=== PATIENT | female | born 1955 | race Caucasian/White ===

== ENCOUNTER 2022-05-12 09:32 | Outpatient (RCR) | payer MEDICARE, BC, SELFPAY ==
--- NOTE | 2022-06-16 15:16 | ONC.NURNOTE ---
Called pt and reviewed DEXA scan shows normal bone density.
== END 2022-11-08 23:59 | disposition home or self-care (01) ==
LOC: CCIC 09:32
PROVIDERS: PCP Family Medicine; Visit Provider Nurse Practitioner Family
DX: C50.911 Malignant neoplasm of unspecified site of right female breast (principal); C50.912 Malignant neoplasm of unspecified site of left female breast; Z17.0 Estrogen receptor positive status [ER+]; M25.50 Pain in unspecified joint; Z79.811 Long term (current) use of aromatase inhibitors
CPT/HCPCS: 99212; 99214

== ENCOUNTER 2022-05-26 14:55 | Outpatient (CLI) | payer MEDICARE, BC, SELFPAY ==
--- NOTE | 2022-05-26 15:00 | CRLHL7_ITS ---
For Patients: As a result of the Century Cures Act, medical imaging exams and procedure reports are released immediately into your electronic medical record. You may view this report before your referring provider. If you have questions, please contact your health care provider. DXA BONE MINERAL DENSITY STUDY Reason for exam: Screening. History of cancer. Current height (in): 66. Weight (lb): 180. Menopause age: 54. Ethnicity: White. 1. Have you had a previous hip or vertebral fracture? No. 2. Have you had any fractures during your adult life which did not result from significant trauma (e.g., auto accident)? No. 3. Did either of your parents have a hip fracture? No. 4. Do you smoke? No. 5. Have you ever taken Glucocorticoids? No. 6. Do you have rheumatoid arthritis? No. 7. Do you have secondary osteoporosis? No. 8. Do you drink 3 or more alcoholic drinks per day? No. 9. Are you being treated for osteoporosis? No. 10. Have you ever taken any of the following medications: Actonel, Evista, Fosamax, Miacalcin, Reclast, Boniva, Forteo, HRT (i.e. estrogen/hormone therapy), Protelos, Prolia, Vitamin D, Calcium, other ??? please specify. ANSWER: Yes, vitamin D, HRT, and calcium. 11. Do you have any of the following medical conditions: Anorexia or bulimia, asthma or emphysema, end stage renal disease, hyperparathyroidism, any seizure disorders, cancer, inflammatory bowel diseases, hysterectomy, other ??? please specify. ANSWER: Yes, cancer and hysterectomy. 12. What was your maximum height (inches)? 66. 13. Do you perform weight bearing exercise regularly? No. 14. Do you regularly consume dairy products? No. 15. Do you drink caffeinated beverages? Yes. If female: 16. At what age did your period start? 11. 17. Are you premenopausal? No. 18. How many full-term pregnancies have you had? 2. 19. Have you ever missed your period for more than 6 months in a row (not including or menopause)? No. TECHNIQUE: Bone mineral density study was performed using the [employer]. FINDINGS: The results of the study expressed as bone mineral density (BMD) are as follows: Lumbar spine L1 to L4: BMD: 0.950 g/cm2. T-score: -0.9. Z-score: 1.1 Neck Left: BMD: 0.829 g/cm2. T-score: -0.2. Z-score: 1.5 Right: BMD: 0.876 g/cm2. T-score: 0.2. Z-score: 1.9 Total Left: BMD: 1.008 g/cm2. T-score: 0.5. Z-score: 1.9 Right: BMD: 1.005 g/cm2. T-score: 0.5. Z-score: 1.9 IMPRESSION: Normal bone density. *Comparison exams done prior to 12/2019 were performed on different unit, [employer]. COMPARISON: Compared with scan of 04/15/2020, the bone mineral density has decreased by 1.0 percent at the spine and decreased by 1.4 percent at the hip. Compared with scan of 04/09/2018, the bone mineral density has decreased by 6.6 percent at the spine and decreased by 1.3 percent at the hip. Keny Cox M.D. Diagnostic Radiologist [email or web address] JUAN DIEGO/alejandro allen/Dictated by: Keny Cox MD @ 05/27/2022 7:57:00 AM (Electronically Signed)
== END 2022-05-26 14:56 | disposition home or self-care (01) ==
LOC: RAD 14:55
PROVIDERS: PCP Family Medicine; Visit Provider Nurse Practitioner Family
DX: Z13.820 Encounter for screening for osteoporosis (principal); C50.919 Malignant neoplasm of unspecified site of unspecified female breast; Z79.811 Long term (current) use of aromatase inhibitors
CPT/HCPCS: 77080

== ENCOUNTER 2022-11-24 10:08 | Outpatient (RCR) | payer MEDICARE, BC, SELFPAY ==
[2022-11-24 10:50] LABS: Albumin* 4.5 g/dL (3.3-5.0); Chloride* 102 mmol/L (96-114)
[2022-11-24 10:51] LABS: Potassium* 3.8 mmol/L (3.6-5.1); Sodium* 139 mmol/L (135-149)
[2022-11-24 10:53] LABS: Alkaline Phosphatase* 70 U/L (40-150); Aspartate Amino Transferase* 29 U/L (12-35); Blood Urea Nitrogen* 15 mg/dL (7-30); Carbon Dioxide* 31 mmol/L (20-32); Creatinine* 0.9 mg/dL (0.5-1.5); Estimated Glomerular Filt Rate 70 ml/min; Total Protein* 7.7 g/dL (6.0-8.3)
[2022-11-24 10:54] LABS: Alanine Aminotransferase* 31 U/L (4-35); Calcium* 9.2 mg/dL (8.4-10.6); Glucose* 118 mg/dL (60-115)
== END 2023-05-23 23:59 | disposition home or self-care (01) ==
LOC: CCIC 10:08
PROVIDERS: Nurse Practitioner Family; PCP Family Medicine; Visit Provider Physician Assistant
DX: C50.911 Malignant neoplasm of unspecified site of right female breast (principal); C50.912 Malignant neoplasm of unspecified site of left female breast; Z17.0 Estrogen receptor positive status [ER+]; Z79.811 Long term (current) use of aromatase inhibitors; R22.30 Localized swelling, mass and lump, unspecified upper limb; G62.0 Drug-induced polyneuropathy; T45.1X5A Adverse effect of antineoplastic and immunosuppressive drugs, initial encounter; Z90.13 Acquired absence of bilateral breasts and nipples
CPT/HCPCS: 36415; 80053; 99213; 99214

== ENCOUNTER 2023-05-25 14:13 | Outpatient (RCR) | payer MEDICARE, BC, SELFPAY ==
--- NOTE | 2023-05-26 07:52 | ONC.NURNOTE ---
General surgery referral faxed to [facility]. Cancer genetics request faxed to Bharti Currie.
--- NOTE | 2023-06-30 10:49 | ONC.NURNOTE ---
Addendum entered by Olimpia Velazquez RN 07/11/23 10:31: Gabapentin prescription did not submit electronically successfully. Faxed script to fax # pt supplied: [phone]; went through successfully. Updated pt; she will call if pharmacy did not receive. Original Note: Pt called requesting Gabapentin refill as she has half bottle left. Note on Trang's desk for when next in office to submit to [facility] on file.
== END 2023-11-21 23:59 | disposition home or self-care (01) ==
LOC: CCIC 14:13
PROVIDERS: PCP Family Medicine; Visit Provider Physician Assistant
DX: C50.911 Malignant neoplasm of unspecified site of right female breast (principal); C50.912 Malignant neoplasm of unspecified site of left female breast; Z17.0 Estrogen receptor positive status [ER+]; Z79.811 Long term (current) use of aromatase inhibitors; G62.0 Drug-induced polyneuropathy; T45.1X5A Adverse effect of antineoplastic and immunosuppressive drugs, initial encounter; N61.0 Mastitis without abscess
CPT/HCPCS: 99212; 99215

== ENCOUNTER 2023-11-07 07:58 | Outpatient (CLI) | payer MEDICARE, BC, SELFPAY ==
--- NOTE | 2023-11-07 08:15 | MR_ITS ---
Patient: JASBIR REN Facility:?[facility] Patient ID:?[id number] Site Patient ID:?[id number]. Site :?[id number] Study:?MRI-Spine Lumbar W/O-11/07/2023 10:15:48 AM Ordering Physician:?VENKAT JEWELL Final Report: Indication: T12 compression fracture. Pain. Technique: T2, T1, and STIR sagittal as well as T1 and T2 axial sequences were obtained. No IV contrast. Comparison: None available. Findings: There is mild anterior wedging along the inferior endplate of the T12 vertebral body, accompanied by a small marginal Schmorl`s node endplate indentation. Prominent marrow edema is seen in the anteroinferior aspect of this vertebral body, indicating a recent or active insult. No additional evidence for fracture or worrisome bone lesion. Alignment is anatomic. No high grade central canal stenosis. No intraspinal hemorrhage. The conus and cauda equina are unremarkable, with the tip of the cord at the L1 level. No paraspinal pathology is identified. The included sacroiliac joints are unremarkable. T12-L1: Minor disc and facet degenerative changes. The foramina are patent. L1-2: Minor facet degenerative changes. The disc is negative. The foramina are patent. L2-3: Minor disc and facet degenerative changes. The foramina are patent. L3-4: Minor disc and facet degenerative changes. The foramina are patent. L4-5: Minor disc and facet degenerative changes. The foramina are patent. L5-S1: Minor disc and facet degenerative changes with low-grade foraminal narrowing. Impression: 1. Mild anterior wedging along the inferior endplate of the T12 vertebral body. This is active/acute. No associated intraspinal or paraspinal hemorrhage. 2. No additional evidence for recent fracture. 3. Scattered trace lumbar spondylosis. Dictated by Mark John MD @ 11/07/2023 2:13:14 PM Signed by:?Mark John MD @11/07/2023 2:13:14 PM (Electronic Signature)
== END 2023-11-07 07:59 | disposition home or self-care (01) ==
LOC: MRI 07:59
PROVIDERS: PCP Family Medicine; Visit Provider Family Medicine
DX: S22.080A Wedge compression fracture of T11-T12 vertebra, initial encounter for closed fracture (principal); M47.896 Other spondylosis, lumbar region
CPT/HCPCS: 72148

== ENCOUNTER 2023-11-28 10:39 | Outpatient (CLI) | payer MEDICARE, BC, SELFPAY ==
--- OUTSIDE RECORDS SUMMARY | 2023-11-28 10:41 | XMS_ITS | Clinical Summary ---
Author Name Unknown Organization [facility] Address [address] [place] [address] Care Team Providers Care Intelligence Operations Name Role Phone Elsewhere, Pcp Primary Care Provider Unavailabl e Source Comments Patient records contain information from all sites at [facility]. For routine questions regarding patient records, call [phone] during business hours, M-F 8:00 AM - 5:00 PM Central Time. Record requests for emergency care only can be directed to [phone] at any time.[facility] Allergies Active Allergy Reactions Criticality Noted Date Comments Acetylcysteine Itching Low 11/10/2017 [employer]. Pt states, it was given too fast. When it was slowed it was fine. Cephalexin Diarrhea 01/25/2019 Gluten Other (see comments) Low 11/10/2017 Celiac Medications Medication Sig Dispensed Refills Start Date End Date Status wjbesmb-mwjocxozk-yjj taminophen (MIDRIN) 65-100-325 mg per capsule Take 1 capsule by mouth. 04/11/2017 Active amitriptyline (ELAVIL) 75 mg tablet Take 75 mg by mouth at bedtime. 10/28/2016 Active amLODIPine (NORVASC) 5 mg tablet Take 5 mg by mouth daily. 09/07/2017 Active cholecalciferol (VITAMIN D3) 2,000 Unit capsule Take 2,000 Units by mouth daily. 07/08/2011 Active citalopram (CeleXA) 40 mg tablet Take 20 mg by mouth every morning. 10/28/2016 Active miscellaneous medical supply misc autoCPAP, heated humidifier, mask, headgear, filters and tubing. Pressure: 4-15cm/H2O Length of Need: 99 02/21/2013 Active lisinopril-hydroCHLOR Othiazide (PRINZIDE,ZESTORETIC) 20-25 mg per tablet Take 1 tablet by mouth daily. 10/28/2016 Active LORazepam (ATIVAN) 0.5 mg tablet Take 0.5 mg by mouth as needed. 09/07/2017 Active pravastatin (PRAVACHOL) 80 mg tablet Take 80 mg by mouth daily. 10/28/2016 Active bevacizumab (AVASTIN) 25 mg/mL injection Inject 25 mg into the eye every 8 (eight) weeks. Active butalbital-acetaminop -caf-cod (FIORICET WITH CODEINE) 27-294-85-30 mg per capsule daily as needed. headaches 02/16/2018 Active letrozole (FEMARA) 2.5 mg tablet Take 2.5 mg by mouth daily. 11 03/29/2018 Active acetaminophen (TYLENOL) 325 mg tablet Take 650 mg by mouth as needed. 04/24/2019 Active bisoprolol (ZEBETA) 5 mg tablet Take 2.5 mg by mouth. 11/04/2021 Active clobetasoL (TEMOVATE) 0.05 % cream APPLY TO AFFECTED AREA TWICE A DAY SPARINGLY 10/28/2020 Active exemestane (AROMASIN) 25 mg tablet Take 25 mg by mouth daily. 11/04/2021 Active gabapentin (NEURONTIN) 300 mg capsule One in the morning, one in the afternoon and 2 in the evening. 11/04/2021 Active ketoconazole (NIZORAL) 2 % shampoo Shampoo your hair 3 times per week for 1 month 03/25/2021 Active omeprazole (PriLOSEC) [address] capsule Take 20 mg by mouth. 01/09/2022 Active potassium chloride (KLOR-CON M/KDUR) 20 mEq ER tablet Take 20 mEq by mouth. 01/14/2022 Active triamcinolone (KENALOG) 0.1 % cream APPLY TO AFFECTED AREA BELOW BREASTS AND ARMS TWICE A DAY FOR 2 WEEKS AT A TIME , TAKE 2 WEEK BREAK AND REPEAT REPEAT NEEDED FOR FLARES 07/09/2021 Active citalopram (CeleXA) 20 mg tablet Take 1 tablet by mouth daily. 11/04/2021 Active calcium carbonate-vitamin D3 1,250 mg (500 mg calcium)-10 mcg (400 Unit) per chewable tablet Chew 1 tablet 2 (two) times a day with meals. Active zinc gluconate 50 mg tablet Take 50 mg by mouth daily with breakfast. Active UNABLE TO FIND Take 1 each by mouth daily. Med Name: Tumeric 500mg Active Active Problems Problem Noted Date Diagnosed Date Pneumonitis Radiation Acute 06/26/2018 Malignant Neoplasm Of Breast Central Female Left 01/12/2018 Cancer Staging:Pathologic stage from 06/14/2017:Stage IB(pT3, pN0(sn), cM0, G2, ER+, MA+, HER2-) - Signed by Jeet Costello M.D. 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 on 01/12/2018 Encounters Date Type Department Care Team Description 09/11/2023 Orders Only Division of Gastroenterology in [place], [place] [address] [place] [address] Artemio Argueta M.D. Genetic Susceptibility To Disease from Last 3 Months Immunizations Name Administration Dates Next Due DTaP (Infanrix, [employer]) 10/28/2005 Influenza, Unspecified 07/04/2008 Social History Tobacco Use Types Packs/Day Years Used Date Smoking Tobacco: Former Cigarettes 0.2 26.8 0 08/01/1977 - 2004 Smokeless Tobacco: Never Tobacco Cessation:Counseling Given: Not Answered Humiliation, Afraid, Rape, and Kick questionnair e Answer Date Recorded Within the last year, have y ou been afraid of your partner or ex-partner? No 04/01/2022 Within the last year, have y ou been humiliated or emotionally abused in other ways by your partner or ex-partner? No Within the last year, have y ou been kicked, hit, slapped, or otherwise physically hurt by your partner or ex-partner? No 04/01/2022 Within the last year, have y ou been raped or forced to have any kind of sexual activity by your partner or ex-partner? No 04/01/2022 Social Connection and Isolat ion Panel [NHANES] Answer Date Recorded In a typical week, how many times do you talk on the phone with family, friends, or neighbors? More than three times a week 04/01/2022 How often do you get togethe r with friends or relatives? Twice a week 04/01/2022 How often do you attend chur ch or restoration services? Patient declined 04/01/2022 Do you belong to any clubs o r organizations such as islam groups, unions, fraternal or athletic groups, or school groups? Yes 04/01/2022 How often do you attend meet ings of the clubs or organizations you belong to? Patient declined 04/01/2022 Are you , , di vorced, , never , or living with a partner? 04/01/2022 AUDIT-C Answer Date Recorded Q1: How often do you have a drink containing alc ohol? 2-3 times a week 04/01/2022 Q2: How many drinks containi ng alcohol do you have on a typical day when you are drinking? 3 or 4 04/01/2022 Q3: How often do you have si x or more drinks on one occasion? Less than monthly 04/01/2022 Overall Financial Resource Strain (CARDIA) Answe r Date Recorded How hard is it for you to pa y for the very basics like food, housing, medical care, and heating? Not hard at all 04/01/2022 [facility] - Occupational Stress Questionnaire Answer Date Recorded Do you feel stress - tense, restless, nervous, or anxious, or unable to sleep at night because your mind is troubled all the time - these days? To some extent 04/01/2022 Exercise Vital Sign Answer Date Recorde d On average, how many days pe r week do you engage in moderate to strenuous exercise (like a brisk walk)? 3 days 04/01/2022 On average, how many minutes do you engage in exercise at this level? 30 min 04/01/2022 Hunger Vital Sign Answer Date Recorded Within the past 12 months, y ou worried that your food would run out before you got the money to buy more. Never true 04/01/20 22 Within the past 12 months, t he food you bought just didn't last and you didn't have money to get more. Never true 04/01/2022 PRAPARE - Transportation Answer Date Re corded In the past 12 months, has l ack of transportation kept you from medical appointments or from getting medications? No 08/2021 In the past 12 months, has l ack of transportation kept you from meetings, work, or from getting things needed for daily living? No 04/01/2022 Housing Stability Vital Sign Answer Bret e Recorded In the last 12 months, was t here a time when you were not able to pay the mortgage or rent on time? No 04/01/2022 Number of Places Lived in the Last Year Not on f ile 04/01/2022 In the last 12 months, was t here a time when you did not have a steady place to sleep or slept in a fpc (including now)? No 04/01/2022 Nutrition Answer Date Recorded Nutrition: EVOO Fat Source No 04/01 On average, how many serving s of fruits and vegetables do you eat per day (serving size is equal to 1 cup or approximately the size of a tennis ball)? 2-3 04/01/2022 Dental Answer Date Recorded Dental: Regular Dentist Yes 04/01/20 Employment Answer Date Recorded Employment status Retired 04/01/2022 Education Answer Date Recorded What is the highest level of school you have completed or the highest degree you have received? Associate degree: occupational, technical, or vocational program 04/01/2022 Sex and Gender Information Value Date Recorded Sex Assigned at Female 01/12/2018 10:04 AM CDT Gender Identity Female 01/12/2018 10:04 AM CDT Sexual Orientation Straight 01/12/2018 10 :04 AM CDT Last Filed Vital Signs Vital Sign Reading Time Taken Comments Blood Pressure 104/66 04/05/2022 7:49 AM CDT Pulse 64 04/05/2022 7:49 AM CDT Temperature 36.3 ??C (97.3 ??F) 04/05/2022 7:49 AM CD T Respiratory Rate - - Oxygen Saturation 95% 04/05/2022 7:49 AM CDT Inhaled Oxygen Concentration - - Weight 85.3 kg (188 lb 0.8 oz) 04/05/2022 7:49 A M CDT Height 166.5 cm (5' 5.55) 04/05/2022 7:49 AM CD T Body Mass Index 30.77 04/05/2022 7:49 AM CDT Plan of Treatment Health Maintenance Due Date Last Done Comments Bone Density Scan (Osteoporo sis Screen) 1955 CT Colonography 1955 Cologuard 1955 FIT 1955 Hepatitis C Screening 1955 Mammogram 1955 Depression Screening (Annual PHQ-2) 07/31/2023 Fall Risk Screen (Annual) 07/31/2023 Creatinine Level (Kidney Fun ction Test) 10/30/2024 10/31/2023, 10/11/2022, 06/02/2022, Additional history exists Potassium Level 10/30/2024 10/31/2023, 09/28, 06/02/2022, Additional history exists Sodium Level 10/30/2024 10/31/2023, 09/28, 06/02/2022, Additional history exists DTaP,Tdap,and Td Vaccines (3 - Td or Tdap) 10/28/2026 10/28/2016, 10/28/2005, 10/28/2005 Fasting Glucose for Diabetes Screening 10/30/2026 10/31/2023, 10/11/2022, 06/02/2022, Additional history exists Colonoscopy 12/07/2030 12/07/2020 Colorectal Cancer Screening 12/07/2030 Zoster Vaccines Completed 04/16/2019, 01/28, 07/29/2013 Pneumococcal vaccine (65+ years) Completed 12/30/19, 10/21/2019 Influenza Vaccine Completed 07/13/2023, , 03/26/2021, Additional history exists COVID-19 Vaccine Completed 11/02/2023, , 06/14/2022, Additional history exists Procedures Procedure Name Priority Date/Time Associated Diagnosis Comments EXTI BASIC METABOLIC PANEL, S/P Routine 10/31/2023 9:26 AM CDT from Last 3 Months or Most Recently Relevant to Health Maintenance Additional Health Concerns Infection Onset Date Last Indicated Protective Environment 06/23/2023 3 Care Teams Intelligence Operations Relationship Specialty Start Date End Date Elsewhere, Pcp PCP - General Family Medicine 01/12/18
--- OUTSIDE RECORDS SUMMARY | 2023-11-28 10:42 | XMS_ITS | Clinical Summary ---
Author Name Unknown Organization [facility] Address [place], [place] [address] Care Team Providers Care Cash Application Clerk Name Role Phone Milena Trevino MD Primary Care Provide r Allergies Active Allergy Reactions Criticality Noted Date Comments Gluten GI Upset 11/10/2017 Celiac Cephalexin Diarrhea 01/25/2019 Acetylcysteine Itching 11/10/2017 Via neb. Pt states, it was given too fast. When it was slowed it was fine. Medications Medication Sig Dispensed Refills Start Date End Date Status bevacizumab (AVASTIN) 25 mg/mL injection Q8week Active CPAPIndications:NANCY (obstructive sleep apnea) CPAP machine for home use at pressure: 13cm/H2O , Heated humidifier x 1 q 5 yr, Water chamber x 1 q 6 mo, chin strap x 1 q 6 mo, nasal mask x 1 q 3 mo, with nasal cushion x 2 q mo, Standard pap tubing x 1 q 3 mo, headgear x 1 q 6 mo, non disposable filter 1 q 6 mo, disposable filter x 2 q mo ??Length of Need: 6 months, Frequency of use: Daily 0 1 Active gabapentin (NEURONTIN) 300 mg capsuleIndications: Primary cancer of left breast (HC) One in the morning, one in the afternoon and 2 in the evening. 270 Capsule 1 2 Active zinc gluconate 50 mg tablet Take 50 mg by mouth once daily. Active Calcium-Cholecalcif lacy, D3, 500 mg-10 mcg (400 unit) chewable tablet Chew 1 Tablet by mouth once daily. Active acetaminophen (TYLENOL EXTRA STRGTH) 500 mg tablet Take 1,000 mg by mouth 2 times daily if needed. Max acetaminophen dose: 4000mg in 24 hrs. Active letrozole (FEMARA) 2.5 mg tablet Take 2.5 mg by mouth once daily. 3 Active SUMAtriptan (IMITREX) 25 mg tabletIndications:M igraine without aura and without status migrainosus, not intractable Take 1 Tablet (25 mg) by mouth every 2 hours if needed for Migraine. Give at minimum 2hrs apart. Max Dose: 200mg per 24hrs. 10 Tablet 3 3 Active LORazepam (ATIVAN) 0.5 mg tabIndications:Mild depression,Primary cancer of left breast (HC) TAKE 1 TABLET 2 TIMES DAILY IF NEEDED FOR ANXIETY. 30 Tablet 3 Active DULoxetine (CYMBALTA) 30 mg Delayed-release capsuleIndications: Mild depression Take 1 Capsule (30 mg) by mouth once daily. 90 Capsule 3 4 Active pravastatin (PRAVACHOL) 80 mg tabletIndications:H yperlipidemia, unspecified hyperlipidemia type Take 1 Tablet (80 mg) by mouth at bedtime. 90 Tablet 3 4 Active metoprolol succinate (TOPROL XL) 25 mg Sustained-Release tabletIndications:E ssential hypertension Take 1 Tablet (25 mg) by mouth once daily. 90 Tablet 3 4 Active potassium chloride (KLOR-CON M20) 20 mEq extended-release tablet (part/cryst)Indicat ions:Essential hypertension Take 1 Tablet (20 mEq) by mouth once daily with a meal. 90 Tablet 3 4 Active amitriptyline (ELAVIL) 75 mg tabletIndications:E pisodic tension-type headache, not intractable Take 1 Tablet (75 mg) by mouth at bedtime. 90 Tablet 3 4 Active omeprazole (PRILOSEC) 20 mg Delayed-Release capsuleIndications: Chronic GERD Take 1 Capsule (20 mg) by mouth once daily before a meal. 90 Capsule 3 4 Active lisinopril-hydrochl orothiazide, 20-25 mg, (PRINZIDE, ZESTORETIC) 20-25 mg per tabletIndications:E ssential hypertension Take 1 Tablet by mouth once daily. 90 Tablet 3 4 Active ayabojm-ybmhazxy-eh talbital, 325-40-50 mg, (FIORINAL) tabletIndications:M igraine without aura and without status migrainosus, not intractable Take 1 Tablet by mouth every 4 hours if needed for Pain. Max 6 tabs per day. 30 Tablet 1 4 Active amLODIPine (NORVASC) 5 mg tabletIndications:E ssential hypertension Take 1 Tablet (5 mg) by mouth once daily in the evening. 90 Tablet 3 4 Active azithromycin (Zithromax Z-Nahid) 250 mg tabletIndications:B ronchitis Take 500 mg today and then 250 mg days 2-5 6 Tablet 4 Active calcitonin salmon, 200 units per actuation, nasal (MIACALCIN, FORTICAL) 200 unit/actuation nasal sprayIndications:Co mpression fracture of T12 vertebra with delayed healing, subsequent encounter Inhale 1 [place] into affected nostril(s) once daily. Alternating nostrils daily. 3.7 mL 4 Active amLODIPine (NORVASC) 5 mg tabletIndications:H TN (hypertension) Take 1 Tablet (5 mg) by mouth once daily. 90 Tablet 3 2 11/02/19 24 Discontinue d(Reorder (E-cancel not sent)) ipratropium (Atrovent HFA) 17 mcg/actuation inhalerIndications: SOB (shortness of breath),Radiation pneumonitis (HC),H/O breast reconstruction Inhale 2 Puffs by mouth 4 times daily if needed for Shortness Of Breath. 1 Each 3 2 11/02/19 24 Discontinue d(*Patient states no longer taking) butalbitaL-acetamin op-caf-cod (Fioricet with Codeine) 55-733-51-30 mg capIndications:Caps ular contracture of breast implant, subsequent encounter Take 1 Capsule by mouth every 6 hours if needed (mirgraine). 60 Capsule 3 11/02/19 24 Discontinue d(Other - add note to specify (E-cancel not sent)) citalopram (CELEXA) 20 mg tabletIndications:M ild depression TAKE 1 TABLET ONE TIME DAILY 90 Tablet 1 3 11/02/19 24 Discontinue d(Reorder (E-cancel not sent)) xpadcog-wtnwbxhl-kt talbital, 325-40-50 mg, (FIORINAL) tabletIndications:M igraine without aura and without status migrainosus, not intractable Take 1 Tablet by mouth every 4 hours if needed for Pain. Max 6 tabs per day. 30 Tablet 1 3 11/02/19 24 Discontinue d(Reorder (E-cancel not sent)) amitriptyline (ELAVIL) 75 mg tabletIndications:E pisodic tension-type headache, not intractable TAKE 1 TABLET AT BEDTIME 90 Tablet 2 3 11/02/19 24 Discontinue d(Reorder (E-cancel not sent)) omeprazole (PRILOSEC) 20 mg Delayed-Release capsuleIndications: Chronic GERD TAKE 1 CAPSULE (20 MG) BY MOUTH ONCE DAILY BEFORE A MEAL. 90 Capsule 2 3 11/02/19 24 Discontinue d(Reorder (E-cancel not sent)) lisinopril-hydrochl orothiazide, 20-25 mg, (PRINZIDE, ZESTORETIC) 20-25 mg per tabletIndications:E ssential hypertension TAKE 1 TABLET EVERY DAY 90 Tablet 3 11/02/19 24 Discontinue d(Reorder (E-cancel not sent)) rosuvastatin (CRESTOR) 40 mg tabletIndications:H yperlipidemia, unspecified hyperlipidemia type Take 1 Tablet (40 mg) by mouth at bedtime. 90 Tablet 3 3 11/02/19 24 Discontinue d(*Med complete/Re gimen complete/Le penny of care change) metoprolol succinate (TOPROL XL) 25 mg Sustained-Release tabletIndications:E ssential hypertension Take 1 Tablet (25 mg) by mouth once daily. 90 Tablet 3 3 11/02/19 24 Discontinue d(Reorder (E-cancel not sent)) potassium chloride (KLOR-CON M20) 20 mEq extended-release tablet (part/cryst)Indicat ions:Essential hypertension TAKE 1 TABLET ONE TIME DAILY WITH A MEAL 90 Tablet 3 11/02/19 24 Discontinue d(Reorder (E-cancel not sent)) amLODIPine (NORVASC) 5 mg tablet Take 1 Tablet (5 mg) by mouth once daily in the evening. 90 Tablet 3 4 11/02/19 24 Discontinue d(Reorder (E-cancel not sent)) citalopram (CELEXA) 20 mg tabletIndications:M ild depression Take 1 Tablet (20 mg) by mouth every morning. 90 Tablet 3 4 11/02/19 24 Discontinue d(*Medicati on adjustment) giorzlo-ejtenwcx-gp talbital, 325-40-50 mg, (FIORINAL) tabletIndications:M igraine without aura and without status migrainosus, not intractable Take 1 Tablet by mouth every 4 hours if needed for Pain. Max 6 tabs per day. 30 Tablet 1 4 11/02/19 24 Discontinue d(Reorder (E-cancel not sent)) lisinopril-hydrochl orothiazide, 20-25 mg, (PRINZIDE, ZESTORETIC) 20-25 mg per tabletIndications:E ssential hypertension Take 1 Tablet by mouth once daily. 90 Tablet 3 4 11/02/19 24 Discontinue d(Reorder (E-cancel not sent)) omeprazole (PRILOSEC) 20 mg Delayed-Release capsuleIndications: Chronic GERD Take 1 Capsule (20 mg) by mouth once daily before a meal. 90 Capsule 3 4 11/02/19 24 Discontinue d(Reorder (E-cancel not sent)) amitriptyline (ELAVIL) 75 mg tabletIndications:E pisodic tension-type headache, not intractable Take 1 Tablet (75 mg) by mouth at bedtime. 90 Tablet 3 4 11/02/19 24 Discontinue d(Reorder (E-cancel not sent)) potassium chloride (KLOR-CON M20) 20 mEq extended-release tablet (part/cryst)Indicat ions:Essential hypertension Take 1 Tablet (20 mEq) by mouth once daily with a meal. 90 Tablet 3 4 11/02/19 24 Discontinue d(Reorder (E-cancel not sent)) metoprolol succinate (TOPROL XL) 25 mg Sustained-Release tablet Take 1 Tablet (25 mg) by mouth once daily. 90 Tablet 3 4 11/02/19 24 Discontinue d(Reorder (E-cancel not sent)) budesonide-formoter oL (SYMBICORT) 160-4.5 mcg/actuation (160-4.5 mcg each actuation) inhalerIndications: SOB (shortness of breath) Inhale 2 Puffs by mouth once daily. 10.2 g 4 11/02/19 24 Discontinue d(Reorder (E-cancel not sent)) budesonide-formoter oL (SYMBICORT) 160-4.5 mcg/actuation (160-4.5 mcg each actuation) inhalerIndications: SOB (shortness of breath) Inhale 2 Puffs by mouth once daily. 10.2 g 4 11/02/19 24 Discontinue d(*Medicati on adjustment) predniSONE (DELTASONE) 10 mg tabletIndications:P ost-viral reactive airway disease Take 3 Tablets (30 mg) by mouth once daily with a meal for 2 days, THEN 2 Tablets (20 mg) once daily with a meal for 2 days, THEN 1 Tablet (10 mg) once daily with a meal for 2 days. 12 Tablet 4 11/20/19 24 Active Problems Problem Noted Date Diagnosed Date Major depressive disorder, single episode, mild 12/29/2022 Capsular contracture of breast implant 2 Left arm pain 06/07/2022 Neuropathy 06/07/2022 Anxiety 06/07/2022 Chronic obstructive pulmonar y disease, unspecified COPD type 01/04/2022 SOB (shortness of breath) 05/26/2021 Ascending aorta dilatation 05/26/2021 Overview: 4.2 cm 2020 Displacement of breast implant 04/24/2019 Wound dehiscence, surgical, initial encounter Acquired absence of both breasts 01/01/2019 Malignant neoplasm of central portion of female breast 01/12/2018 Malignant neoplasm of upper-outer quadrant of fe male breast 01/12/2018 Primary cancer of left breast 05/19/2017 Adenomatous colon polyp 07/14/2015 Overview: Colonoscopy 06/2015 polyps repeat in 5 years Colonoscopy 11/2020 1 polyp, repeat in 7 years NANCY 02/07/2013 AHI-10 04/02/2015 Vitamin D deficiency 08/18/2009 Mild depression 07/04/2008 Celiac disease 09/07/2007 Overview: EGD 06/2015 celiac disease Other and unspecified hyperlipidemia 09/07/2007 Unspecified essential hypertension 09/07/2007 Resolved Problems Problem Noted Date Diagnosed Date Resolved Date Acute radiation pneumonitis 06/26/2018 01/14/2020 NANCY 02/07/2013 AHI-10 02/14/2013 015 Pain in joint, shoulder region 09/07/2007 09/07/2007 Encounters Date Type Department Care Team Description 11/16/2023 Orders Only [facility] Staff, Other Clinical 1 scan: (1-Ord) [facility] and [facility] 11/09/2023 Orders Only [facility] Scanner 1 scan: (1-Ord) OR LUNG and SLEEP INST, SPIROMETRY, 11/09/2023 11/07/2023 Orders Only [facility] Scanner 1 scan: (1-Ord) [facility], MR LUMBAR SPINE WO CON, 11/07/2023 11/02/2023 11:00 AM CDT Ancillary Procedure [facility] [address] [place] [id number] 11/02/2023 8:40 AM CDT Office Visit [facility] [address] [place] [address] Milena Trevino MD Medication Management (Refills needed /Questions on rosuvastatin ); Back Pain (Feels it may be due to the Rosuvastatin ) 11/02/2023 Telephone [facility] [address] [facility] [address] Milena Trevino MD Results; Referral 11/02/2023 Travel 10/31/2023 9:30 AM CDT Orders Only [facility] [address] [place] [address] Lab, [facility] 10/31/2023 Travel 10/10/2023 Telephone [facility] [address] [place] [address] [facility] from Last 3 Months Immunizations Name Administration Dates Next Due COVID-19 Vaccine Spikevax (M oderna 50mcg/0.5mL) 12YO+ 4549-5399 Formula PF 11/02/2023 COVID-19 vaccine (Pfizer-Bio NTech 30mcg/0.3mL) 12YO+ BIVALENT PF, MDV 06/14/2022 COVID-19 vaccine (Pfizer-Bio NTech 30mcg/0.3mL) 12YO+ DAVY-SUCROSE PF, MDV 01/04/2022 COVID-19 vaccine (Pfizer-Bio NTech 30mcg/0.3mL) PF, MDV 03/25/2021 DTaP 10/28/2005 Influenza A (H1N1), Inactiva avril (Age >=3 Years) 07/02/2009 Influenza Virus, Unspecified 05/02/2017, 07/16/2010,07/06/2009,07/04 Influenza, High-dose Quadriv alent Inactivated 03/26/2021 Influenza, IIV3 (Age 6-35 mos) 07/16/2010 Influenza, IIV3 (Age >=3 years) 05/01/20 17,07/12/2013,07/13/2012,07/04 Influenza, IIV4 05/14/2018, 7,05/12/2015,07/15 Influenza, IIV4 (=>6mos) MDV 04/09/2019 Influenza, Inactivated AIIV4 (Age 65+ Years) Preserv Free 07/13/2023,06/14/2022,04/23/2020 Pneumococcal Conj 20-valent (Prevnar 20) 12/29/2022 Pneumococcal Poly,23-Valent (Pneumovax) 10/21/2019 RSV, Recombinant ADJ Reconst ituted (Arexvy 120MCG/0.5mL) 06/29/2023 Tdap 10/28/2016,10/28/2005 Zoster (Shingrix-RZV, recombinant) 04/16/2019, Zoster (Zostavax-ZVL, live) 07/29/2013 Family History Medical History Relation Name Comments Alcoholism Brother Bipolar disorder Brother No Known Problems Daughter Diabetes Father Heart Disease Father Bypass age 55 Other Mother celiac sprue Clotting disorder Other Cancer Sister Lung, breast ag e 63 Cancer-breast Sister recurrent at 6 8 in lung No Known Problems Son Anesthesia Problem No Family History Blood Disease No Family History Cancer-colon No Family History Cancer-ovarian No Family History Cancer-prostate No Family History Relation Name Status Comments Brother Alive Daughter Alive Father Mother Alive Other Sister Alive Son Alive Social History Tobacco Use Types Packs/Day Years Used Date Smoking Tobacco: Former Cigarettes Q uit: 07/31/2003 Smokeless Tobacco: Never Tobacco Cessation:Counseling Given: Yes Alcohol Use Standard Drinks/Week Comments Yes 4 (1 standard drink = 0.6 oz pur e alcohol) 4 standard drinks per week PHQ-2 Answer Date Recorded PHQ-2 TOTAL SCORE 1 12/29/2022 Social Connections Answer Date Recorded Frequency of Communication with Friends and Fami ly 0 11/02/2023 Financial Resource Strain Answer Date R ecorded Difficulty of Paying Living Expenses 3 11/02/2023 Difficulty of Paying Living Expenses Not on file 11/02/2023 Food Insecurity Answer Date Recorded Worried About Running Out of Food in the Last Ye ar 1 11/02/2023 Transportation Needs Answer Date Record ed Lack of Transportation (Medical) 1 11/02/2023 Housing Stability Answer Date Recorded Unable to Pay for Housing in the Last Year 1 11/02/2023 Sex and Gender Information Value Date Recorded Sex Assigned at Not on file Gender Identity Not on file Sexual Orientation Not on file Obstetrics History Para Term AB IAB SAB Ectopic Multiple Livin g Live Births 2 2 2 2 Date Outcome GA Total Labor Labor/2nd/3rd Weight Sex Delivery Anes PTL Rhonda A1 A5 Name Cl in Term Term Last Filed Vital Signs Vital Sign Reading Time Taken Comments Blood Pressure 122/80 11/02/2023 8:58 AM CDT Pulse 72 11/02/2023 8:58 AM CDT Temperature 37.2 ??C (98.9 ??F) 06/08/2022 7:58 AM CS T Respiratory Rate 14 06/15/2022 2:52 PM PROJECT DEVELOPMENT COORDINATOR Oxygen Saturation 92% 11/02/2023 8:58 AM CDT Inhaled Oxygen Concentration - - Weight 86.9 kg (191 lb 9.6 oz) 11/02/2023 8:58 A M CDT Height 167.6 cm (5' 6) 06/26/2023 10:55 AM PROJECT DEVELOPMENT COORDINATOR Body Mass Index 30.93 06/26/2023 10:55 AM PROJECT DEVELOPMENT COORDINATOR Plan of Treatment Health Maintenance Due Date Last Done Comments COVID-19 vaccine series ( season) 2023 11/02/2023, 06/29/2023, 06/14/2022, Additional history exists Depression screening for age 12+ 12/30/2023 12/29/2022, 03/08/2022, 03/25/2021, Additional history exists Medicare Wellness for age 65+ 12/30/2023 12/29/2022, 03/25/2021 Influenza for age 65+ 03/31/2024 07/13/2023 , 06/14/2022, 03/26/2021, Additional history exists BMI (ht and wt on same day) for age 18+ 06/26/2024 06/26/2023, 10/11/2022, 07/07/2022, Additional history exists Tetanus booster 10/28/2026 10/28/2016, 09/30, 10/28/2005 (Completed outside of [facility]) Colonoscopy through age 75 12/08/202712/07, 12/07/2020, 07/13/2015, Additional history exists Lipids for age 45-75 10/30/2028 10/31/2023, 06/02/2022, 03/24/2021, Additional history exists Tdap Completed 10/28/2016, 10/28/2005 Zoster (shingles) series for age 50+ Completed 04/16/2019, 02/11/2019, 07/29/2013 Hepatitis C screening for ag e 18-79 Completed 04/22/2019 DEXA/DXA scan for age 65+ Completed 2021, 04/15/2020, 04/09/2018, Additional history exists Pneumococcal series for age 65+ Completed , 10/21/2019 Medical Devices Implanted Type Area Sub Plant Manager Device Identifier Shelf Expiration Date Model / Serial / Lot [id number] 4breast 500cc Memorygel Rnd High Smooth Silcn Implanted:Qty: 1 on 01/01/2019 by Britton Parnell MD at [facility] Explanted:at [facility] (Quantity not on file) Left: Breast [employer] 10/18/2022 [id number] # / [id number] / [id number] 2breast 500cc Memorygel Rnd High Smooth Silcn Implanted:Qty: 1 on 01/01/2019 by Britton Parnell MD at [facility] Explanted:at [facility] (Quantity not on file) Right: Breast [employer] 01/21/2023 [id number] # / [id number] / [id number] 2breast 500cc Memorygel Rnd High Smooth Silcn Implanted:Qty: 1 on 01/25/2019 by Britton Parnell MD at [facility] Explanted:at [facility] (Quantity not on file) Left: Breast [employer] 07/03/2023 [id number] # / [id number] / [id number] Breast 550cc Memorygel Rnd High Smooth Silcn - [id number] Implanted:Qty: 1 on 06/07/2022 by Britton Parnell MD at [facility] Explanted:at [facility] (Quantity not on file) Left: Breast [employer] [id number] / [id number] Procedures Procedure Name Priority Date/Time Associated Diagnosis Comments SCAN CORRESP-DIAGNOSTICS 11/16/2023 11:01 AM CDT SCAN-PULMONARY FUNCTION TEST 11/09/2023 12:00 AM CDT SCAN-MRI INTERPRETATION 11/07/2023 12:00 AM CDT XR SPINE LUMBAR 3 VIEWS Routine 11/02/2023 10:55 AM CDT Primary cancer of left breast (HC) Acute midline low back pain without sciatica CBC WITH AUTO DIFFERENTIAL Routine 10/31/2023 9:26 AM CDT Celiac disease CK TOTAL Routine 10/31/2023 9:26 AM CDT Other hyperlipidemia SEDIMENTATION RATE Routine 10/31/2023 9: 26 AM CDT Back pain without radiation CBC WITH AUTO DIFFERENTIAL Routine 10/31/2023 9:26 AM CDT Celiac disease BASIC METABOLIC PANEL Routine 10/31/2023 9:26 AM CDT Essential hypertension LIPID PANEL W REFLEX MEASURED LDL Routine 10/31/2023 9:26 AM CDT Other hyperlipidemia SCAN-BONE DENSITOMETRY DEXA 05/26/2022 12:00 AM CDT COLONOSCOPY SCREENING Routine 12/07/2020 12:00 AM CDT History of colon polyps ANTI HCV Routine 04/22/2019 3:35 PM CDT Encounter for hepatitis C screening test for low risk patient from Last 3 Months or Most Recently Relevant to Health Maintenance Results * SCAN CORRESP-DIAGNOSTICS (11/16/2023 11:01 AM CDT) Narrative 11/16/2023 11:01 AM CDT Ordered by an unspecified provider. Other Clinical Staff OTHER * SCAN-PULMONARY FUNCTION TEST (11/09/2023 12:00 AM CDT) Scanner OTHER * SCAN-MRI INTERPRETATION (11/07/2023 12:00 AM CDT) Anatomical Region Laterality Modality Other Scanner OTHER * XR SPINE LUMBAR 3 VIEWS (11/02/2023 10:55 AM CDT) Anatomical Region Laterality Modality LUMBAR SPINE Computed Radiogr aphy 11/02/2023 3:55 PM CDT Addenda Addendum by Keny Cox MD on 11/02/2023 8:24 PM CDT For Patients: ??As a result of the Cures Act, medical imaging exams and procedure reports are released immediately into your electronic medical record. ??You may view this report before your referring provider. ?? If you have questions, please contact your health care provider. ----ADDENDUM---- CORRECTION TO FINDINGS: ??MILD wedging of the T12 vertebral body at the inferior endplate. DM:rcd 11/02/2023, 4:51 p.m. INDICATION: Acute midline low back pain without sciatica TECHNIQUE: 3-view lumbar spine. COMPARISON: none FINDINGS: Failed wedging of the T12 vertebral body at the inferior endplate. Mild anterior spurring throughout the lumbar spine. No spondylolisthesis. Vascular calcifications. No pars defect. IMPRESSION: Mild wedging of the T12 inferior endplate, likely similar to chest x-ray 10/11/[address] chest 10/08/2018. Dictated by Keny Cox MD @ 11/02/2023 3:55:19 PM Signed by: Keny Cox @ 11/02/2023 3:55:19 PM ??(Electronic Signature) (Electronically Signed) Impressions 11/02/2023 3:55 PM CDT Mild wedging of the T12 inferior endplate, likely similar to chest x-ray 10/11/[address] chest 10/08/2018. Dictated by Keny Cox MD @ 11/02/2023 3:55:19 PM (Electronically Signed) Narrative 11/02/2023 3:55 PM CDT For Patients: ??As a result of the Cures Act, medical imaging exams and procedure reports are released immediately into your electronic medical record. ??You may view this report before your referring provider. ??If you have questions, please contact your health care provider. INDICATION: Acute midline low back pain without sciatica TECHNIQUE: 3-view lumbar spine. COMPARISON: none FINDINGS: Failed wedging of the T12 vertebral body at the inferior endplate. Mild anterior spurring throughout the lumbar spine. No spondylolisthesis. Vascular calcifications. No pars defect. Procedure Note Keny Cox MD - 11/02/2023 For Patients: As a result of the 21st Century Cures Act, medical imagingexams and procedure reports are released immediately into your electronicmedical record. You may view this report before your referring provider.If you have questions, please contact your health care provider. INDICATION: Acute midline low back pain without sciatica TECHNIQUE: 3-view lumbar spine. COMPARISON: none FINDINGS: Failed wedging of the T12 vertebral body at the inferior endplate. Mildanterior spurring throughout the lumbar spine. No spondylolisthesis.Vascular calcifications. No pars defect. IMPRESSION: Mild wedging of the T12 inferior endplate, likely similar to chest x- ray10/11/[address] chest 10/08/2018. Dictated by Keny Cox MD @ 11/02/2023 3:55:19 PM (Electronically Signed) Milena Trevino MD GENERAL IMAGI NG * SEDIMENTATION RATE (10/31/2023 9:26 AM CDT) Pathologist [facility] SEDIMENTATION RATE 7 <30 mm/hr 2023 3:59 PM CDT [facility] Blood BLOOD SPECIMEN / Unknown Venipuncture / Unknown 10/31/2023 9:26 AM CDT 10/31/2023 9:26 AM CDT Milena Trevino MD [facility] [address] [place] [address], * (ABNORMAL) CBC WITH AUTO DIFFERENTIAL (10/31/2023 9:26 AM CDT) [facility] WHITE BLOOD COUNT 4.2(L) 4.5 - 11.0 thou/cu mm 10/31/2023 9:32 AM CDT [facility] RED BLOOD COUNT 4.06 4.00 - 5.20 mil/cu mm 10/31/2023 9:32 AM CDT [facility] HEMOGLOBIN 12.9 12.0 - 16.0 g/dL 10/31/2023 9:32 AM CDT [facility] HEMATOCRIT 38.9 33.0 - 51.0 % 10/31/2023 9:32 AM CDT [facility] MCV 96 80 - 100 fL 10/31/2023 9:32 AM CDT [facility] MCH 31.8 26.0 - 34.0 pg 10/31/2023 9:32 AM CDT [facility] MCHC 33.2 32.0 - 36.0 g/dL 10/31/2023 9:32 AM CDT [facility] RDW 14.2 11.5 - 15.5 % 10/31/2023 9:32 AM CDT [facility] PLATELET COUNT 166 140 - 440 thou/cu mm 10/31/2023 9:32 AM CDT [facility] MPV 9.8 6.5 - 11.0 fL 10/31/2023 9:32 AM CDT [facility] % NEUT 56.9 % 10/31/2023 9:32 AM CDT [facility] % LYMPH 26.4 % 10/31/2023 9:32 AM CDT [facility] % MONO 9.2 % 10/31/2023 9:32 AM CDT [facility] % EOS 7.3 % 10/31/2023 9:32 AM CDT [facility] % BASO 0.2 % 10/31/2023 9:32 AM CDT [facility] ABSOLUTE NEUTROPHILS 2.4 1.7 - 7.0 thou/cu mm 10/31/2023 9:32 AM CDT [facility] ABSOLUTE LYMPHOCYTES 1.1 0.9 - 2.9 thou/cu mm 10/31/2023 9:32 AM CDT [facility] ABSOLUTE MONOCYTES 0.4 <0.9 thou/cu mm 10/31/2023 9:32 AM CDT [facility] ABSOLUTE EOSINOPHILS 0.3 <0.5 thou/cu mm 10/31/2023 9:32 AM CDT [facility] ABSOLUTE BASOPHILS 0.0 <0.3 thou/cu mm 10/31/2023 9:32 AM CDT [facility] Blood BLOOD SPECIMEN / Unknown Venipuncture / Unknown 10/31/2023 9:26 AM CDT 10/31/2023 9:26 AM CDT Milena Trevino MD HEMATOLOGY [facility] [address] [place] [address], [place] [phone] * (ABNORMAL) LIPID PANEL W REFLEX MEASURED LDL (10/31/2023 9:26 AM CDT) [facility] CHOLESTEROL,TOTAL 197 100 - 199 mg/dL 10/31/2023 5:21 PM CDT [facility] Comment: Cholesterol, Total Reference Ranges Desirable <200 mg/dL Borderline 200-239 mg/dL High >=240 mg/dL TRIGLYCERIDES 205(H) <150 mg/dL 10/31/2023 5:21 PM CDT [facility] HDL CHOLESTEROL 79 >40 mg/dL 5:21 PM CDT [facility] NON-HDL CHOLESTEROL 118 <145 mg/dl 10/31/2023 5:21 PM CDT [facility] CHOL/HDL RATIO 2.49 <4.50 10/31/2023 5:21 PM CDT [facility] LDL CHOLESTEROL 77 <=130 mg/dL 10/31/2023 5:21 PM CDT [facility] VLDL CHOLESTEROL 41(H) <=30 mg/dL 10/31/2023 5:21 PM CDT [facility] PROVIDER ORDERED STATUS RANDOM 10/31/2023 5:21 PM CDT [facility] Blood BLOOD SPECIMEN / Unknown Venipuncture / Unknown 10/31/2023 9:26 AM CDT 10/31/2023 9:26 AM CDT Milena Trevino MD CHEMISTRY [facility] [address] [place] [address], [place] * CK TOTAL (10/31/2023 9:26 AM CDT) CK,TOTAL 47 26 - 192 IU/L 10/31/2023 5:21 PM CDT [facility] Blood BLOOD SPECIMEN / Unknown Venipuncture / Unknown 10/31/2023 9:26 AM CDT 10/31/2023 9:26 AM CDT Milena Trevino MD CHEMISTRY [facility] [address] [place] [address], * (ABNORMAL) BASIC METABOLIC PANEL (10/31/2023 9:26 AM CDT) Pathologist [facility] SODIUM 142 136 - 145 mmol/L 10/31/2023 5:21 PM CDT [facility] POTASSIUM 3.7 3.5 - 5.1 mmol/L 10/31/2023 5:21 PM [facility] CHLORIDE 102 98 - 107 mmol/L 10/31/2023 5:21 PM [facility] CO2,TOTAL 29 22 - 29 mmol/L 10/31/2023 5:21 PM [facility] ANION GAP 11 5 - 18 10/31/2023 5:21 PM [facility] GLUCOSE 120(H) 70 - 99 mg/dL 10/31/2023 5:21 PM [facility] CALCIUM 9.2 8.8 - 10.2 mg/dL 10/31/2023 5:21 PM [facility] BUN 13 8 - 23 mg/dL 10/31/2023 5:21 PM [facility] CREATININE 0.96(H) 0.50 - 0.90 mg/dL 10/31/2023 5:21 PM [facility] BUN/CREAT RATIO 14 10 - 20 5:21 PM [facility] eGFR 64(L) >90 mL/min/1.7 3m2 10/31/2023 5:21 PM CDT [facility] Comment:As of 2021, eG FR is calculated by the CKD-EPI creatinine equation without race adjustment. ??eGFR can be influenced by muscle mass, exercise, and diet. ??The reported eGFR is an estimation only and is only applicable if the renal function is stable. Blood BLOOD SPECIMEN / Unknown Venipuncture / Unknown 10/31/2023 9:26 AM CDT 10/31/2023 9:26 AM CDT Milena Trevino MD [facility]STRY [facility] [address] [place] [address], * SCAN-BONE DENSITOMETRY DEXA (05/26/2022 12:00 AM CDT) Anatomical Region Laterality Modality Other Scanner OTHER * COLONOSCOPY SCREENING (12/07/2020 12:00 AM CDT) Hugo Mazariegos MD GI PROCEDURE ORD * ANTI HCV (04/22/2019 3:35 PM CDT) HEPATITIS C ANTIBODY Non-React kristie Non-React kristie 04/22/2019 9:14 PM CDT [facility] Comment:Antibodies to HCV no t detected; does not exclude the possibility of exposure to HCV. Blood BLOOD SPECIMEN / Unknown Venipuncture / Unknown 04/22/2019 3:35 PM CDT 04/22/2019 3:35 PM CDT Jyotsna GARDNER SEND OUTS [facility] [address] [place] [address], from Last 3 Months or Most Recently Relevant to Health Maintenance Advance Directives Documents on File Type Date Recorded Patient Ct Scan Technician Expl anation Healthcare Directive 06/06/2017 8:29 AM [place], 05/22/2008 * Full Code (Latest Code Status on File) Date Activated Date Inactivated Comments 06/07/2022 5:39 PM 06/08/2022 5:49 PM Question Answer Comments Code Status Discussion: Reviewed Preferences * Full Code Date Activated Date Inactivated Comments 06/07/2022 6:00 AM 06/07/2022 5:39 PM Question Answer Comments Code Status Discussion: Other not disc ussed * Full Code Date Activated Date Inactivated Comments 04/24/2019 10:00 AM 04/24/2019 5:02 PM * Full Code Date Activated Date Inactivated Comments 01/01/2019 6:08 AM 01/02/2019 2:32 AM Care Teams Cash Application Clerk Relationship Specialty Start Date End Date Milena Trevino MD [address] [place] [address] PCP - General 06/29/04
--- OUTSIDE RECORDS SUMMARY | 2023-11-28 10:42 | XMS_ITS | Encounter Summary ---
Author Name Unknown Organization [facility] Address [address] [place] [address] Care Team Providers Care Pain Management Nurse Practitioner Name Role Phone Elsewhere, Pcp Primary Care Provider Unavailabl e Encounter Details Date Type Department Care Team (Late st Contact Info) Description 09/11/2023 Orders Only Division of Gastroenterology in [place], [place] [address] [place] [address] Artemio Argueta M.D. [address] [place] [address] Genetic Susceptibility To Disease Social History Tobacco Use Types Packs/Day Years Used Date Smoking Tobacco: Former Cigarettes 0.2 26.8 0 08/01/1977 - 2004 Smokeless Tobacco: Never Humiliation, Afraid, Rape, and Kick questionnair e [...] often do you attend chur ch or latter day services? Patient declined 04/01/2022 Do you belong to any clubs o r organizations such as samaritan groups, unions, fraternal or athletic groups, or [...] and heating? Not hard at all 04/01/2022 [facility] of Occupat ional Health - Occupational Stress [...] place to sleep or slept in a long-term (including now)? No 04/01/2022 Nutrition Answer Date [...] Orientation Straight 01/12/2018 10 :04 AM CDT documented as of this encounter Plan of Treatment Not on file documented as of this encounter Procedures Procedure Name Priority Date/Time Associated Diagnosis Comments EXT TAPESTRY Routine 10/12/2022 12:00 AM CDT Genetic Susceptibility To Disease documented in this encounter Results * EXT Tapestry (10/12/2022 12:00 AM CDT) Gene Studied BRCA1,BRCA2,MLH1,MSH 2, MSH6,PMS2,EPCAM,APOB,L DLR,LDLRAP1,PCSK9 11/28/2022 12:00 AM CDT [facility] Genetic Disease Assessed Evaluation of 11 genes associated with Hereditary Breast and Ovarian Cancer, Canales Syndrome and Familial Hypercholesterolemia. 11/28/2022 12:00 AM CDTribogenics Genetic Analysis Overall Interpretation Negative results through Tapestry do not replace diagnostic testing for patients with a personal or family history of cancer/hypercholestero lemia due to limitations with methodology. Consider a referral to a genetic counselor for diagnostic testing if warranted. 11/28/2022 12:00 AM CDTribogenics Genetic Analysis Report See Tapestry PDF Report No actionable gene changes were detected in the genes that cause Familial Hypercholesterolemia. The genes tested for this condition were APOB, LDLR, LDLRAP1, and PCSK9.No actionable gene changes were detected in the genes that cause Hereditary Breast and Ovarian Cancer. The genes tested for this condition were BRCA1 and BRCA2.No actionable gene changes were detected in the genes that cause Canales Syndrome. The genes tested for this condition were MLH1, MSH2, MSH6, PMS2 and EPCAM. DNA extracted from this individual's sample was captured and enriched using a custom set of reagents ([employer]+ chemistry). Targeted regions were sequenced using an Illumina DNA sequencing system. Your sequence was matched to a modified version of the hospers standard reference genome (GRCh38). Variant calling was completed using a customized version of [employer]'s Scienion software, requiring 20x coverage for validated variant calls. Copy Number Variants (CNVs) were called using a proprietary bioinformatics pipeline that compared the coverage profile of your sample with the coverage profiles of other reference set samples. [facility] then analyzed the generated variant data for the exons and 10 bp of flanking intronic sequence (and select tagged intronic variants) of the 11 genes included in [employer] from the [employer] Database. Your sample was reviewed for single nucleotide variants (SNVs), indels up to 20 bp in length, and CNVs that are known or predicted to be actionable. NOTE: This assay has limited sensitivity to CNVs smaller than a few exons. APOB, PCSK9, and LDLR interpretation and reporting is specific to the Familial Hypercholesterolemia phenotype. Variants associated with other phenotypes such as Hypobetalipoproteinemi a are not included. Some known complex variants like the inversion of exons 1-7 in the MSH2 gene (Laruie inversion), exons 11-15 of the PMS2 gene, or variants within or immediately adjacent to long homopolymer runs are not analyzed or reported. There are regions that are not covered, such as deep intronic, promoter, and enhancer regions. This assay cannot detect all variants known to increase disease risk. Other clinical diagnostic testing for these conditions could identify variants not detected by this test. If you have had previous testing, these results should be taken into consideration during risk assessments and medical management. 11/28/2022 12:00 AM CDT [facility] Human Reference Sequence Assembly GRCh38 11/28/2022 12:00 AM CDT [facility] Saliva (Mouth) 10/12/2022 Artemio Argueta M.D. LAB GENETI C TESTING HELIX [employer] [address] [facility] [address], [address] [place] [address], [facility] [employer] [address], [address] [place] [address] documented in this encounter Visit Diagnoses Diagnosis Genetic Susceptibility To Disease documented in this encounter Additional Health Concerns Infection Onset Date Last Indicated Resolved Time Protective Environment 06/23/2023 06/23/2023 documented as of this encounter Care Teams Pain Management Nurse Practitioner Relationship Specialty Start Date End Date Elsewhere, Pcp PCP - General Family Medicine 01/12/18 documented as of this encounter
--- OUTSIDE RECORDS SUMMARY | 2023-11-28 10:42 | XMS_ITS ---
Author Name Unknown Organization [facility] Address [address] [place] [address] Care Team Providers Care Cloud Subject Matter Expert Name Role Phone Unavailable Unavailable Unavailable Surgery Details Not on file Complications Check Surgery Details section. Procedure Estimated Blood Loss Check Surgery Details section. Procedure Findings Check Surgery Details section. Procedure Specimens Taken Check Surgery Details section.
--- OUTSIDE RECORDS SUMMARY | 2023-11-28 10:42 | XMS_ITS | Referral Summary ---
Author Name Unknown Organization [facility] Address [address] [place] [address] Care Team Providers Care Spinning Bath Patroller Name Role Phone Elsewhere, Pcp Primary Care Provider Unavailabl e Source Comments Patient records contain information from all sites at [facility]. For routine questions regarding patient records, call [phone] during business hours, M-F 8:00 AM - 5:00 PM Central Time. Record requests for emergency care only can be directed to [phone] at any time.[facility] Encounters Date Type Department Care Team Description 09/11/2023 Orders Only Division of Gastroenterology in [place], [place] [address] [place] [address] Artemio Argueta M.D. Genetic Susceptibility To Disease from Last 3 Months Allergies Active Allergy Reactions Criticality Noted Date Comments Acetylcysteine Itching Low 11/10/2017 Via [employer]. Pt states, it was given too fast. When it was slowed it was fine. Cephalexin Diarrhea 01/25/2019 Gluten Other (see comments) Low 11/10/2017 Celiac Medications Medication Sig Dispensed Refills Start Date End Date Status nxggksg-yioskdrwv-tdz taminophen (MIDRIN) 65-100-325 mg per capsule Take [...] weeks. Active butalbital-acetaminop -caf-cod (FIORICET WITH CODEINE) 17-168-98-30 mg per capsule daily as needed. headaches [...] from 06/14/2017:Stage IB(pT3, pN0(sn), cM0, G2, ER+, [place]+, HER2-) - Signed by Jeet Costello M.D. 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 on 01/12/2018 Immunizations Name Administration Dates Next Due DTaP [...] often do you attend chur ch or roman catholic services? Patient declined 04/01/2022 Do you belong to any clubs o r organizations such as restorationism groups, unions, fraternal or athletic groups, or [...] and heating? Not hard at all 04/01/2022 [facility] of Occupat ional Health - Occupational Stress [...] place to sleep or slept in a retirement (including now)? No 04/01/2022 Nutrition Answer Date [...] 04/05/2022 7:49 AM CDT Plan of Treatment Not on file Procedures Procedure Name Priority Date/Time Associated Diagnosis Comments EXTI BASIC METABOLIC PANEL, S/P Routine 10/31/2023 9:26 AM CDT from Last 3 Months or Most Recently Relevant to Health Maintenance Additional Health Concerns Infection Onset Date Last Indicated Protective Environment 06/23/2023 3 Care Teams Spinning Bath Patroller Relationship Specialty Start Date End Date Elsewhere, Pcp PCP - General Family Medicine 01/12/18
--- OUTSIDE RECORDS SUMMARY | 2023-11-28 10:42 | XMS_ITS ---
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 on 01/12/2018 Current Oncology Plans No current plan information found. Past Plans No past plan information found. Radiation Treatments * Plan Last Treated On Elapsed Days Fractions Treated Prescribed Fraction Dose Prescribed Total Dose F1 BH L CW 03/09/2018 32 25 of 25 200 cGy 5,000 cGy Reference Point Last Treated On Elapsed Days Session Dose Total Dose [id number] 03/09/2018 32 200 cGy 5,000 cGy
--- NOTE | 2023-11-28 11:00 | CT_ITS ---
Patient: JASBIR REN Facility:?[facility] RIS Patient ID:?[id number] Site Patient ID:?[id number]. Site :?[id number] Study:?CT-Chest 75CC ISOVUE 370-11/28/2023 2:35:43 PM Ordering Physician:?DR. ROLLINS Final Report: INDICATION: Six months of cough dyspnea on exertion TECHNIQUE: CT chest with 75 mL Isovue 370 COMPARISON: CT 11/03/2017 FINDINGS: Lungs and pleura: Subpleural opacity in the anterior left upper lobe lingula with some mild traction bronchiectasis likely related to postradiation treatment changes. There is bibasilar atelectasis. 7 millimeter subpleural left lower lobe nodule 3/59. Nodular tree-in-bud opacities in the superior posterior right lower lobe likely infectious/inflammatory Heart and vasculature: Ectasia of the ascending thoracic aorta measuring 3.8 centimeters. Heart size is normal. Lymph nodes/mediastinum: Mildly enlarged right hilar lymph node measuring 1.4 centimeter short axis 2/40 mildly prominent subcarinal lymph node measuring 1.1 centimeters 2/40 Chest wall: Mastectomies with implant reconstruction Upper abdomen: Moderate hiatal hernia nonobstructing small right renal calculus Bones: Unremarkable for age. IMPRESSION: 1. Tree-in-bud nodular opacity in the right lower lobe likely infectious/inflammatory. 2. 7 millimeter left lower lobe pulmonary nodule follow-up per Fleischner society guidelines. 3. Mild right hilar enlarged lymph node and subcarinal lymph node could be reactive FLEISCHNER SOCIETY GUIDELINES - SOLID NODULES: SINGLE LOW RISK - nodule less than 6 mm: No routine follow-up. - nodule 6-8 mm: CT at 6-12 months, then consider CT at 18-24 months. - nodule greater than 8 mm: Consider CT at 3 months, PET/CT or tissue sampling. SINGLE HIGH RISK - nodule less than 6 mm: Optional CT at 12 months. - nodule 6-8 mm: CT at 6-12 months, then CT at 18-24 months. - nodule greater than 8 mm: Consider CT at 3 months, PET/CT or tissue sampling. MULTIPLE LOW RISK - nodule less than 6 mm: No routine follow-up. - nodule 6-8 mm: CT at 3-6 months, then consider CT at 18-24 months. - nodule greater than 8 mm: CT at 3-6 months, then consider CT at 18-24 months. MULTIPLE HIGH RISK - nodule less than 6 mm: Optional CT at 12 months. - nodule 6-8 mm: CT at 3-6 months, then at 18-24 months. - nodule greater than 8 mm: CT at 3-6 months, then at 18-24 months. Please note that all CT scans at this facility use dose modulation, iterative reconstruction, and/or weight-based dosing when appropriate to reduce radiation dose to as low as reasonably achievable. Dictated by Shelia Porter MD @ 11/29/2023 5:49:47 AM Signed by:?Shelia Porter MD @11/29/2023 5:49:47 AM (Electronic Signature)
[2023-11-28 11:15] LABS: Creatinine* 0.8 mg/dL (0.5-1.5); Estimated Glomerular Filt Rate 80 ml/min
== END 2023-11-28 10:40 | disposition home or self-care (01) ==
LOC: CT 10:40
PROVIDERS: PCP Family Medicine; Visit Provider Physician Assistant
DX: R06.09 Other forms of dyspnea (principal); R91.8 Other nonspecific abnormal finding of lung field; R59.9 Enlarged lymph nodes, unspecified
CPT/HCPCS: 36415; 71260; 82565; Q9967

== ENCOUNTER 2023-12-07 14:00 | Outpatient (RCR) | payer MEDICARE, BC, SELFPAY ==
--- NOTE | 2023-12-01 08:48 | ONC.NURNOTE ---
CT of chest reviewed by Trang Kennedy PA-C. Trang called pt to discuss plan of care. Images pushed to [facility] and report faxed to Belinda.
== END 2024-05-21 23:59 | disposition home or self-care (01) ==
LOC: CCIC 14:00
PROVIDERS: PCP Family Medicine; Referring Provider Family Medicine; Visit Provider Physician Assistant
DX: C50.911 Malignant neoplasm of unspecified site of right female breast (principal); C50.912 Malignant neoplasm of unspecified site of left female breast
CPT/HCPCS: 99215; G0463

== ENCOUNTER 2023-12-27 12:44 | Outpatient (CLI) | payer MEDICARE, BC, SELFPAY ==
--- OUTSIDE RECORDS SUMMARY | 2023-12-27 12:46 | XMS_ITS | Referral Summary ---
Author Organization [facility] Address [address] [place] [address] Care Team Providers Care Insurance Operations Rep Name Role Phone Elsewhere, Pcp Primary Care Provider Unavailabl e Source Comments Patient records contain information from all sites at [facility]. For routine questions regarding patient records, call [phone] during business hours, M-F 8:00 AM - 5:00 PM Central Time. Record requests for emergency care only can be directed to [phone] at any time.[facility] Allergies Active Allergy Reactions Criticality Noted Date Comments Acetylcysteine Itching Low 11/10/2017 Via [employer]. Pt states, it was given too fast. When it was slowed it was fine. Cephalexin Diarrhea 01/25/2019 Gluten Other (see comments) Low 11/10/2017 Celiac Medications Medication Sig Dispensed Refills Start Date End Date Status pbnuthw-ipqrqchoo-vgt taminophen (MIDRIN) 65-100-325 mg per capsule Take [...] weeks. Active butalbital-acetaminop -caf-cod (FIORICET WITH CODEINE) 79-931-42-30 mg per capsule daily as needed. headaches [...] from 06/14/2017:Stage IB(pT3, pN0(sn), cM0, G2, ER+, [place]+, HER2-) - Signed by Jeet Costello M.D. 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 [...] often do you attend chur ch or mormonism services? Patient declined 04/01/2022 Do you belong to any clubs o r organizations such as yazdanism groups, unions, fraternal or athletic groups, or [...] and heating? Not hard at all 04/01/2022 [facility] [place] [facility] of Occupat ional Health - Occupational Stress [...] place to sleep or slept in a assisted (including now)? No 04/01/2022 Nutrition Answer Date [...] Procedure Name Priority Date/Time Associated Diagnosis Comments OUTSIDE CT BODY Routine 11/28/2023 11:40 AM CDT EXTI BASIC METABOLIC PANEL, S/P Routine 10/31/2023 9:26 AM CDT from Last 3 Months or Most Recently Relevant to Health Maintenance Results * CT CHEST W CON-Outside CT Body (11/28/2023 11:40 AM CDT) 11/28/2023 11:3 9 AM CDT Narrative [facility] - 11/28/2023 2:57 PM CDT This order has been created and auto-finalized to support the import of outside images. If available, original interpretation can be found on the Media Tab in Chart Review, in Document Viewer, or as an image in QREADS. If a re-interpretation or overread is required please follow defined workflow. ?? Provider Not In System IMG CT PROCEDURES [facility] NA from Last 3 Months Additional Health Concerns Infection Onset Date Last Indicated Protective Environment 06/23/2023 3 Care Teams Insurance Operations Rep Relationship Specialty Start Date End Date Elsewhere, Pcp PCP - General Family Medicine 01/12/18
--- OUTSIDE RECORDS SUMMARY | 2023-12-27 12:46 | XMS_ITS | Clinical Summary ---
Author Organization [facility] Address [address] [place] [address] Care Team Providers Care Bench Carpenter Name Role Phone Elsewhere, Pcp Primary Care Provider Unavailabl e Source Comments Patient records contain information from all sites at [facility]. For routine questions regarding patient records, call [phone] during business hours, M-F 8:00 AM - 5:00 PM Central Time. Record requests for emergency care only can be directed to [phone] at any time.[facility] Allergies Active Allergy Reactions Criticality Noted Date Comments Acetylcysteine Itching Low 11/10/2017 Via [employer]. Pt states, it was given too fast. When it was slowed it was fine. Cephalexin Diarrhea 01/25/2019 Gluten Other (see comments) Low 11/10/2017 Celiac Medications Medication Sig Dispensed Refills Start Date End Date Status ubitrrn-jczeitcds-kij taminophen (MIDRIN) 65-100-325 mg per capsule Take [...] weeks. Active butalbital-acetaminop -caf-cod (FIORICET WITH CODEINE) 21-456-49-30 mg per capsule daily as needed. headaches [...] from 06/14/2017:Stage IB(pT3, pN0(sn), cM0, G2, ER+, [place]+, HER2-) - Signed by Jeet Costello M.D. 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 [...] often do you attend chur ch or rastafari services? Patient declined 04/01/2022 Do you belong to any clubs o r organizations such as orthodoxy groups, unions, fraternal or athletic groups, or [...] and heating? Not hard at all 04/01/2022 [facility] of Occupat ional Health - Occupational Stress [...] place to sleep or slept in a usp (including now)? No 04/01/2022 Nutrition Answer Date [...] Indicated Protective Environment 06/23/2023 3 Care Teams Bench Carpenter Relationship Specialty Start Date End Date Elsewhere, Pcp PCP - General Family Medicine 01/12/18
--- OUTSIDE RECORDS SUMMARY | 2023-12-27 12:47 | XMS_ITS ---
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 [...] On Elapsed Days Session Dose Total Dose [id number] 03/09/2018 32 200 cGy 5,000 cGy
--- OUTSIDE RECORDS SUMMARY | 2023-12-27 12:47 | XMS_ITS ---
Author Organization [facility] Address [address] [place] [address] Care Team Providers Care Construction Site Manager Name Role Phone Unavailable Unavailable Unavailable Surgery Details Not on file Complications Check Surgery Details section. Procedure Estimated Blood Loss Check Surgery Details section. Procedure Findings Check Surgery Details section. Procedure Specimens Taken Check Surgery Details section.
--- OUTSIDE RECORDS SUMMARY | 2023-12-27 12:47 | XMS_ITS | Clinical Summary ---
Author Organization [facility] Address [place], [place] [address] Care Team Providers Care Environmental Engineering Intern Name Role Phone Mielna Trevino MD Primary Care Provide r Allergies [...] 6 months, Frequency of use: Daily 0 03/30/2021 Active gabapentin (NEURONTIN) 300 mg capsuleIndications: Primary cancer of left breast (HC) One in the morning, one in the afternoon and 2 in the evening. 270 Capsule 1 11/04/2021 Active zinc gluconate 50 mg tablet Take [...] Take 2.5 mg by mouth once daily. 11/25/2022 Active SUMAtriptan (IMITREX) 25 mg tabletIndications:M igraine without aura and without status migrainosus, not intractable Take 1 Tablet (25 mg) by mouth every 2 hours if needed for Migraine. Give at minimum 2hrs apart. Max Dose: 200mg per 24hrs. 10 Tablet 3 05/16/2023 Active LORazepam (ATIVAN) 0.5 mg tabIndications:Mild depression,Primary cancer of left breast (HC) TAKE 1 TABLET 2 TIMES DAILY IF NEEDED FOR ANXIETY. 30 Tablet 07/10/2023 Active DULoxetine (CYMBALTA) 30 mg Delayed-release capsuleIndications: Mild depression Take 1 Capsule (30 mg) by mouth once daily. 90 Capsule 3 11/02/2023 Active pravastatin (PRAVACHOL) 80 mg tabletIndications:H yperlipidemia, unspecified hyperlipidemia type Take 1 Tablet (80 mg) by mouth at bedtime. 90 Tablet 3 11/02/2023 Active metoprolol succinate (TOPROL XL) 25 mg Sustained-Release tabletIndications:E ssential hypertension Take 1 Tablet (25 mg) by mouth once daily. 90 Tablet 3 11/02/2023 Active potassium chloride (KLOR-CON M20) 20 mEq extended-release tablet (part/cryst)Indicat ions:Essential hypertension Take 1 Tablet (20 mEq) by mouth once daily with a meal. 90 Tablet 3 11/02/2023 Active amitriptyline (ELAVIL) 75 mg tabletIndications:E pisodic tension-type headache, not intractable Take 1 Tablet (75 mg) by mouth at bedtime. 90 Tablet 3 11/02/2023 Active omeprazole (PRILOSEC) 20 mg Delayed-Release capsuleIndications: Chronic GERD Take 1 Capsule (20 mg) by mouth once daily before a meal. 90 Capsule 3 11/02/2023 Active lisinopril-hydrochl orothiazide, 20-25 mg, (PRINZIDE, ZESTORETIC) 20-25 mg per tabletIndications:E ssential hypertension Take 1 Tablet by mouth once daily. 90 Tablet 3 11/02/2023 Active qfpewxd-lkhdaovx-rf talbital, 325-40-50 mg, (FIORINAL) tabletIndications:M igraine without aura and without status migrainosus, not intractable Take 1 Tablet by mouth every 4 hours if needed for Pain. Max 6 tabs per day. 30 Tablet 1 11/02/2023 Active amLODIPine (NORVASC) 5 mg tabletIndications:E ssential hypertension Take 1 Tablet (5 mg) by mouth once daily in the evening. 90 Tablet 3 11/02/2023 Active azithromycin (Zithromax Z-Nahid) 250 mg tabletIndications:B ronchitis Take 500 mg today and then 250 mg days 2-5 6 Tablet 11/14/2023 Active calcitonin salmon, 200 units per actuation, nasal (MIACALCIN, FORTICAL) 200 unit/actuation nasal sprayIndications:Co mpression fracture of T12 vertebra with delayed healing, subsequent encounter Inhale 1 [place] into affected nostril(s) once daily. Alternating nostrils daily. 3.7 mL 11/16/2023 Active Active Problems Problem Noted Date Diagnosed [...] Encounters Date Type Department Care Team Description 12/01/2023 Orders Only [facility] Scanner 1 scan: (1-Ord) INCOMING RECORDS-CT, [facility], 12/01/2023 11/28/2023 Orders Only [facility] Scanner 1 scan: (1-Ord) [place], CT CHEST W CON, 11/28/2023 11/28/2023 Orders Only [facility] Scanner 1 scan: (1-Ord) [place], CT CHEST WITH 75 ML [address], 11/28/2023 11/16/2023 Orders Only [facility] Staff, Other Clinical 1 scan: (1-Ord) [facility] 11/09/2023 Orders Only [facility] Scanner 1 scan: (1-Ord) [facility] SPIROMETRY, 11/09/2023 11/07/2023 Orders Only [facility] Scanner 1 scan: (1-Ord) [facility], MR LUMBAR SPINE WO CON, 11/07/2023 11/02/2023 11:00 AM CDT Ancillary Procedure [facility] [address] [place] [address] 11/02/2023 8:40 AM CDT Office Visit [facility] [address] [place] [address] Milena Trevino MD Medication Management (Refills needed /Questions on rosuvastatin ); Back Pain (Feels it may be due to the Rosuvastatin ) 11/02/2023 Telephone [facility] [address] [place] [address] Milena Trevino MD Results; Referral 11/02/2023 Travel 10/31/2023 9:30 AM CDT Orders Only [facility] [address] [place] [address] Lab, [facility] 10/31/2023 Travel 10/10/2023 Telephone [facility] [address] [place] [address] [facility] from Last 3 Months Immunizations Name Administration Dates Next Due COVID-19 Vaccine Spikevax (M oderna 50mcg/0.5mL) 12YO+ 9320-2857 Formula PF 11/02/2023 COVID-19 vaccine (Pfizer-Bio NTech [...] T Respiratory Rate 14 06/15/2022 2:52 PM [facility] Oxygen Saturation 92% 11/02/2023 8:58 AM CDT Inhaled Oxygen Concentration - - Weight 86.9 kg (191 lb 9.6 oz) 11/02/2023 8:58 A M CDT Height 167.6 cm (5' 6) 06/26/2023 10:55 AM [facility] Body Mass Index 30.93 06/26/2023 10:55 AM [facility] Plan of Treatment Health Maintenance Due Date [...] 10/28/2026 10/28/2016, 09/30, 10/28/2005 (Completed outside of [facility]) Colonoscopy through age 74 12/08/202712/07, 12/07/2020, 07/13/2015, [...] , 10/21/2019 Medical Devices Implanted Type Area Special Education Administrator Device Identifier Shelf Expiration Date Model / Serial / Lot [id number] 4breast 500cc Memorygel Rnd High Smooth Silcn Implanted:Qty: 1 on 01/01/2019 by Britton Parnell MD at [facility] Explanted:at [facility] (Quantity not on file) Left: Breast [employer] 10/18/2022 [id number] # / [id number] / [id number] 2breast 500cc Memorygel Rnd High Smooth Silcn Implanted:Qty: 1 on 01/01/2019 by Britton Parnell MD at [facility] Explanted:at [facility] (Quantity not on file) Right: Breast [employer] 01/21/2023 [id number] # / [id number] / [id number] 2breast 500cc Memorygel Rnd High Smooth Silcn Implanted:Qty: 1 on 01/25/2019 by Britton Parnell MD at [facility] Explanted:at [facility] (Quantity not on file) Left: Breast [employer] 07/03/2023 [id number] # / [id number] / [id number] Breast 550cc Memorygel Rnd High Smooth Silcn - [id number] Implanted:Qty: 1 on 06/07/2022 by Britton Parnell MD at [facility] Explanted:at [facility] (Quantity not on file) Left: Breast [employer] [id number] / [id number] / [id number] Procedures Procedure Name Priority Date/Time Associated Diagnosis Comments SCAN CORRESP-IMAGING 12/01/2023 12:00 AM CDT SCAN-CT INTERPRETATION 4 12:00 AM CDT SCAN-CT INTERPRETATION 4 12:00 AM CDT SCAN CORRESP-DIAGNOSTICS 11/16/2023 11:01 AM CDT SCAN-PULMONARY [...] Relevant to Health Maintenance Results * SCAN CORRESP-IMAGING (12/01/2023 12:00 AM CDT) Anatomical Region Laterality Modality Other Scanner OTHER * SCAN-CT INTERPRETATION (11/28/2023 12:00 AM CDT) Only the most recent of2 resultswithin the time period is included. Anatomical Region Laterality Modality Other Scanner OTHER * SCAN CORRESP-DIAGNOSTICS (11/16/2023 11:01 AM CDT) [...] T12 vertebral body at the inferior endplate. DM:haroon 11/02/2023, 4:51 p.m. INDICATION: Acute midline low [...] For Patients: As a result of the Cures Act, medical imagingexams and procedure reports [...] * SEDIMENTATION RATE (10/31/2023 9:26 AM CDT) SEDIMENTATION RATE 7 <30 mm/hr 2023 3:59 PM CDT [facility] Blood BLOOD SPECIMEN / Unknown Venipuncture / Unknown 10/31/2023 9:26 AM CDT 10/31/2023 9:26 AM CDT Milena Trevino MD HEMATOLOGY [facility] [address] [place] [address], [place] * (ABNORMAL) CBC WITH AUTO DIFFERENTIAL (10/31/2023 9:26 AM CDT) WHITE BLOOD COUNT 4.2(L) 4.5 - 11.0 thou/cu mm 10/31/2023 9:32 AM CDT [facility] RED BLOOD COUNT 4.06 4.00 - 5.20 mil/cu mm 10/31/2023 9:32 AM CDT [facility] HEMOGLOBIN 12.9 12.0 - 16.0 g/dL 10/31/2023 9:32 AM CDT [facility] HEMATOCRIT 38.9 33.0 - 51.0 % 10/31/2023 9:32 AM CDT [facility] MCV 96 80 - 100 fL 10/31/2023 9:32 AM CDT [facility] MCH 31.8 26.0 - 34.0 pg 10/31/2023 9:32 AM CDT [facility] MCHC 33.2 32.0 - 36.0 g/dL 10/31/2023 9:32 AM CDT [facility] RDW 14.2 11.5 - 15.5 % 10/31/2023 9:32 AM CDT [facility] PLATELET COUNT 166 140 - 440 thou/cu mm 10/31/2023 9:32 AM CDT [facility] MPV 9.8 6.5 - 11.0 fL 10/31/2023 9:32 AM CDT [facility] % NEUT 56.9 % 10/31/2023 9:32 AM CDT [facility] % LYMPH 26.4 % 10/31/2023 9:32 AM CDT [facility] % MONO 9.2 % 10/31/2023 9:32 AM CDT [facility] % EOS 7.3 % 10/31/2023 9:32 AM CDT [facility] % BASO 0.2 % 10/31/2023 9:32 AM CDT [facility] ABSOLUTE NEUTROPHILS 2.4 1.7 - 7.0 thou/cu mm 10/31/2023 9:32 AM CDT [facility] ABSOLUTE LYMPHOCYTES 1.1 0.9 - 2.9 thou/cu mm 10/31/2023 9:32 AM CDT [facility] ABSOLUTE MONOCYTES 0.4 <0.9 thou/cu mm 10/31/2023 9:32 AM CDT [facility] ABSOLUTE EOSINOPHILS 0.3 <0.5 thou/cu mm 10/31/2023 9:32 AM CDT [facility] ABSOLUTE BASOPHILS 0.0 <0.3 thou/cu mm 10/31/2023 9:32 AM CDT [facility] Blood BLOOD SPECIMEN / Unknown Venipuncture / Unknown 10/31/2023 9:26 AM CDT 10/31/2023 9:26 AM CDT Milena Trevino MD HEMATOLOGY [facility] [address] [place] [address], * (ABNORMAL) LIPID PANEL W REFLEX MEASURED LDL (10/31/2023 9:26 AM CDT) CHOLESTEROL,TOTAL 197 100 - 199 mg/dL 10/31/2023 5:21 PM CDT [facility] Comment: Cholesterol, Total Reference Ranges Desirable <200 mg/dL Borderline 200-239 mg/dL High >=240 mg/dL TRIGLYCERIDES 205(H) <150 mg/dL 10/31/2023 5:21 PM CDT [facility] HDL CHOLESTEROL 79 >40 mg/dL 5:21 PM CDT [facility] NON-HDL CHOLESTEROL 118 <145 mg/dl 10/31/2023 5:21 PM CDT [facility] CHOL/HDL RATIO 2.49 <4.50 10/31/2023 5:21 PM CDT [facility] LDL CHOLESTEROL 77 <=130 mg/dL 10/31/2023 5:21 PM CDT [facility] VLDL CHOLESTEROL 41(H) <=30 mg/dL 10/31/2023 5:21 PM CDT [facility] PROVIDER ORDERED STATUS RANDOM 10/31/2023 5:21 PM CDT [facility] Blood BLOOD SPECIMEN / Unknown Venipuncture / Unknown 10/31/2023 9:26 AM CDT 10/31/2023 9:26 AM CDT Milena Trevino MD CHEMISTRY [facility] [address] [place] [address], * CK TOTAL (10/31/2023 9:26 AM CDT) CK,TOTAL 47 26 - 192 IU/L 10/31/2023 5:21 PM CDT [facility] Blood BLOOD SPECIMEN / Unknown Venipuncture / Unknown 10/31/2023 9:26 AM CDT 10/31/2023 9:26 AM CDT Milena Trevino MD CHEMISTRY [facility] [address] [place] [address], * (ABNORMAL) BASIC METABOLIC PANEL (10/31/2023 9:26 AM CDT) SODIUM 142 136 - 145 mmol/L 10/31/2023 5:21 PM CDT [facility] POTASSIUM 3.7 3.5 - 5.1 mmol/L 10/31/2023 5:21 PM CDT [facility] CHLORIDE 102 98 - 107 mmol/L 10/31/2023 5:21 PM CDT [facility] CO2,TOTAL 29 22 - 29 mmol/L 10/31/2023 5:21 PM CDT [facility] ANION GAP 11 5 - 18 10/31/2023 5:21 PM CDT [facility] GLUCOSE 120(H) 70 - 99 mg/dL 10/31/2023 5:21 PM CDT [facility] CALCIUM 9.2 8.8 - 10.2 mg/dL 10/31/2023 5:21 PM CDT [facility] BUN 13 8 - 23 mg/dL 10/31/2023 5:21 PM CDT [facility] CREATININE 0.96(H) 0.50 - 0.90 mg/dL 10/31/2023 5:21 PM CDT [facility] BUN/CREAT RATIO 14 10 - 20 5:21 PM CDT [facility] eGFR 64(L) >90 mL/min/1.7 3m2 10/31/2023 5:21 PM CDT [facility] Comment:As of 2021, eG FR [...] 9:26 AM CDT Milena Trevino MD [facility] [address] [place] [address] * SCAN-BONE DENSITOMETRY DEXA (05/26/2022 12:00 AM CDT) Anatomical Region Laterality Modality Other Scanner OTHER * COLONOSCOPY SCREENING (12/07/2020 12:00 AM CDT) Hugo Mazariegos MD GI PROCEDURE ORD * ANTI HCV (04/22/2019 3:35 PM CDT) HEPATITIS C ANTIBODY Non-React kristie Non-React kristie 04/22/2019 9:14 PM CDT [facility] Comment:Antibodies to HCV no t detected; does not exclude the possibility of exposure to HCV. Blood BLOOD SPECIMEN / Unknown Venipuncture / Unknown 04/22/2019 3:35 PM CDT 04/22/2019 3:35 PM CDT Jyotsna GARDNER SEND OUTS [facility] [address] [place] [address], from Last 3 Months or Most Recently Relevant to Health Maintenance Advance Directives Documents on File Type Date Recorded Patient Electroplating Technician Expl anation Healthcare Directive 06/06/2017 8:29 AM [facility], 05/22/2008 * Full Code (Latest Code Status [...] 6:08 AM 01/02/2019 2:32 AM Care Teams Environmental Engineering Intern Relationship Specialty Start Date End Date Milena Trevino MD [address] [place] [address] PCP - General 06/29/04
--- NOTE | 2023-12-27 13:00 | CRLHL7_ITS ---
For Patients: As a result of the Century Cures Act, medical imaging exams and procedure reports are released immediately into your electronic medical record. You may view this report before your referring provider. If you have questions, please contact your health care provider. DXA BONE MINERAL DENSITY STUDY Reason for exam: Aromatase inhibitors. History of breast cancer. Current height (in): 66. Weight (lb): 180. Menopause age: 54. Ethnicity: White. 1. Have you had a previous hip or vertebral fracture? No. 2. Have you had any fractures during your adult life which did not result from significant trauma (e.g., auto accident)? Yes. 3. Did either of your parents have a hip fracture? No. 4. Do you smoke? No. 5. Have you ever taken Glucocorticoids? No. 6. Do you have rheumatoid arthritis? No. 7. Do you have secondary osteoporosis? No. 8. Do you drink 3 or more alcoholic drinks per day? No. 9. Are you being treated for osteoporosis? No. 10. Have you ever taken any of the following medications: Actonel, Evista, Fosamax, Miacalcin, Reclast, Boniva, Forteo, HRT (i.e., estrogen/hormone therapy), Protelos, Prolia, Vitamin D, Calcium, other ??? please specify. ANSWER: Yes, Vitamin D and HRT (i.e., estrogen/hormone therapy). 11. Do you have any of the following medical conditions: Anorexia or bulimia, asthma or emphysema, end stage renal disease, hyperparathyroidism, any seizure disorders, cancer, inflammatory bowel diseases, hysterectomy, other ??? please specify. ANSWER: Yes, cancer and hysterectomy. 12. What was your maximum height (inches)? 67. 13. Do you perform weight bearing exercise regularly? No. 14. Do you regularly consume dairy products? No. 15. Do you drink caffeinated beverages? Yes. 16. At what age did your period start? 11. 17. Are you premenopausal? No. 18. How many full-term pregnancies have you had? 2. 19. Have you ever missed your period for more than 6 months in a row (not including or menopause)? No. TECHNIQUE: Bone mineral density study was performed using the [employer]. FINDINGS: The results of the study expressed as bone mineral density (BMD) are as follows: Lumbar spine L1 to L4: BMD: 0.979 g/cm2. T-score: -0.6. Z-score: 1.5 Neck Left: BMD: 0.802 g/cm2. T-score: -0.4. Z-score: 1.3 Right: BMD: 0.785 g/cm2. T-score: -0.6. Z-score: 1.2 Total Left: BMD: 1.023 g/cm2. T-score: 0.7. Z-score: 2.1 Right: BMD: 0.990 g/cm2. T-score: 0.4. Z-score: 1.9 IMPRESSION: Normal bone density. *Comparison exams done prior to 12/2019 were performed on different unit, [employer]. COMPARISON: Compared with scan of 05/26/2022, the bone mineral density has increased by 3.1 percent at the spine and no change by 0.0 percent at the hip. Compared with scan of 04/15/2020, the bone mineral density has decreased by 1.0 percent at the spine and decreased by 1.4 percent at the hip. ERLINDA WOODS M.D. Transcribed: 12:31 p.m. [email or web address] jj/Dictated by: Erlinda Woods MD @ 12/28/2023 11:40:00 AM (Electronically Signed)
== END 2023-12-27 12:45 | disposition home or self-care (01) ==
LOC: RAD 12:45
PROVIDERS: PCP Family Medicine; Visit Provider Physician Assistant
DX: C50.919 Malignant neoplasm of unspecified site of unspecified female breast (principal); R06.09 Other forms of dyspnea
CPT/HCPCS: 77080

== ENCOUNTER 2024-02-06 12:47 | Outpatient (CLI) | payer MEDICARE, BC, SELFPAY ==
--- OUTSIDE RECORDS SUMMARY | 2024-02-06 12:50 | XMS_ITS | Referral Summary ---
Author Organization [facility] Address [address] [place] [address] Care Team Providers Care Pool Hall Inspector Name Role Phone Elsewhere, Pcp Primary Care Provider Unavailabl e Source Comments Patient records contain information from all sites at [facility]. For routine questions regarding patient records, call [phone] during business hours, M-F 8:00 AM - 5:00 PM Central Time. Record requests for emergency care only can be directed to [phone] at any time.[facility] Allergies Active Allergy Reactions Criticality Noted Date Comments Acetylcysteine Itching Low 11/10/2017 Via Razume. Pt states, it was given too fast. When it was slowed it was fine. Cephalexin Diarrhea 01/25/2019 Gluten Other (see comments) Low 11/10/2017 Celiac Medications Medication Sig Dispensed Refills Start Date End Date Status qbwawic-ektgstmgs-hdy taminophen (MIDRIN) 65-100-325 mg per capsule Take [...] weeks. Active butalbital-acetaminop -caf-cod (FIORICET WITH CODEINE) 20-284-73-30 mg per capsule daily as needed. headaches [...] from 06/14/2017:Stage IB(pT3, pN0(sn), cM0, G2, ER+, DC+, HER2-) - Signed by Jeet Costello M.D. 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 [...] often do you attend chur ch or episcopal services? Patient declined 04/01/2022 Do you belong to any clubs o r organizations such as jew groups, unions, fraternal or athletic groups, or [...] and heating? Not hard at all 04/01/2022 [facility] - Occupational Stress [...] place to sleep or slept in a detention (including now)? No 04/01/2022 Nutrition Answer Date [...] PROCEDURES IIMS NA from Last 3 Months or Most Recently Relevant to Health Maintenance Additional Health Concerns Infection Onset Date Last Indicated Protective Environment 06/23/2023 3 Care Teams Pool Hall Inspector Relationship Specialty Start Date End Date Elsewhere, Pcp PCP - General Family Medicine 01/12/18
--- OUTSIDE RECORDS SUMMARY | 2024-02-06 12:50 | XMS_ITS | Clinical Summary ---
Author Organization [facility] Address [address] [place] [address] Care Team Providers Care Digital Librarian Name Role Phone Elsewhere, Pcp Primary Care Provider Unavailabl e Source Comments Patient records contain information from all sites at [facility]. For routine questions regarding patient records, call [phone] during business hours, M-F 8:00 AM - 5:00 PM Central Time. Record requests for emergency care only can be directed to [phone] at any time.[facility] Allergies Active Allergy Reactions Criticality Noted Date Comments Acetylcysteine Itching Low 11/10/2017 Via Paperfold. Pt states, it was given too fast. When it was slowed it was fine. Cephalexin Diarrhea 01/25/2019 Gluten Other (see comments) Low 11/10/2017 Celiac Medications Medication Sig Dispensed Refills Start Date End Date Status npnrfkf-bcsqjpcno-mkt taminophen (MIDRIN) 65-100-325 mg per capsule Take [...] weeks. Active butalbital-acetaminop -caf-cod (FIORICET WITH CODEINE) 91-463-85-30 mg per capsule daily as needed. headaches [...] from 06/14/2017:Stage IB(pT3, pN0(sn), cM0, G2, ER+, NC+, HER2-) - Signed by Jete Costello M.D. 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 [...] often do you attend chur ch or mosque services? Patient declined 04/01/2022 Do you belong to any clubs o r organizations such as caodaism groups, unions, fraternal or athletic groups, or [...] Not hard at all 04/01/2022 [facility] - Occupational [...] PHQ-2) 07/31/2023 Fall Risk Screen (Annual) 07/31/2023 Influenza Vaccine (#1) 2024 , 06/14/2022, 03/26/2021, Additional history exists Creatinine Level (Kidney Fun ction Test) 10/30/2024 [...] Pneumococcal vaccine (65+ years) Completed 12/30/19, 10/21/2019 COVID-19 Vaccine Completed 11/02/2023, , 06/14/2022, Additional [...] Indicated Protective Environment 06/23/2023 3 Care Teams Digital Librarian Relationship Specialty Start Date End Date Elsewhere, Pcp PCP - General Family Medicine 01/12/18
--- OUTSIDE RECORDS SUMMARY | 2024-02-06 12:50 | XMS_ITS | Clinical Summary ---
Author Organization [facility] Address [place], [place] [address] Care Team Providers Care Crabber Name Role Phone Milena Trevino MD Primary [...] per 24hrs. 10 Tablet 3 05/16/2023 Active DULoxetine (CYMBALTA) 30 mg Delayed-release capsuleIndications: [...] once daily. 90 Tablet 3 11/02/2023 Active ezsmskj-brpezqal-ox talbital, 325-40-50 mg, (FIORINAL) tabletIndications:M igraine without [...] with delayed healing, subsequent encounter Inhale 1 Barnes into affected nostril(s) once daily. Alternating nostrils daily. 3.7 mL 11/16/2023 Active LORazepam (ATIVAN) 0.5 mg tabIndications:Mild depression,Primary cancer of left breast (HC) TAKE 1 TABLET 2 TIMES DAILY IF NEEDED FOR ANXIETY 15 Tablet 01/04/2024 Active Active Problems Problem Noted Date Diagnosed Date Major depressive disorder, single episode, mild 12/29/2022 Capsular contracture of breast implant Left arm pain 06/07/2022 Neuropathy 06/07/2022 Anxiety [...] Encounters Date Type Department Care Team Description 12/27/[address] [facility] Scanner 1 scan: (1-Ord) [facility], [facility]ERAL DENSITY STUDY, 12/27/2023 12/01/[address] [facility] Scanner 1 scan: (1-Ord) INCOMING RECORDS-CT, [facility], 12/01/2023 11/28/[address] [facility] Scanner 1 scan: (1-Ord) [place], CT CHEST W CON, 11/28/2023 11/28/[address] [facility] Scanner 1 scan: (1-Ord) [place], CT CHEST WITH 75 ML [address], 11/28/2023 11/16/[address] [facility] Staff, Other Clinical 1 scan: (1-Ord) [facility] 11/09/[address] [facility] Scanner 1 scan: (1-Ord) [facility], SPIROMETRY, 11/09/2023 11/07/[address] [facility] Scanner 1 scan: (1-Ord) [facility], MR LUMBAR SPINE WO CON, 11/07/2023 from Last 3 Months Immunizations Name Administration Dates Next Due COVID-19 Vaccine Spikevax (M oderna 50mcg/0.5mL) 12YO+ [id number] Formula PF 11/02/2023 COVID-19 vaccine (Next Caller-Bio NTech 30mcg/0.3mL) 12YO+ BIVALENT PF, MDV 06/14/2022 COVID-19 vaccine (Next Caller-Bio NTech 30mcg/0.3mL) 12YO+ DAVY-SUCROSE PF, MDV 01/04/2022 COVID-19 vaccine (T[employer] NTech 30mcg/0.3mL) PF, MDV 03/25/2021 DTaP 10/28/2005 [...] Outcome GA Total Labor Labor/2nd/3rd Weight Sex Type Anes PTL Rhonda A1 A5 Name Clin Term Term Last Filed Vital Signs Vital Sign Reading Time Taken Comments Blood Pressure 122/80 11/02/2023 8:58 AM CDT Pulse 72 11/02/2023 8:58 AM CDT Temperature 37.2 ??C (98.9 ??F) 06/08/2022 7:58 AM CS T Respiratory Rate 14 06/15/2022 2:52 PM STEAM FLATTENER Oxygen Saturation 92% 11/02/2023 8:58 AM CDT Inhaled Oxygen Concentration - - Weight 86.9 kg (191 lb 9.6 oz) 11/02/2023 8:58 A M CDT Height 167.6 cm (5' 6) 06/26/2023 10:55 AM STEAM FLATTENER Body Mass Index 30.93 06/26/2023 10:55 AM STEAM FLATTENER Plan of Treatment Upcoming Encounters Date Type Department Care Team (Late st Contact Info) Description 03/19/2024 10:05 AM CDT Preop Visit [facility] [address] [place] [address] Milena Trevino MD [address] [facility] [place] [address] Health Maintenance Due Date Last Done Comments [...] 10/28/2026 10/28/2016, 09/30, 10/28/2005 [facility] Colonoscopy through age 75 12/08/202712/07, 12/07/2020, 07/13/2015, Additional history exists Lipids for age 45-75 10/30/2028 10/31/2023, 06/02/2022, 03/24/2021, Additional history exists Tdap Completed 10/28/2016, 10/28/2005 Zoster (shingles) series for age 50+ Completed 04/16/2019, 02/11/2019, 07/29/2013 Hepatitis C screening for ag e 18-79 Completed 04/22/2019 Pneumococcal series for age 65+ Completed , 10/21/2019 DEXA/DXA scan for age 65+ Completed 2023, 05/26/2022, 04/15/2020, Additional history exists Medical Devices Implanted Type Area Shirt Sorter Device Identifier Shelf Expiration Date Model / Serial / Lot [id number] 4breast 500cc Memorygel Rnd High Smooth Silcn Implanted:Qty: 1 on 01/01/2019 by Britton Parnell MD at [facility] Explanted:at [facility] (Quantity not on file) Left: Breast J [employer] J TRIRIGA 10/18/2022 350-5004BC # / [id number] / [id number] 2breast 500cc Memorygel Rnd High Smooth Silcn Implanted:Qty: 1 on 01/01/2019 by Britton Parnell MD at [facility] Explanted:at [facility] (Quantity not on file) Right: Breast J And J Caney Numerify 01/21/2023 350-5004BC # / [id number] / [id number] 2breast 500cc Memorygel Rnd High Smooth Silcn Implanted:Qty: 1 on 01/25/2019 by Britton Parnell MD at [facility] Explanted:at [facility] (Quantity not on file) Left: Breast J [employer] Caney [employer] 07/03/2023 350-5004BC # / [id number] / [id number] Breast 550cc Memorygel Rnd High Smooth Silcn - [id number] Implanted:Qty: 1 on 06/07/2022 by Britton Parnell MD at [facility] Explanted:at [facility] (Quantity not on file) Left: Breast J And J TRIRIGA 350-5504BC / [id number] / [id number] Procedures Procedure Name Priority Date/Time Associated Diagnosis Comments SCAN-BONE DENSITOMETRY DEXA 12/27/2023 12:00 AM CDT SCAN CORRESP-IMAGING 12/01/2023 12:00 AM CDT SCAN-CT INTERPRETATION 12:00 AM CDT SCAN-CT INTERPRETATION 4 12:00 AM CDT SCAN CORRESP-DIAGNOSTICS 11/16/2023 11:01 AM CDT SCAN-PULMONARY FUNCTION TEST 11/09/2023 12:00 AM CDT SCAN-MRI INTERPRETATION 11/07/2023 12:00 AM CDT LIPID PANEL W REFLEX MEASURED LDL Routine 10/31/2023 9:26 AM CDT Other hyperlipidemia COLONOSCOPY SCREENING Routine 12/07/2020 12:00 AM CDT History of colon polyps ANTI HCV Routine 04/22/2019 3:35 PM CDT Encounter for hepatitis C screening test for low risk patient from Last 3 Months or Most Recently Relevant to Health Maintenance Results * SCAN-BONE DENSITOMETRY DEXA (12/27/2023 12:00 AM CDT) Anatomical Region Laterality Modality Other Scanner OTHER * SCAN CORRESP-IMAGING (12/01/2023 12:00 AM CDT) [...] Region Laterality Modality Other Scanner OTHER * (ABNORMAL) LIPID PANEL W REFLEX MEASURED LDL (10/31/2023 9:26 AM CDT) CHOLESTEROL,TOTAL 197 100 - 199 mg/dL 10/31/2023 5:[address] [facility] Comment: Cholesterol, Total Reference Ranges Desirable <200 mg/dL Borderline 200-239 mg/dL High >=240 mg/dL TRIGLYCERIDES 205(H) <150 mg/dL 10/31/2023 5:21 PM CDT [facility] HDL CHOLESTEROL 79 >40 mg/dL 5:21 PM CDT [facility] NON-HDL CHOLESTEROL 118 <145 mg/dl 10/31/2023 5:21 PM CDT [facility] CHOL/HDL RATIO 2.49 <4.50 10/31/2023 5:21 PM CDT [facility] LDL CHOLESTEROL 77 <=130 mg/dL 10/31/2023 5:21 PM CDT [facility] VLDL CHOLESTEROL 41(H) <=30 mg/dL 10/31/2023 5:21 PM CDT [facility] PROVIDER ORDERED STATUS RANDOM 10/31/2023 5:21 PM CDT [facility] Blood BLOOD SPECIMEN / Unknown Venipuncture / Unknown 10/31/2023 9:26 AM CDT 10/31/2023 9:26 AM CDT Milena Trevino MD CHEMISTRY Performing Organization Address City/[facility]/ZIP Co de Phone Number [facility] [address] * COLONOSCOPY SCREENING (12/07/2020 12:00 AM CDT) Hugo Mazariegos MD GI PROCEDURE ORD * ANTI HCV (04/22/2019 3:35 PM CDT) HEPATITIS C ANTIBODY Non-React kristie Non-React kristie 04/22/2019 9:14 PM CDT [facility] Comment:Antibodies to HCV no t detected; does not exclude the possibility of exposure to HCV. Blood BLOOD SPECIMEN / Unknown Venipuncture / Unknown 04/22/2019 3:35 PM CDT 04/22/2019 3:35 PM CDT Jyotsna GARDNER [facility] 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
--- OUTSIDE RECORDS SUMMARY | 2024-02-06 12:50 | XMS_ITS ---
Author Organization [facility] Address [address] [place] [address] Care Team Providers Care Dynamo Repairer Name Role Phone Unavailable Unavailable Unavailable Surgery Details Not on file Complications Check Surgery Details section. Procedure Estimated Blood Loss Check Surgery Details section. Procedure Findings Check Surgery Details section. Procedure Specimens Taken Check Surgery Details section.
--- OUTSIDE RECORDS SUMMARY | 2024-02-06 12:50 | XMS_ITS ---
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 [...] On Elapsed Days Session Dose Total Dose [id number] 03/09/2018 32 200 cGy 5,000 cGy
--- NOTE | 2024-02-06 13:00 | CRLHL7_ITS ---
For Patients: As a result of the Century Cures Act, medical imaging exams and procedure reports are released immediately into your electronic medical record. You may view this report before your referring provider. If you have questions, please contact your health care provider. Indication: T12 compression fracture, history of breast cancer. Technique: Multisequence multiplanar MRI of the lumbar spine prior to and following administration of 16 cc Dotarem gadolinium based intravenous contrast. Comparison: MRI lumbar spine dated 11/07/2023. Findings: No interval change in focal depression of the T12 inferior endplate at its anterior aspect. Similar surrounding edema with associated postcontrast enhancement about the T12 compression fracture and also at the anterior aspect of the L1 inferior endplate. No additional focus of abnormal contrast enhancement. Normal vertebral alignment. The conus medullaris terminates normally at the L1-L2 level. Few scattered well-circumscribed subcentimeter renal parenchymal hyperintensities are stable and most typical for cyst. Evaluation of the individual levels again demonstrates mild multilevel disc desiccation and facet joint arthrosis with no high-grade spinal canal or neural foraminal narrowing. Impression: 1. Unchanged anterior wedging along the T12 inferior endplate with mild associated postcontrast enhancement, indeterminate, however favored to be benign/posttraumatic in etiology. 2. Additional edema and enhancement along the L1 inferior endplate, likely degenerative in etiology. 3. Similar mild multilevel degenerative changes with no high-grade spinal canal or neural foraminal stenosis. Dictated by Bari Marcelo MD @ 02/07/2024 11:40:36 AM (Electronically Signed)
== END 2024-02-06 12:48 | disposition home or self-care (01) ==
LOC: MRI 12:47
PROVIDERS: PCP Family Medicine; Visit Provider Physician Assistant
DX: S22.080A Wedge compression fracture of T11-T12 vertebra, initial encounter for closed fracture (principal); Z85.3 Personal history of malignant neoplasm of breast
CPT/HCPCS: 72158; A9575

== ENCOUNTER 2024-02-26 13:45 | Outpatient (RCR) | payer MEDICARE, BC, SELFPAY | END 2024-04-11 14:06 | disposition home or self-care (01) | PROVIDERS: PCP Family Medicine; Visit Provider Orthopaedic Surgery | DX: M25.512 Pain in left shoulder (principal); M54.12 Radiculopathy, cervical region; Z51.89 Encounter for other specified aftercare | CPT/HCPCS: 97110; 97140; 97162 ==

== ENCOUNTER 2024-03-27 09:57 | Day surgery (SDC) | payer MEDICARE, BC, SELFPAY ==
[2024-03-27] VITALS (23 sets, daily range): BP systolic 104–139; BP diastolic 64–91; PULSE 64–88; RESP 12–18; TEMP 36.1–36.6; O2SAT 92–98; BMI 30.4
--- OUTSIDE RECORDS SUMMARY | 2024-03-27 10:00 | XMS_ITS | Clinical Summary ---
Author Organization [facility] Address [place], [place] [address] Care Team Providers Care Technical Translator Name Role Phone Milena Trevino MD Primary [...] mg by mouth once daily. 3 Active DULoxetine (CYMBALTA) 30 mg Delayed-release [...] once daily. 90 Tablet 3 4 Active pilsdau-dbhwntfv-ef talbital, 325-40-50 mg, (FIORINAL) tabletIndications:M igraine without aura and without status migrainosus, not intractable Take 1 Tablet by mouth every 4 hours if needed for Pain. Max 6 tabs per day. 30 Tablet 1 4 Active amLODIPine (NORVASC) 5 mg tabletIndications:E ssential hypertension Take 1 Tablet (5 mg) by mouth once daily in the evening. 90 Tablet 3 4 Active LORazepam (ATIVAN) 0.5 mg tabIndications:Mild depression,Primary cancer of left breast (HC) TAKE 1 TABLET 2 TIMES DAILY IF NEEDED FOR ANXIETY 15 Tablet 4 Active SUMAtriptan (IMITREX) 25 mg tabletIndications:M igraine without aura and without status migrainosus, not intractable Take 1 Tablet (25 mg) by mouth every 2 hours if needed for Migraine. Give at minimum 2hrs apart. Max Dose: 200mg per 24hrs. 10 Tablet 3 3 03/19/20 24 Discontinu ed(*Patien t states no longer taking) azithromycin (Zithromax Z-Nahid) 250 mg tabletIndications:B ronchitis Take 500 mg today and then 250 mg days 2-5 6 Tablet 4 03/19/20 24 Discontinu ed(*Patien t states no longer taking) calcitonin salmon, 200 units per actuation, nasal (MIACALCIN, FORTICAL) 200 unit/actuation nasal sprayIndications:Co mpression fracture of T12 vertebra with delayed healing, subsequent encounter Inhale 1 [place] into affected nostril(s) once daily. Alternating nostrils daily. 3.7 mL 4 03/19/20 Discontinu ed(*Patien t states no longer taking) Active Problems Problem Noted Date Diagnosed Date [...] Encounters Date Type Department Care Team Description 03/20/2024 Orders Only [facility] [address] [facility] [place] [address] Milena Trevino MD 1 scan: (1-Ord) EKG-NFLD-03/19/24 03/19/2024 10:05 AM CDT Preop Visit [facility] [address] [facility] [place] [address] Milena Trevino MD Pre-Op Exam (Left TKR [facility] 03/27. Dr. Mcnulty.) 03/19/2024 Travel 03/05/2024 Refill [facility] [address] [place] [address] Milena Trevino MD Refill Request (Calcitonin Dexter (200 Units Per Actuation) Nasal) 02/08/2024 Orders Only [facility] [address] [place] [address] Milena Trevino MD 1 scan: (1-Ord) [facility], MR LUMBAR SPINE WO/W CON, 02/06/2024 12/27/2023 Orders Only [facility] Scanner 1 scan: (1-Ord) [facility], MINERAL DENSITY STUDY, 12/27/2023 from Last 3 Months Immunizations Name Administration Dates Next Due COVID-19 Vaccine Spikevax (M oderna 50mcg/0.5mL) 12YO+ [id number] Formula PF 11/02/2023 COVID-19 vaccine (Profig-Bio NTech 30mcg/0.3mL) 12YO+ BIVALENT PF, MDV 06/14/2022 COVID-19 vaccine (Pfizer-Bio NTech 30mcg/0.3mL) 12YO+ DAVY-SUCROSE PF, MDV 01/04/2022 COVID-19 vaccine (Profig-Bio NTech 30mcg/0.3mL) PF, MDV 03/25/2021 DTaP 10/28/2005 [...] Answer Date Recorded PHQ-2 TOTAL SCORE 1 03/19/2024 Social Connections Answer Date Recorded Frequency of [...] Sign Reading Time Taken Comments Blood Pressure 116/79 03/19/2024 10:26 AM CDT Pulse 76 03/19/2024 10:26 AM CDT Temperature 37.2 ??C (98.9 ??F) 06/08/2022 7:58 AM CS T Respiratory Rate 14 06/15/2022 2:52 PM SENIOR INTERACTION DESIGNER Oxygen Saturation 95% 03/19/2024 10: 26 AM CDT Inhaled Oxygen Concentration - - Weight 85.7 kg (188 lb 14.4 oz) 024 10:26 AM CDT Height 167.6 cm (5' 6) 06/26/2023 10:5 5 AM SENIOR INTERACTION DESIGNER Body Mass Index 30.49 06/26/2023 10:55 AM SENIOR INTERACTION DESIGNER Plan of Treatment Upcoming Encounters Date Type Department Care Team (Late st Contact Info) Description 06/03/2024 10:45 AM SENIOR INTERACTION DESIGNER Orders Only [facility] [address] [place] [address] [place], [place] 06/03/2024 11:00 AM SENIOR INTERACTION DESIGNER Ancillary Procedure [facility] [place] [facility] [address] [place] [address] Health Maintenance Due Date Last Done Comments COVID-19 vaccine series ( season) 2023 11/02/2023, 06/29/2023, 06/14/2022, Additional history exists Medicare Wellness for age 65+ 12/30/2023 12/29/2022, 03/25/2021 Influenza for age 65+ 03/31/2024 07/13/2023 , 06/14/2022, 03/26/2021, Additional history exists BMI (ht and wt on same day) for age 18+ 06/26/2024 06/26/2023, 10/11/2022, 07/07/2022, Additional history exists Depression screening for age 12+ 03/19/2025 03/19/2024, 12/29/2022, 03/08/2022, Additional history exists Tetanus booster 10/28/2026 10/28/2016, 09/30, 10/28/2005 (Completed outside of [facility]) Colonoscopy through age 75 12/08/202712/07, 12/07/2020, 07/13/2015, [...] history exists Medical Devices Implanted Type Area Debug Technician Device Identifier Shelf Expiration Date Model / Serial / Lot [id number] 4breast 500cc Memorygel Rnd High Smooth Silcn Implanted:Qty: 1 on 01/01/2019 by Britton Parnell MD at [facility] Explanted:at [facility] (Quantity not on file) Left: Breast [employer] [facility] 10/18/2022 [id number] # / [id number] 2breast 500cc Memorygel Rnd High Smooth Silcn Implanted:Qty: 1 on 01/01/2019 by Britton Parnell MD at [facility] Explanted:at [facility] (Quantity not on file) Right: Breast [employer] [facility] 01/21/2023 [id number] # / [id number] / [id number] 2breast 500cc Memorygel Rnd High Smooth Silcn Implanted:Qty: 1 on 01/25/2019 by Britton Parnell MD at [facility] Explanted:at [facility] (Quantity not on file) Left: Breast [employer] [facility] 07/03/2023 [id number] # / [id number] / [id number] Breast 550cc Memorygel Rnd High Smooth Silcn - [id number] Implanted:Qty: 1 on 06/07/2022 by Britton Parnell MD at [facility] Explanted:at [facility] (Quantity not on file) Left: Breast [employer] [facility] [id number] / [id number] / [id number] Procedures Procedure Name Priority Date/Time Associated Diagnosis Comments EKG 12 LEAD Routine 03/20/2024 8:49 AM CDT Preoperative examination ND READING EKG - NO CHARGE, COMP ONLY Routine 03/20/2024 8:48 AM CDT Preoperative examination CBC WITH AUTO DIFFERENTIAL Routine 03/19/2024 11:25 AM CDT Essential hypertension BASIC METABOLIC PANEL Routine 03/19/2024 11:25 AM CDT Essential hypertension CBC WITH AUTO DIFFERENTIAL Routine 03/19/2024 11:25 AM CDT Essential hypertension MR SPINE LUMBAR WO BINDU 02/06/2024 12 :00 AM CDT Compression fracture of T12 vertebra, initial encounter (HC) SCAN-BONE DENSITOMETRY DEXA 12/27/2023 12:00 AM CDT LIPID PANEL W REFLEX MEASURED LDL Routine 10/31/2023 9:26 AM CDT Other hyperlipidemia COLONOSCOPY SCREENING Routine 12/07/2020 12:00 AM CDT History of colon polyps ANTI HCV Routine 04/22/2019 3:35 PM CDT Encounter for hepatitis C screening test for low risk patient from Last 3 Months or Most Recently Relevant to Health Maintenance Results * EKG 12 LEAD (03/20/2024 8:49 AM CDT) Milena Trevino MD EKG ORD * ND READING EKG - NO CHARGE, COMP ONLY (03/20/2024 8:48 AM CDT) Milena Trevino MD PB - PROVIDER READINGS * CBC WITH AUTO DIFFERENTIAL (03/19/2024 11:25 AM CDT) WHITE BLOOD COUNT 4.9 4.5 - 11.0 thou/cu mm 03/19/2024 11:32 AM CDT [facility] RED BLOOD COUNT 4.38 4.00 - 5.20 mil/cu mm 03/19/2024 11:32 AM CDT [facility] HEMOGLOBIN 13.8 12.0 - 16.0 g/dL 03/19/2024 11:32 AM CDT [facility] HEMATOCRIT 41.1 33.0 - 51.0 % 03/19/2024 11:32 AM CDT [facility] MCV 94 80 - 100 fL 03/19/2024 11:32 AM CDT [facility] MCH 31.5 26.0 - 34.0 pg 03/19/2024 11:32 AM CDT [facility] MCHC 33.6 32.0 - 36.0 g/dL 03/19/2024 11:32 AM CDT [facility] RDW 14.4 11.5 - 15.5 % 03/19/2024 11:32 AM CDT [facility] PLATELET COUNT 164 140 - 440 thou/cu mm 03/19/2024 11:32 AM CDT [facility] MPV 10.0 6.5 - 11.0 fL 03/19/2024 11:32 AM CDT [facility] % NEUT 50.6 % 03/19/2024 11:32 AM CDT [facility] % LYMPH 30.2 % 03/19/2024 11:32 AM CDT [facility] % MONO 11.2 % 03/19/2024 11:32 AM CDT [facility] % EOS 7.6 % 03/19/2024 11:32 AM CDT [facility] % BASO 0.4 % 03/19/2024 11:32 AM CDT [facility] ABSOLUTE NEUTROPHILS 2.5 1.7 - 7.0 thou/cu mm 03/19/2024 11:32 AM CDT [facility] ABSOLUTE LYMPHOCYTES 1.5 0.9 - 2.9 thou/cu mm 03/19/2024 11:32 AM CDT [facility] ABSOLUTE MONOCYTES 0.6 <0.9 thou/cu mm 03/19/2024 11:32 AM CDT [facility] ABSOLUTE EOSINOPHILS 0.4 <0.5 thou/cu mm 03/19/2024 11:32 AM CDT [facility] ABSOLUTE BASOPHILS 0.0 <0.3 thou/cu mm 03/19/2024 11:32 AM CDT [facility] Blood BLOOD SPECIMEN / Unknown Venipuncture / Unknown 03/19/2024 11:25 AM CDT 03/19/2024 11:28 AM CDT Milena Trevino MD HEMATOLOGY [facility] [address] [address], [place] [phone] * (ABNORMAL) BASIC METABOLIC PANEL (03/19/2024 11:25 AM CDT) SODIUM 143 136 - 145 mmol/L 03/19/2024 11:26 PM CDT [facility] POTASSIUM 4.0 3.5 - 5.1 mmol/L 03/19/2024 11:26 PM CDT [facility] CHLORIDE 104 98 - 107 mmol/L 03/19/2024 11:26 PM CDT [facility] CO2,TOTAL 29 22 - 29 mmol/L 03/19/2024 11:26 PM T [facility] ANION GAP 10 5 - 18 03/19/2024 11:26 PM T [facility] GLUCOSE 91 70 - 99 mg/dL 03/19/2024 11:26 PM T [facility] CALCIUM 9.3 8.8 - 10.2 mg/dL 03/19/2024 11:26 PM T [facility] BUN 16 8 - 23 mg/dL 03/19/2024 11:26 PM T [facility] CREATININE 0.93(H) 0.50 - 0.90 mg/dL 03/19/2024 11:26 PM T [facility] BUN/CREAT RATIO 17 10 - 20 4 11:26 PM T [facility] eGFR 67(L) >90 mL/min/1.7 3m2 03/19/2024 11:26 PM T [facility] Comment:As of 2021, eG FR is calculated by the CKD-EPI creatinine equation without race adjustment. ??eGFR can be influenced by muscle mass, exercise, and diet. ??The reported eGFR is an estimation only and is only applicable if the renal function is stable. Blood BLOOD SPECIMEN / Unknown Venipuncture / Unknown 03/19/2024 11:25 AM CDT 03/19/2024 11:28 AM CDT Milena Trevino MD CHEMISTRY [facility] [address] [place] [address], * MR SPINE LUMBAR WO (02/06/2024 12:00 AM CDT) Anatomical Region Laterality Modality Spine, LUMBAR SPINE Magnetic Res onance Milena Trevino MD MR * SCAN-BONE DENSITOMETRY DEXA (12/27/2023 12:00 AM CDT) Anatomical Region Laterality Modality Other Scanner OTHER * (ABNORMAL) LIPID PANEL W REFLEX MEASURED LDL (10/31/2023 9:26 AM CDT) CHOLESTEROL,TOTAL 197 100 - 199 mg/dL 10/31/2023 5:21 PM CDT [facility] Comment: Cholesterol, Total Reference Ranges Desirable <200 mg/dL Borderline 200-239 mg/dL High >=240 mg/dL TRIGLYCERIDES 205(H) <150 mg/dL 10/31/2023 5:21 PM CDT [facility] HDL CHOLESTEROL 79 >40 mg/dL 5:21 PM CDT [facility] NON-HDL CHOLESTEROL 118 <145 mg/dl 10/31/2023 5:21 PM CDT [facility] CHOL/HDL RATIO 2.49 <4.50 10/31/2023 5:21 PM CDT [facility] LDL CHOLESTEROL 77 <=130 mg/dL 10/31/2023 5:21 PM CDT [facility] VLDL CHOLESTEROL 41(H) <=30 mg/dL 10/31/2023 5:21 PM CDT [facility] PROVIDER ORDERED STATUS RANDOM 10/31/2023 5:21 PM CDT [facility] Blood BLOOD SPECIMEN / Unknown Venipuncture / Unknown 10/31/2023 9:26 AM CDT 10/31/2023 9:26 AM CDT Milena Trevino MD [facility] [address] [place] [address], * COLONOSCOPY SCREENING (12/07/2020 12:00 AM CDT) Hugo Mazariegos MD GI PROCEDURE ORD * ANTI HCV (04/22/2019 3:35 PM CDT) HEPATITIS C ANTIBODY Non-React kristie Non-React kristie 04/22/2019 9:14 PM CDT [facility] Comment:Antibodies to HCV no t detected; does not exclude the possibility of exposure to HCV. Blood BLOOD SPECIMEN / Unknown Venipuncture / Unknown 04/22/2019 3:35 PM CDT 04/22/2019 3:35 PM CDT [facility] [address] [place] [address], from Last 3 Months or Most Recently Relevant to Health Maintenance Advance Directives Documents on File Type Date Recorded Patient Engineer Remote Control Diesel Expl anation Healthcare Directive 06/06/2017 8:29 AM [...] 6:08 AM 01/02/2019 2:32 AM Care Teams Technical Translator Relationship Specialty Start Date End Date Milena Trevino MD [address] [facility] [place] [address] PCP - General 06/29/04
--- OUTSIDE RECORDS SUMMARY | 2024-03-27 10:00 | XMS_ITS ---
Author Organization [facility] Address [address] [place] [address] Care Team Providers Care Log Hauler Name Role Phone Unavailable Unavailable Unavailable Surgery Details Not on file Complications Check Surgery Details section. Procedure Estimated Blood Loss Check Surgery Details section. Procedure Findings Check Surgery Details section. Procedure Specimens Taken Check Surgery Details section.
--- OUTSIDE RECORDS SUMMARY | 2024-03-27 10:00 | XMS_ITS | Referral Summary ---
Author Organization [facility] Address [address] [place] [address] Care Team Providers Care Jewelry Maker Name Role Phone Elsewhere, Pcp Primary Care Provider Unavailabl e Source Comments Patient records contain information from all sites at [facility]. For routine questions regarding patient records, call [phone] during business hours, M-F 8:00 AM - 5:00 PM Central Time. Record requests for emergency care only can be directed to [phone] at any time.[facility] Allergies Active Allergy Reactions Criticality Noted Date Comments Acetylcysteine Itching Low 11/10/2017 Via [employer]. Pt states, it was given too fast. When it was slowed it was fine. Cephalexin Diarrhea 01/25/2019 Gluten Other (see comments) Low 11/10/2017 Celiac Medications Medication Sig Dispensed Refills Start Date End Date Status pkallem-catbcqytf-kfe taminophen (MIDRIN) 65-100-325 mg per capsule Take [...] weeks. Active butalbital-acetaminop -caf-cod (FIORICET WITH CODEINE) 15-250-20-30 mg per capsule daily as needed. headaches [...] from 06/14/2017:Stage IB(pT3, pN0(sn), cM0, G2, ER+, VT+, HER2-) - Signed by Jeet Costello M.D. 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 [...] often do you attend chur ch or nondenominational services? Patient declined 04/01/2022 Do you belong to any clubs o r organizations such as religious groups, unions, fraternal or athletic groups, or [...] and heating? Not hard at all 04/01/2022 [facility] - [...] Name Priority Date/Time Associated Diagnosis Comments OUTSIDE MR NEURO Routine 02/06/2024 1:15 PM CDT from Last 3 Months Results * MR lumbar spine wo/w con-Outside MR Neuro (02/06/2024 1:15 PM CDT) 02/06/2024 1:13 PM CDT Narrative [facility] - 02/06/2024 2:10 PM CDT This order has been created and auto-finalized to support the import of outside images. If available, original interpretation can be found on the Media Tab in Chart Review, in Document Viewer, as an image in QREADS or as an Addendum. If a re-interpretation or overread is required please follow defined workflow.?? Provider Not In System IMG MRI PROCEDURE S [facility] NA from Last 3 Months Additional Health Concerns Infection Onset Date Last Indicated Protective Environment 06/23/2023 3 Care Teams Jewelry Maker Relationship Specialty Start Date End Date Elsewhere, Pcp PCP - General Family Medicine 01/12/18
--- OUTSIDE RECORDS SUMMARY | 2024-03-27 10:00 | XMS_ITS ---
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 [...] On Elapsed Days Session Dose Total Dose [id number] 03/09/2018 32 200 cGy 5,000 cGy
--- OUTSIDE RECORDS SUMMARY | 2024-03-27 10:00 | XMS_ITS | Clinical Summary ---
Author Organization [facility] Address [address] [place] [address] Care Team Providers Care Brisket Puller Name Role Phone Elsewhere, Pcp Primary Care Provider Unavailabl e Source Comments Patient records contain information from all sites at [facility]. For routine questions regarding patient records, call [phone] during business hours, M-F 8:00 AM - 5:00 PM Central Time. Record requests for emergency care only can be directed to [phone] at any time.[facility] Allergies Active Allergy Reactions Criticality Noted Date Comments Acetylcysteine Itching Low 11/10/2017 Via [employer]. Pt states, it was given too fast. When it was slowed it was fine. Cephalexin Diarrhea 01/25/2019 Gluten Other (see comments) Low 11/10/2017 Celiac Medications Medication Sig Dispensed Refills Start Date End Date Status zgpgeta-vvjhihgdo-yyj taminophen (MIDRIN) 65-100-325 mg per capsule Take [...] weeks. Active butalbital-acetaminop -caf-cod (FIORICET WITH CODEINE) 74-465-40-30 mg per capsule daily as needed. headaches [...] from 06/14/2017:Stage IB(pT3, pN0(sn), cM0, G2, ER+, SD+, HER2-) - Signed by Jeet Costello M.D. 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 [...] often do you attend chur ch or jehovah's witness services? Patient declined 04/01/2022 Do you belong to any clubs o r organizations such as gnosticist groups, unions, fraternal or athletic groups, or [...] and heating? Not hard at all 04/01/2022 [facility] - Occupational Stress [...] place to sleep or slept in a correction (including now)? No 04/01/2022 Nutrition Answer Date [...] Indicated Protective Environment 06/23/2023 3 Care Teams Brisket Puller Relationship Specialty Start Date End Date Elsewhere, Pcp PCP - General Family Medicine 01/12/18
[2024-03-27] MEDS: LACTATED RINGERS 1000 ML 1,000 ML 100 ML IV ×2 (10:05→13:13)
[2024-03-27] MEDS: ACETAMINOPHEN 500 MG TABLET 1000 MG PO ×3 (11:58→23:18)
[2024-03-27] MEDS: OXYCODONE (CR) 10 MG TAB.ER.12H PO (11:58)
[2024-03-27] MEDS: fentaNYL 100 MCG/2 ML inj IVP (11:59)
[2024-03-27] MEDS: MIDAZOLAM HCL 1 MG/ML inj IVP (11:59)
[2024-03-27] MEDS: CELECOXIB 200 MG CAPSULE PO ×2 (12:00→21:11)
--- NOTE | 2024-03-27 12:02 | W.PM.H&PU ---
History & Physical Update History & Physical Update H&P Reviewed and patient assessed: No changes noted
--- NOTE | 2024-03-27 12:02 | PM.ORPRC ---
Procedure Note Date of procedure: 03/27/24 Procedure: PREOPERATIVE DIAGNOSIS: 1. Left knee osteoarthritis POSTOPERATIVE DIAGNOSES: 1. Left knee osteoarthritis PROCEDURE: 1. Left total knee arthroplasty SURGEON: Nash Downs MD PHOTOGRAPHER FINISH: Guillermo Helms P.A.-C. An certified ophthalmic surgical assistant was critical for this case to aide in patient positioning, suture manipulation, arm positioning, instrument positioning, and closure. ANESTHESIA: Spinal IMPLANTS: DePuy Attune femoral posterior stabilized component size 5; DePuy Attune tibial base rotating platform size 5; DePuy Attune tibial insert rotating platform posterior stabilized polyethylene size 5, 5 mm; and an Attune patella medialized dome size 35 mm. EBL: 50 ml TOURNIQUET TIME: 64 minutes at 300 mmHg COMPLICATIONS: None evident INDICATIONS: Yeimi is a 68-year-old female who has chronic left knee pain secondary to osteoarthritis. Symptoms have worsened despite non operative treatment. Patient is now interested in proceeding with total knee arthroplasty for improved function, decreased pain and better quality of life. Prior to the procedure, risks and benefits of the operative and non operative treatment were discussed with the patient. After discussion of risks, benefits, and alternatives of surgery, informed consent was obtained and the operative site was marked. FINDINGS: Diffuse grade 3 and grade 4 chondromalacia of the medial femoral condyle and tibial plateau, mild chondromalacia of the patella. Normal appearing cartilage in the lateral compartment. PROCEDURE: Patient was seen preoperatively and operative site was marked. Abductor canal and genicular nerve blocks were performed by anesthesia staff. Patient was then brought to the operating room, where spinal anesthesia was administered by the anesthesia staff. Patient was then placed into the supine position on the OR table and all bony prominences were well padded. Preoperative prophylactic antibiotics were administered intravenously. A tourniquet was placed on the thigh of the operative leg. The left lower extremity was prepped and draped in usual sterile fashion. A surgical time-out was performed confirming patient identity, surgical procedure, and surgical site. Operative extremity was elevated and exsanguinated with an Esmarch and tourniquet was inflated to 300 mmHg. The tourniquet remained inflated for 64 minutes before it was deflated. An anterior longitudinal incision was made and carried down through the subcutaneous tissues. The quadriceps tendon, medial patellar retinaculum, and patellar tendon were visualized. A medial quadriceps splitting parapatellar arthrotomy was performed. The proximal medial tibia was subperiosteal exposed distal to the joint line. The retropatellar fat pad was excised. The knee was flexed and patella everted. A curved osteotome was used to enter the semimembranous bursa medially at the level of the joint line. Medial and lateral tibial plateau osteophytes were removed with a rongeur. The medial meniscus was excised at the meniscal synovial junction. The anterior cruciate ligament was excised. A Z-retractor was placed medially and a right angle Hohmann retractor was placed anterior lateral to the lateral meniscus. A partial lateral meniscectomy was performed. The intramedullary drill was utilized to open the intramedullary canal. ?Intramedullary alignment guide was inserted. The distal femoral cutting block, set at 5 degrees of valgus with a distal femoral resection of 9 mm, was secured with pins, and the distal femoral osteotomy was performed. ?Using the posterior condylar referencing guide, femur was sized to a size 5, and pins were drilled for 3 degrees of external rotation, which corresponded with Whitesides line and the epicondylar axis. ?A 4-in-1 cutting jig was inserted at 3 degrees of external rotation. ?The anterior and posterior condylar cuts were performed followed by anterior and posterior chamfer cuts. The box cutting guide was then secured to the distal femur with pins and the box osteotomy was performed. ? ? We then turned our attention back to the tibia. ?Ranasall maneuver was performed and remainder of the lateral meniscus, medial meniscus, and PCL were excised. ?A retractor was placed along the posterior tibia. ?Extramedullary guide was secured around the ankle in line with the subcutaneous tibial crest. ?The tibial cutting block, set to remove 2 mm of bone from medial tibial plateau and 9 mm of bone from lateral tibial plateau, was secured proximally with pins. ?Tibial osteotomy was performed with care taken to protect the collateral ligaments. ?Spacer blocks were inserted, and knee was noted to be tight in flexion and extension. Therefore the tibial cutting block was secured back to the tibia and an additional 2 mm of bone was removed from the proximal tibia. Spacer blocks were reinserted, which confirmed symmetric flexion and extension gaps.?The tibia was then sized to a size 5, and tibial base plate was secured. Tibia was then prepped with the appropriate drill and punch. Trial femur and tibial components with a 5 mm tibial polyethylene component were inserted. The knee was then brought out to full extension. ?The patella was everted and osteochondral junction was exposed. ?The patella measured 23 mm in thickness. ?The patellar osteotomy was performed, leaving 15 mm of remnant patella. ?Three lug holes were drilled for the 35 mm patella button and the patella button was inserted. The knee was brought through a full range of motion. ?Soft tissue tension, collateral ligament stability, and patella tracking were confirmed to be satisfactory. ?A bone plug was placed into the distal femur guide hole. The exposed bony surfaces of the tibia, femur, and patella were then thoroughly irrigated with pulse lavage and dried. ? Cement was mixed on the back table and was subsequently introduced onto the tibia and tibial base plate. ?Tibial base plate was then impacted into position, and extruded cement was removed. ?Cement was then applied to the distal femur and posterior condyles of the femoral prosthesis. ?The femoral prosthesis was impacted into position, extruded cement was removed, and a trial polyethylene was inserted. ?Knee was then brought out to full extension for remainder of drying. ?Cement was then applied to the patella and patellar button. The patella button was clamped into position, and extruded cement was removed. ?While the cement was drying, knee was soaked in a sterile iodine solution. ? After the cement had dried, the knee was flexed and the trial tibial component was removed. The tourniquet was released . The soft tissues were then irrigated with pulse lavaged and hemostasis was achieved with electrocautery. A formal size 5, 5 mm rotating platform posterior stabilized polyethylene was then secured into position. ? The parapatellar arthrotomy was closed with #1 Vicryl [id number] interrupted sutures followed by a running #1 Stratafix suture. ?Subcutaneous soft tissues were again irrigated normal saline. Skin was closed with 2-0 Vicryl inverted, interrupted, subcutaneous stitches followed by running 2-0 Stratafix and 4-0 Monocryl subcuticular stitches. ?The incision was then sealed with Dermabond and sterile dressing was applied. ?The patient was then transferred to the recovery room in stable condition. POSTOPERATIVE PLAN: 1. Patient will be admitted to the hospital, where she will follow the postoperative total knee arthroplasty protocol. 2. Mobilize with physical therapy and occupational therapy. -Weight bear as tolerated left lower extremity. 3. Pain control: -Acetaminophen and Oxycodone for pain as needed. -IV pain medications for breakthrough pain. -Ice for pain and swelling 4. Postoperative prophylactic antibiotics x2 doses 5. DVT prophylaxis: -aspirin 81 mg b.i.d. for 35 days. -SCDs 6. Follow-up in Orthopedic Clinic in 1-2 weeks.
[2024-03-27] MEDS: SODIUM CHLORIDE 0.9 % (FLUSH) 10 ML SYRINGE IVF (12:07)
--- NOTE | 2024-03-27 12:07 | SUR.PREOP ---
TIME?OUT:?1157 PT/RN/MDA?VERIFICATION?OF?SURGICAL?SITE,?PROCEDURE,?AND?CONSENT OBTAINED?PRIOR?TO?INVASIVE?PROCEDURE.
--- NOTE | 2024-03-27 12:20 | P.NB_ITS ---
Nerve Block Nerve Block Time Seen by Provider: 12:05 Date Seen: 03/27/24 Type of block requested by surgeon for post-operative analgesia: adductor canal Side: left Time out performed: Yes Verification of patient name: Yes Verification of date of : Yes Site marking: site marked Name of person performing procedure: celestino Continuous monitoring Was continuous monitoring of O2 sat, B/P, recording studio intern, recorded every 15 minutes?: Yes Procedure Checklist: sterile prep, needles and gloves Ultrasound guided. Images saved: Yes Medications given in 5ml increments after negative aspiration: Ropivicaine %: 0.5 mL: 20 Needle gauge: 20 Decadron (mg): 10 Precedex (mcg): 25 Patient tolerated procedure well: Yes Block Charges Block Charge (with Pro Fee): Femoral Nerve Use of Ultrasound Machine for Block: Yes- US Guidance/pain block
--- NOTE | 2024-03-27 12:21 | P.NB_ITS ---
Nerve Block Nerve Block Time Seen by Provider: 12:05 Date Seen: 03/27/24 Type of block requested by surgeon for post-operative analgesia: geniculars Side: left Time out performed: Yes Verification of patient name: Yes Verification of date of : Yes Site marking: site marked Name of person performing procedure: celestino Continuous monitoring Was continuous monitoring of O2 sat, B/P, monitoring and evaluation advisor, recorded every 15 minutes?: Yes Procedure Checklist: sterile prep and needles Ultrasound guided. Images saved: No Medications given in 5ml increments after negative aspiration: Ropivicaine %: 0.5 mL: 12 Needle gauge: 22 Decadron (mg): 10 Precedex (mcg): 25 Patient tolerated procedure well: Yes Block Charges Block Charge (with Pro Fee): Genicular Nerve Block Use of Ultrasound Machine for Block: No
[2024-03-27] MEDS: CEFAZOLIN 2 GM INJ IVP (12:22)
[2024-03-27] MEDS: TRANEXAMIC ACID 100 MG/ML INJ 1000 MG IV (12:25)
--- NOTE | 2024-03-27 14:27 | CRLHL7_ITS ---
For Patients: As a result of the Cures Act, medical imaging exams and procedure reports are released immediately into your electronic medical record. You may view this report before your referring provider. If you have questions, please contact your health care provider. Indication: Left knee arthroplasty. Technique: Two views left knee Comparison: None. Findings: Left knee arthroplasty in anatomic alignment. No periprosthetic lucency or fracture. Expected postsurgical soft tissue changes. Impression: Left knee arthroplasty without radiographic evidence of complication. Dictated by Livan Melo MD @ 03/28/2024 12:14:09 PM (Electronically Signed)
--- NOTE | 2024-03-27 15:07 | W.ANESCHARGE ---
Anesthesia Charges Start Date/Time Anesthesia Start Date: 03/27/24 Anesthesia Start Time: 12:15 Stop Date/Time Anesthesia Stop Date: 03/27/24 Anesthesia Stop Time: 15:12
[2024-03-27] MEDS: fentaNYL 100 MCG/2 ML inj 50 MCG IVP (15:24)
--- NOTE | 2024-03-27 15:55 | SUR.PHASEI ---
PRIOR TO ABDUCTOR BLOCK, TIME OUT PREFORMED AT 15:54.
--- NOTE | 2024-03-27 16:06 | P.NB_ITS ---
Nerve Block Nerve Block Time Seen by Provider: 16:00 Date Seen: 03/27/24 Type of block requested by surgeon for post-operative analgesia: adductor canal Side: left Time out performed: Yes Verification of patient name: Yes Verification of date of : Yes Site marking: site marked Name of person performing procedure: Shayne Castañeda Continuous monitoring Was continuous monitoring of O2 sat, B/P, monitoring coordinator, recorded every 15 minutes?: Yes Procedure Ultrasound guided. Images saved: Yes Medications given in 5ml increments after negative aspiration: Marcaine %: 0.5 mL: 10 Needle gauge: 20 and Lidocaine %: 2 mL: 5 Needle gauge: 20 Patient tolerated procedure well: Yes Additional comments: Pt states she has 10/10 pain. Repeated block. Block Charges Block Charge (with Pro Fee): Femoral Nerve Use of Ultrasound Machine for Block: Yes- US Guidance/pain block
[2024-03-27] MEDS: HYDROmorphone 0.5 mg/0.5 ml inj IVP ×4 (17:18→23:18)
--- NOTE | 2024-03-27 20:02 | P.IMCN_ITS ---
Date of Consult Consult date: 03/27/24 Requesting Physician: Orthopedics Primary Care Provider: Milena Trevino MD Consult Narrative Narrative: HOSPITALIST CONSULT Procedure: Left total knee arthroplasty SURGEON: Nash Downs MD EBL: 50 ml COMPLICATIONS: None evident The hospital medicine team was asked by the orthopedic surgery team to manage the patient's HTN, anxiety, neuropathy. There have been no perioperative complications. I have updated and reviewed the active medical problems, past medical history, past surgical history, social history, allergies and medications in our electronic EMR. This includes a cross reference to care everywhere in [facility] and with [facility] databases. PHYSICAL EXAM: CODE STATUS: FULL CODE CONSTITUTIONAL: Conversive, good historian. A/O. Knows setting and context. VITAL SIGNS: see record. HEENT: Normocephalic, atraumatic. PERRL, EOMI, conjunctivae pink, no scleral icterus. Ears and nose externally normal. Pharynx normal. NECK: No JVD. No carotid bruit, no thyromegaly, no adenopathy. CHEST: Clear to auscultation bilaterally HEART: S1 and S2 normal. ABDOMEN: Flat, soft, nontender. Normal bowel sounds. Moderately obese. EXTREMITIES: No edema. MUSCULOSKELETAL: Left knee SDI NEURO: Cranial nerves intact. Mentation normal. Normal affect. SKIN: No rashes, petechiae, concerning changes PSYCHIATRIC: Mentation normal. INVESTIGATIONS: EMR Reviewed; Pre-OP Reviewed DISPOSITION: DVT: Agree with Ortho team decision GI: [facility] Medical History (Updated 03/27/24 @ 20:13 by Geeta Downs MD) Degenerative disc disease, cervical ?M50.30 - Other cervical disc degeneration, unspecified cervical region (ICD- 10) Strain of left biceps ?S46.212A - Strain of muscle, fascia and tendon of other parts of biceps, left arm, initial encounter (ICD-10) Fracture of T12 vertebra ?S22.089A - Unspecified fracture of T11-T12 vertebra, initial encounter for closed fracture (ICD-10) Sleep apnea ?G47.30 - Sleep apnea, unspecified (ICD-10) Postmenopausal bleeding (07/2014) ?N95.0 - Postmenopausal bleeding (ICD-10) Migraine (07/15/09) ?G43.909 - Migraine, unspecified, not intractable, without status migrainosus (ICD-10) Malignant neoplasm of left breast ?C50.912 - Malignant neoplasm of unspecified site of left female breast (ICD- 10) Lobular carcinoma of breast (04/2017) ?C50.919 - Malignant neoplasm of unspecified site of unspecified female breast (ICD-10) Lichen sclerosus et atrophicus ?L90.0 - Lichen sclerosus et atrophicus (ICD-10) Infection due to extended spectrum beta-lactamase producing bacteria ?A49.9 - Bacterial infection, unspecified (ICD-10) ?Z16.12 - Extended spectrum beta lactamase (ESBL) resistance (ICD-10) Hyperlipidemia (07/15/09) ?E78.5 - Hyperlipidemia, unspecified (ICD-10) Fracture of left patella ?S82.002A - Unspecified fracture of left patella, initial encounter for closed fracture (ICD-10) Acetaminophen overdose ?T39.1X1A - Poisoning by 4-Aminophenol derivatives, accidental (unintentional), initial encounter (ICD-10) Arthritis of left acromioclavicular joint ?M19.012 - Primary osteoarthritis, left shoulder (ICD-10) Subacromial impingement of left shoulder ?M75.42 - Impingement syndrome of left shoulder (ICD-10) History of trigger finger ?Z87.39 - Personal history of other diseases of the musculoskeletal system and connective tissue (ICD-10) Myopic degeneration ?H44.20 - Degenerative myopia, unspecified eye (ICD-10) Celiac disease ?K90.0 - Celiac disease (ICD-10) Anxiety ?F41.9 - Anxiety disorder, unspecified (ICD-10) Depression ?F32.A - Depression, unspecified (ICD-10) Anemia ?D64.9 - Anemia, unspecified (ICD-10) GERD (gastroesophageal reflux disease) ?K21.9 - Gastro-esophageal reflux disease without esophagitis (ICD-10) Heart burn ?R12 - Heartburn (ICD-10) Elevated liver enzymes ?R74.8 - Abnormal levels of other serum enzymes (ICD-10) Elevated cholesterol ?E78.00 - Pure hypercholesterolemia, unspecified (ICD-10) Hypertension ?I10 - Essential (primary) hypertension (ICD-10) COPD (chronic obstructive pulmonary disease) ?J44.9 - Chronic obstructive pulmonary disease, unspecified (ICD-10) Surgical History (Updated 03/27/24 @ 20:06 by Geeta Downs MD) Status post bilateral salpingo-oophorectomy (BSO) ?Z90.722 - Acquired absence of ovaries, bilateral (ICD-10) S/P left knee arthroscopy (01/22/20) ?Z98.890 - Other specified postprocedural states (ICD-10) S/P rotator cuff repair (07/08/19) ?Z98.890 - Other specified postprocedural states (ICD-10) S/P trigger finger release ?Z98.890 - Other specified postprocedural states (ICD-10) H/O breast reconstruction ?Z98.890 - Other specified postprocedural states (ICD-10) History of endometrial ablation ?Z98.890 - Other specified postprocedural states (ICD-10) H/O: hysterectomy ?Z90.710 - Acquired absence of both cervix and uterus (ICD-10) H/O hernia repair ?Z98.890 - Other specified postprocedural states (ICD-10) ?Z87.19 - Personal history of other diseases of the digestive system (ICD-10) H/O mastectomy ?Z90.10 - Acquired absence of unspecified breast and nipple (ICD-10) History of breast biopsy ?Z98.890 - Other specified postprocedural states (ICD-10) S/P arthroscopic partial medial meniscectomy of left knee (01/10/22) ?Z98.890 - Other specified postprocedural states (ICD-10) ?Z87.828 - Personal history of other (healed) physical injury and trauma (ICD-10) Social History What is your current living situation?: I presently have a place to live Problems where you live: no known problems In the past 12 months, utilities in danger of being shut off: no In past 12 months, lack of transportation kept you from medical appts, meetings, work, or getting things needed for daily living: no In the past 12 mos, have been you worried that your food would run out before you had money to buy more?: never true In the past 12 mos, the food you bought just didn't last and you didn't have money to buy more?: never true Highest level of school completed/degree received: some college, no degree Smoking Status: Never smoker Second hand tobacco smoke exposure: No How often do you have a drink containing alcohol: 2-4 times a month How many standard drinks containing alcohol do you have on a typical day: 1 or 2 How often do you have six or more drinks on one occasion: Never AUDIT-C Alcohol total score: 2 Non-prescribed substance use: denies use Caffeine: Yes How often does anyone, including family, friends and others, physically hurt you : never How often does anyone, including family, friends and others, insult or talk down to you: never How often does anyone, including family, friends and others, threaten you with harm: never How often does anyone, including family, friends and others, scream or curse at you: never service: No Meds Home Medications and Allergies Home Medications ?Medication ?Instructions ?Recorded ?Confirmed ?Type amlodipine 5 mg tablet 5 mg PO QDAY 05/12/22 03/27/24 History bevacizumab 2.5 mg/0.1 mL See Rx Instructions intravitreal 05/12/22 03/27/24 History intravitreal syringe Q8W lisinopril 20 1 tab PO QDAY 05/12/22 03/27/24 History mg-hydrochlorothiazide 25 mg tablet lorazepam 0.5 mg tablet 0.5 mg PO BID PRN 05/12/22 03/27/24 History omeprazole 20 mg capsule,delayed 20 mg PO QDAY 05/12/22 03/27/24 History release potassium chloride 20 mEq 20 meq PO QDAY 05/12/22 03/27/24 History tablet,extended release(part/cryst) pravastatin 80 mg tablet 80 mg PO QHS 05/12/22 03/27/24 History metoprolol tartrate 25 mg tablet 25 mg PO QDAY 11/24/22 01/23/24 History zinc gluconate 30 mg tablet See Rx Instructions PO ONCE 05/25/23 03/27/24 History calcium carbonate 1,200 mg PO QDAY 11/23/23 03/27/24 History ketoconazole 2 % shampoo 1 applic topical 3XW PRN 11/23/23 01/23/24 History ppaazgobgu-daguvry-xbtqhrab 50 1 tab PO Q4H PRN 03/26/24 03/26/24 History mg-325 mg-40 mg tablet metoprolol succinate 25 mg 25 mg PO DAILY 03/26/24 03/27/24 History tablet,extended release 24 hr sumatriptan succinate 25 mg tablet 25 mg PO Q2H PRN 03/26/24 03/27/24 History (Imitrex) Allergies Allergy/AdvReac Type Severity Reaction Status Date / Time acetylcysteine Allergy Severe Anaphylaxis Verified 03/27/24 10:09 gluten Allergy Unknown Verified 03/27/24 10:09 cephalexin AdvReac Mild Diarrhea Verified 03/27/24 10:09 Exam Const: Vital Signs, click to edit/add: Vital Signs - 24 hr 03/27/24 10:51 03/27/24 15:07 03/27/24 15:15 Temperature 97.8 F 97.6 F Pulse Rate 70 88 76 Respiratory Rate 16 16 18 Blood Pressure 123/80 118/77 122/79 Pulse Oximetry 94 95 94 Oxygen Delivery Me thod Room Air Blow By Blow By Oxygen Flow Rate 10 10 03/27/24 15:20 03/27/24 15:25 03/27/24 15:30 Temperature 97.5 F L Pulse Rate 75 78 73 Respiratory Rate 14 12 14 Blood Pressure 113/78 134/91 H 139/88 Pulse Oximetry 92 92 93 Oxygen Delivery Me thod Blow By Blow By Blow By Oxygen Flow Rate 10 10 10 03/27/24 15:35 03/27/24 15:40 03/27/24 15:50 Temperature 97.6 F Pulse Rate 73 74 76 Respiratory Rate 18 14 16 Blood Pressure 131/81 128/76 129/80 Pulse Oximetry 92 94 92 Oxygen Delivery Me thod OxyMask OxyMask OxyMask Oxygen Flow Rate 10 10 10 03/27/24 15:55 03/27/24 16:00 03/27/24 16:05 Temperature 97.4 F L Pulse Rate 75 73 74 Respiratory Rate 14 16 14 Blood Pressure 126/86 128/79 125/87 Pulse Oximetry 96 96 96 Oxygen Delivery Me thod OxyMask OxyMask OxyMask Oxygen Flow Rate 10 10 10 03/27/24 16:10 Temperature 97.4 F L Pulse Rate 73 Respiratory Rate 18 Blood Pressure 125/81 Pulse Oximetry 97 Oxygen Delivery Me thod OxyMask Oxygen Flow Rate 10 Assessment and Plan Assessment and plan (1) S/P total knee arthroplasty: Problem comment: Left, Dr. Zheng Downs 03/27/24 Hospital medicine team is happy to follow the patient through to discharge. Agree with aspirin 81 mg b.i.d. for VTE prophylaxis Status: Acute (2) Osteoarthritis of left knee: Problem comment: moderate-severe Status: Acute (3) Hypertension: Problem comment: Will continue her metoprolol, but holding the rest of her hypertensive medications Status: Acute (4) Anxiety: Problem comment: P.r.n. Ativan per her home regimen Status: Acute (5) Sleep apnea: Status: Acute (6) Migraine: Problem comment: P.r.n. sumatriptan per her home med Status: Acute (7) Breast cancer in female: Problem comment: 1. Left breast cancer, pT3 pN0, ER ER positive stage IIB 2. Right breast cancer, pT1b pNx, ERPR positive stage IA -continue letrozole Status: Acute (8) Peripheral neuropathy due to chemotherapy: Problem comment: Continue gabapentin Status: Acute (9) FPC (current) use of aromatase inhibitors: Status: Acute
--- NOTE | 2024-03-27 20:19 | PC.NURSE ---
Pt arrived on unit at 1645 from surgery. LTKA. Patient rates pain between 7-8. VSS. On 5L of oxygen via nasal cannula. Advanced to regular diet by 1800. Ate 100% of a regular diet and tolerated it well.
--- NOTE | 2024-03-27 20:30 | PM.IMCN1 ---
Date of Consult Consult date: 03/27/24 Primary Care Provider: Milena Trevino MD Consult Narrative Narrative: Date of Consult Consult date: 03/27/24 Requesting Physician: Orthopedics Primary Care Provider: Milena Trevino MD Consult Narrative Narrative: HOSPITALIST CONSULT Procedure: Left total knee arthroplasty SURGEON: Nash Downs MD EBL: 50 ml COMPLICATIONS: None evident The hospital medicine team was asked by the orthopedic surgery team to manage the patient's post-operative hypoxia (radiation pneumonitis), HTN, anxiety, neuropathy. There have been no perioperative complications. I have updated and reviewed the active medical problems, past medical history, past surgical history, social history, allergies and medications in our electronic EMR. This includes a cross reference to care everywhere in [facility] and with [facility] databases. PHYSICAL EXAM: CODE STATUS: FULL CODE CONSTITUTIONAL: Conversive, good historian. A/O. Knows setting and context. VITAL SIGNS: see record. HEENT: Normocephalic, atraumatic. PERRL, EOMI, conjunctivae pink, no scleral icterus. Ears and nose externally normal. Pharynx normal. NECK: No JVD. No carotid bruit, no thyromegaly, no adenopathy. CHEST: Clear to auscultation bilaterally -no wheezes, resp distress. HEART: S1 and S2 normal. ABDOMEN: Flat, soft, nontender. Normal bowel sounds. Moderately obese. EXTREMITIES: No edema. MUSCULOSKELETAL: Left knee SDI NEURO: Cranial nerves intact. Mentation normal. Normal affect. SKIN: No rashes, petechiae, concerning changes PSYCHIATRIC: Mentation normal. INVESTIGATIONS: EMR Reviewed; Pre-OP Reviewed DISPOSITION: DVT: Agree with Ortho team decision GI: PO intake [facility] Medical History (Updated 03/27/24 @ 20:55 by Geeta Downs MD) Radiation pneumonitis ?J70.0 - Acute pulmonary manifestations due to radiation (ICD-10) Degenerative disc disease, cervical ?M50.30 - Other cervical disc degeneration, unspecified cervical region (ICD-10) Strain of left biceps ?S46.212A - Strain of muscle, fascia and tendon of other parts of biceps, left arm, initial encounter (ICD-10) Fracture of T12 vertebra ?S22.089A - Unspecified fracture of T11-T12 vertebra, initial encounter for closed fracture (ICD-10) Sleep apnea ?G47.30 - Sleep apnea, unspecified (ICD-10) Postmenopausal bleeding (07/2014) ?N95.0 - Postmenopausal bleeding (ICD-10) Migraine (07/15/09) ?G43.909 - Migraine, unspecified, not intractable, without status migrainosus (ICD-10) Malignant neoplasm of left breast ?C50.912 - Malignant neoplasm of unspecified site of left female breast (ICD-10) Lobular carcinoma of breast (04/2017) ?C50.919 - Malignant neoplasm of unspecified site of unspecified female breast (ICD-10) Lichen sclerosus et atrophicus ?L90.0 - Lichen sclerosus et atrophicus (ICD-10) Infection due to extended spectrum beta-lactamase producing bacteria ?A49.9 - Bacterial infection, unspecified (ICD-10) ?Z16.12 - Extended spectrum beta lactamase (ESBL) resistance (ICD-10) Hyperlipidemia (07/15/09) ?E78.5 - Hyperlipidemia, unspecified (ICD-10) Fracture of left patella ?S82.002A - Unspecified fracture of left patella, initial encounter for closed fracture (ICD-10) Acetaminophen overdose ?T39.1X1A - Poisoning by 4-Aminophenol derivatives, accidental (unintentional), initial encounter (ICD-10) Arthritis of left acromioclavicular joint ?M19.012 - Primary osteoarthritis, left shoulder (ICD-10) Subacromial impingement of left shoulder ?M75.42 - Impingement syndrome of left shoulder (ICD-10) History of trigger finger ?Z87.39 - Personal history of other diseases of the musculoskeletal system and connective tissue (ICD-10) Myopic degeneration ?H44.20 - Degenerative myopia, unspecified eye (ICD-10) Celiac disease ?K90.0 - Celiac disease (ICD-10) Anxiety ?F41.9 - Anxiety disorder, unspecified (ICD-10) Depression ?F32.A - Depression, unspecified (ICD-10) Anemia ?D64.9 - Anemia, unspecified (ICD-10) GERD (gastroesophageal reflux disease) ?K21.9 - Gastro-esophageal reflux disease without esophagitis (ICD-10) Heart burn ?R12 - Heartburn (ICD-10) Elevated liver enzymes ?R74.8 - Abnormal levels of other serum enzymes (ICD-10) Elevated cholesterol ?E78.00 - Pure hypercholesterolemia, unspecified (ICD-10) Hypertension ?I10 - Essential (primary) hypertension (ICD-10) COPD (chronic obstructive pulmonary disease) ?J44.9 - Chronic obstructive pulmonary disease, unspecified (ICD-10) Surgical History (Updated 03/27/24 @ 20:06 by Geeta Downs MD) Status post bilateral salpingo-oophorectomy (BSO) ?Z90.722 - Acquired absence of ovaries, bilateral (ICD-10) S/P left knee arthroscopy (01/22/20) ?Z98.890 - Other specified postprocedural states (ICD-10) S/P rotator cuff repair (07/08/19) ?Z98.890 - Other specified postprocedural states (ICD-10) S/P trigger finger release ?Z98.890 - Other specified postprocedural states (ICD-10) H/O breast reconstruction ?Z98.890 - Other specified postprocedural states (ICD-10) History of endometrial ablation ?Z98.890 - Other specified postprocedural states (ICD-10) H/O: hysterectomy ?Z90.710 - Acquired absence of both cervix and uterus (ICD-10) H/O hernia repair ?Z98.890 - Other specified postprocedural states (ICD-10) ?Z87.19 - Personal history of other diseases of the digestive system (ICD-10) H/O mastectomy ?Z90.10 - Acquired absence of unspecified breast and nipple (ICD-10) History of breast biopsy ?Z98.890 - Other specified postprocedural states (ICD-10) S/P arthroscopic partial medial meniscectomy of left knee (01/10/22) ?Z98.890 - Other specified postprocedural states (ICD-10) ?Z87.828 - Personal history of other (healed) physical injury and trauma (ICD-10) Social History What is your current living situation?: I presently have a place to live Problems where you live: no known problems In the past 12 months, utilities in danger of being shut off: no In past 12 months, lack of transportation kept you from medical appts, meetings, work, or getting things needed for daily living: no In the past 12 mos, have been you worried that your food would run out before you had money to buy more?: never true In the past 12 mos, the food you bought just didn't last and you didn't have money to buy more?: never true Highest level of school completed/degree received: some college, no degree Smoking Status: Never smoker Second hand tobacco smoke exposure: No How often do you have a drink containing alcohol: 2-4 times a month How many standard drinks containing alcohol do you have on a typical day: 1 or 2 How often do you have six or more drinks on one occasion: Never AUDIT-C Alcohol total score: 2 Non-prescribed substance use: denies use Caffeine: Yes How often does anyone, including family, friends and others, physically hurt you: never How often does anyone, including family, friends and others, insult or talk down to you: never How often does anyone, including family, friends and others, threaten you with harm: never How often does anyone, including family, friends and others, scream or curse at you: never service: No Meds Home Medications and Allergies Home Medications ?Medication ?Instructions ?Recorded ?Confirmed ?Type amlodipine 5 mg tablet 5 mg PO QDAY 05/12/22 03/27/24 History bevacizumab 2.5 mg/0.1 mL See Rx Instructions intravitreal 05/12/22 03/27/24 History intravitreal syringe Q8W lisinopril 20 1 tab PO QDAY 05/12/22 03/27/24 History mg-hydrochlorothiazide 25 mg tablet lorazepam 0.5 mg tablet 0.5 mg PO BID PRN 05/12/22 03/27/24 History omeprazole 20 mg capsule,delayed 20 mg PO QDAY 05/12/22 03/27/24 History release potassium chloride 20 mEq 20 meq PO QDAY 05/12/22 03/27/24 History tablet,extended release(part/cryst) pravastatin 80 mg tablet 80 mg PO QHS 05/12/22 03/27/24 History metoprolol tartrate 25 mg tablet 25 mg PO QDAY 11/24/22 01/23/24 History zinc gluconate 30 mg tablet See Rx Instructions PO ONCE 05/25/23 03/27/24 History calcium carbonate 1,200 mg PO QDAY 11/23/23 03/27/24 History ketoconazole 2 % shampoo 1 applic topical 3XW PRN 11/23/23 01/23/24 History tppjriroim-hranszn-blpobdad 50 1 tab PO Q4H PRN 03/26/24 03/26/24 History mg-325 mg-40 mg tablet metoprolol succinate 25 mg 25 mg PO DAILY 03/26/24 03/27/24 History tablet,extended release 24 hr sumatriptan succinate 25 mg tablet 25 mg PO Q2H PRN 03/26/24 03/27/24 History (Imitrex) Allergies Allergy/AdvReac Type Severity Reaction Status Date / Time acetylcysteine Allergy Severe Anaphylaxis Verified 03/27/24 10:09 gluten Allergy Unknown Verified 03/27/24 10:09 cephalexin AdvReac Mild Diarrhea Verified 03/27/24 10:09 Exam Const: Vital Signs, click to edit/add: Vital Signs - 24 hr 03/27/24 10:51 03/27/24 15:07 03/27/24 15:15 Temperature 97.8 F 97.6 F Pulse Rate 70 88 76 Respiratory Rate 16 16 18 Blood Pressure 123/80 118/77 122/79 Pulse Oximetry 94 95 94 Oxygen Delivery Me thod Room Air Blow By Blow By Oxygen Flow Rate 10 10 03/27/24 15:20 03/27/24 15:25 03/27/24 15:30 Temperature 97.5 F L Pulse Rate 75 78 73 Respiratory Rate 14 12 14 Blood Pressure 113/78 134/91 H 139/88 Pulse Oximetry 92 92 93 Oxygen Delivery Me thod Blow By Blow By Blow By Oxygen Flow Rate 10 10 10 03/27/24 15:35 03/27/24 15:40 03/27/24 15:50 Temperature 97.6 F Pulse Rate 73 74 76 Respiratory Rate 18 14 16 Blood Pressure 131/81 128/76 129/80 Pulse Oximetry 92 94 92 Oxygen Delivery Me thod OxyMask OxyMask OxyMask Oxygen Flow Rate 10 10 10 03/27/24 15:55 03/27/24 16:00 03/27/24 16:05 Temperature 97.4 F L Pulse Rate 75 73 74 Respiratory Rate 14 16 14 Blood Pressure 126/86 128/79 125/87 Pulse Oximetry 96 96 96 Oxygen Delivery Me thod OxyMask OxyMask OxyMask Oxygen Flow Rate 10 10 10 03/27/24 16:10 03/27/24 16:45 03/27/24 17:00 Temperature 97.4 F L 97.4 F L 97.4 F L Pulse Rate 73 71 73 Respiratory Rate 18 16 16 Blood Pressure 125/81 115/81 119/86 Pulse Oximetry 97 98 93 Oxygen Delivery Me thod OxyMask Nasal Cannula Nasal Cannula Oxygen Flow Rate 10 5 5 03/27/24 17:15 03/27/24 17:30 03/27/24 18:15 Temperature 97.4 F L 97.4 F L 97.4 F L Pulse Rate 70 70 70 Respiratory Rate 16 16 16 Blood Pressure 111/73 105/64 104/76 Pulse Oximetry 96 96 96 Oxygen Delivery Me thod Nasal Cannula Nasal Cannula Nasal Cannula Oxygen Flow Rate 5 5 5 03/27/24 18:45 Temperature 97.4 F L Pulse Rate 70 Respiratory Rate 16 Blood Pressure 114/78 Pulse Oximetry 96 Oxygen Delivery Me thod Nasal Cannula Oxygen Flow Rate 5 Assessment and Plan Assessment and plan (1) S/P total knee arthroplasty: Problem comment: Dr. Zheng Carey 03/27/24 Hospital medicine team is happy to follow the patient through to discharge. Agree with aspirin 81 mg b.i.d. for VTE prophylaxis Status: Acute (2) Osteoarthritis of left knee: Problem comment: moderate-severe Status: Acute (3) Radiation pneumonitis: Problem comment: -from chemo regimen for breast cancer -previously was sent home with oxygen but no longer has it -postoperatively has had some mild to moderate hypoxia felt to be multifactorial related to narcotics, history of radiation pneumonitis. -ISP, aerobika, trial of a neb, CPAP to cover the night -readdress in the am (ordering VBG,BMP) Status: Acute (4) Hypertension: Problem comment: Will continue her metoprolol, but holding the rest of her hypertensive medications Status: Acute (5) Sleep apnea: Problem comment: compliant with CPAP Status: Acute (6) Breast cancer in female: Problem comment: 1. Left breast cancer, pT3 pN0, ER ER positive stage IIB 2. Right breast cancer, pT1b pNx, ERPR positive stage IA -continue letrozole Status: Acute (7) Anxiety: Problem comment: P.r.n. Ativan per her home regimen Status: Acute (8) Migraine: Problem comment: P.r.n. 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
[2024-03-27] MEDS: CEFAZOLIN 2 GM in 0.9 % SODIUM CHLORIDE Mini-bag 100 ML IVPB (20:44)
[2024-03-27] MEDS: SENNOSIDES 1 TAB TABLET 2 TAB PO (21:12)
[2024-03-27] MEDS: ASPIRIN 81 MG TABLET EC PO (21:13)
[2024-03-27] MEDS: PRAVASTATIN SODIUM 20 MG TABLET 80 MG PO (21:19)
[2024-03-27] MEDS: GABAPENTIN 300 MG CAPSULE 600 MG PO (21:19)
[2024-03-28 02:08] VITALS: BP 119/86; PULSE 61; RESP 18; TEMP 36.4; O2SAT 95
[2024-03-28] MEDS: OXYCODONE 5 MG TABLET PO ×2 (02:13→08:05)
[2024-03-28] MEDS: CEFAZOLIN 2 GM in 0.9 % SODIUM CHLORIDE Mini-bag 100 ML IVPB (04:33)
[2024-03-28] MEDS: HYDROmorphone 0.5 mg/0.5 ml inj IVP (04:46)
[2024-03-28] MEDS: ACETAMINOPHEN 500 MG TABLET 1000 MG PO (06:03)
--- NOTE | 2024-03-28 06:20 | PC.NURSE ---
End of shift note ([id number]): Patient pleasant, alert and oriented. Ambulated to bathroom with walker, gait belt and assist of one. Tolerating regular diet. Given PRN Dilaudid and Oxycodone for pain rated 7-8/10.
[2024-03-28 06:36] LABS: HCO3 VBG 29 mmol/L (21-28); PCO2 VBG 53 mmHG (40-50); PO2 VBG 30.3 mmHG (25-47); pH VBG 7.338 (7.32-7.43)
[2024-03-28 06:46] LABS: Hematocrit 37.1 % (33.0-51.0); Hemoglobin* 11.7 gm/dL (12.0-16.0); Mean Corpuscular HGB Conc 32 gm/dL (32-36); Mean Corpuscular Hemoglobin 31 pg (26-34); Mean Corpuscular Volume 97 fL (80-100); Platelet Count* 141 K/uL (140-440); Red Blood Count 3.82 m/uL (4.00-5.20); Slide Review Reflex No; White Blood Count* 6.92 K/uL (4.50-11.00)
[2024-03-28 06:56] LABS: Chloride* 103 mmol/L (96-114); Potassium* 4.6 mmol/L (3.6-5.1); Sodium* 137 mmol/L (135-149)
[2024-03-28 06:59] LABS: Anion Gap 7 mEq/L (7-15); Blood Urea Nitrogen* 22 mg/dL (7-30); Carbon Dioxide* 27 mmol/L (20-32); Creatinine* 0.9 mg/dL (0.5-1.5); Estimated Glomerular Filt Rate 69 ml/min
[2024-03-28 07:00] LABS: Calcium* 8.8 mg/dL (8.4-10.6); Glucose* 151 mg/dL (60-115)
[2024-03-28 08:01] VITALS: BP 115/68; PULSE 71; RESP 18; TEMP 36.5; O2SAT 91
[2024-03-28] MEDS: METOPROLOL SUCCINATE (XL) 25 MG TAB PO (08:04)
[2024-03-28] MEDS: SENNOSIDES 1 TAB TABLET 2 TAB PO (08:04)
[2024-03-28] MEDS: POTASSIUM CHLORIDE 10 MEQ CAPSULE ER 20 MEQ PO (08:07)
[2024-03-28] MEDS: OMEPRAZOLE 20 MG CAPSULE DR PO (08:07)
--- NOTE | 2024-03-28 08:24 | P.ORPN_ITS ---
Subjective Subjective Time Seen by Provider: 07:45 Date Seen: 03/28/24 Principal diagnosis: Day 1 s/p left TKA Interval history: Yeimi is doing well and resting comfortably in her recliner. Pain responds well to Oxycodone, Tylenol, hydromorphone PRN and frequent icing. Admits to shortness of breath, but this is a chronic problem' patient utilizes a CPAP at night. Patient denies: chest pain, fever, chills, numbness/tingling distally, nausea and vomiting. Denies postop bowel movement and also denies flatulence. Outpatient PT is scheduled to begin next week at our [facility] rehab clinic. No acute concerns. Ortho Exam Narrative Exam Narrative: Incision/Dressing: Dressing appears clean and dry. No drainage present. Mepilex intact. Left knee appears moderately swollen but supple with no obvious erythema, fluctuance or excessive warmth. No ecchymosis or erythematous streaking. Warmth around the wound is appropriate. Ice is being utilized as needed. CMS: Intact distally with 2+ Dorsalis pedis and Posterior Tibial pulses. 5/5 motor strength dorsal and plantar flexion. Confirmed sensation distally. Intact straight leg raise. Calf: Bilateral calves are supple, with no swelling, pain, tenderness, erythema, discoloration or coolness to the touch. Constitutional: Patient is alert and oriented x3. Patient is in no acute distress and converses without labored breathing. Patient is able to make decisions and demonstrates good insight. Patient is pleasant and cooperative. Affect is full range and appropriate for the circumstances. Const Vital Signs, click to edit/add: Vital Signs - 24 hr 03/27/24 10:51 03/27/24 15:07 03/27/24 15:15 Temperature 97.8 F 97.6 F Pulse Rate 70 88 76 Pulse Rate [Left Pulse Oximeter] Respiratory Rate 16 16 18 Blood Pressure 123/80 118/77 122/79 Blood Pressure [Right Arm] Pulse Oximetry 94 95 94 Oxygen Delivery Method Room Air Blow By Blow By Oxygen Flow Rate 10 10 03/27/24 15:20 03/27/24 15:25 03/27/24 15:30 Temperature 97.5 F L Pulse Rate 75 78 73 Pulse Rate [Left Pulse Oximeter] Respiratory Rate 14 12 14 Blood Pressure 113/78 134/91 H 139/88 Blood Pressure [Right Arm] Pulse Oximetry 92 92 93 Oxygen Delivery Method Blow By Blow By Blow By Oxygen Flow Rate 10 10 10 03/27/24 15:35 03/27/24 15:40 03/27/24 15:50 Temperature 97.6 F Pulse Rate 73 74 76 Pulse Rate [Left Pulse Oximeter] Respiratory Rate 18 14 16 Blood Pressure 131/81 128/76 129/80 Blood Pressure [Right Arm] Pulse Oximetry 92 94 92 Oxygen Delivery Method OxyMask OxyMask OxyMask Oxygen Flow Rate 10 10 10 03/27/24 15:55 03/27/24 16:00 03/27/24 16:05 Temperature 97.4 F L Pulse Rate 75 73 74 Pulse Rate [Left Pulse Oximeter] Respiratory Rate 14 16 14 Blood Pressure 126/86 128/79 125/87 Blood Pressure [Right Arm] Pulse Oximetry 96 96 96 Oxygen Delivery Method OxyMask OxyMask OxyMask Oxygen Flow Rate 10 10 10 03/27/24 16:10 03/27/24 16:45 03/27/24 17:00 Temperature 97.4 F L 97.4 F L 97.4 F L Pulse Rate 73 71 73 Pulse Rate [Left Pulse Oximeter] Respiratory Rate 18 16 16 Blood Pressure 125/81 115/81 119/86 Blood Pressure [Right Arm] Pulse Oximetry 97 98 93 Oxygen Delivery Method OxyMask Nasal Cannula Nasal Cannula Oxygen Flow Rate 10 5 5 03/27/24 17:15 03/27/24 17:30 03/27/24 18:15 Temperature 97.4 F L 97.4 F L 97.4 F L Pulse Rate 70 70 70 Pulse Rate [Left Pulse Oximeter] Respiratory Rate 16 16 16 Blood Pressure 111/73 105/64 104/76 Blood Pressure [Right Arm] Pulse Oximetry 96 96 96 Oxygen Delivery Method Nasal Cannula Nasal Cannula Nasal Cannula Oxygen Flow Rate 5 5 5 03/27/24 18:45 03/27/24 20:00 03/27/24 21:00 Temperature 97.4 F L 97.4 F L 97.2 F L Pulse Rate 70 72 68 Pulse Rate [Left Pulse Oximeter] Respiratory Rate 16 18 16 Blood Pressure 114/78 108/68 110/70 Blood Pressure [Right Arm] Pulse Oximetry 96 95 93 Oxygen Delivery Method Nasal Cannula Nasal Cannula Nasal Cannula Oxygen Flow Rate 5 5 3 03/27/24 22:00 03/27/24 23:00 03/27/24 23:00 Temperature 97.0 F L 97.0 F L Pulse Rate 65 64 Pulse Rate [Left Pulse Oximeter] Respiratory Rate 16 16 Blood Pressure 110/64 110/64 Blood Pressure [Right Arm] Pulse Oximetry 92 95 92 Oxygen Delivery Method CPAP CPAP CPAP Oxygen Flow Rate 3 3 03/28/24 02:08 03/28/24 08:01 03/28/24 08:01 Temperature 97.5 F L 97.7 F Pulse Rate Pulse Rate [Left Pulse Oximeter] 61 71 Respiratory Rate 18 18 18 Blood Pressure Blood Pressure [Right Arm] 119/86 115/68 Pulse Oximetry 95 91 91 Oxygen Delivery Method CPAP Room Air Room Air Oxygen Flow Rate 3 Documenting provider has reviewed patient's vital signs: yes Assessment and Plan Assessment and plan (1) S/P total knee arthroplasty: Problem details: Left, Dr. Zheng Downs; DOS: 03/27/24 Status: Acute Assessment and Plan: - Complete 23 hour perioperative antibiotics. - PT/OT consults for education and assistance. - Weight bear as tolerated with a walker for assistance. - Prescribed analgesics as needed. Patient is content with current narcotic medications. Minimize narcotic pain medication use; wean off and discontinue as soon as possible. Discharge pain medications include acetaminophen and oxycodone. Patient is aware she will not be discharged with a script for Dilaudid. - DVT prophylaxis: aspirin 81 mg BID x 35 days. Also, frequent ambulation and ankle pumps when sedentary. - Social consult for discharge planning. - Anticipate patient will be discharged to home later this morning if the patient remains medically stable, pain is controlled and is safe with ambulation. - Return to clinic in 1 week for a wound check. Mepilex dressing will be removed at this appointment. Remove sooner if dressing becomes saturated. - Return to clinic in [address] Downs. - Phone Orthopedics with any questions or concerns. [phone]
[2024-03-28] MEDS: LETROZOLE 2.5 MG TABLET PO (09:43)
[2024-03-28] MEDS: GABAPENTIN 300 MG CAPSULE PO (09:43)
[2024-03-28] MEDS: ASPIRIN 81 MG TABLET EC PO (09:43)
[2024-03-28] MEDS: CELECOXIB 200 MG CAPSULE PO (09:43)
--- NOTE | 2024-03-28 11:44 | PC.NURSE ---
Discharge: The patient discharged home with her this AM. All education and discharge instructions were covered with the patient and her . L knee dressing CDI with no drainage noted. All belongings were sent home with the patient. Fina BARNARD BSN
== END 2024-03-28 11:00 | disposition home or self-care (01) ==
LOC: OR 09:58 → MEDSURG 10:00
PROVIDERS: Family Medicine; PCP Family Medicine; Visit Provider Orthopaedic Surgery
PROC: (CPT 27447; principal; 2024-03-27 12:00)
DX: M17.12 Unilateral primary osteoarthritis, left knee (principal); G89.18 Other acute postprocedural pain; R09.02 Hypoxemia; F41.9 Anxiety disorder, unspecified; I10 Essential (primary) hypertension; G62.9 Polyneuropathy, unspecified; G47.30 Sleep apnea, unspecified; D64.9 Anemia, unspecified; G62.0 Drug-induced polyneuropathy; T45.1X5A Adverse effect of antineoplastic and immunosuppressive drugs, initial encounter; C50.912 Malignant neoplasm of unspecified site of left female breast; C50.911 Malignant neoplasm of unspecified site of right female breast; Z17.0 Estrogen receptor positive status [ER+]; J44.9 Chronic obstructive pulmonary disease, unspecified; F32.A Depression, unspecified; G43.909 Migraine, unspecified, not intractable, without status migrainosus; E78.5 Hyperlipidemia, unspecified; J70.0 Acute pulmonary manifestations due to radiation
CPT/HCPCS: 27447; 01402; 36415; 64447; 64454; 73560; 76942; 80048; 82803; 85027; 97110; 97116; 97162; 97165; 97535; A9270; C1713; C1776; J0665; J0690; J1100; J1170; J2250; J2405; J2704; J2795; J3010; J7120

== ENCOUNTER 2024-04-02 14:05 | Outpatient (CLI) | payer MEDICARE, BC, SELFPAY ==
--- OUTSIDE RECORDS SUMMARY | 2024-04-02 14:08 | XMS_ITS | Referral Summary ---
Author Organization [facility] Address [address] [place] [address] Care Team Providers Care Life Scientists Name Role Phone Elsewhere, Pcp Primary Care Provider Unavailabl e Source Comments Patient records contain information from all sites at [facility]. For routine questions regarding patient records, call [phone] during business hours, M-F 8:00 AM - 5:00 PM Central Time. Record requests for emergency care only can be directed to [phone] at any time.[facility] Allergies Active Allergy Reactions Criticality Noted Date Comments Acetylcysteine Itching Low 11/10/2017 [address] [place]. Pt states, it was given too fast. When it was slowed it was fine. Cephalexin Diarrhea 01/25/2019 Gluten Other (see comments) Low 11/10/2017 Celiac Medications Medication Sig Dispensed Refills Start Date End Date Status kvkddrt-yyywxcidy-ljk taminophen (MIDRIN) 65-100-325 mg per capsule Take [...] weeks. Active butalbital-acetaminop -caf-cod (FIORICET WITH CODEINE) 43-129-73-30 mg per capsule daily as needed. headaches [...] from 06/14/2017:Stage IB(pT3, pN0(sn), cM0, G2, ER+, MI+, HER2-) - Signed by Jeet Costello M.D. on 01/12/2018 Malignant Neoplasm Of Breast Upper Outer Quadrant Female Right 01/12/2018 Cancer Staging:Pathologic stage from 06/14/2017:Stage Unknown(pT1b, pNX, cM0, G2, ER+, MI+, HER2-) - Signed by Jeet Costello M.D. [...] often do you attend chur ch or spiritism services? Patient declined 04/01/2022 Do you belong to any clubs o r organizations such as religion groups, unions, fraternal or athletic groups, or [...] and heating? Not hard at all 04/01/2022 [facility] - Occupational [...] place to sleep or slept in a skilled nursing (including now)? No 04/01/2022 Nutrition Answer Date [...] Indicated Protective Environment 06/23/2023 3 Care Teams Life Scientists Relationship Specialty Start Date End Date Elsewhere, Pcp PCP - General Family Medicine 01/12/18
--- OUTSIDE RECORDS SUMMARY | 2024-04-02 14:08 | XMS_ITS ---
Author Organization [facility] Address [address] [place] [address] Care Team Providers Care Rap Artist Name Role Phone Unavailable Unavailable Unavailable Surgery Details Not on file Complications Check Surgery Details section. Procedure Estimated Blood Loss Check Surgery Details section. Procedure Findings Check Surgery Details section. Procedure Specimens Taken Check Surgery Details section.
--- OUTSIDE RECORDS SUMMARY | 2024-04-02 14:08 | XMS_ITS ---
Author Organization [facility] Address [address] [place] [address] Care Team Providers Care Laborer [employer] Name Role Phone Elsewhere, Pcp Primary Care Provider Unavailabl e Active Problems Problem Noted Date Diagnosed Date Pneumonitis Radiation Acute 06/26/2018 Malignant Neoplasm Of Breast Central Female Left 01/12/2018 Cancer Staging:Pathologic stage from 06/14/2017:Stage IB(pT3, pN0(sn), cM0, G2, ER+, FL+, HER2-) - Signed by Jeet Costello M.D. on 01/12/2018 Malignant Neoplasm Of Breast Upper Outer Quadrant Female Right 01/12/2018 Cancer Staging:Pathologic stage from 06/14/2017:Stage Unknown(pT1b, pNX, cM0, G2, ER+, FL+, HER2-) - Signed by Jeet Costello M.D. [...] On Elapsed Days Session Dose Total Dose [id number] 03/09/2018 32 200 cGy 5,000 cGy
--- OUTSIDE RECORDS SUMMARY | 2024-04-02 14:08 | XMS_ITS | Clinical Summary ---
Author Organization [employer] [facility] Address [place], [place] [address] Care Team Providers Care Property Claim Rep Name Role Phone Milena Trevino MD Primary [...] once daily. 90 Tablet 3 4 Active hkzphel-sidahwsz-ub talbital, 325-40-50 mg, (FIORINAL) tabletIndications:M igraine without [...] with delayed healing, subsequent encounter Inhale 1 Union into affected nostril(s) once daily. Alternating nostrils [...] Encounters Date Type Department Care Team Description 03/27/2024 Orders Only [facility] Scanner 1 scan: (1-Ord) [facility], LT KNEE, 03/27/2024 03/20/2024 Orders Only [facility] [address] [facility] [place] [address] Milena Trevino MD 1 scan: (1-Ord) EKG-NFLD-03/19/24 03/19/2024 10:05 AM CDT Preop Visit [facility] [address] [facility] [place] [address] Milena Trevino MD Pre-Op Exam (Left TKR [facility] 03/27. Dr. Mcnulty.) 03/19/2024 Travel 03/05/2024 Refill [facility] [address] [facility] [place] [address] Milena Trevino MD Refill Request (Calcitonin Lismore (200 Units Per Actuation) Nasal) 02/08/2024 Orders Only [facility] [address] [facility] [place] [address] Milena Trevino MD 1 scan: (1-Ord) [facility], MR LUMBAR SPINE WO/W CON, 02/06/2024 from Last 3 Months Immunizations Name Administration Dates Next Due COVID-19 Vaccine Spikevax (M oderna 50mcg/0.5mL) 12YO+ [id number] Formula PF 11/02/2023 COVID-19 vaccine ([employer]-Bio NTech 30mcg/0.3mL) 12YO+ BIVALENT PF, MDV 06/14/2022 COVID-19 vaccine (Pfizer-Bio NTech 30mcg/0.3mL) 12YO+ DAVY-SUCROSE PF, MDV 01/04/2022 COVID-19 vaccine ([employer] NTech 30mcg/0.3mL) PF, MDV 03/25/2021 DTaP 10/28/2005 [...] T Respiratory Rate 14 06/15/2022 2:52 PM HOME APPRAISER Oxygen Saturation 95% 03/19/2024 10: 26 AM CDT Inhaled Oxygen Concentration - - Weight 85.7 kg (188 lb 14.4 oz) 024 10:26 AM CDT Height 167.6 cm (5' 6) 06/26/2023 10:5 5 AM HOME APPRAISER Body Mass Index 30.49 06/26/2023 10:55 AM HOME APPRAISER Plan of Treatment Upcoming Encounters Date Type Department Care Team (Late st Contact Info) Description 06/03/2024 10:45 AM HOME APPRAISER Orders Only [facility] [address] [place] [address] [place] 06/03/2024 11:00 AM HOME APPRAISER Ancillary Procedure Formerly [facility] [place] [facility] [address] [place] [address] Health Maintenance Due Date Last Done Comments Medicare Wellness for age 65+ 12/30/2023 12/29/2022, 03/25/2021 COVID-19 vaccine series ( season) 2024 11/02/2023, 06/29/2023, 06/14/2022, Additional history exists Influenza for age 65+ 03/31/2024 07/13/2023 , 06/14/2022, 03/26/2021, Additional history exists BMI (ht and wt on same day) for age 18+ 06/26/2024 06/26/2023, 10/11/2022, 07/07/2022, Additional history exists Depression screening for age 12+ 03/19/2025 03/19/2024, 12/29/2022, 03/08/2022, Additional history exists Tetanus booster 10/28/2026 10/28/2016, 09/30, 10/28/2005 (Completed outside of [facility]) Colonoscopy through age 75 12/08/202712/07, 12/07/2020, [...] history exists Medical Devices Implanted Type Area Turning Sander Tender Device Identifier Shelf Expiration Date Model / Serial / Lot [id number] 4breast 500cc Memorygel Rnd High Smooth Silcn Implanted:Qty: 1 on 01/01/2019 by Britton Parnell MD at [facility] Explanted:at [facility] (Quantity not on file) Left: Breast [employer] 10/18/2022 [id number] # / [id number] / [id number] 2breast 500cc Memorygel Rnd High Smooth Silcn Implanted:Qty: 1 on 01/01/2019 by Britton Parnell MD at [facility] Explanted:at [facility] (Quantity not on file) Right: Breast [employer] 01/21/2023 [id number] # / [id number] / [id number] 2breast 500cc Memorygel Rnd High Smooth Silcn Implanted:Qty: 1 on 01/25/2019 by Britton Parnell MD at [facility] Explanted:at [facility] (Quantity not on file) Left: Breast [employer] 07/03/2023 [id number] # / [id number] / [id number] Breast 550cc Memorygel Rnd High Smooth Silcn - [id number] Implanted:Qty: 1 on 06/07/2022 by Britton Parnell MD at [facility] Explanted:at [facility] (Quantity not on file) Left: Breast [employer] [id number] / [id number] / [id number] Procedures Procedure Name Priority Date/Time Associated Diagnosis Comments SCAN-RADIOLOGY REPORT 03/27/2024 12:00 AM CDT EKG 12 LEAD Routine 03/20/2024 8:49 AM CDT Preoperative examination PA READING EKG - NO CHARGE, COMP ONLY [...] Recently Relevant to Health Maintenance Results * SCAN-RADIOLOGY REPORT (03/27/2024 12:00 AM CDT) Anatomical Region Laterality Modality Other Scanner OTHER * EKG 12 LEAD (03/20/2024 8:49 AM CDT) Milena Trevino MD EKG ORD * PA READING EKG - NO CHARGE, COMP ONLY (03/20/2024 8:48 AM CDT) Milena Trevino MD PB - PROVIDER READINGS * CBC WITH AUTO DIFFERENTIAL (03/19/2024 11:25 AM CDT) Pathologist [facility] WHITE BLOOD COUNT 4.9 4.5 - 11.0 thou/cu mm 03/19/2024 11:32 AM CDT [facility] RED BLOOD COUNT 4.38 4.00 - 5.20 mil/cu mm 03/19/2024 11:32 AM CDT [facility] HEMOGLOBIN 13.8 12.0 - 16.0 g/dL 03/19/2024 11:32 AM CDT [facility] HEMATOCRIT 41.1 33.0 - 51.0 % 03/19/2024 11:32 AM CDT [facility] MCV 94 80 - 100 fL 03/19/2024 11:32 AM CDT [facility] MCH 31.5 26.0 - 34.0 pg 03/19/2024 11:32 AM CDT [facility] MCHC 33.6 32.0 - 36.0 g/dL 03/19/2024 11:32 AM CDT [facility] RDW 14.4 11.5 - 15.5 % 03/19/2024 11:32 AM CDT [facility] PLATELET COUNT 164 140 - 440 thou/cu mm 03/19/2024 11:32 AM CDT [facility] MPV 10.0 6.5 - 11.0 fL 03/19/2024 11:32 AM CDT [facility] % NEUT 50.6 % 03/19/2024 11:32 AM CDT [facility] % LYMPH 30.2 % 03/19/2024 11:32 AM CDT [facility] % MONO 11.2 % 03/19/2024 11:32 AM CDT [facility] % EOS 7.6 % 03/19/2024 11:32 AM CDT [facility] % BASO 0.4 % 03/19/2024 11:32 AM CDT [facility] ABSOLUTE NEUTROPHILS 2.5 1.7 - 7.0 thou/cu mm 03/19/2024 11:32 AM CDT [facility] ABSOLUTE LYMPHOCYTES 1.5 0.9 - 2.9 thou/cu mm 03/19/2024 11:32 AM CDT [facility] ABSOLUTE MONOCYTES 0.6 <0.9 thou/cu mm 03/19/2024 11:32 AM CDT [facility] ABSOLUTE EOSINOPHILS 0.4 <0.5 thou/cu mm 03/19/2024 11:32 AM CDT [facility] ABSOLUTE BASOPHILS 0.0 <0.3 thou/cu mm 03/19/2024 11:32 AM CDT [facility] Blood BLOOD SPECIMEN / Unknown Venipuncture / Unknown 03/19/2024 11:25 AM CDT 03/19/2024 11:28 AM CDT Milena Trevino MD HEMATOLOGY [facility] [address] [place] [address], [place] [phone] * (ABNORMAL) BASIC METABOLIC PANEL (03/19/2024 11:25 AM CDT) SODIUM 143 136 - 145 mmol/L 03/19/2024 11:26 PM CDT [facility] POTASSIUM 4.0 3.5 - 5.1 mmol/L 03/19/2024 11:26 PM CDT [facility] CHLORIDE 104 98 - 107 mmol/L 03/19/2024 11:26 PM CDT [facility] CO2,TOTAL 29 22 - 29 mmol/L 03/19/2024 11:26 PM CDT [facility] ANION GAP 10 5 - 18 03/19/2024 11:26 PM CDT [facility] GLUCOSE 91 70 - 99 mg/dL 03/19/2024 11:26 PM T [facility] CALCIUM 9.3 8.8 - 10.2 mg/dL 03/19/2024 11:26 PM CDT [facility] BUN 16 8 - 23 mg/dL 03/19/2024 11:26 PM T [facility] CREATININE 0.93(H) 0.50 - 0.90 mg/dL 03/19/2024 11:26 PM T [facility] BUN/CREAT RATIO 17 10 - 20 11:26 PM T [facility] eGFR 67(L) >90 mL/min/1.7 3m2 03/19/2024 11:26 PM CDT [facility] Comment:As of 2021, eG [...] 11:28 AM CDT Milena Trevino MD CHEMISTRY [facility] [address] [place] [address], * MR SPINE LUMBAR WO (02/06/2024 12:00 AM CDT) Anatomical Region Laterality Modality Spine, LUMBAR SPINE Magnetic Res onance Milena Trevino MD MR * SCAN-BONE DENSITOMETRY DEXA (12/27/2023 12:00 AM CDT) Anatomical Region Laterality Modality Other Scanner OTHER * (ABNORMAL) LIPID PANEL W REFLEX MEASURED LDL (10/31/2023 9:26 AM CDT) CHOLESTEROL,TOTAL 197 100 - 199 mg/dL 10/31/2023 5:21 PM CDT [facility] Comment: Cholesterol, Total Reference Ranges Desirable <200 mg/dL Borderline 200-239 mg/dL High >=240 mg/dL TRIGLYCERIDES 205(H) <150 mg/dL 10/31/2023 5:21 PM CDT [facility] HDL CHOLESTEROL 79 >40 mg/dL 5:21 PM CDT [facility] NON-HDL CHOLESTEROL 118 <145 mg/dl 10/31/2023 5:21 PM CDT [facility] CHOL/HDL RATIO 2.49 <4.50 10/31/2023 5:21 PM CDT [facility] LDL CHOLESTEROL 77 <=130 mg/dL 10/31/2023 5:21 PM CDT [facility] VLDL CHOLESTEROL 41(H) <=30 mg/dL 10/31/2023 5:21 PM CDT [facility] PROVIDER ORDERED STATUS RANDOM 10/31/2023 5:21 PM CDT [facility] [employer] [facility] Blood BLOOD SPECIMEN / Unknown Venipuncture / Unknown 10/31/2023 9:26 AM CDT 10/31/2023 9:26 AM CDT Milena Trevino MD CHEMISTRY Performing Organization Address [facility]/ZIP Co de Phone Number [facility] [address] [place] [address], * COLONOSCOPY SCREENING (12/07/2020 12:00 AM CDT) Hugo Mazariegos MD GI PROCEDURE ORD * ANTI HCV (04/22/2019 3:35 PM CDT) HEPATITIS C ANTIBODY Non-React kristie Non-React kristie 04/22/2019 9:14 PM CDT [facility] Comment:Antibodies to HCV no t detected; does not exclude the possibility of exposure to HCV. Blood BLOOD SPECIMEN / Unknown Venipuncture / Unknown 04/22/2019 3:35 PM CDT 04/22/2019 3:35 PM CDT [facility] Performing Organization Address [facility] Co de Phone Number [facility] [address] [place] [address], from Last 3 Months or Most Recently Relevant to Health Maintenance Advance Directives Documents on File Type Date Recorded Patient Mobile Device Developer Expl anation Healthcare Directive 06/06/2017 8:29 AM [...] 6:08 AM 01/02/2019 2:32 AM Care Teams Property Claim Rep Relationship Specialty Start Date End Date Milena Trevino MD [address] [facility] [place] [address] PCP - General 06/29/04
--- OUTSIDE RECORDS SUMMARY | 2024-04-02 14:08 | XMS_ITS | Clinical Summary ---
Author Organization [facility] Address [address] [place] [address] Care Team Providers Care Material Expeditor Name Role Phone Elsewhere, Pcp Primary Care Provider Unavailabl e Source Comments Patient records contain information from all sites at [facility]. For routine questions regarding patient records, call [phone] during business hours, M-F 8:00 AM - 5:00 PM Central Time. Record requests for emergency care only can be directed to [phone] at any time.[facility] Allergies Active Allergy Reactions Criticality Noted Date Comments Acetylcysteine Itching Low 11/10/2017 Via [employer]. Pt states, it was given too fast. When it was slowed it was fine. Cephalexin Diarrhea 01/25/2019 Gluten Other (see comments) Low 11/10/2017 Celiac Medications Medication Sig Dispensed Refills Start Date End Date Status ccvpsds-akfsyxbtu-ajd taminophen (MIDRIN) 65-100-325 mg per capsule Take [...] weeks. Active butalbital-acetaminop -caf-cod (FIORICET WITH CODEINE) 87-646-21-30 mg per capsule daily as needed. headaches [...] from 06/14/2017:Stage IB(pT3, pN0(sn), cM0, G2, ER+, GA+, HER2-) - Signed by Jeet Costello M.D. on 01/12/2018 Malignant Neoplasm Of Breast Upper Outer Quadrant Female Right 01/12/2018 Cancer Staging:Pathologic stage from 06/14/2017:Stage Unknown(pT1b, pNX, cM0, G2, ER+, GA+, HER2-) - Signed by Jeet Costello M.D. [...] often do you attend chur ch or mu-ism services? Patient declined 04/01/2022 Do you belong to any clubs o r organizations such as shinto groups, unions, fraternal or athletic groups, or [...] and heating? Not hard at all 04/01/2022 [facility] - [...] place to sleep or slept in a care home (including now)? No 04/01/2022 Nutrition Answer Date [...] Indicated Protective Environment 06/23/2023 3 Care Teams Material Expeditor Relationship Specialty Start Date End Date Elsewhere, Pcp PCP - General Family Medicine 01/12/18
--- NOTE | 2024-04-02 14:45 | CRLHL7_ITS ---
For Patients: As a result of the Century Cures Act, medical imaging exams and procedure reports are released immediately into your electronic medical record. You may view this report before your referring provider. If you have questions, please contact your health care provider. INDICATION: Leg pain and swelling after total knee arthroplasty TECHNIQUE: Ultrasound venous duplex lower left extremity. Compression venous exam was performed using dennis-scale, color Doppler, and spectral Doppler analysis. COMPARISON: None. FINDINGS: Sonographic imaging demonstrates the left common femoral, deep femoral, superficial femoral, popliteal, posterior tibial and greater saphenous and the contralateral right common femoral veins to be fully compressible with normal color Doppler blood flow. IMPRESSION: Normal left lower extremity venous ultrasound, no sign of deep venous thrombosis. Dictated by Joshua Jiménez MD @ 04/02/2024 2:46:59 PM (Electronically Signed)
== END 2024-04-02 14:06 | disposition home or self-care (01) ==
PROVIDERS: PCP Family Medicine; Visit Provider Physician Assistant Surgical
DX: M79.89 Other specified soft tissue disorders (principal); M79.662 Pain in left lower leg; Z96.652 Presence of left artificial knee joint
CPT/HCPCS: 93971

== ENCOUNTER 2024-04-26 21:39 | Emergency (ER) | payer MEDICARE, BC, SELFPAY ==
[2024-04-26 21:46] VITALS: BP 142/80; PULSE 86; RESP 18; TEMP 36.1; O2SAT 96; BMI 29.1
--- OUTSIDE RECORDS SUMMARY | 2024-04-26 21:46 | XMS_ITS | Clinical Summary ---
Author Organization [employer] [facility] Address [place], [place] [address] Care Team Providers Care Elevator Serviceman Name Role Phone Milena Trevino MD Primary Care Provide r Allergies Active Allergy Reactions Criticality Noted Date Comments Gluten GI Upset 11/10/2017 Celiac Cephalexin Diarrhea 01/25/2019 Acetylcysteine Itching 11/10/2017 Via neb. Pt states, it was given too fast. When it was slowed it was fine. Medications Medication Sig Dispensed Refills Start Date End Date Status bevacizumab (AVASTIN) 25 mg/mL injection Q8week Active CPAPIndications:OS A (obstructive sleep apnea) CPAP machine for home [...] 0 1 Active gabapentin (NEURONTIN) 300 mg capsuleIndications :Primary cancer of left breast (HC) One in the morning, one in the afternoon and 2 in the evening. 270 Capsule 1 2 Active zinc gluconate 50 mg tablet Take 50 mg by mouth once daily. Active Calcium-Cholecalci ferol, D3, 500 mg-10 mcg (400 unit) chewable tablet Chew 1 Tablet by mouth once daily. Active acetaminophen (TYLENOL EXTRA STRGTH) 500 mg tablet Take 1,000 mg by mouth 2 times daily if needed. Max acetaminophen dose: 4000mg in 24 hrs. Active letrozole (FEMARA) 2.5 mg tablet Take 2.5 mg by mouth once daily. 3 Active DULoxetine (CYMBALTA) 30 mg Delayed-release capsuleIndications :Mild depression Take 1 Capsule (30 mg) by mouth once daily. 90 Capsule 3 4 Active pravastatin (PRAVACHOL) 80 mg tabletIndications: Hyperlipidemia, unspecified hyperlipidemia type Take 1 Tablet (80 mg) by mouth at bedtime. 90 Tablet 3 4 Active metoprolol succinate (TOPROL XL) 25 mg Sustained-Release tabletIndications: Essential hypertension Take 1 Tablet (25 mg) by mouth once daily. 90 Tablet 3 4 Active potassium chloride (KLOR-CON M20) 20 mEq extended-release tablet (part/cryst)Indica tions:Essential hypertension Take 1 Tablet (20 mEq) by mouth once daily with a meal. 90 Tablet 3 4 Active amitriptyline (ELAVIL) 75 mg tabletIndications: Episodic tension-type headache, not intractable Take 1 Tablet (75 mg) by mouth at bedtime. 90 Tablet 3 4 Active omeprazole (PRILOSEC) 20 mg Delayed-Release capsuleIndications :Chronic GERD Take 1 Capsule (20 mg) by mouth once daily before a meal. 90 Capsule 3 4 Active lisinopril-hydroch lorothiazide, 20-25 mg, (PRINZIDE, ZESTORETIC) 20-25 mg per tabletIndications: Essential hypertension Take 1 Tablet by mouth once daily. 90 Tablet 3 4 Active vljmbgg-grinxxub-d utalbital, 325-40-50 mg, (FIORINAL) tabletIndications: Migraine without aura and without status migrainosus, not intractable Take 1 Tablet by mouth every 4 hours if needed for Pain. Max 6 tabs per day. 30 Tablet 1 4 Active amLODIPine (NORVASC) 5 mg tabletIndications: Essential hypertension Take 1 Tablet (5 mg) by mouth once daily in the evening. 90 Tablet 3 4 Active LORazepam (ATIVAN) 0.5 mg tabIndications:Mil d depression,Primary cancer of left breast (HC) TAKE 1 TABLET BY MOUTH 2 TIMES DAILY IF NEEDED FOR ANXIETY 15 Tablet 4 Active LORazepam (ATIVAN) 0.5 mg tabIndications:Mil d depression,Primary cancer of left breast (HC) TAKE 1 TABLET 2 TIMES DAILY IF NEEDED FOR ANXIETY 15 Tablet 4 024 Discontinued vancomycin (VANCOCIN) 125 mg capsuleIndications :Acute diarrhea Take 1 Capsule (125 mg) by mouth four times daily for 10 days. 40 Capsule 4 024 Active Problems Problem Noted Date Diagnosed Date Major depressive disorder, single episode, mild 12/29/2022 Capsular contracture of breast implant 2 Left arm pain 06/07/2022 Neuropathy 06/07/2022 Anxiety 06/07/2022 Chronic obstructive pulmonar y disease, unspecified COPD type 01/04/2022 SOB (shortness of breath) 05/26/2021 Ascending aorta dilatation 05/26/2021 Overview (05/26/2021): 4.2 cm 2020 Displacement of breast implant 04/24/2019 Wound dehiscence, surgical, initial encounter Acquired absence of both breasts 01/01/2019 Malignant neoplasm of central portion of female breast 01/12/2018 Malignant neoplasm of upper-outer quadrant of fe male breast 01/12/2018 Primary cancer of left breast 05/19/2017 Adenomatous colon polyp 07/14/2015 Overview (12/08/2020): Colonoscopy 06/2015 polyps repeat in 5 years Colonoscopy 11/2020 1 polyp, repeat in 7 years NANCY 02/07/2013 AHI-10 04/02/2015 Vitamin D deficiency 08/18/2009 Mild depression 07/04/2008 Celiac disease 09/07/2007 Overview (07/14/2015): EGD 06/2015 celiac disease Other and unspecified hyperlipidemia 09/07/2007 Unspecified essential hypertension 09/07/2007 Resolved Problems Problem Noted Date Diagnosed Date Resolved Date Acute radiation pneumonitis 06/26/2018 01/14/2020 NANCY 02/07/2013 AHI-10 02/14/2013 015 Pain in joint, shoulder region 09/07/2007 09/07/2007 Encounters Date Type Department Care Team Description 04/13/2024 Refill [facility] [address] Milena Trevino MD Refill Request (Lorazepam) 04/08/2024 3:20 PM CDT Nurse/Clinic Staff Only [facility] [address] Infusion Therapy (Normal Saline for dehydration ) 04/08/2024 7:45 AM CDT Telemedicine [facility] [address] [place] [address] Sofiya Ashby MD Diarrhea (for more than 1 week. total knee replacement Mar 27./Amoxicillan Apr 01 for tooth problem /) 04/08/2024 Telephone [facility] [address] [place] [address] Sofiya Ashby MD Follow Up 04/07/2024 Travel 04/02/2024 Orders Only [facility] Scanner 1 scan: (1-Ord) [facility], VENOUS [facility] LT, 04/02/2024 03/27/2024 Orders Only [facility] Scanner 1 scan: (1-Ord) [facility], KNEE, 03/27/2024 03/20/2024 Orders Only [facility] [address] [place] [address] Milena Trevino MD 1 scan: (1-Ord) EKG-NFLD-03/19/24 03/19/2024 10:05 AM CDT Preop Visit [facility] [address] Milena Trevino MD Pre-Op Exam (Left TKR [facility] 03/27. Dr. Mcnulty.) 03/19/2024 Travel 03/05/2024 Refill [facility] [address] [facility] [address] Milena Trevino MD Refill Request (Calcitonin Haskell (200 Units Per Actuation) Nasal) 02/08/2024 Orders Only [facility] [address] [place] [address] Milena Trevino MD 1 scan: (1-Ord) [facility], MR LUMBAR SPINE WO/W CON, 02/06/2024 from Last 3 Months Immunizations Name Administration Dates Next Due COVID-19 VACCINE SPIKEVAX (M ODERNA 50MCG/0.5ML) 12YO+ PFS 11/02/2023 COVID-19 vaccine (Pfizer-Bio NTech 30mcg/0.3mL) 12YO+ [...] Sign Reading Time Taken Comments Blood Pressure 140/76 04/08/2024 3:55 PM CDT Pulse 71 04/08/2024 3:55 PM CDT Temperature 37.2 ??C (98.9 ??F) 06/08/2022 7:58 AM CS T Respiratory Rate 14 06/15/2022 2:52 PM TARIFF PUBLISHING AGENT Oxygen Saturation 96% 04/08/2024 2:43 PM CDT Inhaled Oxygen Concentration - - Weight 85.7 kg (188 lb 14.4 oz) 024 10:26 AM CDT Height 167.6 cm (5' 6) 06/26/2023 10:5 5 AM TARIFF PUBLISHING AGENT Body Mass Index 30.49 06/26/2023 10:55 AM TARIFF PUBLISHING AGENT Plan of Treatment Upcoming Encounters Date Type Department Care Team (Late st Contact Info) Description 06/03/2024 10:45 AM TARIFF PUBLISHING AGENT Orders Only [facility] [address] [place] [address] Lab, [place] 06/03/2024 11:00 AM TARIFF PUBLISHING AGENT Ancillary Procedure [facility] [address] [place] [address] Health Maintenance Due Date Last Done Comments [...] 10/28/2026 10/28/2016, 09/30, 10/28/2005 (Completed outside of [facility]) Colonoscopy through age 75 12/08/202712/07, 12/07/2020, 07/13/2015, Additional history exists Lipids for age 45-75 10/30/2028 10/31/2023, 06/02/2022, 03/24/2021, Additional history exists Tdap Completed 10/28/2016, 10/28/2005 Zoster (shingles) series for age 50+ Completed 04/16/2019, 02/11/2019, 07/29/2013 Hepatitis C screening for ag e 18-79 Completed 04/22/2019 Pneumococcal series for age 65+ Completed 3, 10/21/2019 DEXA/DXA scan for age 65+ Completed 2023, 05/26/2022, 04/15/2020, Additional history exists Medical Devices Implanted Type Area Ceramic Coater Machine Device Identifier Shelf Expiration Date Model / Serial / Lot [id number] 4breast 500cc Memorygel Rnd High Smooth Silcn Implanted:Qty: 1 on 01/01/2019 by Britton Parnell MD at [facility] Explanted:at [facility] (Quantity not on file) Left: Breast [employer] [place] iwi 10/18/2022 [id number] # / [id number] / [id number] 2breast 500cc Memorygel Rnd High Smooth Silcn Implanted:Qty: 1 on 01/01/2019 by Britton Parnell MD at [facility] Explanted:at [facility] (Quantity not on file) Right: Breast [employer] 01/21/2023 [id number] # / [id number] / [id number] 2breast 500cc Memorygel Rnd High Smooth Silcn Implanted:Qty: 1 on 01/25/2019 by Britton Parnell MD at [facility] Explanted:at [facility] (Quantity not on file) Left: Breast [employer] [place] iwi 07/03/2023 [id number] # / [id number] / [id number] Breast 550cc Memorygel Rnd High Smooth Silcn - [id number] Implanted:Qty: 1 on 06/07/2022 by Britton Parnell MD at [facility] Explanted:at [facility] (Quantity not on file) Left: Breast [employer] [id number] / [id number] Procedures Procedure Name Priority Date/Time Associated Diagnosis Comments CLOSTRIDIOIDES DIFFICILE TOXIN PCR Routine 04/08/2024 9:30 AM CDT Acute diarrhea SCAN-ULTRASOUND REPORT 12:00 AM CDT SCAN-RADIOLOGY REPORT 03/27/2024 12:00 AM CDT EKG 12 LEAD Routine 03/20/2024 8:49 AM CDT Preoperative examination ID READING EKG - NO CHARGE, COMP ONLY [...] Recently Relevant to Health Maintenance Results * CLOSTRIDIOIDES DIFFICILE TOXIN PCR (04/08/2024 9:30 AM CDT) CLOSTRIDIUM DIFFICILE PCR Negative 04/09/2024 12:08 AM CDT [facility] PRESUMPTIVE NAP1 STRAIN Negative 04/09/2024 12:08 AM CDT [facility] Stool STOOL SPECIMEN / Unknown Non-Blood / Unknown 04/08/2024 9:30 AM CDT 04/08/2024 3:06 PM CDT Narrative [facility] - 04/09/2024 12:08 AM CDT The NAP1 (027 or BI) strain is a hypervirulent strain. Detection may be useful for epidemiological purposes. Sofiya Ashby MD MICROBIOLO GY [facility] [address] [place] [address], [place] * SCAN-ULTRASOUND REPORT (04/02/2024 12:00 AM CDT) Anatomical Region Laterality Modality Other Scanner OTHER * SCAN-RADIOLOGY REPORT (03/27/2024 12:00 AM CDT) Anatomical Region Laterality Modality Other Scanner OTHER * EKG 12 LEAD (03/20/2024 8:49 AM CDT) Milena Trevino MD EKG ORD * ID READING EKG - NO CHARGE, COMP ONLY (03/20/2024 8:48 AM CDT) Milena Trevino MD PB - PROVIDER READINGS * CBC WITH AUTO DIFFERENTIAL (03/19/2024 11:25 AM CDT) WHITE BLOOD COUNT 4.9 4.5 - 11.0 thou/cu mm 03/19/2024 11:32 AM CDT [facility] RED BLOOD COUNT 4.38 4.00 - 5.20 mil/cu mm 03/19/2024 11:32 AM CDT [facility] HEMOGLOBIN 13.8 12.0 - 16.0 g/dL 03/19/2024 11:32 AM CDT [facility] HEMATOCRIT 41.1 33.0 - 51.0 % 03/19/2024 11:32 AM CDT [facility] MCV 94 80 - 100 fL 03/19/2024 11:32 AM CDT [facility] MCH 31.5 26.0 - 34.0 pg 03/19/2024 11:32 AM CDT [facility] MCHC 33.6 32.0 - 36.0 g/dL 03/19/2024 11:32 AM CDT [facility] RDW 14.4 11.5 - 15.5 % 03/19/2024 11:32 AM CDT [facility] PLATELET COUNT 164 140 - 440 thou/cu mm 03/19/2024 11:32 AM CDT [facility] MPV 10.0 6.5 - 11.0 fL 03/19/2024 11:32 AM CDT [facility] % NEUT 50.6 % 03/19/2024 11:32 AM CDT [facility] % LYMPH 30.2 % 03/19/2024 11:32 AM CDT [facility] % MONO 11.2 % 03/19/2024 11:32 AM CDT [facility] % EOS 7.6 % 03/19/2024 11:32 AM CDT [facility] % BASO 0.4 % 03/19/2024 11:32 AM CDT [facility] ABSOLUTE NEUTROPHILS 2.5 1.7 - 7.0 thou/cu mm 03/19/2024 11:32 AM CDT [facility] ABSOLUTE LYMPHOCYTES 1.5 0.9 - 2.9 thou/cu mm 03/19/2024 11:32 AM CDT [facility] ABSOLUTE MONOCYTES 0.6 <0.9 thou/cu mm 03/19/2024 11:32 AM CDT [facility] ABSOLUTE EOSINOPHILS 0.4 <0.5 thou/cu mm 03/19/2024 11:32 AM CDT [facility] ABSOLUTE BASOPHILS 0.0 <0.3 thou/cu mm 03/19/2024 11:32 AM CDT [facility] Blood BLOOD SPECIMEN / Unknown Venipuncture / Unknown 03/19/2024 11:25 AM CDT 03/19/2024 11:28 AM CDT Milena Trevino MD HEMATOLOGY [facility] [address] [place] [address], [place] [phone] * (ABNORMAL) BASIC METABOLIC PANEL (03/19/2024 11:25 AM CDT) SODIUM 143 136 - 145 mmol/L 03/19/2024 11:[address] [facility] POTASSIUM 4.0 3.5 - 5.1 mmol/L 03/19/2024 11:[address] [facility] CHLORIDE 104 98 - 107 mmol/L 03/19/2024 11:[address] [facility] CO2,TOTAL 29 22 - 29 mmol/L 03/19/2024 11:[address] [facility] ANION GAP 10 5 - 18 03/19/2024 11:[address] [facility] GLUCOSE 91 70 - 99 mg/dL 03/19/2024 11:[address] [facility] CALCIUM 9.3 8.8 - 10.2 mg/dL 03/19/2024 11:[address] [facility] BUN 16 8 - 23 mg/dL 03/19/2024 11:[address] [facility] CREATININE 0.93(H) 0.50 - 0.90 mg/dL 03/19/2024 11:[address] [facility] BUN/CREAT RATIO 17 10 - 20 11:[address] [facility] eGFR 67(L) >90 mL/min/1.7 3m2 03/19/2024 11:[address] [facility] Comment:As of 2021, eG [...] 11:28 AM CDT Milena Trevino MD [facility] [address] [place] [address], [place] * MR SPINE LUMBAR WO (02/06/2024 12:00 AM CDT) Anatomical Region Laterality Modality Spine, LUMBAR SPINE Magnetic Res onance Milena Trevino MD MR * SCAN-BONE DENSITOMETRY DEXA (12/27/2023 12:00 AM CDT) Anatomical Region Laterality Modality Other Scanner OTHER * (ABNORMAL) LIPID PANEL W REFLEX MEASURED LDL (10/31/2023 9:26 AM CDT) CHOLESTEROL,TOTAL 197 100 - 199 mg/dL 10/31/2023 5:[address] [facility] Comment: Cholesterol, Total Reference Ranges Desirable <200 mg/dL Borderline 200-239 mg/dL High >=240 mg/dL TRIGLYCERIDES 205(H) <150 mg/dL 10/31/2023 5:21 PM CDT [facility] HDL CHOLESTEROL 79 >40 mg/dL 5:21 PM CDT [facility] NON-HDL CHOLESTEROL 118 <145 mg/dl 10/31/2023 5:[address] [facility] CHOL/HDL RATIO 2.49 <4.50 10/31/2023 5:[address] [facility] LDL CHOLESTEROL 77 <=130 mg/dL 10/31/2023 5:[address] [facility] VLDL CHOLESTEROL 41(H) <=30 mg/dL 10/31/2023 5:[address] [facility] PROVIDER ORDERED STATUS RANDOM 10/31/2023 5:[address] [facility] Blood BLOOD SPECIMEN / Unknown Venipuncture / Unknown 10/31/2023 9:26 AM CDT 10/31/2023 9:26 AM CDT Milena Trevino MD [facility] [address] [place] [address], * COLONOSCOPY SCREENING (12/07/2020 12:00 AM CDT) Hugo Mazariegos MD GI PROCEDURE ORD * ANTI HCV (04/22/2019 3:35 PM CDT) HEPATITIS C ANTIBODY Non-React kristie Non-React kristie 04/22/2019 9:14 PM CDT [facility] Comment:Antibodies to HCV no t detected; does not exclude the possibility of exposure to HCV. Blood BLOOD SPECIMEN / Unknown Venipuncture / Unknown 04/22/2019 3:35 PM CDT 04/22/2019 3:35 PM CDT [facility] [address] [place] [address], from Last 3 Months or Most Recently Relevant to Health Maintenance Advance Directives Documents on File Type Date Recorded Patient Camp Maintenance Supervisor Expl anation Healthcare Directive 06/06/2017 8:29 AM [...] 6:08 AM 01/02/2019 2:32 AM Care Teams Elevator Serviceman Relationship Specialty Start Date End Date Milena Trevino MD [address] [place] [address] PCP - General 06/29/04
--- NOTE | 2024-04-26 21:57 | ED.GENADULT ---
HPI - General Adult General Chief complaint: Dental/Oral/Mouth Injury/Pain Stated complaint: toothache, swelling Time Seen by Provider: 04/26/24 21:41 History of Present Illness HPI narrative: Patient is a 68 year white female was saw a dentist this morning for left upper gum and tooth pain. It was apparently needing a client support representative. She had some redness and started on Z-Nahid and has oxycodone at home from recent knee surgery. The patient denies fevers chills but reports that is swollen and painful. This is in her left upper gum line outer on the left upper teeth Related Data Home Medications ?Medication ?Instructions ?Recorded ?Confirmed amlodipine 5 mg tablet 5 mg PO QDAY 05/12/22 04/02/24 bevacizumab 2.5 mg/0.1 mL See Rx Instructions intravitreal 05/12/22 04/02/24 intravitreal syringe Q8W lisinopril 20 1 tab PO QDAY 05/12/22 04/02/24 mg-hydrochlorothiazide 25 mg tablet lorazepam 0.5 mg tablet 0.5 mg PO BID PRN 05/12/22 04/02/24 omeprazole 20 mg capsule,delayed 20 mg PO QDAY 05/12/22 04/02/24 release potassium chloride 20 mEq 20 meq PO QDAY 05/12/22 04/02/24 tablet,extended release(part/cryst) pravastatin 80 mg tablet 80 mg PO QHS 05/12/22 04/02/24 metoprolol tartrate 25 mg tablet 25 mg PO QDAY 11/24/22 04/02/24 zinc gluconate 30 mg tablet See Rx Instructions PO ONCE 05/25/23 04/02/24 calcium carbonate 1,200 mg PO QDAY 11/23/23 04/02/24 ketoconazole 2 % shampoo 1 applic topical 3XW PRN 11/23/23 04/02/24 ufmiodiqsr-jkuwnad-cybegzwq 50 1 tab PO Q4H PRN 03/26/24 04/02/24 mg-325 mg-40 mg tablet metoprolol succinate 25 mg 25 mg PO DAILY 03/26/24 04/02/24 tablet,extended release 24 hr sumatriptan succinate 25 mg tablet 25 mg PO Q2H PRN 03/26/24 04/02/24 (Imitrex) amoxicillin 875 mg-potassium 1 tab PO BID 04/02/24 04/02/24 clavulanate 125 mg tablet Previous Rx's ?Medication ?Instructions ?Recorded gabapentin 300 mg capsule 300 mg PO .COMPLEX #360 caps 03/04/24 letrozole 2.5 mg tablet 2.5 mg PO QDAY #90 tabs 03/21/24 acetaminophen 500 mg tablet 500 - 1,000 mg (1 - 2 x 500 mg) PO 03/27/24 Q4-6H PRN #100 tabs sennosides 8.6 mg tablet (Senna 8.6 - 17.2 mg (1 - 2 x 8.6 mg) PO 03/27/24 Lax) BID PRN constipation #30 tabs aspirin 81 mg tablet,delayed 81 mg PO BID 35 days #70 tabs 03/28/24 release celecoxib 200 mg capsule 200 mg PO BID #60 caps 04/02/24 hydroxyzine pamoate 25 mg capsule 25 - 50 mg (1 - 2 x 25 mg) PO Q6H 04/02/24 PRN postop pain #30 caps oxycodone 5 mg tablet 2.5 - 5 mg (0.5 - 1 x 5 mg) PO 04/08/24 Q4-6H PRN pain #30 tabs Allergies Allergy/AdvReac Type Severity Reaction Status Date / Time acetylcysteine Allergy Severe Anaphylaxis Verified 04/02/24 13:02 gluten Allergy Unknown Verified 04/02/24 13:02 cephalexin AdvReac Mild Diarrhea Verified 04/02/24 13:02 Review of Systems Status of ROS: Reports: 6 or more systems reviewed and unremarkable except as noted in History and below [facility] Medical History Radiation pneumonitis ?J70.0 - Acute pulmonary manifestations due to radiation (ICD-10) Degenerative disc disease, cervical ?M50.30 - Other cervical disc degeneration, unspecified cervical region (ICD-10) Strain of left biceps ?S46.212A - Strain of muscle, fascia and tendon of other parts of biceps, left arm, initial encounter (ICD-10) Fracture of T12 vertebra ?S22.089A - Unspecified fracture of T11-T12 vertebra, initial encounter for closed fracture (ICD-10) Sleep apnea ?G47.30 - Sleep apnea, unspecified (ICD-10) Postmenopausal bleeding (07/2014) ?N95.0 - Postmenopausal bleeding (ICD-10) Migraine (07/15/09) ?G43.909 - Migraine, unspecified, not intractable, without status migrainosus (ICD-10) Malignant neoplasm of left breast ?C50.912 - Malignant neoplasm of unspecified site of left female breast (ICD-10) Lobular carcinoma of breast (04/2017) ?C50.919 - Malignant neoplasm of unspecified site of unspecified female breast (ICD-10) Lichen sclerosus et atrophicus ?L90.0 - Lichen sclerosus et atrophicus (ICD-10) Infection due to extended spectrum beta-lactamase producing bacteria ?A49.9 - Bacterial infection, unspecified (ICD-10) ?Z16.12 - Extended spectrum beta lactamase (ESBL) resistance (ICD-10) Hyperlipidemia (07/15/09) ?E78.5 - Hyperlipidemia, unspecified (ICD-10) Fracture of left patella ?S82.002A - Unspecified fracture of left patella, initial encounter for closed fracture (ICD-10) Acetaminophen overdose ?T39.1X1A - Poisoning by 4-Aminophenol derivatives, accidental (unintentional), initial encounter (ICD-10) Arthritis of left acromioclavicular joint ?M19.012 - Primary osteoarthritis, left shoulder (ICD-10) Subacromial impingement of left shoulder ?M75.42 - Impingement syndrome of left shoulder (ICD-10) History of trigger finger ?Z87.39 - Personal history of other diseases of the musculoskeletal system and connective tissue (ICD-10) Myopic degeneration ?H44.20 - Degenerative myopia, unspecified eye (ICD-10) Celiac disease ?K90.0 - Celiac disease (ICD-10) Anxiety ?F41.9 - Anxiety disorder, unspecified (ICD-10) Depression ?F32.A - Depression, unspecified (ICD-10) Anemia ?D64.9 - Anemia, unspecified (ICD-10) GERD (gastroesophageal reflux disease) ?K21.9 - Gastro-esophageal reflux disease without esophagitis (ICD-10) Heart burn ?R12 - Heartburn (ICD-10) Elevated liver enzymes ?R74.8 - Abnormal levels of other serum enzymes (ICD-10) Elevated cholesterol ?E78.00 - Pure hypercholesterolemia, unspecified (ICD-10) Hypertension ?I10 - Essential (primary) hypertension (ICD-10) COPD (chronic obstructive pulmonary disease) ?J44.9 - Chronic obstructive pulmonary disease, unspecified (ICD-10) Surgical History History of total left knee replacement (03/27/24) ?Z96.652 - Presence of left artificial knee joint (ICD-10) Status post bilateral salpingo-oophorectomy (BSO) ?Z90.722 - Acquired absence of ovaries, bilateral (ICD-10) S/P left knee arthroscopy (01/22/20) ?Z98.890 - Other specified postprocedural states (ICD-10) S/P rotator cuff repair (07/08/19) ?Z98.890 - Other specified postprocedural states (ICD-10) S/P trigger finger release ?Z98.890 - Other specified postprocedural states (ICD-10) H/O breast reconstruction ?Z98.890 - Other specified postprocedural states (ICD-10) History of endometrial ablation ?Z98.890 - Other specified postprocedural states (ICD-10) H/O: hysterectomy ?Z90.710 - Acquired absence of both cervix and uterus (ICD-10) H/O hernia repair ?Z98.890 - Other specified postprocedural states (ICD-10) ?Z87.19 - Personal history of other diseases of the digestive system (ICD-10) H/O mastectomy ?Z90.10 - Acquired absence of unspecified breast and nipple (ICD-10) History of breast biopsy ?Z98.890 - Other specified postprocedural states (ICD-10) S/P arthroscopic partial medial meniscectomy of left knee (01/10/22) ?Z98.890 - Other specified postprocedural states (ICD-10) ?Z87.828 - Personal history of other (healed) physical injury and trauma (ICD-10) Social History Narrative: -Skinny What is your current living situation?: I presently have a place to live Problems where you live: no known problems In the past 12 months, utilities in danger of being shut off: no In past 12 months, lack of transportation kept you from medical appts, meetings, work, or getting things needed for daily living: no In the past 12 mos, have been you worried that your food would run out before you had money to buy more?: never true In the past 12 mos, the food you bought just didn't last and you didn't have money to buy more?: never true Highest level of school completed/degree received: some college, no degree Smoking Status: Former smoker What tobacco products do you use: cigarettes Smoking quit date/years: >15 years ago Do you use any of these nicotine containing products: None Second hand tobacco smoke exposure: No How often do you have a drink containing alcohol: 2-4 times a month How many standard drinks containing alcohol do you have on a typical day: 1 or 2 How often do you have six or more drinks on one occasion: Never AUDIT-C Alcohol total score: 2 Non-prescribed substance use: denies use Caffeine: Yes How often does anyone, including family, friends and others, physically hurt you: never How often does anyone, including family, friends and others, insult or talk down to you: never How often does anyone, including family, friends and others, threaten you with harm: never How often does anyone, including family, friends and others, scream or curse at you: never service: No Exam Narrative: Exam Narrative: Objective: In general no marked distress but patient complains it is uncomfortable, she is afebrile Mouth exam shows left upper gingivitis and mild infection of the gum line area left posterior molars laterally no obvious cellulitic change, no airway issues. Const: Vital Signs, click to edit/add: Vital Signs - 24 hr 04/26/24 21:46 Temperature 97.0 F L Pulse Rate [Left P ulse Oximeter] 86 Respiratory Rate 18 Blood Pressure [Ri ght Upper Arm] 142/80 H Pulse Oximetry 96 Oxygen Delivery Me thod Room Air Course Vital Signs Vital signs: Initial Vital Signs Temperature 97.0 F L 04/26/24 21:46 Temperature Source Temporal Artery Scan 04/26/24 21:46 Pulse Rate 86 04/26/24 21:46 Pulse Rhythm Regular 04/26/24 21:46 Respiratory Rate 18 04/26/24 21:46 Blood Pressure 142/80 H 04/26/24 21:46 Blood Pressure Mean 100 04/26/24 21:46 Blood Pressure Position Sitting 04/26/24 21:46 Pulse Oximetry 96 04/26/24 21:46 Oxygen Delivery Method Room Air 04/26/24 21:46 Vital Signs Temperature 97.0 F L 04/26/24 21:46 Pulse Rate 86 04/26/24 21:46 Respiratory Rate 18 04/26/24 21:46 Blood Pressure 142/80 H 04/26/24 21:46 Pulse Oximetry 96 04/26/24 21:46 Oxygen Delivery Method Room Air 04/26/24 21:46 Temperature 97.0 F L 04/26/24 21:46 Pulse Rate 86 04/26/24 21:46 Respiratory Rate 18 04/26/24 21:46 Blood Pressure 142/80 H 04/26/24 21:46 Pulse Oximetry 96 04/26/24 21:46 Oxygen Delivery Method Room Air 04/26/24 21:46 Medications Administered Medications: Discontinued Medications Generic Name Dose Route Start Last Admin Trade Name Willem PRN Reason Stop Dose Admin Morphine Sulfate 10 mg 04/26/24 21:55 04/26/24 22:10 Morphine 10 Mg/Ml Inj IM 04/26/24 21:56 Not Given ONCE ONE Morphine Sulfate 7.5 mg 04/26/24 21:55 04/26/24 22:09 Morphine 10 Mg/Ml Inj IM 04/26/24 21:56 7.5 mg ONCE ONE Administration Medical Decision Making MDM Narrative Medical decision making narrative: Left upper gum line pain and probable gum infection, probable tooth infection. Patient is seen a dentist, is scheduled to see a client support representative. I think at this time will give her morphine 7.5 mg IM and then have her continue the oxycodone about 4-6 hours, continue the Zithromax that she has been given, recheck as needed. She was comfortable plan. Recommend dental follow-up as planned. Discharge Plan Discharge Clinical Impression: Infected tooth Patient Disposition: Home w/ Parent or Adult Condition: Stable Additional Instructions: Complete the Z-Nahid, continue oxycodone in about 4-6 hours if recurrent tooth pain., return if problems or concerns. Follow up the dentist as scheduled. Activity Level: Light activity Discharge Diet: Regular Prescriptions: No Action potassium chloride 20 mEq tablet,ER particles/crystals 20 meq PO QDAY pravastatin 80 mg tablet 80 mg PO QHS omeprazole 20 mg capsule,delayed release(DR/EC) 20 mg PO QDAY lorazepam 0.5 mg tablet 0.5 mg PO BID PRN bevacizumab 2.5 mg/0.1 mL syringe See Rx Instructions intravitreal Q8W Rx Instructions: intravitreal every 8 weeks; amlodipine 5 mg tablet 5 mg PO QDAY lisinopril-hydrochlorothiazide 20-25 mg tablet 1 tab PO QDAY ketoconazole 2 % shampoo 1 applic topical 3XW PRN metoprolol tartrate 25 mg tablet 25 mg PO QDAY zinc gluconate 30 mg tablet See Rx Instructions PO ONCE Patient Comments: zinc unknown dose Rx Instructions: orally once; calcium carbonate 600 mg calcium (1,500 mg) tablet 1,200 mg PO QDAY amoxicillin-pot clavulanate 875-125 mg tablet 1 tab PO BID celecoxib 200 mg capsule 200 mg PO BID Qty: 60 0RF hydroxyzine pamoate 25 mg capsule 25 - 50 mg PO Q6H PRN (Reason: postop pain) Qty: 30 0RF Rx Instructions: This medication will help oxycodone work better for pain control. gbfdpwuysd-bylvioa-ihgizyve 50-325-40 mg tablet 1 tab PO Q4H PRN metoprolol succinate 25 mg tablet extended release 24 hr 25 mg PO DAILY sumatriptan succinate [Imitrex] 25 mg tablet 25 mg PO Q2H PRN Rx Instructions: do not exceed 8 doses per 24 hrs acetaminophen 500 mg tablet 500 - 1,000 mg PO Q4-6H MDD 4,000 mg per day PRNQty: 100 0RF sennosides [Senna Lax] 8.6 mg tablet 8.6 - 17.2 mg PO BID PRN (Reason: constipation) Qty: 30 0RF Rx Instructions: Hold if experiencing loose stools. aspirin 81 mg tablet,delayed release (DR/EC) 81 mg PO BID 35 Days Qty: 70 0RF Rx Instructions: For DVT prophylaxis. gabapentin 300 mg capsule 300 mg PO .COMPLEX Qty: 360 3RF Rx Instructions: Take 300 mg at breakfast and lunchtime. Take 600mg at bedtime. letrozole 2.5 mg tablet 2.5 mg PO QDAY Qty: 90 4RF Rx Instructions: Take one tablet daily oxycodone 5 mg tablet 2.5 - 5 mg PO Q4-6H MDD 6 tabs per 24 hours PRN (Reason: pain) Qty: 30 0RF Rx Instructions: Minimize use. Wean off and discontinue as soon as possible. Follow Up/Referrals: Milena Trevino MD [Primary Care Provider] - Stand Alone Forms: MyHealth Info Instructions
[2024-04-26] MEDS: MORPHINE 10 MG/ML inj 7.5 MG IM (22:09)
== END 2024-04-26 22:17 | disposition home or self-care (01) ==
LOC: ED 22:05
PROVIDERS: Emergency Provider Family Medicine; PCP Family Medicine
DX: R68.84 Jaw pain (principal)
CPT/HCPCS: 96372; 99283; J2270

== ENCOUNTER 2024-06-04 10:34 | Outpatient (CLI) | payer MEDICARE, BC, SELFPAY ==
--- OUTSIDE RECORDS SUMMARY | 2024-06-04 10:38 | XMS_ITS | Clinical Summary ---
Author Organization [employer] [facility] Address [place], [place] [address] Care Team Providers Care Uc Architect Name Role Phone Milena Trevino MD Primary Care Provide r Allergies Active Allergy Reactions Criticality Noted Date Comments Amoxicillin Diarrhea 05/14/2024 Gluten GI Upset 11/10/2017 Celiac Cephalexin Diarrhea [...] a meal. 90 Tablet 3 4 Active omeprazole (PRILOSEC) 20 mg Delayed-Release capsuleIndications: Chronic GERD Take 1 Capsule (20 mg) by mouth once daily before a meal. 90 Capsule 3 4 Active lisinopril-hydrochl orothiazide, 20-25 mg, (PRINZIDE, ZESTORETIC) 20-25 mg per tabletIndications:E ssential hypertension Take 1 Tablet by mouth once daily. 90 Tablet 3 4 Active mysxsox-xrlggcjb-bu talbital, 325-40-50 mg, (FIORINAL) tabletIndications:M igraine without [...] NEEDED FOR ANXIETY 15 Tablet 4 Active amitriptyline (ELAVIL) 100 mg tabletIndications:I nsomnia, idiopathic Take 1 Tablet (100 mg) by mouth at bedtime. 90 Tablet 3 4 Active amitriptyline (ELAVIL) 75 mg tabletIndications:E pisodic tension-type headache, not intractable Take 1 Tablet (75 mg) by mouth at bedtime. 90 Tablet 3 4 05/14/20 24 Discontinu ed(*Med complete/R egimen complete/L evel of care change) Active Problems Problem Noted Date Diagnosed Date [...] Encounters Date Type Department Care Team Description 06/03/2024 11:00 AM NAIL POLISH BRUSH MACHINE FEEDER Ancillary Procedure [facility] [address] [place] [address] Arrived 06/03/2024 10:45 AM NAIL POLISH BRUSH MACHINE FEEDER Orders Only [facility] [address] [facility], [place] Lab 06/03/2024 Travel 05/30/2024 Travel 05/24/[address] [facility] [address] [facility] [address] [place] [phone] Philip Leon MD Lab 05/20/2024 11:30 AM CDT Ancillary Procedure [facility] [id number] 05/20/2024 Travel 05/15/2024 Travel 05/14/2024 8:25 AM CDT Office Visit [facility] [address] [place] [address] Milena Trevino MD Medication Management (In review all were refilled in October 2023); Abdominal Pain (Lower, abdominal pain, started first part of March. Has a BM after every meal, not typical for her. All started after knee replacement.); Immunization/Injec tion 05/14/2024 Travel 04/13/2024 Refill [facility] [address] Milena Trevino MD Refill Request (Lorazepam) 04/08/2024 3:20 PM CDT Nurse/Clinic Staff Only [facility] [address] Infusion Therapy (Normal Saline for dehydration ) 04/08/2024 7:45 AM CDT Telemedicine [facility] [address] Sofiya Ashby MD Diarrhea (for more than 1 week. total knee replacement Mar 27./Amoxicillan Apr 01 for tooth problem /) 04/08/2024 Telephone [facility] [address] [place] [address] Sofiya Ashby MD Follow Up 04/07/2024 Travel 04/02/2024 Orders Only [facility] Scanner 1 scan: (1-Ord) [facility] V[facility]OUS [facility], 04/02/2024 03/27/2024 Orders Only [facility] Scanner 1 scan: (1-Ord) [facility], KNEE, 03/27/2024 03/20/2024 Orders Only [facility] [address] [place] [address] Milena Trevino MD 1 scan: (1-Ord) EKG-NFLD-03/19/24 03/19/2024 10:05 AM CDT Preop Visit [facility] [address] [place] [address] Milena Trevino MD Pre-Op Exam (Left TKR [facility] 03/27. Dr. Mcnulty.) 03/19/2024 Travel 03/05/2024 Refill [facility] [address] [place] [place] [address] Milena Trevino MD Refill Request (Calcitonin [place] (200 Units Per Actuation) Nasal) from Last 3 Months Immunizations Name Administration Dates Next Due COVID-19 VACCINE SPIKEVAX (M ODERNA 50MCG/0.5ML) 12YO+ PFS 05/14/2024,11/02/2023 COVID-19 vaccine (Pfizer-Bio NTech 30mcg/0.3mL) 12YO+ BIVALENT [...] AIIV4 (Age 65+ Years) Preserv Free 07/13/2023,06/14/2022,04/23/2020 Influenza, Inactivated IIV3 (Age 65+ Years) Preserv Free 05/14/2024 Pneumococcal Conj 20-valent (Prevnar 20) 12/29/2022 Pneumococcal [...] 1 03/19/2024 Social Connections Answer Date Recorded Do you often feel lonely or isolated from those around you? 0 11/02/2023 Financial Resource Strain Answer Date R ecorded Difficulty of Paying Living Expenses 3 11/02/2023 Difficulty of Paying Living Expenses Not on file 11/02/2023 Food Insecurity Answer Date Recorded Do you worry your food will run out before you are able to buy more? 1 11/02/2023 Transportation Needs Answer Date Record ed Does lack of transportation keep you from medica l appointments? 1 11/02/2023 Does lack of transportation keep you from work, meetings or getting things that you need? 1 11/02/2023 Housing Stability Answer Date Recorded What is your housing situation today? 1 11/02/2023 Sex and Gender Information Value [...] Sign Reading Time Taken Comments Blood Pressure 115/80 05/14/2024 8:40 AM CDT Pulse 74 05/14/2024 8:40 AM CDT Temperature 37.2 ??C (98.9 ??F) 06/08/2022 7:58 AM CS T Respiratory Rate 14 06/15/2022 2:52 PM NAIL POLISH BRUSH MACHINE FEEDER Oxygen Saturation 99% 05/14/2024 8:40 AM CDT Inhaled Oxygen Concentration - - Weight 82.3 kg (181 lb 6.4 oz) 05/14/2024 8:40 A M CDT Height 167.6 cm (5' 6) 06/26/2023 10:55 AM NAIL POLISH BRUSH MACHINE FEEDER Body Mass Index 29.28 06/26/2023 10:55 AM NAIL POLISH BRUSH MACHINE FEEDER Plan of Treatment Upcoming Encounters Date Type Department Care Team (Late st Contact Info) Description 07/17/2024 3:00 PM NAIL POLISH BRUSH MACHINE FEEDER Office Visit [facility] [address] [place] [address] Philip Leon MD [address] [place] [address] Health Maintenance Due Date Last Done Comments Medicare Wellness for age 65+ 12/30/2023 12/29/2022, 03/25/2021 BMI (ht and wt on same day) for age 18+ 06/26/2024 06/26/2023, 10/11/2022, 07/07/2022, Additional history exists COVID-19 vaccine series ( season) 2024 05/14/2024, 11/02/2023, 06/29/2023, Additional history exists Depression screening for age 12+ 03/19/2025 03/19/2024, 12/29/2022, 03/08/2022, Additional history exists Tetanus booster 10/28/2026 10/28/2016, 09/30, 10/28/2005 (Completed outside of [facility]) Colonoscopy through age 75 12/08/202712/07, 12/07/2020, 07/13/2015, Additional history exists Lipids for age 45-75 06/03/2029 06/03/2024, 05/14/2024, 10/31/2023, Additional history exists Tdap Completed 10/28/2016, 10/28/2005 Zoster (shingles) series for age 50+ Completed 04/16/2019, 02/11/2019, 07/29/2013 Hepatitis C screening for ag e 18-79 Completed 04/22/2019 Pneumococcal series for age 65+ Completed , 10/21/2019 DEXA/DXA scan for age 65+ Completed 2023, 05/26/2022, 04/15/2020, Additional history exists Influenza for age 65+ Completed 05/14/2024 , 07/13/2023, 06/14/2022, Additional history exists Medical Devices Implanted Type Area Masonry Contractor Administrator Device Identifier Shelf Expiration Date Model / Serial / Lot [id number] 4breast 500cc Memorygel Rnd High Smooth Silcn Implanted:Qty: 1 on 01/01/2019 by Britton Parnell MD at [facility] Explanted:at [facility] (Quantity not on file) Left: Breast [employer] 10/18/2022 [id number] # / [id number] / [id number] 2breast 500cc Memorygel Rnd High Smooth Silcn Implanted:Qty: 1 on 01/01/2019 by Britton Parnell MD at [facility] Explanted:at [facility] (Quantity not on file) Right: Breast [employer] 01/21/2023 [id number] # / [id number] / [id number] 2breast 500cc Memorygel Rnd High Smooth Silcn Implanted:Qty: 1 on 01/25/2019 by Britton Parnell MD at [facility] Explanted:at [facility] (Quantity not on file) Left: Breast [employer] 07/03/2023 [id number] # / [id number] / [id number] Breast 550cc Memorygel Rnd High Smooth Silcn - [id number] Implanted:Qty: 1 on 06/07/2022 by Britton Parnell MD at [facility] Explanted:at [facility] (Quantity not on file) Left: Breast [employer] [id number] / [id number] / [id number] Procedures Procedure Name Priority Date/Time Associated Diagnosis Comments ECHO TTE COMPLETE W CONTRAST Routine 06/03/2024 12:00 PM NAIL POLISH BRUSH MACHINE FEEDER Ascending aorta dilatation (HC) LIPID PANEL W REFLEX MEASURED LDL Routine 06/03/2024 10:50 AM NAIL POLISH BRUSH MACHINE FEEDER Unspecified essential hypertension Other hyperlipidemia BASIC METABOLIC PANEL Routine 06/03/2024 10:50 AM NAIL POLISH BRUSH MACHINE FEEDER Unspecified essential hypertension Other hyperlipidemia HEMOGLOBIN A1C Routine 06/03/2024 10:50 AM NAIL POLISH BRUSH MACHINE FEEDER Unspecified essential hypertension Other hyperlipidemia CT ABDOMEN PELVIS W Routine 05/20/2024 1 2:02 PM CDT Acute diarrhea Abdominal pain, LLQ (left lower quadrant) Abdominal pain, RLQ (right lower quadrant) STOOL PATHOGEN MULTIPLEX PCR PANEL Routine 05/16/2024 3:42 PM CDT Acute diarrhea CRYPTOSPORIDIUM GIARDIA RAPID ANTIGEN Routine 05/16/2024 3:39 PM CDT Acute diarrhea HEMOGLOBIN A1C Routine 05/14/2024 9:39 AM CDT Elevated glucose TSH WITH REFLEX Routine 05/14/2024 9:39 AM CDT Acute diarrhea LIPID PANEL W REFLEX MEASURED LDL Routine 05/14/2024 9:39 AM CDT Hyperlipidemia, unspecified hyperlipidemia type COMP METABOLIC PANEL Routine 05/14/2024 9:39 AM CDT Acute diarrhea CLOSTRIDIOIDES DIFFICILE TOXIN PCR Routine 04/08/2024 9:30 AM CDT Acute diarrhea SCAN-ULTRASOUND REPORT 12:00 AM CDT SCAN-RADIOLOGY REPORT 03/27/2024 12:00 AM CDT EKG 12 LEAD Routine 03/20/2024 8:49 AM CDT Preoperative examination [place] READING EKG - NO CHARGE, COMP ONLY Routine 03/20/2024 8:48 AM CDT Preoperative examination CBC WITH AUTO DIFFERENTIAL Routine 03/19/2024 11:25 AM CDT Essential hypertension BASIC METABOLIC PANEL Routine 03/19/2024 11:25 AM CDT Essential hypertension CBC WITH AUTO DIFFERENTIAL Routine 03/19/2024 11:25 AM CDT Essential hypertension SCAN-BONE DENSITOMETRY DEXA 12/27/2023 12:00 AM CDT COLONOSCOPY SCREENING Routine 12/07/2020 12:00 AM CDT History of colon polyps ANTI HCV Routine 04/22/2019 3:35 PM CDT Encounter for hepatitis C screening test for low risk patient from Last 3 Months or Most Recently Relevant to Health Maintenance Results * ECHO TTE COMPLETE W CONTRAST (06/03/2024 12:00 PM NAIL POLISH BRUSH MACHINE FEEDER) AORTIC VALVE MEAN PG 3 mmHg EJECTION FRACTION 55 - 60% Anatomical Region Laterality Modality Ultrasound 06/03/2024 11:1 2 AM NAIL POLISH BRUSH MACHINE FEEDER Narrative 06/03/2024 12:15 PM NAIL POLISH BRUSH MACHINE FEEDER ECHOCARDIOGRAM YEIMI REN ? Accession#: ?? [id number] : ?1955 69 years Study Date: ?? 06/03/2024 11:12:18 AM Gender: F ?BP: ? 120/77 mmHg Height: 168.00 cm ?BSA: ?1.92 m? ? ? Weight: 82.00 kg ? Tech: ? MBF ? Referring MD: PHILIP LEON Site: ? [facility] Reading Location: Mobile OP Patient Location: Outpatient. Procedure: 2D w/ Contrast, Color Doppler and Spectral Doppler. Indication for study: Ascending aorta dilatation (HC) Cardiac Rhythm: Regular.Study quality: Technically limited. Imaging limitations: This study was subject to imaging limitations due to breast implant and a prominent lung artifact. Final Impressions: 1. Technically limited exam. 2. Normal LV size, normal wall thickness, estimated EF of 55 - 60%. 3. Mild RV enlargement, borderline systolic function. 4. No significant valve disease detected. 5. The ascending aorta is dilated with a maximal diameter of 4.2 cm. 6. Echo contrast was administered to enhance visualization of all left ventricular segments. Comparison Compared to prior exam of 06/14/2023: No change - aorta is similar. Chamber Sizes and Function Normal left ventricular size, normal wall thickness, normal global systolic function with an estimated EF of 55 - 60%. No resting regional wall motion abnormality visualized. Left atrial size is normal. Right ventricular cavity size is mildly enlarged, global systolic RV function is borderline reduced. RV wall thickness is normal. The right atrium is normal. The pulmonary artery is of normal size and origin. The sinus of Valsalva is normal sized. The ascending aorta is dilated. Valves, RV Pressures and Diastolic Function The aortic valve is normal in structure and trileaflet, no stenosis and no regurgitation. The mitral valve is normal in structure, no mitral regurgitation. Normal diastolic function. The tricuspid valve is normal in structure. Tricuspid regurgitation is trace regurgitation. The pulmonic valve is not well visualized. Unable to determine pulmonary regurgitation. Masses, Effusion, Shunts There is no pericardial effusion. The inferior vena cava is small sized, respiratory size variation greater than 50%. No left to right shunting was detected by limited color flow Doppler interrogation of the interatrial septum. MEASUREMENTS AND CALCULATIONS 2-D Measurements and LV Function: Ao Sinus 3.5 cm LVOT diameter 2.0 cm Asc Ao ?? 4.2 cm HR ?67 bpm ?LA Vol index ??21 ml/m2 ?RV Max 4C (d) 4.3 cm Diastology: Mitral ?Tissue Doppler E Peak 0.5 m/s ??e', Septum ? 0.04 m/s A Peak 0.7 m/s ??e', Lateral ?0.06 m/s E/A ?0.8 ?E/e' Average ?? 10.69 DT ? 261 msec Aortic Valve: Vmax ? 1.1 m/s ??JOSÉ MANUEL (V) ?? 2.70 cm? ? ? VTI ?0.27 m ?? JOSÉ MANUEL (I) ?? 2.46 cm? ? ? LVOT V max 1.0 m/s ??Max PG ?5 mmHg LVOT VTI ?? 0.21 m ?? Mean PG ?? 3 mmHg SV ? 65 ml ?Dim Index 0.78 SV index ?? 34 ml/m? ? ? CO ?4.4 l/min ?CI ?2.3 l/min/m? ? ? Mitral Valve: MVA ?2.9 cm? ? ? MV P 1/2 76 msec Tricuspid Valve and estimated PA pressures: TAPSE 1.5 cm Contrast documentation: 4 ml diluted Definity, lot #[id number], [facility]# [id number] was administered peripherally to enhance visualization of all left ventricular segments. . This study was interpreted by an [facility] accredited facility. ??Final ?? Procedure Note Fab Anton MD - 06/03/2024 ECHOCARDIOGRAM YEIMI REN : 1955 69 years Study Date: 06/03/2024 11:12:18 AM Gender: F BP: 120/77 mmHg Height: 168.00 cm BSA: 1.92 m? ? ? Weight: 82.00 kg Tech: [facility] Referring MD: PHILIP LEON Site: [facility] Reading Location: Mobile OP Patient Location: Outpatient. Procedure: 2D w/ Contrast, Color Doppler and Spectral Doppler. Indication for study: Ascending aorta dilatation (HC) Cardiac Rhythm: Regular.Study quality: Technically limited. Imaging limitations: This study was subject to imaging limitations due tobreast implant and a prominent lung artifact. Final Impressions: 1. Technically limited exam. 2. Normal LV size, normal wall thickness, estimated EF of 55 - 60%. 3. Mild RV enlargement, borderline systolic function. 4. No significant valve disease detected. 5. The ascending aorta is dilated with a maximal diameter of 4.2 cm. 6. Echo contrast was administered to enhance visualization of all leftventricular segments. Comparison Compared to prior exam of 06/14/2023: No change - aorta is similar. Chamber Sizes and Function Normal left ventricular size, normal wall thickness, normal globalsystolic function with an estimated EF of 55 - 60%. No resting regionalwall motion abnormality visualized. Left atrial size is normal. Rightventricular cavity size is mildly enlarged, global systolic RV function isborderline reduced. RV wall thickness is normal. The right atrium isnormal. The pulmonary artery is of normal size and origin. The sinus ofValsalva is normal sized. The ascending aorta is dilated. Valves, RV Pressures and Diastolic Function The aortic valve is normal in structure and trileaflet, no stenosis and noregurgitation. The mitral valve is normal in structure, no mitralregurgitation. Normal diastolic function. The tricuspid valve is normal instructure. Tricuspid regurgitation is trace regurgitation. The pulmonicvalve is not well visualized. Unable to determine pulmonaryregurgitation. Masses, Effusion, Shunts There is no pericardial effusion. The inferior vena cava is small sized,respiratory size variation greater than 50%. No left to right shunting wasdetected by limited color flow Doppler interrogation of the interatrialseptum. MEASUREMENTS AND CALCULATIONS 2-D Measurements and LV Function: Ao Sinus 3.5 cm LVOT diameter 2.0 cm Asc Ao 4.2 cm HR 67 bpm LA Vol index 21 ml/m2 RV Max 4C (d) 4.3 cm Diastology: Mitral Tissue Doppler E Peak 0.5 m/s e', Septum 0.04 m/s A Peak 0.7 m/s e', Lateral 0.06 m/s E/A 0.8 E/e' Average 10.69 DT 261 msec Aortic Valve: Vmax 1.1 m/s JOSÉ MANUEL (V) 2.70 cm? ? ? VTI 0.27 m JOSÉ MANUEL (I) 2.46 cm? ? ? LVOT V max 1.0 m/s Max PG 5 mmHg LVOT VTI 0.21 m Mean PG 3 mmHg SV 65 ml Dim Index 0.78 SV index 34 ml/m? ? ? CO 4.4 l/min CI 2.3 l/min/m? ? ? Mitral Valve: MVA 2.9 cm? ? ? MV P 1/2 76 msec Tricuspid Valve and estimated PA pressures: TAPSE 1.5 cm Contrast documentation: 4 ml diluted Definity, lot #[id number], [facility]#[id number] was administered peripherally to enhance visualization of allleft ventricular segments. . This study was interpreted by an [facility] accredited facility. Final Philip Leon MD ECHO ORD * (ABNORMAL) HEMOGLOBIN A1C (06/03/2024 10:50 AM NAIL POLISH BRUSH MACHINE FEEDER) Only the most recent of2 resultswithin the time period is included. HEMOGLOBIN A1C 5.8(H) <5.7 % of total Hgb [facility] Comment: For someone without known diabetes, a hemoglobin A1c value between 5.7% and 6.4% is consistent with prediabetes and should be confirmed with a follow-up test. For someone with known diabetes, a value <7% indicates that their diabetes is well controlled. A1c targets should be individualized based on duration of diabetes, age, comorbid conditions, and other considerations. This assay result is consistent with an increased risk of diabetes. Currently, no consensus exists regarding use of hemoglobin A1c for diagnosis of diabetes for children. Blood BLOOD SPECIMEN / Unknown 06/03/2024 10:50 AM NAIL POLISH BRUSH MACHINE FEEDER 06/03/2024 10:51 AM NAIL POLISH BRUSH MACHINE FEEDER Philip Leon MD CHEMISTRY [facility] [facility] [address] [place] [address], [facility] [address] [place] [address] * (ABNORMAL) LIPID PANEL W REFLEX MEASURED LDL (06/03/2024 10:50 AM NAIL POLISH BRUSH MACHINE FEEDER) Only the most recent of2 resultswithin the time period is included. CHOLESTEROL, TOTAL 170 <200 mg/dL [facility] HDL CHOLESTEROL 67 > OR = 50 mg/dL [facility] TRIGLYCERIDES 197(H) <150 mg/dL [facility] LDL-CHOLESTEROL 74 mg/dL (calc) [facility] Comment: Reference range: <100 Desirable range <100 mg/dL for primary prevention; ?? <70 mg/dL for patients with CHD or diabetic patients with > or = 2 CHD risk factors. LDL-C is now calculated using the Naye calculation, which is a validated novel method providing better accuracy than the Friedewald equation in the estimation of LDL-C. Hugo KIM et al. DUGLAS. 2013;310(64): 6751-5249 (http://education.Effdon/faq/ORO567) CHOL/HDLC RATIO 2.5 <5.0 (calc) [facility] NON HDL CHOLESTEROL 103 <130 mg/dL (calc) [facility] Comment: For patients with diabetes plus 1 major ASCVD risk factor, treating to a non-HDL-C goal of <100 mg/dL (LDL-C of <70 mg/dL) is considered a therapeutic option. Blood BLOOD SPECIMEN / Unknown 06/03/2024 10:50 AM NAIL POLISH BRUSH MACHINE FEEDER 06/03/2024 10:51 AM NAIL POLISH BRUSH MACHINE FEEDER Philip Leon MD CHEMISTRY [employer] [facility] [address] [place] [address], [facility] [address] [place] [address] * BASIC METABOLIC PANEL (06/03/2024 10:50 AM NAIL POLISH BRUSH MACHINE FEEDER) Only the most recent of2 resultswithin the time period is included. GLUCOSE 94 65 - 99 mg/dL [facility] Comment: ? Fasting reference interval UREA NITROGEN (BUN) 19 7 - 25 mg/dL [facility] CREATININE 1.00 0.60 - 1.00 mg/dL [facility] EGFR 61 > OR = 60 mL/min/1. 73m2 [facility] BUN/CREATININE RATIO SEE NOTE: (calc) [facility] Comment: ?? Not Reported: BUN and Creatinine are within ?? reference range. ? SODIUM 140 135 - 146 mmol/L [facility] POTASSIUM 4.2 3.5 - 5.3 mmol/L [facility] CHLORIDE 100 98 - 110 mmol/L [facility] CARBON DIOXIDE 32 20 - 32 mmol/L [facility] ELECTROLYTE BALANCE 8 7 - 17 mmol/L (calc) [facility] CALCIUM 9.6 8.6 - 10.4 mg/dL [facility] Blood BLOOD SPECIMEN / Unknown 06/03/2024 10:50 AM NAIL POLISH BRUSH MACHINE FEEDER 06/03/2024 10:51 AM NAIL POLISH BRUSH MACHINE FEEDER Philip Leon MD CHEMISTRY [employer] [facility] [address] [place] [address], [facility] [address] [place] [address] * CT ABDOMEN PELVIS W (05/20/2024 12:02 PM CDT) Anatomical Region Laterality Modality Abdomen, Pelvis, AORTA, LIVER, SPLEEN Computed Tomography 05/21/2024 3:11 PM CDT Impressions 05/21/2024 3:11 PM CDT 1. No acute findings. 2. Bilateral nephrolithiasis. No obstruction. Please note that all CT scans at this facility use dose modulation, iterative reconstruction, and/or weight-based dosing when appropriate to reduce radiation dose to as low as reasonably achievable. Dictated by Israel Jeter MD @ 05/21/2024 3:11:56 PM (Electronically Signed) Narrative 05/21/2024 3:11 PM CDT For Patients: ??As a result of the Century Cures Act, medical imaging exams and procedure reports are released immediately into your electronic medical record. ??You may view this report before your referring provider. ??If you have questions, please contact your health care provider. INDICATION: Acute diarrhea, lower abdominal pain TECHNIQUE: CT abdomen and pelvis acquired with 100 mL Omnipaque 350 IV contrast. COMPARISON: None. FINDINGS: Lower chest: Scarring or atelectasis in the lung bases. Bilateral breast implants. Liver: Tiny cyst in the posterior right hepatic lobe. Gallbladder and bile ducts: Unremarkable. No stones or inflammation. No biliary dilatation. Pancreas: Unremarkable. No mass or inflammation. Spleen: Unremarkable. Normal in size. No masses. Adrenal glands: Unremarkable. No nodules. Kidneys: Bilateral nonobstructing renal stones. Largest is in the left kidney measuring 9 mm. No hydronephrosis. GI tract: Small hiatal hernia. No obstruction. No evidence for inflammation. Normal appendix. Vasculature: Mild atherosclerosis. Mesenteric arteries are patent. Lymph nodes: No lymphadenopathy. Omentum/Peritoneum/Abdominal Wall: Unremarkable. No sign of mass or infiltration. No free air or significant free fluid. Pelvis: Hysterectomy. Bones: Unremarkable for age. Procedure Note Israel Jeter MD - 05/21/2024 For Patients: As a result of the Cures Act, medical imagingexams and procedure reports are released immediately into your electronicmedical record. You may view this report before your referring provider.If you have questions, please contact your health care provider. INDICATION: Acute diarrhea, lower abdominal pain TECHNIQUE: CT abdomen and pelvis acquired with 100 mL Omnipaque 350 IV contrast. COMPARISON: None. FINDINGS: Lower chest: Scarring or atelectasis in the lung bases. Bilateral breastimplants. Liver: Tiny cyst in the posterior right hepatic lobe. Gallbladder and bile ducts: Unremarkable. No stones or inflammation. Nobiliary dilatation. Pancreas: Unremarkable. No mass or inflammation. Spleen: Unremarkable. Normal in size. No masses. Adrenal glands: Unremarkable. No nodules. Kidneys: Bilateral nonobstructing renal stones. Largest is in the leftkidney measuring 9 mm. No hydronephrosis. GI tract: Small hiatal hernia. No obstruction. No evidence forinflammation. Normal appendix. Vasculature: Mild atherosclerosis. Mesenteric arteries are patent. Lymph nodes: No lymphadenopathy. Omentum/Peritoneum/Abdominal Wall: Unremarkable. No sign of mass orinfiltration. No free air or significant free fluid. Pelvis: Hysterectomy. Bones: Unremarkable for age. IMPRESSION: 1. No acute findings. 2. Bilateral nephrolithiasis. No obstruction. Please note that all CT scans at this facility use dose modulation,iterative reconstruction, and/or weight-based dosing when appropriate toreduce radiation dose to as low as reasonably achievable. Dictated by Israel Jeter MD @ 05/21/2024 3:11:56 PM (Electronically Signed) Milena Trevino MD CT * STOOL PATHOGEN MULTIPLEX PCR PANEL (05/16/2024 3:42 PM CDT) Pathologist [facility] CAMPYLOBACTER GROUP NOT DETECTED NOT DETECTED [facility] SALMONELLA SPECIES NOT DETECTED NOT DETECTED [facility] SHIGELLA SPECIES NOT DETECTED NOT DETECTED [facility] VIBRIO GROUP NOT DETECTED NOT DETECTED [facility] YERSINIA ENTEROCOLITICA NOT DETECTED NOT DETECTED [facility] SHIGA TOXIN 1 NOT DETECTED NOT DETECTED [facility] SHIGA TOXIN 2 NOT DETECTED NOT DETECTED [facility] NOROVIRUS GI/GII NOT DETECTED NOT DETECTED [facility] ROTAVIRUS A NOT DETECTED NOT DETECTED [facility] Comment: Organisms included in the Campylobacter group include C. coli, C. jejuni, and C. willie. Organisms included in the Shigella species include S. dysenteriae, S. boydii, S. sonnei, and S. flexneri. Organisms included in the Vibrio group include V. cholerae and V. parahaemolyticus. Stool STOOL SPECIMEN / Unknown 05/16/2024 3:42 PM CDT 05/16/2024 3:42 PM CDT Milena Trevino MD MICROBIOLOGY [employer] [facility] [address] [place] [address], [facility] [address] [place] [address] * CRYPTOSPORIDIUM GIARDIA RAPID ANTIGEN (05/16/2024 3:39 PM CDT) [facility] GIARDIA AND CRYPTOSPORIDIUM ANTIGEN PANEL SEE NOTE [facility] John Grullon Comment: ??CRYPTOSPORIDIUM ANTIGEN, EIA ?Micro Number: ?[id number] ??Test Status: ? Final ??Specimen Source: ?? Stool ??Specimen Quality: ??Adequate ??Cryptosporidium: ?? Not Detected ??Reference Range: ?? Not Detected ? NOTE: Due to intermittent shedding, one negative ? sample does not necessarily rule out the presence ? of a parasitic infection. GIARDIA AND CRYPTOSPORIDIUM ANTIGEN PANEL SEE NOTE [facility] Comment: ??GIARDIA AG, EIA, STOOL ?Micro Number: ?[id number] ??Test Status: ? Final ??Specimen Source: ?? Stool ??Specimen Quality: ??Adequate ??Giardia Result 1: ??Not Detected ??Reference Range: ?? Not Detected ? NOTE: Due to intermittent shedding, one negative ? sample does not necessarily rule out the presence ? of a parasitic infection. Stool STOOL SPECIMEN / Unknown 05/16/2024 3:39 PM CDT 05/16/2024 3:41 PM CDT Milena Trevino MD MICROBIOLOGY Performing Organization Address City/State/[facility] Co de Phone Number [facility] [facility] [address] [place] [address], [facility] [address] [place] [address] * TSH WITH REFLEX (05/14/2024 9:39 AM CDT) TSH W/REFLEX TO FT4 1.10 0.40 - 4.50 mIU/L [facility] Blood BLOOD SPECIMEN / Unknown 05/14/2024 9:39 AM CDT 05/14/2024 9:43 AM CDT Milena Trevino MD CHEMISTRY [employer] [facility] [address] [place] [address], [facility] [address] [place] [address] * (ABNORMAL) COMP METABOLIC PANEL (05/14/2024 9:39 AM CDT) [facility] GLUCOSE 120(H) 65 - 99 mg/dL [facility] Comment: ? Fasting reference interval For someone without known diabetes, a glucose value between 100 and 125 mg/dL is consistent with prediabetes and should be confirmed with a follow-up test. UREA NITROGEN (BUN) 15 7 - 25 mg/dL [facility] CREATININE 0.96 0.60 - 1.00 mg/dL [facility] EGFR 64 > OR = 60 mL/min/1. 73m2 [facility] BUN/CREATININE RATIO SEE NOTE: 6 - 22 (calc) [facility] Comment: ?? Not Reported: BUN and Creatinine are within ?? reference range. ? SODIUM 140 135 - 146 mmol/L [facility] POTASSIUM 4.0 3.5 - 5.3 mmol/L [facility] CHLORIDE 99 98 - 110 mmol/L [facility] CARBON DIOXIDE 30 20 - 32 mmol/L [facility] CALCIUM 9.7 8.6 - 10.4 mg/dL [facility] PROTEIN, TOTAL 7.2 6.1 - 8.1 g/dL [facility] ALBUMIN 4.5 3.6 - 5.1 g/dL [facility] GLOBULIN 2.7 1.9 - 3.7 g/dL (calc) [facility] ALBUMIN/GLOBULIN RATIO 1.7 1.0 - 2.5 (calc) [facility] BILIRUBIN, TOTAL 0.7 0.2 - 1.2 mg/dL [facility] ALKALINE PHOSPHATASE 92 37 - 153 U/L [facility] AST 20 10 - 35 U/L [facility] ALT 17 6 - 29 U/L [facility] Blood BLOOD SPECIMEN / Unknown 05/14/2024 9:39 AM CDT 05/14/2024 9:43 AM CDT Milena Trevino MD CHEMISTRY Performing Organization Address [facility]/ZIP Co de Phone Number [employer] [facility] [address] [place] [address], [facility] [address] [place] [address] * CLOSTRIDIOIDES DIFFICILE TOXIN PCR (04/08/2024 9:30 AM CDT) CLOSTRIDIUM DIFFICILE PCR Negative 04/09/2024 12:08 AM CDT [facility] PRESUMPTIVE NAP1 STRAIN Negative 04/09/2024 12:08 AM CDT [facility] Stool STOOL SPECIMEN / Unknown Non-Blood / Unknown 04/08/2024 9:30 AM CDT 04/08/2024 3:06 PM CDT Narrative [facility] - 04/09/2024 12:08 AM CDT The NAP1 (027 or BI) strain is a hypervirulent strain. Detection may be useful for epidemiological purposes. Sofiya Ashby MD MICROBIOLO GY [facility] [address] [place] [address], [place] * SCAN-ULTRASOUND REPORT (04/02/2024 12:00 AM CDT) Anatomical Region Laterality Modality Other Scanner OTHER * SCAN-RADIOLOGY REPORT (03/27/2024 12:00 AM CDT) Anatomical Region Laterality Modality Other Scanner OTHER * EKG 12 LEAD (03/20/2024 8:49 AM CDT) Milena Trevino MD EKG ORD * [place] READING EKG - NO CHARGE, COMP ONLY (03/20/2024 8:48 AM CDT) Milena Trevino MD PB - PROVIDER READINGS * CBC WITH AUTO DIFFERENTIAL (03/19/2024 11:25 AM CDT) WHITE BLOOD COUNT 4.9 4.5 - 11.0 thou/cu mm 03/19/2024 11:32 AM CDT [facility] RED BLOOD COUNT 4.38 4.00 - 5.20 mil/cu mm 03/19/2024 11:32 AM CDT [facility] HEMOGLOBIN 13.8 12.0 - 16.0 g/dL 03/19/2024 11:32 AM CDT [facility] HEMATOCRIT 41.1 33.0 - 51.0 % 03/19/2024 11:32 AM CDT [facility] MCV 94 80 - 100 fL 03/19/2024 11:32 AM CDT [facility] MCH 31.5 26.0 - 34.0 pg 03/19/2024 11:32 AM CDT [facility] MCHC 33.6 32.0 - 36.0 g/dL 03/19/2024 11:32 AM CDT [facility] RDW 14.4 11.5 - 15.5 % 03/19/2024 11:32 AM CDT [facility] PLATELET COUNT 164 140 - 440 thou/cu mm 03/19/2024 11:32 AM CDT [facility] MPV 10.0 6.5 - 11.0 fL 03/19/2024 11:32 AM CDT [facility] % NEUT 50.6 % 03/19/2024 11:32 AM CDT [facility] % LYMPH 30.2 % 03/19/2024 11:32 AM CDT [facility] % MONO 11.2 % 03/19/2024 11:32 AM CDT [facility] % EOS 7.6 % 03/19/2024 11:32 AM CDT [facility] % BASO 0.4 % 03/19/2024 11:32 AM CDT [facility] ABSOLUTE NEUTROPHILS 2.5 1.7 - 7.0 thou/cu mm 03/19/2024 11:32 AM CDT [facility] ABSOLUTE LYMPHOCYTES 1.5 0.9 - 2.9 thou/cu mm 03/19/2024 11:32 AM CDT [facility] ABSOLUTE MONOCYTES 0.6 <0.9 thou/cu mm 03/19/2024 11:32 AM CDT [facility] ABSOLUTE EOSINOPHILS 0.4 <0.5 thou/cu mm 03/19/2024 11:32 AM CDT [facility] ABSOLUTE BASOPHILS 0.0 <0.3 thou/cu mm 03/19/2024 11:32 AM CDT [facility] Blood BLOOD SPECIMEN / Unknown Venipuncture / Unknown 03/19/2024 11:25 AM CDT 03/19/2024 11:28 AM CDT Milena Trevino MD HEMATOLOGY Performing Organization Address City/State/[facility] Co de Phone Number [facility] [address] [place] [address], * SCAN-BONE DENSITOMETRY DEXA (12/27/2023 12:00 AM CDT) Anatomical Region Laterality Modality Other Scanner OTHER * COLONOSCOPY SCREENING (12/07/2020 12:00 AM CDT) Hugo Mazariegos MD GI PROCEDURE ORD * ANTI HCV (04/22/2019 3:35 PM CDT) HEPATITIS C ANTIBODY Non-React kristie Non-React kristie 04/22/2019 9:14 PM CDT [facility] Comment:Antibodies to HCV no t detected; does not exclude the possibility of exposure to HCV. Blood BLOOD SPECIMEN / Unknown Venipuncture / Unknown 04/22/2019 3:35 PM CDT 04/22/2019 3:35 PM CDT [facility] 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
--- NOTE | 2024-06-04 11:00 | CRLHL7_ITS ---
For Patients: As a result of the Cures Act, medical imaging exams and procedure reports are released immediately into your electronic medical record. You may view this report before your referring provider. If you have questions, please contact your health care provider. INDICATION: Lung nodule. COMPARISON: Chest CT scans dated 28 November 2023 and 03 November 2017. TECHNIQUE: Chest CT scan with 75 cc of Isovue-370 given intravenously. FINDINGS: No mediastinal or hilar adenopathy. No axillary adenopathy. Bilateral breast implants. No central pulmonary emboli. The lungs show subpleural scarring in the anterior aspect of the left upper lobe which is unchanged. Minimal bibasilar atelectasis. 5 mm pulmonary nodule in the medial aspect of the right lower lobe best seen on image 64 of series 2 is unchanged since 2018. Resolution of the remainder of the nodular opacities in the lower lobes. No pneumothorax. No focal abnormalities identified in the visualized portions of the liver, spleen, pancreas, and adrenal glands. A few nonobstructing nephroliths in the kidneys. Impression : 1. 5 mm pulmonary nodule in the right lower lobe is unchanged since 2018. 2. Resolution of the remainder of the nodular opacities. No further evaluation is required. 3. No adenopathy. Please note that all CT scans at this facility use dose modulation, iterative reconstruction, and/or weight-based dosing when appropriate to reduce radiation dose to as low as reasonably achievable. Dictated by Gianfranco Porter MD @ 06/05/2024 8:56:20 AM (Electronically Signed)
[2024-06-04 11:05] LABS: Creatinine* 0.9 mg/dL (0.5-1.5); Estimated Glomerular Filt Rate 69 ml/min
== END 2024-06-04 10:35 | disposition home or self-care (01) ==
LOC: CT 10:35
PROVIDERS: PCP Family Medicine; Visit Provider Physician Assistant
DX: R91.1 Solitary pulmonary nodule (principal); C50.919 Malignant neoplasm of unspecified site of unspecified female breast
CPT/HCPCS: 36415; 71260; 82565; Q9967

== ENCOUNTER 2024-06-10 10:22 | Outpatient (RCR) | payer MEDICARE, BC, SELFPAY | END 2024-12-07 23:59 | disposition home or self-care (01) | LOC: CCIC 10:22 | PROVIDERS: PCP Family Medicine; Referring Provider Family Medicine; Visit Provider Physician Assistant | DX: C50.911 Malignant neoplasm of unspecified site of right female breast (principal); C50.912 Malignant neoplasm of unspecified site of left female breast; Z17.0 Estrogen receptor positive status [ER+]; Z79.811 Long term (current) use of aromatase inhibitors; G62.0 Drug-induced polyneuropathy; T45.1X5A Adverse effect of antineoplastic and immunosuppressive drugs, initial encounter; R06.09 Other forms of dyspnea; R05.9 Cough, unspecified; J70.0 Acute pulmonary manifestations due to radiation; Z90.13 Acquired absence of bilateral breasts and nipples | CPT/HCPCS: 99215; G0463 ==

== ENCOUNTER 2024-06-13 13:00 | Outpatient (RCR) | payer MEDICARE, BC, SELFPAY ==
--- NOTE | 2024-03-21 15:43 | PT.OPEX ---
PT [place] Outpatient Eval PT [facility] Outpatient Eval Start: 03/21/24 12:30 Freq: Status: Active Protocol: Document 03/21/24 12:32 DESIREE (Rec: 03/21/24 12:46 [facility] [id number]) E-signed By Casie Bruce PT Physical Therapy Outpatient Evaluation Insurance Information Recert Due Date 03/21/24 Insurance Name Medicare B Medical Diagnosis LEFT OA LEFT TKA 03/27/24 Treating Diagnosis LEFT KNEE PAIN LEFT KNEE WEAKNESS Referring MD HAMM Subjective Preferred Name JASBIR Polanco PATIENT HAS >6MO H/O PAIN AND CHALLENGE AMB WITH A FINAL DECISION TO HAVE HER KNEE REPLACED. SHE HAS BATTLED A NECK AND SHOULDER ISSUE THAT INITIALLY WOULD HAVE COMPLICATED HER ABILITY TO USE A WALKER POST TKA. SHE HAS PARTICIPATED IN REHAB TO ADDRESS THIS AND REPORTS THAT HER SHOULDER IS FEELING PRETTY GOOD. Pain Comments 12/07 Date of Next Physician Visit 04/02/24 Date of Surgery (If applicable) 03/27/24 Current Work Status Retired Assessment Assessment/Impression PATIENT IS A [address] 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 PMHX INCLUDES BUT NOT LIMITED TO RECENT H/O CERVICAL RADICULOPATHY, BREAST CA W/ DBL MASTECTOMY 2017, H//O RIGHT RTC REPAIR, T12 COMPRESSION WEDGE FX, OA LEFT KNEE , L AC IMPINGEMENT, CERVICAL C4-5 DISC PROTRUSION, ANXIETY AND DEPRESSION, HTN, COPD, AND SLEEP APNEA. PATIENT DEMONSTRATES WONDERFUL ROM MEASURING 0-0-132 IN SUPINE WITH EXQUISITE MEDIAL JOINT LINE PAIN. EXTENSIVE DISCUSSION AND EDUCATION ON EXPECTATIONS POST SURGERIES IN REGARD TO SYMPTOMS, MOBILITY, AND MGMT. 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 PATIENT PERFORMED EA OF THE PRE-OP EXERCISES AND ENCOURAGED TO FAMILIARIZE HERSELF TO WHAT EA FEEL LIKE. SHE WILL RETURN 2DAYS POST OP FOR HER FIRST VISIT AND PLANNED TO REASSESS AT THAT TIME. Primary Functional Limitations COMMUNITY AMB STAIRS STOOPING SQUATING Plan of Care Rehabilitation Potential Good Physical Therapy Goals 1. DECREASE R/L KNEE PAIN TO < /3/10 WITH ADL'S AND PROGRESSION OF PHYSICAL THERAPY OVER THE NEXT 4-6 WEEKS 2. IMPROVE ROM OF L KNEE TO 0- 0-120 IN SUPINE (OR GREATER) TO RETURN TO FUNCTIONAL ROM AND IMPROVE GAIT MECHANICS OVER THE NEXT 6-8 WEEKS 3. IMPROVE L KNEE/LE FUNCTIONAL MOBILITY AND FUNCTIONAL STRENGTH TO RETURN TO INDEPENDENT TRANSFERS WITH EASE, EXTENDED STANDING AND WALKING FOR ADL'S, HOUSEHOLD ACTIVITIES AND IMPROVED GAIT MECHANICS OVER THE NEXT 8-10 WEEKS. 4. PATIENT WILL DEMONSTRATE COMPLETE INDEPENDENCE AND THE ABILITY TO PROGRESS HIS HEP FOR MAINTENANCE AND CONTINUED IMPROVEMENT OF HIS CORE / BLE STRENGTH AND STABILITY. Coordination/Communication With Referral Source Treatment Plan/Direct Interventions Gait Training,Ice/Cold/ Vasopneumatic,Joint Mobilization,Manual Therapy, Neuromuscular Re-ed,Self-Care/ Home Management,Therapeutic Activities,Therapeutic Exercises Frequency/Duration 2X/WK Patient Will Be Discharged From Therapy Completion of LTG(s), Independent w/HEP Evaluation Billing Untimed Code Treatment Minutes 20 PT Eval No Charge No Complexity Moderate Certification Information Initial Certification Date 03/21/24 Ending Certification Date 06/18/24 Provider Signature Required Yes Provider Signature Shows Agreement With POC & Medical Necessity Physician NPI Number Write NPI# Here Physician Comment/Change : Physician Signature & Date Requested Please Sign/Date Here
== END 2024-06-25 11:54 | disposition home or self-care (01) ==
PROVIDERS: PCP Family Medicine; Visit Provider Orthopaedic Surgery
DX: M17.12 Unilateral primary osteoarthritis, left knee (principal); Z96.652 Presence of left artificial knee joint; Z51.89 Encounter for other specified aftercare
CPT/HCPCS: 97110; 97162; 97164; 97535

== ENCOUNTER 2024-10-15 10:05 | Outpatient (CLI) | payer MEDICARE, BC, SELFPAY ==
--- NOTE | 2024-10-15 10:15 | CRLHL7_ITS ---
For Patients: As a result of the Century Cures Act, medical imaging exams and procedure reports are released immediately into your electronic medical record. You may view this report before your referring provider. If you have questions, please contact your health care provider. INDICATION: Breast cancer. COMPARISON: None. TECHNIQUE: Sagittal T1, T2, and STIR sequences. Axial T1 and T2 weighted sequences. Post gadolinium T1 weighted sequences. Dotarem 16 cc IV FINDINGS: Normal alignment. No fractures. No vertebral body loss of height. No spondylolisthesis. No ligamentous injury. Normal marrow signal. No suspicious osseous lesions. Normal conus terminates at L1. No abnormal enhancement or enhancing lesions. [id number] L1-2: No spinal canal neural foraminal narrowing. L2-3: No spinal canal or neural foraminal narrowing. L3-4: Annular bulge. No narrowing of the spinal canal. No neural foraminal narrowing. L4-5: Posterior disc bulge. No narrowing of spinal canal. No neural foraminal narrowing. L5-S1: Mild annular bulge. No narrowing of spina canal. No impingement of the traversing S1 nerve roots. No neural foraminal narrowing. Normal visualized SI joints. Normal paraspinal soft tissues. IMPRESSION: 1. Normal alignment. No fractures. 2. Lumbar spondylosis. 3. No abnormal enhancement or enhancing lesions. 4. At L4-5, posterior disc bulge with no spinal canal or neural foraminal narrowing. 5. At L5-S1, mild annular bulging. No narrowing of the spinal canal. No neural foraminal narrowing. Dictated by Matthew Marcelo MD @ 10/15/2024 2:12:53 PM (Electronically Signed)
== END 2024-10-15 10:06 | disposition home or self-care (01) ==
LOC: MRI 10:06
PROVIDERS: PCP Family Medicine; Visit Provider Physician Assistant
DX: C50.919 Malignant neoplasm of unspecified site of unspecified female breast (principal); M47.896 Other spondylosis, lumbar region; M51.26 Other intervertebral disc displacement, lumbar region; M51.27 Other intervertebral disc displacement, lumbosacral region; S22.089A Unspecified fracture of T11-T12 vertebra, initial encounter for closed fracture
CPT/HCPCS: 72158; A9575

== ENCOUNTER 2025-04-22 10:46 | Outpatient (CLI) | payer MEDICARE, BC, SELFPAY ==
--- NOTE | 2025-04-22 11:00 | CRLHL7_ITS ---
For Patients: As a result of the Century Cures Act, medical imaging exams and procedure reports are released immediately into your electronic medical record. You may view this report before your referring provider. If you have questions, please contact your health care provider. INDICATION: Acute pulmonary manifestations. TECHNIQUE: CT chest with 75 cc of Isovue 370 intravenous contrast. COMPARISON: CT chest with contrast June 04, 2024.. FINDINGS: Lungs and pleura: Redemonstration of subpleural scarring in the left upper lobe. Scarring/atelectasis seen in the bilateral lung bases. Redemonstration of a 6 millimeter nodule in the medial aspect of the right lower lobe seen on series 2, image 66. Heart and vasculature: Heart size is normal. Mild thoracic aortic atherosclerosis. Lymph nodes/mediastinum: No mediastinal, hilar, or axillary adenopathy. Chest wall: Bilateral breast implants. Upper abdomen: Small hiatal hernia. Partially visualized 6 millimeter left renal calculus. Bones: No acute findings. IMPRESSION: 6 millimeter nodule in the medial aspect of the right lower lobe, unchanged. Redemonstration of subpleural scarring in the left upper lobe and bibasilar atelectasis/scarring. 6 millimeter left renal calculus. Please note that all CT scans at this facility use dose modulation, iterative reconstruction, and/or weight-based dosing when appropriate to reduce radiation dose to as low as reasonably achievable. Dictated by Joe Parker MD @ 04/25/2025 8:00:14 AM (Electronically Signed)
[2025-04-22 11:24] LABS: Creatinine* 1.0 mg/dL (0.5-1.5); Estimated Glomerular Filt Rate 61 ml/min
== END 2025-04-22 10:47 | disposition home or self-care (01) ==
LOC: CT 10:48
PROVIDERS: PCP Family Medicine; Visit Provider Internal Medicine Hematology & Oncology
DX: J70.0 Acute pulmonary manifestations due to radiation (principal); N20.0 Calculus of kidney; C50.919 Malignant neoplasm of unspecified site of unspecified female breast
CPT/HCPCS: 36415; 71260; 82565; Q9967

== ENCOUNTER 2025-07-24 01:32 | Emergency (ER) | payer MEDICARE, BC, SELFPAY ==
--- OUTSIDE RECORDS SUMMARY | 2025-07-24 01:35 | XMS_ITS | Clinical Summary ---
Author Organization [facility] Address [address] [place] [address] Care Team Providers Care Director Of Rehabilitative Services Name Role Phone Milena Trevino MD Primary Care Provide r Allergies Active AllergyReactionsCriticalityNoted DateCommentsAcetylcysteineItching, XndccrqfxkwTtta36/13/2018 Via neb. Pt states, it was given too fast. When it was slowed it was fine. QwoynfwuoppPcektcnb22/15/2166GccfgrlxluYzrwbpqnKgs64/28/2019GlutenGI Upset 11/10/2017 Celiac Medications MedicationSigDispense QuantityRefillsLast FilledStart DateEnd DateStatus bevacizumab (AVASTIN) 25 mg/mL injection P8zrawPazmaa CPAP Indications:NANCY (obstructive sleep apnea)CPAP machine for home use at pressure: 13cm/H2O , Heated humidifier x 1 q 5 yr, Water chamber x 1 q6 mo, chin strap x 1 q 6 mo, nasal mask x 1 q 3 mo, with nasal cushion x 2 q mo, Standard pap tubing x 1 q 3 mo, headgear x 1 q 6 mo, non disposable filter 1 q 6 mo, disposable filter x 2 q mo ??Length of Need: 6 months, Frequency of use: Qjgzh548 Active gabapentin (NEURONTIN) 300 mg capsule Indications:Primary cancer of left breast (HC)One in the morning, one in the afternoon and 2 in the evening. 270 Capsule ctive Additional Information Patient not taking.Reported on 07/22/2025 Calcium-Cholecalciferol, D3, 500 mg-10 mcg (400 unit) chewable tablet Chew 1 Tablet by mouth once daily.Active acetaminophen (TYLENOL EXTRA STRGTH) 500 mg tablet Take 1,000 mg by mouth 2 times daily if needed. Max acetaminophen dose: 4000mg in 24 hrs.Active letrozole (FEMARA) 2.5 mg tablet Take 2.5 mg by mouth once daily.11/25/2022ctive zctyxxd-lbxalmzq-hpncldfhpj, 325-40-50 mg, (FIORINAL) tablet Indications:Migraine without aura and without status migrainosus, not intractableTake 1 Tablet by mouth every 4 hours if needed for Pain. Max 6 tabs per day. 30 Tablet ctive LORazepam (ATIVAN) 0.5 mg tab Indications:Mild depression,Primary cancer of left breast (HC)TAKE 1 TABLET BY MOUTH 2 TIMES DAILY IF NEEDED FOR ANXIETY 15 Tablet 5Active pravastatin (PRAVACHOL) 80 mg tablet Indications:Hyperlipidemia, unspecified hyperlipidemia typeTake 1 Tablet (80 mg) by mouth at bedtime. 90 Tablet 5Active potassium chloride (Klor-Con M20) 20 mEq extended-release tablet (part/cryst) Indications:Essential hypertensionTake 1 Tablet (20 mEq) by mouth once daily with a meal. 90 Tablet 5Active metoprolol succinate (TOPROL XL) 25 mg Sustained-Release tablet Indications:Essential hypertensionTake 1 Tablet (25 mg) by mouth once daily. 90 Tablet 5Active DULoxetine (CYMBALTA) 30 mg Delayed-release capsule Indications:Mild depressionTake 1 Capsule (30 mg) by mouth once daily. 90 Capsule 5Active lisinopril-hydrochlorothiazide (20-25 mg) (PRINZIDE, ZESTORETIC) 20-25 mg per tablet Indications:Essential hypertensionTake 1 Tablet by mouth once daily. 90 Tablet 5Active amLODIPine (NORVASC) 5 mg tablet Indications:Essential hypertensionTake 1 Tablet (5 mg) by mouth once daily in the evening. 90 Tablet 5Active cyanocobalamin (Vitamin B-12) 500 mcg tablet Indications:B12 deficiencyTake 1 Tablet (500 mcg) by mouth once daily. 100 Tablet 5Active CPAP Indications:NANCY (obstructive sleep apnea)RESMED CPAP (E0601) machine for home use at pressure: 13cm/H2O , Choice of mask (A7030 or A7034) w/full face cushion (A7031) x1-2/mo, nasal cushion (A7032) x2/mo, or nasal pillows (A7033) x 2/mo; Length of Need: 99 months; Frequency of use: Daily 1 Each 5Active omeprazole (PRILOSEC) 20 mg Delayed-Release capsule Indications:Chronic GERDTAKE 1 CAPSULE BY MOUTH EVERY DAY BEFORE MEALS 90 Capsule 5Active traZODone (DESYREL) 100 mg tablet Indications:Insomnia, idiopathicTake 1 Tablet (100 mg) by mouth at bedtime. 90 Tablet 5Active CPAP Indications:NANCY on CPAPCPAP (E0601) machine for home use at pressure: 13 , Choice of mask (A7030 or A7034) w/full face cushion (A7031) x1-2/mo, nasal cushion (A7032) x2/mo, nasal pillows (A7033) x 2/mo, or Combination oral/nasal mask (A7027) x1/3mo w/oral cushion for combination mask x2/mo or nasal pillow for combinationmask x 2/mo; Length of Need: 99 months; Frequency of use: Daily. - renewal prescription - patient needs a CHIN STRAP 1 Each 5Active amitriptyline 100 mg tablet Indications:Insomnia, idiopathicTAKE 1 TABLET BY MOUTH AT BEDTIME 90 Tablet 5Active Active Problems ProblemNoted DateDiagnosed DateMajor depressive disorder, single episode, mild 3Capsular contracture of breast nbltpfi5506/07/2022Left arm pain 06/07/20224777Zukuyxcqdy25/08/2130Vwasaor45/08/2022Chronic obstructive pulmonary disease, unspecified COPD type01/04/2022OB (shortness of breath)05/26/2021 Ascending aorta hjmtwlffpe57/27/2021 Overview (05/26/2021): 4.2 cm 2020 Displacement of breast qpgpeti6504/24/2019Wound dehiscence, surgical, initial ejjwxljdm02/28/2019Acquired absence of both ubwzfmj2401/01/2019Malignant neoplasm of central portion of female lrlvgv6701/12/2018Malignant neoplasm of upper-outer quadrant of female pgaiob7101/12/2018Primary cancer of left akkrum1905/19/2017 Adenomatous colon polyp07/14/2015 Overview (12/08/2020): Colonoscopy 06/2015 polyps repeat in 5 years Colonoscopy 11/2020 1 polyp, repeat in 7 years NANCY 02/07/2013 AHI-1009/09/2014Vitamin D zenvpddxqv60/19/2010Mild depression 07/04/2008Celiac ltpgqmi6409/07/2007 Overview (07/14/2015): EGD 06/2015 celiac disease Other and unspecified fxjzhbwzpybczr27/08/2008Unspecified essential hypertension 09/07/2007 Resolved Problems ProblemNoted DateDiagnosed DateResolved DateAcute radiation pneumonitis OSA 02/07/2013 AHI-1007//Pain in joint, shoulder julfdf78 Encounters DateTypeDepartmentCare NwscCombcxbbwvb13/23/2025 11:[address] [facility] [place] [address] [place] [address] Antione Christian MD Telehealth; Follow Up (Yearly; Ascending aorta dilatation; HLD)07/22/2025Travel 07/15/2025 12:45 PM CSTOrders Only [facility] [address] [place] [address] Lab, [place] [facility]07/15/20251847Gshzri72/14/2025Orders Only [facility] Scanner 1 scan: (1-Ord) TAREEN DERMATOLOGY, BIOPSY BY SHAVE METHOD, 511/11/2024 Bcjwsr5604/25/2025Refill [facility] [address] [place] [address] Milena Trevino MD Refill Request (Amitriptyline)from Last 3 Months Immunizations ImmunizationAdministration DatesNext DueCOVID-19 VACCINE SPIKEVAX (MODERNA 50MCG/0.5ML) 12YO+ PFS05/14/2024,4COVID-19 vaccine (WalkbaseBioNTQzzr 30mcg/0.3mL) 12YO+ BIVALENT PF, MDV12COVID-19 vaccine (Xcalia-BioNTech 30mcg/0.3mL) 12YO+ DAVY-SUCROSE PF, MDV062COVID-19 vaccine (WorkivaNTQzzr 30mcg/0.3mL) PF, MDV7660XFnZ79/31/2006Influenza A (H1N1), Inactivated (Age >=3 Years)07/02/2009Influenza Virus, Sfyytrsoiha15/03/2017, 07/16/2010,07/06/2009,07/04/2008Influenza, High-dose Quadrivalent Inactivated 03/26/2021Influenza, IIV3 (Age 6-35 mos)07/16/2010Influenza, IIV3 (Age >=3 years)05/01/2017,07/12/2013,07/13/2012,07/04/2008Influenza, USH295/, 05/02/2017,05/12/2015,07/15/2014Influenza, IIV4 (=>6mos) MDV04/09/2019Influenza, Inactivated AIIV4 (Age 65+ Years) Preserv Free07/13/2023,06/14/2022,04/23/2020 Influenza, Inactivated IIV3 (Age 65+ Years) Preserv Free4Pneumococcal Conj 20-valent (Prevnar 20)3Pneumococcal Poly,23-Valent (Pneumovax) 10/21/2019RSV, Recombinant ADJ Reconstituted (Arexvy 120MCG/0.5mL)06/29/2023Tdap 10/28/2016,10/28/2005Zoster (Shingrix-RZV, recombinant)04/16/2019,02/11/2019 Zoster (Zostavax-ZVL, live)07/29/2013 Family History Medical HistoryRelationNameCommentsAlcoholismBrotherBipolar disorderBrotherNo Known ProblemsDaughterDiabetesFatherHeart DiseaseFatherBypass age 55OtherMother celiac sprueClotting disorderOtherCancerSisterLung, breast age 63Cancer-breast Sisterrecurrent at 68 in lungNo Known ProblemsSonAnesthesia ProblemNo Family HistoryBlood DiseaseNo Family HistoryCancer-colonNo Family HistoryCancer-ovarian No Family HistoryCancer-prostateNo Family HistoryRelationNameStatusComments BrotherAliveDaughterAliveFatherDeceasedMotherAliveOtherSisterAliveSonAlive Social History Tobacco UseTypesPacks/DayYears UsedDateSmoking Tobacco: WzikxjFtjgpmheoz8Dgoi: 07/31/2003Smokeless Tobacco: Never Tobacco Cessation:Counseling Given: Yes Alcohol UseStandard Drinks/WeekCommentsYes4 (1 standard drink = 0.6 oz pure alcohol)4 standard drinks per weekPHQ-2AnswerDate RecordedPHQ-2 TOTAL SCORE1 02/07/2025Social ConnectionsAnswerDate RecordedDo you often feel lonely or isolated from those around you?lcohol UseAnswerDate RecordedHow often do you have a drink containing alcohol?How many drinks containing alcohol do you have on a typical day when you are drinking?0 07/22/2025How often do you have five or more drinks on one occasion? Financial Resource StrainAnswerDate RecordedDifficulty of Paying Living Expenses Difficulty of Paying Living ExpensesNot on file02/02/2025Food InsecurityAnswerDate RecordedDo you worry your food will run out before you are able to buy more?Transportation NeedsAnswerDate RecordedDoes lack of transportation keep you from medical appointments?Does lack of transportation keep you from work, meetings or getting things that you need?1 02/02/2025Housing StabilityAnswerDate RecordedWhat is your housing situation today?UtilitiesAnswerDate RecordedDo you have trouble paying for utilities (for example, heat, electricity, water, phone)? CommentsNoSex and Gender InformationValueDate RecordedSex Assigned at BirthNot on fileLegal IfiSudrza89/14/2013 5:26 AM CSTGender IdentityNot on fileSexual OrientationNot on file Obstetrics History GravidaParaTermPretermABIABSABEctopicMultipleLivingLive Cnpryj0626JpucWazmvwwLK Total LaborLabor/2nd/9lnDouhseKrbHeubAxpdBHUYeiO6H4PcyeRvddTxckFtwg Last Filed Vital Signs Vital SignReadingTime TakenCommentsBlood Kvdijcsl359/80109/22/2024 11:02 AM COLD SAW OPERATOR Qkeso281507/22/2025 11:02 AM FTCDbvmnyocuvk12.2 ??C (98.9 ??F)06/08/2022 7:58 AM CSTRespiratory Xbki402109/22/2024 11:02 AM CSTOxygen Dngidtfrsl45%07/22/2025 11:02 AM CSTInhaled Oxygen Concentration--Ufjwju03.6 kg (179 lb 14.4 oz)07/22/2025 11:02 AM CNCKxbvio623 cm (5' 5.75)02/07/2025 9:53 AM CDTBody Mass Index29.26 02/07/2025 9:53 AM CDT Plan of Treatment Health MaintenanceDue DateLast DoneCommentsInfluenza Vaccine (#1)03/31/2025 05/14/2024, 07/13/2023, 06/14/2022, Additional history existsCOVID-19 vaccine series (10 - Pfizer risk 2024- season), 05/14/2024, 11/02/2023, Additional history existsBMI (ht and wt on same day) for age 18+ , 06/26/2023, 10/11/2022, Additional history exists Depression screening for age 12+, 03/19/2024, 12/29/2022, Additional history existsMedicare Wellness for age 65+, 12/29/2022, 03/25/2021Tetanus alksqod29/31/30841410/28/2016, 10/28/2005, 10/28/2005 (Completed outside of [facility])Colonoscopy through age 75012/08/2027 12/07/2020, 12/07/2020, 07/13/2015, Additional history existsLipids for age 45-750/, 06/03/2024, 05/14/2024, Additional history exists Zoster (shingles) series for age 50+Kqyccfbxv48/17/2019, 02/11/2019, 07/29/2013 Hepatitis C screening for age 18-04Burgyzeou83/23/2019Pneumococcal series for age 50+Irgthqono99/01/2023, 10/21/2019RSV vaccine for adults or Tjrhxphnd96/30/2023DEXA/DXA scan for age 65+Olscjkyke71/29/2024, 05/26/2022, 04/15/2020, Additional history existsHepatitis B series for 19+Aged OutNo longer eligible based on patient's age to complete this topic Medical Devices ImplantedTypeAreaManufacturerDevice IdentifierShelf Expiration DateModel / Serial / [id number] 500cc Memorygel Rnd High Smooth Silcn Implanted:Qty: 1 on 01/01/2019 by Britton Parnell MD at [facility] Explanted:at [facility] (Quantity not on file)Left: FranciscoCC [id number]# / [id number] / [id number] 500cc Memorygel Rnd High Smooth Silcn Implanted:Qty: 1 on 01/01/2019 by Britton Parnell MD at [facility] Explanted:at [facility] (Quantity not on file)Right: [id number]# / [id number] / [id number] 500cc Memorygel Rnd High Smooth Silcn Implanted:Qty: 1 on 01/25/2019 by Britton Parnell MD at [facility] Explanted:at [facility] (Quantity not on file)Left: BreastZoila [id number]# / [id number] / [id number] 550cc Memorygel Rnd High Smooth Silcn - [id number] Implanted:Qty: 1 on 06/07/2022 by Britotn Parnell MD at [facility] Explanted:at [facility] (Quantity not on file)Left: BreastJ And Dustin Caldwell [id number] / [id number] / [id number] Procedures Procedure NamePriorityDate/TimeAssociated DiagnosisCommentsVITAMIN D12Uhxbyob 07/15/2025 12:54 PM COLD SAW OPERATOR B12 deficiency SCAN-OPERATIVE/PROCEDURE CULBQN9306/13/2025 12:00 AM COLD SAW OPERATOR LIPID PANEL W REFLEX MEASURED OQNVqrmnzm47/11/2025 10:55 AM CDT Hyperlipidemia, unspecified hyperlipidemia type SCAN-BONE DENSITOMETRY DEXA12/27/2023 12:00 AM CDT COLONOSCOPY SMYHJHQQDPjqscem32/10/2021 12:00 AM CDT History of colon polyps ANTI QYZTtmuygf50/23/2019 3:35 PM CDT Encounter for hepatitis C screening test for low risk patient from Last 3 Months or Most Recently Relevant to Health Maintenance Results * VITAMIN B12 (07/15/2025 12:54 PM COLD SAW OPERATOR)ComponentValueRef RangeTest Method Analysis TimePerformed AtPathologist SignatureVITAMIN [id number] - 1100 pg/mL 07/16/2025 3:49 AM CSTQUEST DIAGNOSTICSSpecimen (Source)Anatomical Location / LateralityCollection Method / VolumeCollection TimeReceived TimeBloodBLOOD SPECIMEN / UnknownQuest Collect / Hqxcwxs6407/15/2025 12:54 PM CST07/15/2025 12:54 PM COLD SAW OPERATOR Narrative Authorizing ProviderResult TypeResult StatusMilena Trevino MDCHEMISTRY Final ResultPerforming OrganizationAddressCity/State/ZIP CodePhone Number [facility] [address] [place] [address], * SCAN-OPERATIVE/PROCEDURE REPORT (06/13/2025 12:00 AM COLD SAW OPERATOR) Narrative Authorizing ProviderResult TypeResult StatusScannerOTHERFinal Result * LIPID PANEL W REFLEX MEASURED LDL (02/07/2025 10:55 AM CDT)ComponentValueRef RangeTest MethodAnalysis TimePerformed AtPathologist SignatureCHOLESTEROL, TYNPC155<200 mg/dLQuest Help Me Rent Magazine [facility] HealtheHDL YLHYAZADDGD02> OR = 50 mg/dL [facility] EmihAGMCSYUMNFQSL839<150 mg/dLQuest Help Me Rent Magazine [facility] HealtheLDL-ZZYBNDUZWLI39ax/dL (calc)FleetMaticsAustin Hospital And CliniceComment: Reference range: <100 Desirable range <100 mg/dL for primary prevention; <70 mg/dL for patients with CHD or diabetic patients with > or = 2 CHD risk factors. LDL-C is now calculated using the Hugo-Hughes calculation, which is a validated novel method providing better accuracy than the Friedewald equation in the estimation of LDL-C. Hugo SS et al. DUGLAS. 2013;310(19): 5650-6308 (http://education.EduKart/faq/RGC477) CHOL/HDLC RATIO2.6<5.0 (calc)[facility] HealtheNON HDL PKATUXEXBWR868 <130 mg/dL (calc)[facility] HealtheComment: For patients with diabetes plus 1 major ASCVD risk factor, treating to a non-HDL-C goal of <100 mg/dL (LDL-C of <70 mg/dL) is considered a therapeutic option. Specimen (Source)Anatomical Location / LateralityCollection Method / Volume Collection TimeReceived TimeBloodBLOOD SPECIMEN / Kfqjesb2302/07/2025 10:55 AM CDT 02/07/2025 10:57 AM CDT Narrative Authorizing ProviderResult TypeResult StatusMilena Trevino [facility] BETHANYHEMISTRY Final ResultPerforming OrganizationAddressCity/State/ZIP CodePhone Number [facility] [address] [place] [address], [facility] [address] [place] [address] * SCAN-BONE DENSITOMETRY DEXA (12/27/2023 12:00 AM CDT)Anatomical Region LateralityModalityOther Narrative Authorizing ProviderResult TypeResult StatusScannerOTHERFinal Result * COLONOSCOPY SCREENING (12/07/2020 12:00 AM CDT) Narrative Authorizing ProviderResult TypeResult StatusHugo ZABALA PROCEDURE ORDFinal Result * ANTI HCV (04/22/2019 3:35 PM CDT)ComponentValueRef RangeTest MethodAnalysis TimePerformed AtPathologist SignatureHEPATITIS C ANTIBODYNon-Reactive Non-Nislitps53/23/2019 9:14 PM CDTALTWO [facility] Comment:Antibodies to HCV not detected; does not exclude the possibility of exposure to HCV.Specimen (Source)Anatomical Location / LateralityCollection Method / VolumeCollection TimeReceived TimeBloodBLOOD SPECIMEN / Unknown Venipuncture / Holyyuh1004/22/2019 3:35 PM CDT04/22/2019 3:35 PM CDT Narrative Authorizing ProviderResult TypeResult StatusKaitvenessa Suarez PASEND OUTS Final ResultPerforming OrganizationAddressCity/State/ZIP CodePhone Number [facility] [address] [place] [address], from Last 3 Months or Most Recently Relevant to Health Maintenance Insurance * Guarantor: Yeimi Roland LAccount TypeRelation to PatientDate of BirthPhone Billing AddressPersonal/OjrtdcOdli1955 [address] [place] [address] * Guarantor: AsuncionJarenolga Dobbs TypeRelation to PatientDate of BirthPhone Billing [id number] ([facility] [address] [place] [address] Advance Directives TypeDate RecordedPatient RepresentativeExplanationHealthcare Atxzbootc55/7/2017 8:29 [facility], [facility] * Full Code (Latest Code Status on File) Date ActivatedDate FgqdosxutysVvuqcumk79/8/2022 5:39 PM06/08/2022 5:49 PMQuestion AnswerCommentsCode Status Discussion:* Reviewed Preferences * Full Code Date ActivatedDate TjfcamcutghGrabyiym19/8/2022 6:00 AM06/07/2022 5:39 PMQuestion AnswerCommentsCode Status Discussion:* Other * not discussed * Full Code Date ActivatedDate InactivatedComments04/24/2019 10:00 AM04/24/2019 5:02 PM * Full Code Date ActivatedDate InactivatedComments01/01/2019 6:08 AM01/02/2019 2:32 AM Care Teams Team MemberRelationshipSpecialtyStart DateEnd Date Milena Trevino MD [address] [place] [address] [facility] - Iqmhtuq40/30/04
[2025-07-24 01:39] VITALS: BP 140/89; PULSE 82; RESP 18; TEMP 36.7; O2SAT 95; BMI 28.2
--- NOTE | 2025-07-24 01:46 | ED.GENADULT ---
HPI - General Adult General Time Seen by Provider: 01:47 Date Seen: 07/24/25 Chief complaint: Unspecified Complaint, Adult Stated complaint: L side pain Time Seen by Provider: 07/24/25 01:45 Source: patient and RN notes reviewed Mode of arrival: ambulatory Limitations: no limitations History of Present Illness HPI narrative: This 70-year-old female is coming in accompanied by her daughter whom is 1 of our RNs in the facility, coming in with complaint of left flank pain. She had called her daughter earlier, stating she was having left abdominal pain. She had done dishes and then went to sit in a recliner, felt the onset of left flank pain. She got up to take some Tylenol, did not change anything. She feels nauseated with this but no vomiting. No fevers. No urinary symptoms. She has had no diarrhea. She can feel it with breathing but it is not worse with breathing, pain is always there. She is pointing to the left flank area where it is bothering her. There is no trauma. She does not remember doing anything where she would have injured her side. No history of kidney stones. She does have a history of breast cancer, had complications of radiation pneumonitis, peripheral neuropathy due to chemotherapy. She does have hypertension and sleep apnea. There is also listed T12 vertebral fracture in her medical history. She has history of extended spectrum beta lactamase producing bacteria as well listed in her chart. Celiac disease is listed, GERD. Related Data Home Medications ?Medication ?Instructions ?Recorded ?Confirmed amlodipine 5 mg tablet 5 mg PO QDAY 05/12/22 04/15/25 bevacizumab 2.5 mg/0.1 mL See Rx Instructions intravitreal 05/12/22 04/15/25 intravitreal syringe Q8W lisinopril 20 1 tab PO QDAY 05/12/22 04/15/25 mg-hydrochlorothiazide 25 mg tablet lorazepam 0.5 mg tablet 0.5 mg PO BID PRN 05/12/22 04/15/25 omeprazole 20 mg capsule,delayed 20 mg PO QDAY 05/12/22 04/15/25 release potassium chloride 20 mEq 20 meq PO QDAY 05/12/22 04/15/25 tablet,extended release(part/cryst) pravastatin 80 mg tablet 80 mg PO QHS 05/12/22 04/15/25 calcium carbonate 1,200 mg PO QDAY 11/23/23 04/15/25 ketoconazole 2 % shampoo 1 applic topical 3XW PRN 11/23/23 04/15/25 utcphqcdjg-jqektur-xbweaetf 50 1 tab PO Q4H PRN 03/26/24 04/15/25 mg-325 mg-40 mg tablet metoprolol succinate 25 mg 25 mg PO DAILY 03/26/24 04/15/25 tablet,extended release 24 hr duloxetine 30 mg capsule,delayed 30 mg PO DAILY 05/09/24 04/15/25 release amitriptyline 75 mg tablet 100 mg PO QPM 06/10/24 04/15/25 amitriptyline 100 mg tablet 100 mg PO QPM 04/15/25 04/15/25 aspirin 81 mg tablet 81 mg PO QDAY 04/15/25 04/15/25 cyanocobalamin (vitamin B-12) 500 500 mcg PO DAILY 04/15/25 04/15/25 mcg tablet trazodone 50 mg tablet 50 mg PO QPM 04/15/25 04/15/25 triamcinolone acetonide 0.1 % 1 applic topical BID-TID 04/15/25 04/15/25 topical cream Previous Rx's ?Medication ?Instructions ?Recorded acetaminophen 500 mg tablet 500 - 1,000 mg (1 - 2 x 500 mg) PO 03/27/24 Q4-6H PRN #100 tabs clobetasol 0.05 % topical cream 1 applic topical QHS #45 grams 11/04/24 letrozole 2.5 mg tablet 2.5 mg PO QDAY #90 tabs 04/15/25 Allergies Allergy/AdvReac Type Severity Reaction Status Date / Time acetylcysteine Allergy Severe Anaphylaxis Verified 07/24/25 04:23 gluten Allergy Unknown Verified 07/24/25 04:23 cephalexin AdvReac Mild Diarrhea Verified 07/24/25 04:23 Review of Systems Status of ROS: Reports: 6 or more systems reviewed and unremarkable except as noted in History and below [facility] Medical History Radiation pneumonitis ?J70.0 - Acute pulmonary manifestations due to radiation (ICD-10) Degenerative disc disease, cervical ?M50.30 - Other cervical disc degeneration, unspecified cervical region (ICD-10) Strain of left biceps ?S46.212A - Strain of muscle, fascia and tendon of other parts of biceps, left arm, initial encounter (ICD-10) Fracture of T12 vertebra ?S22.089A - Unspecified fracture of T11-T12 vertebra, initial encounter for closed fracture (ICD-10) Sleep apnea ?G47.30 - Sleep apnea, unspecified (ICD-10) Postmenopausal bleeding (07/2014) ?N95.0 - Postmenopausal bleeding (ICD-10) Migraine (07/15/09) ?G43.909 - Migraine, unspecified, not intractable, without status migrainosus (ICD-10) Malignant neoplasm of left breast ?C50.912 - Malignant neoplasm of unspecified site of left female breast (ICD-10) Lobular carcinoma of breast (04/2017) ?C50.919 - Malignant neoplasm of unspecified site of unspecified female breast (ICD-10) Lichen sclerosus et atrophicus ?L90.0 - Lichen sclerosus et atrophicus (ICD-10) Infection due to extended spectrum beta-lactamase producing bacteria ?A49.9 - Bacterial infection, unspecified (ICD-10) ?Z16.12 - Extended spectrum beta lactamase (ESBL) resistance (ICD-10) Hyperlipidemia (07/15/09) ?E78.5 - Hyperlipidemia, unspecified (ICD-10) Fracture of left patella ?S82.002A - Unspecified fracture of left patella, initial encounter for closed fracture (ICD-10) Acetaminophen overdose ?T39.1X1A - Poisoning by 4-Aminophenol derivatives, accidental (unintentional), initial encounter (ICD-10) Arthritis of left acromioclavicular joint ?M19.012 - Primary osteoarthritis, left shoulder (ICD-10) Subacromial impingement of left shoulder ?M75.42 - Impingement syndrome of left shoulder (ICD-10) History of trigger finger ?Z87.39 - Personal history of other diseases of the musculoskeletal system and connective tissue (ICD-10) Myopic degeneration ?H44.20 - Degenerative myopia, unspecified eye (ICD-10) Celiac disease ?K90.0 - Celiac disease (ICD-10) Anxiety ?F41.9 - Anxiety disorder, unspecified (ICD-10) Depression ?F32.A - Depression, unspecified (ICD-10) Anemia ?D64.9 - Anemia, unspecified (ICD-10) GERD (gastroesophageal reflux disease) ?K21.9 - Gastro-esophageal reflux disease without esophagitis (ICD-10) Heart burn ?R12 - Heartburn (ICD-10) Elevated liver enzymes ?R74.8 - Abnormal levels of other serum enzymes (ICD-10) Elevated cholesterol ?E78.00 - Pure hypercholesterolemia, unspecified (ICD-10) Hypertension ?I10 - Essential (primary) hypertension (ICD-10) COPD (chronic obstructive pulmonary disease) ?J44.9 - Chronic obstructive pulmonary disease, unspecified (ICD-10) Surgical History History of total left knee replacement (03/27/24) ?Z96.652 - Presence of left artificial knee joint (ICD-10) Status post bilateral salpingo-oophorectomy (BSO) ?Z90.722 - Acquired absence of ovaries, bilateral (ICD-10) S/P left knee arthroscopy (01/22/20) ?Z98.890 - Other specified postprocedural states (ICD-10) S/P rotator cuff repair (07/08/19) ?Z98.890 - Other specified postprocedural states (ICD-10) S/P trigger finger release ?Z98.890 - Other specified postprocedural states (ICD-10) H/O breast reconstruction ?Z98.890 - Other specified postprocedural states (ICD-10) History of endometrial ablation ?Z98.890 - Other specified postprocedural states (ICD-10) H/O: hysterectomy ?Z90.710 - Acquired absence of both cervix and uterus (ICD-10) H/O hernia repair ?Z98.890 - Other specified postprocedural states (ICD-10) ?Z87.19 - Personal history of other diseases of the digestive system (ICD-10) H/O mastectomy ?Z90.10 - Acquired absence of unspecified breast and nipple (ICD-10) History of breast biopsy ?Z98.890 - Other specified postprocedural states (ICD-10) S/P arthroscopic partial medial meniscectomy of left knee (01/10/22) ?Z98.890 - Other specified postprocedural states (ICD-10) ?Z87.828 - Personal history of other (healed) physical injury and trauma (ICD-10) Social History Narrative: Retired -Skinny Nonsmoker, no alcohol use What is your current living situation?: I presently have a place to live Problems where you live: no known problems In the past 12 months, utilities in danger of being shut off: no In past 12 months, lack of transportation kept you from medical appts, meetings, work, or getting things needed for daily living: no In the past 12 mos, have been you worried that your food would run out before you had money to buy more?: never true In the past 12 mos, the food you bought just didn't last and you didn't have money to buy more?: never true Highest level of school completed/degree received: some college, no degree Smoking Status: Former smoker What tobacco products do you use: cigarettes Smoking quit date/years: >15 years ago Do you use any of these nicotine containing products: None Second hand tobacco smoke exposure: No How often do you have a drink containing alcohol: 2-4 times a month How many standard drinks containing alcohol do you have on a typical day: 1 or 2 How often do you have six or more drinks on one occasion: Never AUDIT-C Alcohol total score: 2 Non-prescribed substance use: denies use Caffeine: Yes How often does anyone, including family, friends and others, physically hurt you: never How often does anyone, including family, friends and others, insult or talk down to you: never How often does anyone, including family, friends and others, threaten you with harm: never How often does anyone, including family, friends and others, scream or curse at you: never service: No Exam Const: Vital Signs, click to edit/add: Vital Signs - 24 hr 07/24/25 01:39 07/24/25 01:55 07/24/25 01:55 Temperature 98.0 F Pulse Rate [Right Pulse Oximeter] 82 Respiratory Rate 18 Respiratory Rate [ Left Side] 18 Blood Pressure [Ri ght Upper Arm] 140/89 H Pulse Oximetry 95 95 Oxygen Delivery Me thod Room Air 07/24/25 02:07/24/25 03:40 Temperature 98.0 F 98.0 F Pulse Rate [Right Pulse Oximeter] Respiratory Rate Respiratory Rate [ Left Side] Blood Pressure [Ri ght Upper Arm] Pulse Oximetry Oxygen Delivery Me thod This 70-year-old female is ambulatory into the ED of her own accord, seen in exam room to where she is lying in the bed. She is alert, interactive, no apparent distress but looks mildly uncomfortable. Sclera clear, conjugate gaze, symmetrical facial function, speech normal. Neck supple, no jugular venous distension adenopathy noted. She initially did complain of some midline lower thoracic pain but then when I had her sit up, this was not reproducible later. No spinal tenderness on direct palpation. She has some left lower chest wall tenderness along the costovertebral angle and the lower rib border but do not feel any step-off or crepitus. She complained of some mild generalized upper as well as lower abdominal tenderness when I palpated but definitely no rebound or guarding, no organomegaly, no masses noted. She has no lower extremity edema. Skin visualized without rash or jaundice. Documenting provider has reviewed patient's vital signs: yes Course Course ED Course: This patient is presenting with complaints of abdominal pain to her daughter earlier but now seemingly more left flank pain and particularly left chest wall tenderness. Given her history and on complexity, have discussed imaging. Her pain is significant enough that she would like further pain management beyond the Tylenol she took. She is now nauseated as well. We will do chest abdomen pelvis with IV contrast looking for chest wall, intra-abdominal, lower left chest etiologies for her symptoms. Will have them reconstitute her thoracic spine as well from this CT, with a history of a T12 compression fracture this conceivably could be something like a radiculopathy. We will start with Toradol, prior kidney functions look stable enough to be able to give her a dose of Toradol, will give her Zofran. Will get full complement of labs including urinalysis. Reevaluation(s) Time of Reevaluation #1: 04:00 Reevaluation #1: Patient back from CT imaging. Pain had improved but is starting to return. Hopefully will have CT report shortly and can make a final plan for care and pain management. Patient is in agreement with that. Time of Reevaluation #2: 04:34 Reevaluation #2: Have reviewed Jasbir CT report with her, provided her a copy. We did discuss the large size of this kidney stone, very unlikely to pass on its own. I reviewed with her the difficulty in navigating outpatient Urology referrals. I have no way to talk to Urology, she does not have an established urology group. Urology will not consult with us on unestablished patients. We discussed the kidney damage that can happen from the obstruction. She is going to need to see Urology, I did recommend hospital to hospital transfer at this time to facilitate her management. She has people visiting from out of state for [place]. She would like to try pain medicines, try to get through the next few days and then try to navigate urology follow-up. I have stressed to her the difficulty of doing this outpatient. I would avoid further NSAIDs with her, creatinine is 1.2 today, in vision that her kidney function will worsen until this obstruction has been corrected. She has tolerated narcotics in the past, will write for oxycodone. Will give her 12 tablets which is typically more than what I would do but we are going to being a holiday situation with closed pharmacies. We have discussed that if she is worsening, has uncontrolled pain that she should likely just proceed to an ER where there is urology capacity, like [place] where she would want to consider going. I do know that right now Chance is on divert at both [place] and [place], attempted other transfers this evening. She really would like pain management to try to go home which I definitely understand. I have just tried to stress to her the difficulties of managing urologic problems outpatient. She needs more urgent intervention, agree that this isn't necessarily emergent at this point but this is a large stone that is not going to pass on its own. I have not provided Flonase as I think the risk of giving a medicine that is very unlikely to help is not worthwhile. Vital Signs Vital signs: Initial Vital Signs Temperature 98.0 F 07/24/25 01:39 Temperature Source Temporal Artery Scan 07/24/25 01:39 Pulse Rate 82 07/24/25 01:39 Respiratory Rate 18 07/24/25 01:39 Blood Pressure 140/89 H 07/24/25 01:39 Blood Pressure Mean 106 H 07/24/25 01:39 Blood Pressure Position Sitting 07/24/25 01:39 Pulse Oximetry 95 07/24/25 01:39 Oxygen Delivery Method Room Air 07/24/25 01:39 Vital Signs Temperature 98.0 F 07/24/25 01:39 Pulse Rate 82 07/24/25 01:39 Respiratory Rate 18 07/24/25 01:39 Blood Pressure 140/89 H 07/24/25 01:39 Pulse Oximetry 95 07/24/25 01:39 Oxygen Delivery Method Room Air 07/24/25 01:39 Temperature 98.0 F 07/24/25 03:40 Pulse Rate 82 07/24/25 01:39 Respiratory Rate 18 07/24/25 01:55 Blood Pressure 140/89 H 07/24/25 01:39 Pulse Oximetry 95 07/24/25 01:55 Oxygen Delivery Method Room Air 07/24/25 01:39 Medications Administered Medications: Discontinued Medications Generic Name Dose Route Start Last Admin Trade Name Freq PRN Reason Stop Dose Admin Ketorolac Tromethamine 15 mg 07/24/25 01:55 07/24/25 02:00 Ketorolac 15 Mg/Ml Inj IVP 07/24/25 01:56 15 mg ONCE ONE Administration Medical Decision Making Lab Data Lab results reviewed: Yes I reviewed the patient's lab results Labs: Lab Results 07/24/25 07/24/25 Range/Units 02:00 02:10 WBC 6.48 (4.50-11.00) K/uL RBC 4.48 (4.00-5.20) m/uL Hgb 13.6 (12.0-16.0) gm/dL Hct 42.8 (33.0-51.0) % MCV 96 (80-100) fL MCH 30 (26-34) pg MCHC 32 (32-36) gm/dL RDW Coeff of Gonzalo 13.0 (11.5-15.5) % Plt Count 189 (140-440) K/uL Neut % (Auto) 59.7 (42.0-72.0) % Lymph % (Auto) 22.7 (20-44) % [place] % (Auto) 10.3 (0.0-11.0) % Eos % (Auto) 6.8 (0.0-7.0) % Baso % (Auto) 0.5 (0.0-3.0) % Neut # (Auto) 3.87 (1.7-7.0) K/uL Lymph # (Auto) 1.47 (0.90-2.90) K/uL [place] # (Auto) 0.70 (0.00-0.90) K/UL Eos # (Auto) 0.44 (0.00-0.50) K/uL Baso # (Auto) 0.03 (0.00-0.30) K/uL Abs Immat Gran (auto) 0.00 (0.00-0.30) K/uL Imm/Tot Granulo (auto) 0.0 % Sodium 137 (135-149) mmol/L Potassium 3.6 (3.6-5.1) mmol/L Chloride 100 (96-114) mmol/L Carbon Dioxide 30 (20-32) mmol/L Anion Gap 7 (7-15) mEq/L BUN 23 (7-30) mg/dL Creatinine 1.2 (0.5-1.5) mg/dL Estimated Creat Clear 40.25 Estimated GFR 48 ml/min Glucose 129 H (60-115) mg/dL Lactate 1.3 (0.5-1.9) mmol/L Calcium 9.3 (8.4-10.6) mg/dL Total Bilirubin 0.6 (0.1-1.5) mg/dL AST 27 (12-35) U/L ALT 22 (4-35) U/L Alkaline Phosphatase 75 (40-150) U/L C-Reactive Protein < 0.5 L (0.5-1.0) mg/dL Total Protein 7.2 (6.0-8.3) g/dL Albumin 4.3 (3.3-5.0) g/dL Urine Color Yellow (Yellow) Urine Appearance Clear (Clear) Urine pH 5.5 (5.0-8.5) Ur Specific [place] 1.025 (1.000-1.030) Urine Protein Trace A (Negative) Urine Glucose (UA) Negative (Negative) Urine Ketones Negative (Negative) Urine Blood 1+ A (Negative) Urine Nitrite Negative (Negative) Urine Bilirubin Negative (Negative) Urine Urobilinogen 0.2 (0.2-1.0) Ur Leukocyte Esterase 1+ A (Negative) Urine RBC 2-5 A (0-2) Urine WBC 5-10 A (0-5) Ur Squamous Epith Cells Few (None-Few) Urine Bacteria Few A (None) Imaging Data CT Chest/Ab/Pelvis: Attestation: I have reviewed the pertinent imaging results. My impression: Did visualize her CT imaging, can see collecting system dilation on the left side with obstructing stone. Await Radiology over-read of this. Radiologist's impression: Patient: JASBIR REN Facility:?[facility] Patient ID:?[id number] Site Patient ID:?[id number]. Site :?[id number] Study:?CT-Chest/Abd/Pelvis 85CC ISOVUE 370-07/24/2025 4:09:52 AM Ordering Physician:?Chalo Nair Final Report: INDICATION: Left-sided pain and nausea. COMPARISON: None TECHNIQUE: CT examination of the chest, abdomen and pelvis was performed following the uneventful intravenous administration of 85 cc of Isovue 370. Thin section axial images were obtained from the thoracic inlet through the pubic symphysis. Oral contrast was not administered. 3D reformats/MIP imaging was provided. Sagittal and coronal reformatted imaging was performed. In addition, a thoracic spine study was reformatted in the axial, sagittal and coronal planes from this acquisition. Please note that all CT scans at this facility use dose modulation, iterative reconstruction, and/or weight-based dosing when appropriate to reduce radiation dose to as low as reasonably achievable. FINDINGS: CHEST: The heart size is normal. There are no enlarged mediastinal lymph nodes. There is fusiform dilation of the ascending aorta at 4.1 centimeters unchanged. No significant pericardial fluid. The lungs show areas of atelectasis and scarring. There is also a band of scarring probably related to left breast XRT. A nodule is noted at the medial right base measuring 6 millimeters, unchanged. Continued follow-up of this nodule is advised. No pleural effusion or pneumothorax. ABDOMEN AND PELVIS: LIVER/BILIARY SYSTEM:The liver is normal in size and configuration. There is no focal mass and there is no intra- or extra hepatic biliary ductal dilatation.Hepatic steatosis. Contracted but otherwise unremarkable appearing gallbladder ADRENALS: Normal KIDNEYS, URETERS and BLADDER:Intrarenal calculi bilaterally. Left-sided obstructive uropathy is noted due to a calculus at the left ureteropelvic junction. This measures 10.5 millimeters in length and 6.3 millimeters in diameter. The bladder appears normal. SPLEEN:Normal appearance. PANCREAS: Appears normal. RETROPERITONEUM and MESENTERY: There is no mass, adenopathy or aortic aneurysm. Atherosclerotic vascular calcification GASTROINTESTINAL SYSTEM: There is no evidence of diverticulitis, colitis, mechanical obstruction, or appendicitis. The small bowel as visualized appears normal.Diverticulosis PELVIS: No mass, adenopathy or free fluid. OSSEOUS STRUCTURES and ABDOMINAL WALL: There is an age-appropriate appearance of the osseous structures.No significant abdominal wall defect. Post left mastectomy and bilateral breast implants THORACIC SPINE: Demineralization and degenerative change. No fracture or destructive process OTHER: No free fluid or free air. IMPRESSION: 1. CHEST: Areas of atelectasis and scarring. Redemonstration of a 6 millimeter nodule for which continued follow-up is recommended. No acute appearing finding. 2. ABDOMEN AND PELVIS: Left-sided obstructive uropathy due to a calculus at the left ureteropelvic junction measuring 10.5 x 6.3 millimeters. Intrarenal calculi bilaterally. Other nonacute appearing findings as discussed above 3. OSSEOUS STRUCTURES INCLUDING THORACIC SPINE: No fracture or destructive process. Degenerative changes Please note that all CT scans at this facility use dose modulation, iterative reconstruction, and/or weight-based dosing when appropriate to reduce radiation dose to as low as reasonably achievable. Dictated by Raul Encinas MD @ 07/24/2025 4:22:04 AM (Electronic Signature) CT thoracic spine: Attestation: I have reviewed the pertinent imaging results. Radiologist's impression: Results under CT chest abdomen pelvis. Discharge Plan Discharge Clinical Impression: Renal colic on left side, Hydronephrosis with renal calculous obstruction Patient Disposition: Home, Self-Care Condition: Stable Instructions: Renal Colic (ED), Ureteral Stones (ED) Additional Instructions: Tylenol 1000 mg 3 times a day baseline for pain. Have written for oxycodone 5 mg every 6 hours as needed, 12 tablets prescribed. You very well may need more pain medicine, will need to contact your clinic on Monday if that is the case. Would also contact your clinic on Monday to expedite urology referral. Oxycodone can be constipating, use MiraLax 17 g daily and add on senna per package instructions as needed for goal of soft but formed stool daily. Push fluids, goal is to have clear looking urine. If your pain is uncontrolled, develops fever with this kidney stone that is not explained by anything else, need emergent re-evaluation. Activity Level: Activity as Tolerated Prescriptions: No Action potassium chloride 20 mEq tablet,ER particles/crystals 20 meq PO QDAY pravastatin 80 mg tablet 80 mg PO QHS omeprazole 20 mg capsule,delayed release(DR/EC) 20 mg PO QDAY lorazepam 0.5 mg tablet 0.5 mg PO BID PRN bevacizumab 2.5 mg/0.1 mL syringe See Rx Instructions intravitreal Q8W Rx Instructions: intravitreal every 8 weeks; amlodipine 5 mg tablet 5 mg PO QDAY lisinopril-hydrochlorothiazide 20-25 mg tablet 1 tab PO QDAY ketoconazole 2 % shampoo 1 applic topical 3XW PRN duloxetine 30 mg capsule,delayed release(DR/EC) 30 mg PO DAILY amitriptyline 75 mg tablet 100 mg PO QPM clobetasol 0.05 % cream 1 applic topical QHS Qty: 45 0RF calcium carbonate 600 mg calcium (1,500 mg) tablet 1,200 mg PO QDAY trazodone 50 mg tablet 50 mg PO QPM triamcinolone acetonide 0.1 % cream 1 applic topical BID-TID cyanocobalamin (vitamin B-12) 500 mcg tablet 500 mcg PO DAILY aspirin 81 mg tablet 81 mg PO QDAY amitriptyline 100 mg tablet 100 mg PO QPM letrozole 2.5 mg tablet 2.5 mg PO QDAY Qty: 90 4RF Rx Instructions: Take one tablet daily lvqpytwxiy-ibopzjt-blrjpdel 50-325-40 mg tablet 1 tab PO Q4H PRN metoprolol succinate 25 mg tablet extended release 24 hr 25 mg PO DAILY acetaminophen 500 mg tablet 500 - 1,000 mg PO Q4-6H MDD 4,000 mg per day PRNQty: 100 0RF Follow Up/Referrals: Milena Trevino MD [Primary Care Provider, Family Practice] Stand Alone Forms: [email or web address] Info Instructions
[2025-07-24 01:55] VITALS: RESP 18; O2SAT 95
--- NOTE | 2025-07-24 01:56 | CRLHL7_ITS ---
For Patients: As a result of the 21st Century Cures Act, medical imaging exams and procedure reports are released immediately into your electronic medical record. You may view this report before your referring provider. If you have questions, please contact your health care provider. INDICATION: Left-sided pain and nausea. COMPARISON: None TECHNIQUE: CT examination of the chest, abdomen and pelvis was performed following the uneventful intravenous administration of 85 cc of Isovue 370. Thin section axial images were obtained from the thoracic inlet through the pubic symphysis. Oral contrast was not administered. 3D reformats/MIP imaging was provided. Sagittal and coronal reformatted imaging was performed. In addition, a thoracic spine study was reformatted in the axial, sagittal and coronal planes from this acquisition. Please note that all CT scans at this facility use dose modulation, iterative reconstruction, and/or weight-based dosing when appropriate to reduce radiation dose to as low as reasonably achievable. FINDINGS: CHEST: The heart size is normal. There are no enlarged mediastinal lymph nodes. There is fusiform dilation of the ascending aorta at 4.1 centimeters unchanged. No significant pericardial fluid. The lungs show areas of atelectasis and scarring. There is also a band of scarring probably related to left breast XRT. A nodule is noted at the medial right base measuring 6 millimeters, unchanged. Continued follow-up of this nodule is advised. No pleural effusion or pneumothorax. ABDOMEN AND PELVIS: LIVER/BILIARY SYSTEM:The liver is normal in size and configuration. There is no focal mass and there is no intra- or extra hepatic biliary ductal dilatation.Hepatic steatosis. Contracted but otherwise unremarkable appearing gallbladder ADRENALS: Normal KIDNEYS, URETERS and BLADDER:Intrarenal calculi bilaterally. Left-sided obstructive uropathy is noted due to a calculus at the left ureteropelvic junction. This measures 10.5 millimeters in length and 6.3 millimeters in diameter. The bladder appears normal. SPLEEN:Normal appearance. PANCREAS: Appears normal. RETROPERITONEUM and MESENTERY: There is no mass, adenopathy or aortic aneurysm. Atherosclerotic vascular calcification GASTROINTESTINAL SYSTEM: There is no evidence of diverticulitis, colitis, mechanical obstruction, or appendicitis. The small bowel as visualized appears normal.Diverticulosis PELVIS: No mass, adenopathy or free fluid. OSSEOUS STRUCTURES and ABDOMINAL WALL: There is an age-appropriate appearance of the osseous structures.No significant abdominal wall defect. Post left mastectomy and bilateral breast implants THORACIC SPINE: Demineralization and degenerative change. No fracture or destructive process OTHER: No free fluid or free air. IMPRESSION: 1. CHEST: Areas of atelectasis and scarring. Redemonstration of a 6 millimeter nodule for which continued follow-up is recommended. No acute appearing finding. 2. ABDOMEN AND PELVIS: Left-sided obstructive uropathy due to a calculus at the left ureteropelvic junction measuring 10.5 x 6.3 millimeters. Intrarenal calculi bilaterally. Other nonacute appearing findings as discussed above 3. OSSEOUS STRUCTURES INCLUDING THORACIC SPINE: No fracture or destructive process. Degenerative changes Please note that all CT scans at this facility use dose modulation, iterative reconstruction, and/or weight-based dosing when appropriate to reduce radiation dose to as low as reasonably achievable. Dictated by Raul Encinas MD @ 07/24/2025 4:22:04 AM (Electronically Signed)
[2025-07-24 02:00] VITALS: TEMP 36.7
[2025-07-24 02:28] LABS: Appearance Urine Clear (Clear)
[2025-07-24 02:28] LABS: Hematocrit* 42.8 % (33.0-51.0); Hemoglobin* 13.6 gm/dL (12.0-16.0); Immature Granulocytes Abs Auto 0.00 K/uL (0.00-0.30); Immature Granulocytes Pct Auto 0.0 %; Lymphocytes Absolute Auto 1.47 K/uL (0.90-2.90); Mean Corpuscular HGB Conc 32 gm/dL (32-36); Mean Corpuscular Hemoglobin 30 pg (26-34); Mean Corpuscular Volume 96 fL (80-100); RDW Coefficient of Variation % 13.0 % (11.5-15.5); Red Blood Count* 4.48 m/uL (4.00-5.20); White Blood Count* 6.48 K/uL (4.50-11.00)
[2025-07-24 02:29] LABS: Lactate* 1.3 mmol/L (0.5-1.9)
[2025-07-24 02:31] LABS: Slide Review Reflex No
[2025-07-24 02:43] LABS: Albumin* 4.3 g/dL (3.3-5.0); Chloride* 100 mmol/L (96-114); Potassium* 3.6 mmol/L (3.6-5.1); Sodium* 137 mmol/L (135-149)
[2025-07-24 02:46] LABS: Alanine Aminotransferase* 22 U/L (4-35); Aspartate Amino Transferase* 27 U/L (12-35); Blood Urea Nitrogen* 23 mg/dL (7-30); Creatinine* 1.2 mg/dL (0.5-1.5); Est. Creatinine Clearance* 40.25; Estimated Glomerular Filt Rate 48 ml/min
[2025-07-24 02:47] LABS: Alkaline Phosphatase* 75 U/L (40-150); Anion Gap 7 mEq/L (7-15); Bilirubin Total* 0.6 mg/dL (0.1-1.5); Calcium* 9.3 mg/dL (8.4-10.6); Carbon Dioxide* 30 mmol/L (20-32); Glucose* 129 mg/dL (60-115); Total Protein* 7.2 g/dL (6.0-8.3)
[2025-07-24 03:40] VITALS: TEMP 36.7
[2025-07-24 04:49] VITALS: BP 132/74; PULSE 79; RESP 18; TEMP 36.7; O2SAT 95
== END 2025-07-24 04:49 | disposition home or self-care (01) ==
PROVIDERS: Emergency Provider Family Medicine; PCP Family Medicine
DX: N13.2 Hydronephrosis with renal and ureteral calculous obstruction (principal); R07.89 Other chest pain; R11.0 Nausea
CPT/HCPCS: 36415; 71260; 72128; 74177; 80053; 81001; 83605; 85025; 86140; 87086; 94761; 96374; 99284; 99285; J1885; Q9967

== ENCOUNTER 2025-07-27 08:01 | Emergency (ER) | payer MEDICARE, BC, SELFPAY ==
--- OUTSIDE RECORDS SUMMARY | 2025-07-24 10:51 | XMS_ITS | Encounter Summary ---
Author Organization [facility] Address [address] [place] [address] Care Team Providers Care Vest Tailor Name Role Phone Elsewhere, Pcp Primary Care Provider Unavailabl e Reason for Visit * ReasonCommentsAbdominal PainFlank Pain Encounter Details DateTypeDepartmentCare Team (Latest Contact Info)Ghvlawoqjrw60/25/2025 10:51 AM GUEST HISTORY CLERK - 07/24/2025 2:02 PM CSTEmergency [facility] Department [address] [place] [address] Rafael Clement M.D., M.B.A. [address] [place] [address] Stone Kidney (Primary Dx) Discharge Disposition: Home or Self Care Social History Tobacco UseTypesPacks/DayYears UsedDateSmoking Tobacco: FormerCigarettes0.226.8 08/01/1977 - 2004Smokeless Tobacco: Never Tobacco Cessation:Counseling Given: Not Answered Alcohol UseStandard Drinks/WeekCommentsNever0 (1 standard drink = 0.6 oz pure alcohol)Humiliation, Afraid, Rape, and Kick questionnaireAnswerDate Recorded Within the last year, have you been afraid of your partner or ex-partner?No 04/01/2022Within the last year, have you been humiliated or emotionally abused in other ways by your partner or ex-partner?No04/01/2022Within the last year, have you been kicked, hit, slapped, or otherwise physically hurt by your partner or ex-partner?No04/01/2022Within the last year, have you been raped or forced to have any kind of sexual activity by your partner or ex-partner?No04/01/2022 Hunger Vital SignAnswerDate RecordedWithin the past 12 months, you worried that your food would run out before you got the money to buymore.Never true04/01/2022 Within the past 12 months, the food you bought just didn't last and you didn't have money to get more.Never true04/01/2022RAPARE - TransportationAnswerDate RecordedIn the past 12 months, has lack of transportation kept you from medical appointments or from getting medications?No04/01/2022In the past 12 months, has lack of transportation kept you from meetings, work, or from getting things needed for daily living?No04/01/2022Housing Stability Vital SignAnswerDate RecordedIn the last 12 months, was there a time when you were not able to pay the mortgage or rent on time?No04/01/2022Number of Places Lived in the Last Year Not on file04/01/2022In the last 12 months, was there a time when you did not have a steady place to sleep or slept in [facility] (including now)?No04/01/2022 EducationAnswerDate RecordedWhat is the highest level of school you have completed or the highest degree you have received?Associate degree: occupational, technical, or vocational xqutapl1004/01/2022CommentsUnknown Sex and Gender InformationValueDate RecordedSex Assigned at BirthFemale 01/12/2018 10:04 AM CDTLegal AjsJuucmf61/03/2017 9:24 AM CSTGender Identity Pjdevz3201/12/2018 10:04 AM CDTSexual LypcsydenlbFsubhknt92/15/2018 10:04 AM CDT documented as of this encounter Last Filed Vital Signs Vital SignReadingTime TakenCommentsBlood Hjvgtgqy967/9107/24/2025 2:00 PM GUEST HISTORY CLERK Tgydg294607/24/2025 2:00 PM AXKUtkamtvsnhb08.5 ??C (97.7 ??F)07/24/2025 10:57 AM CSTRespiratory Lwup079509/24/2024 2:00 PM CSTOxygen Tekpqhownb23%07/24/2025 2:00 PM CSTInhaled Oxygen Concentration--Ygqlkj46.7 kg (184 lb 8.4 oz)07/24/2025 10:59 AM CSTHeight--Body Mass Index30.19004/05/2022 7:49 AM CDTdocumented in this encounter Functional Status * Vital SignsQuestionAnswerDate of AssessmentAuthorRichmond Agitation Sedation Scale (RASS) 12:16 PM Morena Kunz R.N. * Delirium Triage Screen (DTS)QuestionAnswerDate of AssessmentAuthorAsk the patient to spell LUNCH backwards.More than 1 error - DTS positive. Complete bCAM.07/24/2025 10:58 AM Lizzette Rey R.N. * ED Fall Risk Assessment ToolQuestionAnswerDate of AssessmentAuthorHistory of Falling in Last Three Months Including Since Ijdbxwfme486/25/2025 10:59 AM Lizzette Franco R.N.Confusion or Pboiqdoegrfvxd469/25/2025 10:59 AM Lizzette Rey R.N.Intoxicated or Xvevhpo293 10:59 AM Lizzette Rey R.N.Impaired Bkdh678 10:59 AM Lizzette Rey R.N.Mobility Assist Device Hljm570 10:59 AM Lizzette Rey R.N.Altered Elimination0 07/24/2025 10:59 AM Lizzette Rey R.N.Fall Risk Zptat480 10:59 AM Lizzette Rey R.N. * Abuse IndicatorsQuestionAnswerDate of AssessmentAuthorIs there a history, concern, or exposure to physical, emotional, sexual, financial abuse, neglect or domestic violence?No07/24/2025 10:58 AM Lizzette Rey R.N.Information JwucxpDegcjod95/25/2025 10:58 AM Lizzette Rey R.N. * ED Delirium Screening/bCAMQuestionAnswerDate of AssessmentAuthorED Delirium Delirium Padplu9307/24/2025 10:58 AM Lizzette Rey R.N. * Additional Fall Risk IndicationQuestionAnswerDate of AssessmentAuthor Clinically assessed at higher fall risk?No07/24/2025 10:59 AM Lizzette Rey R.N. * Pain AssessmentQuestionAnswerDate of AssessmentAuthorPain OrientationLeft 07/24/2025 10:59 AM Lizzette Rey R.N.Pain TypeAcute pain07/24/2025 10:59 AM Lizzette Rey R.N. * Fall Risk Scale and AssessmentsQuestionAnswerDate of AssessmentAuthorFall Risk ScaleED Fall Risk Assessment Tool07/24/2025 10:59 AM Lizzette Rey R.N. * FACESQuestionAnswerDate of AssessmentAuthorPain ZgxuogjjVpbko98/25/2025 1:19 PM Morena Kunz R.N. * NumericQuestionAnswerDate of AssessmentAuthorPain Drahv37409/24/2024 1:19 PM GUEST HISTORY CLERK Morena Kwon R.N. documented as of this encounter Mental Status * [place] Coma ScaleQuestionAnswerEntry DateAuthorEye Dolamtk590/25/2025 1:19 PM Morena Kunz R.N.Best Motor Vdinrrkf176/25/2025 1:19 PM Morena Kunz R.N.Best Verbal Qrcsfetn476/25/2025 1:19 PM Morena Kunz R.N.[place] Coma Scale Nnzjy8145/25/2025 1:19 PM Morena Kunz R.N. documented in this encounter Discharge Instructions * Discharge Instructions* Kristina Patel M.D. - 07/24/2025 1:58 PM GUEST HISTORY CLERK Please return to the ED if you experience fever, decrease in urination despite adequate drinking, severe pain not responsive to pain meds, change in mental status, bleeding. T HISTORY CLERK * Attachments The following attachments cannot be sent through Care Everywhere. * Kidney Stones Piyw-bj-Unfn (Pakistani) documented in this encounter Medications at Time of Discharge MedicationSigDispense QuantityRefillsLast FilledStart DateEnd Date acetaminophen (TYLENOL) 325 mg tablet Take 650 mg by mouth as needed.04/24/2019 amitriptyline (ELAVIL) 75 mg tablet Take 75 mg by mouth at bedtime.10/28/2016 amLODIPine (NORVASC) 5 mg tablet Take 5 mg by mouth daily.09/07/2017 bevacizumab (AVASTIN) 25 mg/mL injection Inject 25 mg into the eye every 8 (eight) weeks. bisoprolol (ZEBETA) 5 mg tablet Take 2.5 mg by mouth.11/04/2021 jxoipapzwj-kajbbnnkma-qqw-cod (FIORICET WITH CODEINE) 10-357-67-30 mg per capsule daily as needed. ehubvdmae29/20/2018 calcium carbonate-vitamin D3 1,250 mg (500 mg calcium)-10 mcg (400 Unit) per chewable tablet Chew 1 tablet 2 (two) times a day with meals. cholecalciferol (VITAMIN D3) 2,000 Unit capsule Take 2,000 Units by mouth daily.07/08/2011 citalopram (CeleXA) 20 mg tablet Take 1 tablet by mouth daily.11/04/2021 citalopram (CeleXA) 40 mg tablet Take 20 mg by mouth every morning.10/28/2016 clobetasoL (TEMOVATE) 0.05 % cream APPLY TO AFFECTED AREA TWICE A DAY QVMRUVLUC21/31/2021 exemestane (AROMASIN) 25 mg tablet Take 25 mg by mouth daily.11/04/2021 gabapentin (NEURONTIN) 300 mg capsule One in the morning, one in the afternoon and 2 in the evening.11/04/2021 wzwybyt-lamflbwzl-nubblvribtmuh (MIDRIN) 65-100-325 mg per capsule Take 1 capsule by mouth.04/11/2017 ketoconazole (NIZORAL) 2 % shampoo Shampoo your hair 3 times per week for 1 month03/25/2021 letrozole (FEMARA) 2.5 mg tablet Take 2.5 mg by mouth daily. lisinopril-hydroCHLOROthiazide (PRINZIDE,ZESTORETIC) 20-25 mg per tablet Take 1 tablet by mouth daily.10/28/2016 LORazepam (ATIVAN) 0.5 mg tablet Take 0.5 mg by mouth as needed.09/07/2017 miscellaneous medical supply misc autoCPAP, heated humidifier, mask, headgear, filters and tubing. Pressure: 4- 15cm/H2O Length of Need: omeprazole (PriLOSEC) [address] capsule Take 20 mg by mouth.01/09/2022 ondansetron ODT (Zofran-ODT) 4 mg disintegrating tablet Dissolve 1 tablet (4 mg total) in the mouth every 8 (eight) hours as needed for nausea or vomiting for up to 10 days. 20 tablet 07/24/2025 2:46 PM CST potassium chloride (KLOR-CON M/KDUR) 20 mEq ER tablet Take 20 mEq by mouth.01/14/2022 pravastatin (PRAVACHOL) 80 mg tablet Take 80 mg by mouth daily.10/28/2016 tamsulosin (Flomax) 0.4 mg 24 hr capsule Take 1 capsule (0.4 mg total) by mouth daily for 10 days. 10 capsule 07/24/2025 2:46 PM CST triamcinolone (KENALOG) 0.1 % cream APPLY TO AFFECTED AREA BELOW BREASTS AND ARMS TWICE A DAY FOR 2 WEEKS AT A TIME , TAKE 2 WEEK BREAKAND REPEAT REPEAT NEEDED FOR CFQRZM4809/09/2020 UNABLE TO FIND Take 1 each by mouth daily. Med Name: Tumeric 500mg zinc gluconate 50 mg tablet Take 50 mg by mouth daily with breakfast.documented as of this encounter ED Notes * Rafael Clement M.D., M.B.A. - 07/24/2025 11:15 AM CST The patient verbally consented to an audio recording of their visit to assist with the completion of documentation. SUBJECTIVE CHIEF COMPLAINT/REASON FOR VISIT Abdominal Pain and Flank Pain HISTORY OF PRESENT ILLNESS History of Present Illness Yeimi Roland is a 70 year old female who presents with acute left-sided flank and abdominal pain due to a kidney stone. She is accompanied by her son, Jamaal. She was referred by the [facility] for further evaluation of her kidney stone. She experienced a sudden onset of left-sided flank and abdominal pain around 7:30 PM last night. The pain intensified to a 10 out of 10 by 9:30 PM, prompting her to visit the [facility]. At the emergency department, a CT scan showed a large stone measuring 10.5 mm by 6.3 mm at the leftureteropelvic junction. She was given Toradol, which initially alleviated her pain. However, the pain has since returned, currently rated at 8 to 9 out of 10. She was discharged with oxycodone for pain management but has not yet taken it. No fever, chills, or changes in urination. She has not taken any other pain medications such as Tylenol or ibuprofen since her visit to the emergency department. Her past medical history does not include previous kidney stones. She is retired and , and her is also retired. OBJECTIVE Initial Vitals Temperature 07/24/25 1057 36.5 ??C Pulse Rate 07/24/25 1058 77 Heart Rate -- Resp Rate 07/24/25 1057 18 Blood Pressure 07/24/25 1058 (!) 161/95 SpO2 07/24/25 1058 97 % Pain Score 07/24/25 1059 9 PHYSICAL EXAMINATION Constitutional: Nursing note and vitals reviewed. Eyes: Right eye exhibits no discharge. Left eye exhibits no discharge. Neck: No tracheal deviation present. Cardiovascular: Pulses are palpable. Pulmonary/Chest: Effort normal. No respiratory distress. Abdominal: Soft. exhibits no distension. Left lower quadrant and left flank tenderness to palpation. No rebound or guarding. Musculoskeletal: General: Normal range of motion. Neurological: Alert and oriented to person, place, and time. Skin: Skin is warm and dry. She is not diaphoretic. Psychiatric: Thought content normal. Physical Exam ASSESSMENT/PLAN Medical Decision Making 70-year-old female with no prior history of nephrolithiasis presented with acute onset severe left-sided flank and abdominal pain, found to have a large left ureteropelvic junction stone causing obstructive uropathy. Pain was initially controlled with Toradol but recurred, now rated 8-9/10. She reports normal urination, no fever or chills, and exam reveals left CVA and flank tenderness. No evidence of infection was noted and she has not yet taken prescribed oxycodone. Differential diagnosis includes, but is not limited to: - Obstructive uropathy due to ureteropelvic junction stone: Acute severe left flank and abdominal pain with imaging confirming a large left-sided ureteropelvic junction stone causing obstruction; pain recurred after initial management and stone is near the bladder, making trial of passage feasible. - Urinary tract infection (UTI) / Urosepsis: Considered due to obstructive uropathy, but absence offever, chills, and normal urination make infection unlikely at this time. Left ureteropelvic junction stone with obstructive uropathy - Administered Toradol for pain management - Administered oxycodone to assess pain control and determine feasibility of trial of passage - Obtain previous records, including CT scan and lab results, from outside hospital - Monitor for signs of infection or increased pain, with plan for urological intervention if indicated - Discharge home if pain is controlled and no signs of infection develop Update: Due to trace leukocyte esterase and referral from outside emergency department, we did discuss withUrology to ensure that we were not missing something. They also felt reassured by their review of the patient's chart. At this time, I do not believe the patient needs to see urology and that she can proceed with a trial of passage. The patient understands the discharge plan and reasons to return. All questions and concerns addressed. Final Diagnoses: as of 07/25/252335 Stone Kidney I have personally seen and examined this patient. I have fully participated in the care of this patient. I have reviewed all clinical information including history, physical exam, orders, and plan. Johnny with the note of the resident. Rafael Clement M.D., M.B.A. 07/25/25 2123 T HISTORY CLERK * Rico Ortiz R.N. - 07/24/2025 11:14 AM CST Patient presents with concerns of a kidney stone. She was seen at an outside facility yesterday where they confirmed kidney stones. Pain is 1010. Rico Ortiz R.N. 07/24/2025 1115 Rico Ortiz R.N. 07/24/25 1115 T HISTORY CLERK * Kristina Patel M.D. - 07/24/2025 10:57 AM CST SUBJECTIVE CHIEF COMPLAINT/REASON FOR VISIT Abdominal Pain and Flank Pain HISTORY OF PRESENT ILLNESS 70-year-old presents with left-sided flank and abdominal pain. The pain started around 7:30 p.m. yesterday and worsened overnight. She went to [facility] where they diagnosed herwith a left-sided obstructive kidney stone measuring 10.5 mm in length and 6.3 mm in diameter. Theysaid that she would not be able to pass it, and referred her to this ED for surgical removal. REVIEW OF SYSTEMS Constitutional: Negative for chills, diaphoresis and fever. Gastrointestinal: Positive for abdominal pain and nausea. Negative for blood in stool, constipation, diarrhea and vomiting. Genitourinary: Positive for flank pain. Negative for inability to urinate, decreased urine volume, dysuria, frequency, hematuria and urgency. Neurological: Negative for dizziness, syncope, weakness, light-headedness, numbness and headaches. OBJECTIVE Initial Vitals Temp Pulse Heart Rate Resp BP SpO2 Pain Score PHYSICAL EXAMINATION Constitutional: Vitals reviewed. No distress. Cardiovascular: Normal rate and regular rhythm. Exam reveals no gallop and no friction rub. No murmur heard. Pulmonary/Chest: Effort normal and breath sounds normal. She has no wheezes. She has no rhonchi. She has no rales. Abdominal: Soft. Bowel sounds are normal. exhibits no distension. There is abdominal tenderness. There is guarding. There is no rebound. L sided CVA tenderness Neurological: Alert and oriented to person, place, and time. Skin: Skin is warm and dry. ASSESSMENT/PLAN Assessment and Plan 70-year-old female presents with acute left-sided flank and abdominal pain. She was previously seenat 1:00 a.m. by [facility] and was diagnosed with a left obstructive uropathy due to a ureteral stone measuring 10.5 mm in length x 6.5 mm in diameter. Lab results and radiology scans from [facility] sent, reviewed by urology. Consulted Urology who recommended trial of passage with Flomax, Zofran, pain medications. Provided prescriptions to these to [facility] pharmacy along with a hat to strain urine to catch the stone. Okay to discharge.. DIFFERENTIAL DIAGNOSES L ureteral stone. PROBLEMS ADDRESSED THIS VISIT L ureteral stone. I reviewed the following external records: prior outpatient labs, primary care records, office records, prior outpatient radiology tests and inpatient records. Final Diagnoses: as of 07/24/25 1401 Stone Kidney The following tests were considered but ultimately not performed: Considered repeating workup from [facility] if we were unable to obtain patient's records from her visit earlier today but were ultimately able to and did not find it appropriate to repeat scans. Repeated blood work in order to ascertain whether kidney function is declining or if infection has developed.. Escalation of care, including admission/observation, considered: Consulted with Urology who recommended trial of passage of stone prior to any surgical intervention. Discussed with patient and she was in agreement with the plan. Okay to discharge.. My CT Scan interpretation is documented in ED Course. Kristina Patel M.D. Resident 07/24/25 1404 T HISTORY CLERK documented in this encounter Plan of Treatment Not on file documented as of this encounter Procedures Procedure NamePriorityDate/TimeAssociated DiagnosisCommentsCBC WITH DIFFERENTIAL, BSTAT109/24/2024 12:30 PM GUEST HISTORY CLERK BASIC METABOLIC PANEL, S/PSTAT109/24/2024 12:30 PM GUEST HISTORY CLERK HC URINALYSIS AUTO WO AOZJHWrzkizu57/25/2025 12:18 PM GUEST HISTORY CLERK DIPSTICK, USTAT109/24/2024 12:15 PM GUEST HISTORY CLERK MICROSCOPIC PVMTWYWWRWEMZ92/25/2025 12:15 PM GUEST HISTORY CLERK BACTERIAL CULTURE, AEROBIC + SUSC, YNLHIZQVY15/25/2025 12:15 PM GUEST HISTORY CLERK PH, USTAT109/24/2024 12:15 PM GUEST HISTORY CLERK OSMOLALITY, USTAT109/24/2024 12:15 PM GUEST HISTORY CLERK URINALYSIS WITH VOCMCRMGOROBRSQ73/25/2025 12:15 PM GUEST HISTORY CLERK documented in this encounter Results * (ABNORMAL) Basic Metabolic Panel (07/24/2025 12:30 PM GUEST HISTORY CLERK)ComponentValueRef RangeTest MethodAnalysis TimePerformed AtPathologist SignaturePotassium, P3.9 3.6 - 5.2 mmol/L109/24/2024 12:51 PM CSTSTMASodium, F991057 - 145 mmol/L 07/24/2025 12:51 PM CSTSTMAChloride, P97(L)98 - 107 mmol/L109/24/2024 12:51 PM CSTSTMABicarbonate, P2922 - 29 mmol/L109/24/2024 12:51 PM CSTSTMAAnion Gap, P10 7 - 15109/24/2024 12:51 PM CSTSTMABUN (Blood Urea Nitrogen), P216 - 21 mg/dL 07/24/2025 12:51 PM CSTSTMACreatinine1.16(H)0.59 - 1.04 mg/dL07/24/2025 12:51 PM CSTSTMAEstimated GFR (eGFR)50(L)>=60 mL/min/BSA07/24/2025 12:51 PM CSTSTMA Comment: Estimated GFR calculated using the 2020 CKD_EPI creatinine equation. Calcium, Total, P9.28.8 - 10.2 mg/dL07/24/2025 12:51 PM CSTSTMAGlucose, W93507 - 140 mg/dL07/24/2025 12:51 PM CSTSTMASpecimen (Source)Anatomical Location / LateralityCollection Method / VolumeCollection TimeReceived TimeBlood (Blood, Venous)07/24/2025 12:30 PM CST07/24/2025 12:35 PM GUEST HISTORY CLERK Narrative Authorizing ProviderResult TypeResult StatusEmfabrizio Patel M.D.LAB BLOOD ADD-ON Final ResultPerforming OrganizationAddressCity/State/ZIP CodePhone Number [facility] [address] [place] [address], [facility] [address] [place] [address] * (ABNORMAL) CBC with Differential, Blood (07/24/2025 12:30 PM GUEST HISTORY CLERK)Component ValueRef RangeTest MethodAnalysis TimePerformed AtPathologist Signature Wkjbpzzawo93.811.6 - 15.0 g/dL07/24/2025 12:37 PM JSOMBWOZcqqzirnex65.135.5 - 44.9 %07/24/2025 12:37 PM CSTSTMAErythrocytes4.173.92 - 5.13 x10(12)/L 07/24/2025 12:37 PM CLTEEJODUE44.878.2 - 97.9 fL07/24/2025 12:37 PM CSTSTMARBC Distrib Width13.112.2 - 16.1 %07/24/2025 12:37 PM CSTSTMAPlatelet Dytiy656(L) 157 - 371 x10(9)/L109/24/2024 12:37 PM CSTSTMALeukocytes4.93.4 - 9.6 x10(9)/L 07/24/2025 12:37 PM CSTSTMANeutrophils2.571.56 - 6.45 x10(9)/L109/24/2024 12:37 PM CSTDHPMLymphocytes1.240.95 - 3.07 x10(9)/L109/24/2024 12:37 PM CSTSTMA Monocytes0.610.26 - 0.81 x10(9)/L109/24/2024 12:37 PM CSTSTMAEosinophils0.47 0.03 - 0.48 x10(9)/L109/24/2024 12:37 PM CSTSTMABasophils0.030.01 - 0.08 x10(9)/L109/24/2024 12:37 PM CSTSTMASpecimen (Source)Anatomical Location / LateralityCollection Method / VolumeCollection TimeReceived TimeBlood (Blood, Venous)07/24/2025 12:30 PM CST07/24/2025 12:35 PM GUEST HISTORY CLERK Narrative Authorizing ProviderResult TypeResult StatusKristina Patel M.D.LAB BLOOD ADD-ON Final ResultPerforming OrganizationAddressCity/State/ZIP CodePhone Number [facility] [address] [place] [address], [place] STMA [facility] [address] [place] [address] [facility] [address] [place] [address] * (ABNORMAL) Dipstick, POCT, Urine (07/24/2025 12:18 PM GUEST HISTORY CLERK)ComponentValueRef RangeTest MethodAnalysis TimePerformed AtPathologist SignatureGlucose, POCT, U NegativeNegative mg/dL07/24/2025 12:19 PM CSTPCEDKetone, POCT, UNegative Negative mg/dL07/24/2025 12:19 PM CSTPCEDSpecific [place], POCT, U1.0101.005 - 1.3136207/24/2025 12:19 PM CSTPCEDBlood, POCT, UTrace(A)Igsytapl32/25/2025 12:19 PM CSTPCEDpH, POCT, Urine6.05.0 - 8.012 12:19 PM CSTPCEDProtein, POCT, UNegativeNegative mg/dL07/24/2025 12:19 PM CSTPCEDNitrites, POCT, UNegative Ftsfxltv49/25/2025 12:19 PM CSTPCEDLeukocytes, POCT, UTrace(A)Negative 07/24/2025 12:19 PM CSTPCEDSpecimen (Source)Anatomical Location / Laterality Collection Method / VolumeCollection TimeReceived HrbwLggps08/25/2025 12:18 PM CST07/24/2025 12:19 PM GUEST HISTORY CLERK Narrative Authorizing ProviderResult TypeResult StatusUnknown ProviderLAB POCT ORDERABLES - DEVICEFinal ResultPerforming OrganizationAddressCity/State/ZIP CodePhone Number POC RST [facility] [address] [place] [address], [place] PCED [facility] [address] [place] [address] * (ABNORMAL) Dipstick, Urine (07/24/2025 12:15 PM GUEST HISTORY CLERK)ComponentValueRef Range Test MethodAnalysis TimePerformed AtPathologist SignatureHemoglobin, QL, U Trace(A)Mthrqvvo25/25/2025 12:45 PM CSTDTLLeukocyte Esterase, UTrace(A) Kmcdhdzn67/25/2025 12:45 PM CSTDTLNitrite, OQdoawhpyLtucfymr61/25/2025 12:45 PM CSTDTLKetone, UNegativeNegative mg/dL07/24/2025 12:45 PM CSTDTLGlucose, U NegativeNegative mg/dL07/24/2025 12:45 PM CSTDTLSpecimen (Source)Anatomical Location / LateralityCollection Method / VolumeCollection TimeReceived Time Urine07/24/2025 12:15 PM CST07/24/2025 12:30 PM GUEST HISTORY CLERK Narrative Authorizing ProviderResult TypeResult StatusEmfabrizio Patel M.D.LAB URINE ORDERABLESFinal ResultPerforming OrganizationAddressCity/State/ZIP CodePhone Number [facility] [address] [place] [address], [facility] [address] [place] [address] * Osmolality, Urine (07/24/2025 12:15 PM GUEST HISTORY CLERK)ComponentValueRef RangeTest Method Analysis TimePerformed AtPathologist SignatureOsmolality, F994900 - 1150 mOsm/kg07/24/2025 1:24 PM CSTDTLSpecimen (Source)Anatomical Location / LateralityCollection Method / VolumeCollection TimeReceived TimeUrine 07/24/2025 12:15 PM CST07/24/2025 12:30 PM GUEST HISTORY CLERK Narrative Authorizing ProviderResult TypeResult StatusEmfabrizio Patel M.D.LAB URINE ORDERABLESFinal ResultPerforming OrganizationAddressCity/State/ZIP CodePhone Number [facility] [address] [place] [address], [facility] [address] [place] [address] * pH, Urine (07/24/2025 12:15 PM GUEST HISTORY CLERK)ComponentValueRef RangeTest MethodAnalysis TimePerformed AtPathologist SignaturepH, U5.94.5 - 8.012 1:24 PM GUEST HISTORY CLERK DTLSpecimen (Source)Anatomical Location / LateralityCollection Method / Volume Collection TimeReceived MnnhPuulb58/25/2025 12:15 PM CST07/24/2025 12:30 PM GUEST HISTORY CLERK Narrative Authorizing ProviderResult TypeResult StatusEmfabrizio Patel M.D.LAB URINE ORDERABLESFinal ResultPerforming OrganizationAddressty/[facility] [address]/[place] [address], [place] [address] * Microscopic Automated (07/24/2025 12:15 PM GUEST HISTORY CLERK)ComponentValueRef RangeTest MethodAnalysis TimePerformed AtPathologist VavxuoutnSkdkbgdacoBzhjds99/25/2025 12:45 PM CSTDTLRBC<3<3 /hpf07/24/2025 12:45 PM CSTDTLWBC1-3/hpf07/24/2025 12:45 PM CSTDTLComment: ----REFERENCE VALUE---- <4 (Males) <11 (Females) Specimen (Source)Anatomical Location / LateralityCollection Method / Volume Collection TimeReceived JayhJsamq57/25/2025 12:15 PM CST07/24/2025 12:30 PM GUEST HISTORY CLERK Narrative Authorizing ProviderResult TypeResult StatusEmfabrizio Patel M.D.LAB URINE ORDERABLESFinal ResultPerforming OrganizationAddressty/State/ZIP CodePhone Number [phone] [place] [address] * Bacterial Culture, Aerobic + Susceptibility, Urine (07/24/2025 12:15 PM GUEST HISTORY CLERK) ComponentValueRef RangeTest MethodAnalysis TimePerformed AtPathologist SignatureUrine CultureUrogenital microbiota, susceptibilities not performed per laboratory criteria. 07/25/2025 7:04 AM CSTDTLSpecimen (Source)Anatomical Location / Laterality Collection Method / VolumeCollection TimeReceived TimeUrine (Urine, Midstream) 07/24/2025 12:15 PM CST07/24/2025 12:57 PM CSTComment:Specimen Source Site: Urine Narrative Authorizing ProviderResult TypeResult StatusEmfabrizio Patel M.D.LAB MICROBIOLOGY - GENERAL ORDERABLESFinal ResultPerforming OrganizationAddressCity/State/ZIP CodePhone Number [address] [address], [address] [address] * Urinalysis, with Microscopic: Urine, Midstream (07/24/2025 12:15 PM GUEST HISTORY CLERK) ComponentValueRef RangeTest MethodAnalysis TimePerformed AtPathologist SignatureSourceUrine, Urine, Jbdiigfhq90/25/2025 12:30 PM CSTDTLColor, UYellow 07/24/2025 12:30 PM CSTDTLClarity, YWncnc7107/24/2025 12:30 PM CSTDTLProtein, U9 <26 mg/dL07/24/2025 1:05 PM CSTDTLProtein/Osmolality0.21<0.42 ratio07/24/2025 1:24 PM CSTDTLPredicted 24 HR Protein, U160<229 mg/24 07/24/2025 1:24 PM GUEST HISTORY CLERK DTLPredicted Mxvhf08-805yn/24 07/24/2025 1:24 PM CSTDTLSpecimen (Source) Anatomical Location / LateralityCollection Method / VolumeCollection Time Received TimeUrine (Urine, Midstream)07/24/2025 12:15 PM CST07/24/2025 12:30 PM GUEST HISTORY CLERK Narrative Authorizing ProviderResult TypeResult StatusEmfabrizio Patel M.D.LAB URINE ORDERABLESFinal ResultPerforming OrganizationAddressCity/State/ZIP CodePhone Number [facility] [address] [place] [address], [address] [address] documented in this encounter Visit Diagnoses Diagnosis Stone Kidney- Primary documented in this encounter Administered Medications Medication OrderMAR ActionAction DateDoseRateSite acetaminophen tablet 650 mg (TylenoL) 650 mg, oral, Once, On [place] 07/24/25 at 1156, For 1 dose Given07/24/2025 12:07 PM STT756 mg oxyCODONE IR tablet 5 mg (Roxicodone) 5 mg, oral, Once, On Skye 07/24/25 at 1156, For 1 dose Given07/24/2025 12:07 PM CST5 mgdocumented in this encounter Active and Recently Administered Medications Times are shown in GUEST HISTORY CLERK.Medication Order acetaminophen tablet 650 mg (TylenoL) (COMPLETED) 650 mg, oral, Once, On Skye 07/24/25 at 1156, For 1 dose * 1207 (Given - Provider: Morena Kwon R.N.) oxyCODONE IR tablet 5 mg (Roxicodone) (COMPLETED) 5 mg, oral, Once, On Skye 07/24/25 at 1156, For 1 dose * 1207 (Given - Provider: Morena Kwon R.N.) documented in this encounter Additional Health Concerns InfectionOnset DateLast IndicatedResolved TimeProtective Kfieonmgmwl57/24/2023 3documented as of this encounter Care Teams Team MemberRelationshipSpecialtyStart DateEnd Date Elsewhere, Pcp PCP - GeneralFamily Medicine01/12/18documented as of this encounter
[2025-07-27] VITALS (16 sets, daily range): BP systolic 112–152; BP diastolic 63–86; PULSE 78–85; RESP 16–24; TEMP 36.1; O2SAT 84–97
--- OUTSIDE RECORDS SUMMARY | 2025-07-27 08:03 | XMS_ITS | Clinical Summary ---
Author Organization [facility] Address [address] [place] [address] Care Team Providers Care Insulator Apprentice Name Role Phone Elsewhere, Pcp Primary Care Provider Unavailabl e Source Comments Patient records contain information from all sites at [facility]. For routine questions regarding patient records, call [phone] during business hours, M-F 8:00 AM - 5:00 PM Central Time. Record requests for emergency care only can be directed to [phone] at any time.[facility] Allergies Active AllergyReactionsCriticalityNoted DateCommentsAcetylcysteineItchingLow 11/10/2017 Via [employer]. Pt states, it was given too fast. When it was slowed it was fine. IixabewpstUbvtombe52/28/2019GlutenOther (see comments)Low11/10/2017 Celiac Medications * This document contains information received from the source organization and may not represent a complete record from that organization. MedicationSigDispense QuantityRefillsLast FilledStart DateEnd DateStatus vkpobea-hisxaahwg-wyyuvvbnfmics (MIDRIN) 65-100-325 mg per capsule Take 1 capsule by mouth.04/11/2017Active amitriptyline (ELAVIL) 75 mg tablet Take 75 mg by mouth at bedtime.10/28/2016Active amLODIPine (NORVASC) 5 mg tablet Take 5 mg by mouth daily.09/07/2017Active cholecalciferol (VITAMIN D3) 2,000 Unit capsule Take 2,000 Units by mouth daily.07/08/2011ctive citalopram (CeleXA) 40 mg tablet Take 20 mg by mouth every morning.10/28/2016Active miscellaneous medical supply misc autoCPAP, heated humidifier, mask, headgear, filters and tubing. Pressure: 4- 15cm/H2O Length of Need: ctive lisinopril-hydroCHLOROthiazide (PRINZIDE,ZESTORETIC) 20-25 mg per tablet Take 1 tablet by mouth daily.10/28/2016Active LORazepam (ATIVAN) 0.5 mg tablet Take 0.5 mg by mouth as needed.09/07/2017Active pravastatin (PRAVACHOL) 80 mg tablet Take 80 mg by mouth daily.10/28/2016Active bevacizumab (AVASTIN) 25 mg/mL injection Inject 25 mg into the eye every 8 (eight) weeks.Active svpieptqof-tsnxryavlb-xvh-cod (FIORICET WITH CODEINE) 81-743-66-30 mg per capsule daily as needed. oufylwpkn02/20/2018Active letrozole (FEMARA) 2.5 mg tablet Take 2.5 mg by mouth daily.Active acetaminophen (TYLENOL) 325 mg tablet Take 650 mg by mouth as needed.04/24/2019Active bisoprolol (ZEBETA) 5 mg tablet Take 2.5 mg by mouth.11/04/2021ctive clobetasoL (TEMOVATE) 0.05 % cream APPLY TO AFFECTED AREA TWICE A DAY TOHQFHBDN59/31/2021ctive exemestane (AROMASIN) 25 mg tablet Take 25 mg by mouth daily.11/04/2021ctive gabapentin (NEURONTIN) 300 mg capsule One in the morning, one in the afternoon and 2 in the evening.11/04/2021ctive ketoconazole (NIZORAL) 2 % shampoo Shampoo your hair 3 times per week for 1 month03/25/2021ctive omeprazole (PriLOSEC) [address] capsule Take 20 mg by mouth.01/09/2022ctive potassium chloride (KLOR-CON M/KDUR) 20 mEq ER tablet Take 20 mEq by mouth.01/14/2022ctive triamcinolone (KENALOG) 0.1 % cream APPLY TO AFFECTED AREA BELOW BREASTS AND ARMS TWICE A DAY FOR 2 WEEKS AT A TIME , TAKE 2 WEEK BREAKAND REPEAT REPEAT NEEDED FOR JNYQNC5509/09/2020ctive citalopram (CeleXA) 20 mg tablet Take 1 tablet by mouth daily.11/04/2021ctive calcium carbonate-vitamin D3 1,250 mg (500 mg calcium)-10 mcg (400 Unit) per chewable tablet Chew 1 tablet 2 (two) times a day with meals.Active zinc gluconate 50 mg tablet Take 50 mg by mouth daily with breakfast.Active UNABLE TO FIND Take 1 each by mouth daily. Med Name: Tumeric 500mgActive tamsulosin (Flomax) 0.4 mg 24 hr capsule Take 1 capsule (0.4 mg total) by mouth daily for 10 days. 10 capsule 07/24/2025 2:46 PM CST/ctive ondansetron ODT (Zofran-ODT) 4 mg disintegrating tablet Dissolve 1 tablet (4 mg total) in the mouth every 8 (eight) hours as needed for nausea or vomiting for up to 10 days. 20 tablet 07/24/2025 2:46 PM CSTctive Active Problems ProblemNoted DateDiagnosed DatePneumonitis Radiation Acute06/26/2018Malignant Neoplasm Of Breast Central Female Left01/12/2018 Cancer Staging: Pathologic stage from 06/14/2017:Stage IB(pT3, pN0(sn), cM0, G2, ER+, VA+, HER2- ) - Signed by Jeet Costello M.D. on 01/12/2018 Malignant Neoplasm Of Breast Upper Outer Quadrant Female Right01/12/2018 Cancer Staging: Pathologic stage from 06/14/2017:Stage Unknown(pT1b, pNX, cM0, G2, ER+, VA+, HER2-) - Signed by Jeet Costello M.D. on 01/12/2018 Encounters DateTypeDepartmentCare GembIniwfrjcood53/25/2025 10:51 AM LEVEL VIAL INSPECTOR AND TESTER - 07/24/2025 2:02 PM CSTEmergency [facility] [address] [place] [id number] Rafael Clement M.D., M.B.A. Stone Kidney (Primary Dx) Discharge Disposition: Home or Self Carefrom Last 3 Months Immunizations ImmunizationAdministration DatesNext DueDTaP ([employer], [employer])10/28/2005 Influenza, Scbllqfxhqd14/05/2008 Social History Tobacco UseTypesPacks/DayYears UsedDateSmoking Tobacco: FormerCigarettes0.226.8 [...] steady place to sleep or slept in ashelter (including now)?No04/01/2022 EducationAnswerDate RecordedWhat is the highest level of school you have completed or the highest degree you have received?Associate degree: occupational, technical, or vocational qygmgfp5504/01/2022CommentsUnknown Sex and Gender InformationValueDate RecordedSex Assigned at BirthFemale 01/12/2018 10:04 AM CDTLegal IlfOyqfim68/03/2017 9:24 AM CSTGender Identity Ccotmf7701/12/2018 10:04 AM CDTSexual UqpvbvyebfiXkwcuzsi07/15/2018 10:04 AM CDT Last Filed Vital Signs Vital SignReadingTime TakenCommentsBlood Mcuotliv011/9107/24/2025 2:00 PM LEVEL VIAL INSPECTOR AND TESTER Shqux286007/24/2025 2:00 PM CXHDcmjwiallzf97.5 ??C (97.7 ??F)07/24/2025 10:57 AM CSTRespiratory Xwzd993309/24/2024 2:00 PM CSTOxygen Vvygjpubrt54%07/24/2025 2:00 PM CSTInhaled Oxygen Concentration--Kzwgbg66.7 kg (184 lb 8.4 oz)07/24/2025 10:59 AM IDPSmhpdi824.5 cm (5' 5.55)04/05/2022 7:49 AM CDTBody Mass Index30.19 04/05/2022 7:49 AM CDT Plan of Treatment Health MaintenanceDue DateLast DoneCommentsBone Density Scan (Osteoporosis Screen)4CT Jmwhisyzalte36/04/4214Owphqfwzy22/04/9728CJJ9405/03/1955 Hepatitis C Peoekaqrt97/04/3336Uunxxcqzb1954epression Screening (Annual PHQ-2)07/31/2024Fall Risk Screen (Annual)5COVID-19 Vaccine ( season), 11/02/2023, 06/29/2023, Additional history exists Influenza Vaccine (#1), 07/13/2023, 06/14/2022, Additional history existsCreatinine Level (Kidney Function Test), 05/14/2024, 03/19/2024, Additional history existsPotassium Level07/24/2026 07/24/2025, 05/14/2024, 03/19/2024, Additional history existsSodium Level 6109/24/2024, 05/14/2024, 03/19/2024, Additional history exists DTaP,Tdap,and Td Vaccines (3 - Td or Tdap)7010/28/2016, 10/28/2005, 10/28/2005Fasting Glucose for Diabetes Uzhnhmmnb04, 06/03/2024, 05/14/2024, Additional history bqrnksChtckogqmtt81/10/203105/04/2021 Colorectal Cancer Vnwqqsmkj37/10/2031Zoster JqqzcinxBetefmopv63/17/2019, 02/11/2019, 07/29/2013Pneumococcal vaccine (50+ years)Haqosfoev30/01/2023, 10/21/2019RSV vaccine - (32-36 weeks) or 50+ xrcupVwhpghjes59/30/2023 IPV VaccinesAged OutNo longer eligible based on patient's age to complete this topic Procedures Procedure NamePriorityDate/TimeAssociated DiagnosisCommentsBASIC METABOLIC PANEL, S/PSTAT109/24/2024 12:30 PM LEVEL VIAL INSPECTOR AND TESTER CBC WITH DIFFERENTIAL, BSTAT109/24/2024 12:30 PM LEVEL VIAL INSPECTOR AND TESTER HC URINALYSIS AUTO WO PISXYWbnqsvc02/25/2025 12:18 PM LEVEL VIAL INSPECTOR AND TESTER DIPSTICK, USTAT109/24/2024 12:15 PM LEVEL VIAL INSPECTOR AND TESTER OSMOLALITY, USTAT109/24/2024 12:15 PM LEVEL VIAL INSPECTOR AND TESTER PH, USTAT109/24/2024 12:15 PM LEVEL VIAL INSPECTOR AND TESTER MICROSCOPIC WZFKJQBDIWNYO33/25/2025 12:15 PM LEVEL VIAL INSPECTOR AND TESTER URINALYSIS WITH FFCJUYQBPDKUDHW64/25/2025 12:15 PM LEVEL VIAL INSPECTOR AND TESTER BACTERIAL CULTURE, AEROBIC + SUSC, ERWOWHZTZ99/25/2025 12:15 PM LEVEL VIAL INSPECTOR AND TESTER OUTSIDE CT UGWVEptxeqt04/25/2025 3:55 AM LEVEL VIAL INSPECTOR AND TESTER OUTSIDE CT XEWIUAhdxcgo69/25/2025 3:50 AM LEVEL VIAL INSPECTOR AND TESTER from Last 3 Months Results * (ABNORMAL) CBC with Differential, Blood (07/24/2025 12:30 PM LEVEL VIAL INSPECTOR AND TESTER)Component ValueRef RangeTest MethodAnalysis TimePerformed AtPathologist Signature Prxumdffsq85.811.6 - 15.0 g/dL07/24/2025 12:37 PM VMFGNTFZboaiixdtf94.135.5 - 44.9 %07/24/2025 12:37 PM CSTSTMAErythrocytes4.173.92 - 5.13 x10(12)/L 07/24/2025 12:37 PM PWJRKQSSMT79.878.2 - 97.9 fL07/24/2025 12:37 PM CSTSTMARBC Distrib Width13.112.2 - 16.1 %07/24/2025 12:37 PM CSTSTMAPlatelet Xaijq912(L) 157 - 371 x10(9)/L109/24/2024 12:37 PM CSTSTMALeukocytes4.93.4 - 9.6 x10(9)/L 07/24/2025 12:37 PM CSTSTMANeutrophils2.571.56 - 6.45 x10(9)/L109/24/2024 12:37 PM CSTDHPMLymphocytes1.240.95 - 3.07 x10(9)/L109/24/2024 12:37 PM CSTSTMA Monocytes0.610.26 - 0.81 x10(9)/L109/24/2024 12:37 PM CSTSTMAEosinophils0.47 0.03 - 0.48 x10(9)/L109/24/2024 12:37 PM CSTSTMABasophils0.030.01 - 0.08 x10(9)/L109/24/2024 12:37 PM CSTSTMASpecimen (Source)Anatomical Location / LateralityCollection Method / VolumeCollection TimeReceived TimeBlood (Blood, Venous)07/24/2025 12:30 PM CST07/24/2025 12:35 PM LEVEL VIAL INSPECTOR AND TESTER Narrative Authorizing ProviderResult TypeResult StatusEmfabrizio Patel M.D.LAB BLOOD ADD-ON Final ResultPerforming OrganizationAddressCity/State/ZIP CodePhone Number [facility] [address] [place] [address], [place] STMA [facility] [address] [place] [address] [facility] [address] [place] [address] * (ABNORMAL) Basic Metabolic Panel (07/24/2025 12:30 PM LEVEL VIAL INSPECTOR AND TESTER)ComponentValueRef RangeTest MethodAnalysis TimePerformed AtPathologist SignaturePotassium, P3.9 3.6 - 5.2 mmol/L109/24/2024 12:51 PM CSTSTMASodium, N148541 - 145 mmol/L 07/24/2025 12:51 PM CSTSTMAChloride, [...] P9.28.8 - 10.2 mg/dL07/24/2025 12:51 PM CSTSTMAGlucose, N79166 - 140 mg/dL07/24/2025 12:51 PM CSTSTMASpecimen (Source)Anatomical Location / LateralityCollection Method / VolumeCollection TimeReceived TimeBlood (Blood, Venous)07/24/2025 12:30 PM CST07/24/2025 12:35 PM LEVEL VIAL INSPECTOR AND TESTER Narrative Authorizing ProviderResult TypeResult StatusEmfabrizio Patel M.D.LAB BLOOD ADD-ON Final ResultPerforming OrganizationAddressCity/State/ZIP CodePhone Number [facility] [address] [place] [address], [facility] STMA [facility] [address] [place] [address] * (ABNORMAL) Dipstick, POCT, Urine (07/24/2025 12:18 PM LEVEL VIAL INSPECTOR AND TESTER)ComponentValueRef RangeTest MethodAnalysis TimePerformed AtPathologist SignatureGlucose, POCT, U NegativeNegative mg/dL07/24/2025 12:19 PM CSTPCEDKetone, POCT, UNegative Negative mg/dL07/24/2025 12:19 PM CSTPCEDSpecific [place], POCT, U1.0101.005 - 1.6533707/24/2025 12:19 PM CSTPCEDBlood, POCT, UTrace(A)Yeemwrul00/25/2025 12:19 PM CSTPCEDpH, POCT, Urine6.05.0 - 8.012 12:19 PM CSTPCEDProtein, POCT, UNegativeNegative mg/dL07/24/2025 12:19 PM CSTPCEDNitrites, POCT, UNegative Uqglnaqt25/25/2025 12:19 PM CSTPCEDLeukocytes, POCT, UTrace(A)Negative 07/24/2025 12:19 PM CSTPCEDSpecimen (Source)Anatomical Location / Laterality Collection Method / VolumeCollection TimeReceived XpveDykdw65/25/2025 12:18 PM CST07/24/2025 12:19 PM LEVEL VIAL INSPECTOR AND TESTER Narrative Authorizing ProviderResult TypeResult StatusUnknown ProviderLAB POCT ORDERABLES - DEVICEFinal ResultPerforming OrganizationAddressCity/State/ZIP CodePhone Number POC [facility] [address] [place] [address], [place] PCED [facility] [address] [place] [address] * (ABNORMAL) Dipstick, Urine (07/24/2025 12:15 PM LEVEL VIAL INSPECTOR AND TESTER)ComponentValueRef Range Test MethodAnalysis TimePerformed AtPathologist SignatureHemoglobin, QL, U Trace(A)Ywixxywn47/25/2025 12:45 PM CSTDTLLeukocyte Esterase, UTrace(A) Umcthbpq94/25/2025 12:45 PM CSTDTLNitrite, WYjzqruvjTsvficpx13/25/2025 12:45 PM CSTDTLKetone, UNegativeNegative mg/dL07/24/2025 12:45 PM CSTDTLGlucose, U NegativeNegative mg/dL07/24/2025 12:45 PM CSTDTLSpecimen (Source)Anatomical Location / LateralityCollection Method / VolumeCollection TimeReceived Time Urine07/24/2025 12:15 PM CST07/24/2025 12:30 PM LEVEL VIAL INSPECTOR AND TESTER Narrative Authorizing ProviderResult TypeResult StatusEmfabrizio Patel M.D.LAB URINE ORDERABLESFinal ResultPerforming OrganizationAddressCity/State/ZIP CodePhone Number [facility] [address] [place] [address] * Microscopic Automated (07/24/2025 12:15 PM LEVEL VIAL INSPECTOR AND TESTER)ComponentValueRef RangeTest MethodAnalysis TimePerformed AtPathologist XnubtqnzzZaalgbxdzfQykeru62/25/2025 12:45 PM CSTDTLRBC<3<3 /hpf07/24/2025 12:45 PM CSTDTLWBC1-3/hpf07/24/2025 12:45 PM CSTDTLComment: ----REFERENCE VALUE---- <4 (Males) <11 (Females) Specimen (Source)Anatomical Location / LateralityCollection Method / Volume Collection TimeReceived RlrnZmgsc80/25/2025 12:15 PM CST07/24/2025 12:30 PM LEVEL VIAL INSPECTOR AND TESTER Narrative Authorizing ProviderResult TypeResult StatusEmfabrizio Patel M.D.LAB URINE ORDERABLESFinal ResultPerforming OrganizationAddressCity/State/ZIP CodePhone Number [facility] [address] [place] [address] * Bacterial Culture, Aerobic + Susceptibility, Urine (07/24/2025 12:15 PM LEVEL VIAL INSPECTOR AND TESTER) ComponentValueRef RangeTest MethodAnalysis TimePerformed AtPathologist SignatureUrine CultureUrogenital microbiota, susceptibilities not performed per laboratory criteria. 07/25/2025 7:04 AM CSTDTLSpecimen (Source)Anatomical Location / Laterality Collection Method / VolumeCollection TimeReceived TimeUrine (Urine, Midstream) 07/24/2025 12:15 PM CST07/24/2025 12:57 PM CSTComment:Specimen Source Site: Urine Narrative Authorizing ProviderResult TypeResult StatusKristina Patel M.D.LAB MICROBIOLOGY - GENERAL ORDERABLESFinal ResultPerforming OrganizationAddressCity/State/Z[place] [address], [place] [address] * pH, Urine (07/24/2025 12:15 PM LEVEL VIAL INSPECTOR AND TESTER)ComponentValueRef RangeTest MethodAnalysis TimePerformed AtPathologist SignaturepH, U5.94.5 - 8.012 1:24 PM LEVEL VIAL INSPECTOR AND TESTER DTLSpecimen (Source)Anatomical Location / LateralityCollection Method / Volume Collection TimeReceived IkatQgade25/25/2025 12:15 PM CST07/24/2025 12:30 PM LEVEL VIAL INSPECTOR AND TESTER Narrative Authorizing ProviderResult TypeResult StatusEmfabrizio Patel M.D.LAB URINE ORDERABLESFinal ResultPerforming OrganizationAddressCity/State/ZIP CodePhone Number [facility] [address] [place] [address] * Osmolality, Urine (07/24/2025 12:15 PM LEVEL VIAL INSPECTOR AND TESTER)ComponentValueRef RangeTest Method Analysis TimePerformed AtPathologist SignatureOsmolality, C447209 - 1150 mOsm/kg07/24/2025 1:24 PM CSTDTLSpecimen (Source)Anatomical Location / LateralityCollection Method / VolumeCollection TimeReceived TimeUrine 07/24/2025 12:15 PM CST07/24/2025 12:30 PM LEVEL VIAL INSPECTOR AND TESTER Narrative Authorizing ProviderResult TypeResult StatusEmfabrizio Patel M.D.LAB URINE ORDERABLESFinal ResultPerforming OrganizationAddressCity/State/ZIP CodePhone Number [facility] [address] [place] [address], [facility] [place] [address] [place] [address] * Urinalysis, with Microscopic: Urine, Midstream (07/24/2025 12:15 PM LEVEL VIAL INSPECTOR AND TESTER) ComponentValueRef RangeTest MethodAnalysis TimePerformed AtPathologist SignatureSourceUrine, Urine, Ppaeeyogl04/25/2025 12:30 PM CSTDTLColor, UYellow 07/24/2025 12:30 PM CSTDTLClarity, QWeggm5507/24/2025 12:30 PM CSTDTLProtein, U9 <26 mg/dL07/24/2025 1:05 PM CSTDTLProtein/Osmolality0.21<0.42 ratio07/24/2025 1:24 PM CSTDTLPredicted 24 HR Protein, U160<229 mg/24 07/24/2025 1:24 PM LEVEL VIAL INSPECTOR AND TESTER DTLPredicted Kzfvj21-415vs/24 07/24/2025 1:24 PM CSTDTLSpecimen (Source) Anatomical Location / LateralityCollection Method / VolumeCollection Time Received TimeUrine (Urine, Midstream)07/24/2025 12:15 PM CST07/24/2025 12:30 PM LEVEL VIAL INSPECTOR AND TESTER Narrative Authorizing ProviderResult TypeResult StatusEmfabrizio Patel M.D.LAB URINE ORDERABLESFinal ResultPerforming OrganizationAddressCity/State/ZIP CodePhone Number [facility] [address] [place] [address], [facility] [place] [address] [place] [address] * CT chest abdomen pelv w con-Outside CT Body (07/24/2025 3:55 AM LEVEL VIAL INSPECTOR AND TESTER)Specimen (Source)Anatomical Location / LateralityCollection Method / VolumeCollection TimeReceived Time Narrative [facility] - 07/24/2025 11:47 AM LEVEL VIAL INSPECTOR AND TESTER This order has been created and auto-finalized to support the import of outside images. If available, original interpretation can be found on the Media Tab in Chart Review, in Document Viewer, as an image in InfinityView or as an Addendum. If a re-interpretation or overread is required please follow defined workflow. ?? Authorizing ProviderResult TypeResult StatusProvider Not In SystemIMG CT PROCEDURESFinal ResultPerforming OrganizationAddressCity/State/ZIP CodePhone Number [facility] NA * CT thoracic spine wo con-Outside CT Neuro (07/24/2025 3:50 AM LEVEL VIAL INSPECTOR AND TESTER)Specimen (Source)Anatomical Location / LateralityCollection Method / VolumeCollection TimeReceived Time Narrative [facility] - 07/24/2025 11:47 AM LEVEL VIAL INSPECTOR AND TESTER This order has been created and auto-finalized to support the import of outside images. If available, original interpretation can be found on the Media Tab in Chart Review, in Document Viewer, as an image in InfinityView or as an Addendum. If a re-interpretation or overread is required please follow defined workflow. ?? Authorizing ProviderResult TypeResult StatusProvider Not In SystemIMG CT PROCEDURESFinal ResultPerforming OrganizationAddressCity/State/ZIP CodePhone Number [facility] NA from Last 3 Months Additional Health Concerns InfectionOnset DateLast IndicatedProtective Xdlqkebxbhv74 Insurance Care Teams Team MemberRelationshipSpecialtyStart DateEnd Date Elsewhere, [facility]
--- OUTSIDE RECORDS SUMMARY | 2025-07-27 08:03 | XMS_ITS ---
Author Organization [facility] Address [address] [place] [address] Care Team Providers Care Radio News Writer Name Role Phone Elsewhere, Pcp Primary Care Provider Unavailabl e Active Problems * This document contains information received from the source organization and may not represent a complete record from that organization. ProblemNoted DateDiagnosed DatePneumonitis Radiation Acute06/26/2018Malignant Neoplasm Of Breast Central Female Left01/12/2018 Cancer Staging: Pathologic stage from 06/14/2017:Stage IB(pT3, pN0(sn), cM0, G2, ER+, ME+, HER2- ) - Signed by Jeet Costello M.D. on 01/12/2018 Malignant Neoplasm Of Breast Upper Outer Quadrant Female Right01/12/2018 Cancer Staging: Pathologic stage from 06/14/2017:Stage Unknown(pT1b, pNX, cM0, G2, ER+, ME+, HER2-) - Signed by Jeet Costello M.D. on 01/12/2018 Current Treatment and Therapy Plans No current plan information found. Past Treatment and Therapy Plans No past plan information found. Radiation Treatments * Treatment PeriodEnergyFraction DoseFractionsTotal DosePlansPlannedF1 L CW 02/06/2018 - 03/09/2018200 cGy25 / 255,000 cGyReference ZgbceoZutjbfkexEIQ5339 02/06/2018 - 03/09/2018?5,000 cGy
--- OUTSIDE RECORDS SUMMARY | 2025-07-27 08:03 | XMS_ITS | Clinical Summary ---
Author Organization [employer] [facility] Address [address] [place] [address] Care Team Providers Care Media Marketing Specialist Name Role Phone Milena Trevino MD Primary Care Provide r Allergies Active AllergyReactionsCriticalityNoted DateCommentsAcetylcysteineItching, YpszykkwwsoNxmt71/13/2018 Via neb. Pt states, it was given too fast. When it was slowed it was fine. PycrkzvdaqhUadeiymz27/15/0529FdsiocjbwzQefppguiJpv53/28/2019GlutenGI Upset 11/10/2017 Celiac Medications MedicationSigDispense QuantityRefillsLast FilledStart DateEnd DateStatus bevacizumab (AVASTIN) 25 mg/mL injection D7qghlGykqzf CPAP Indications:NANCY (obstructive sleep apnea)CPAP machine for [...] of Need: 6 months, Frequency of use: [id number] Active gabapentin (NEURONTIN) 300 mg capsule Indications:Primary [...] Take 2.5 mg by mouth once daily.11/25/2022ctive aaxaiwl-vbravjqd-tlzqvwciyo, 325-40-50 mg, (FIORINAL) tablet Indications:Migraine without aura [...] single episode, mild 3Capsular contracture of breast slglnyx7106/07/2022Left arm pain 06/07/20225208Acknoerhcn97/08/7298Knetpjj88/08/2022Chronic obstructive pulmonary disease, unspecified COPD type01/04/2022OB (shortness of breath)05/26/2021 Ascending aorta yukfesppgw53/27/2021 Overview (05/26/2021): 4.2 cm 2020 Displacement of breast ihlvuuw0104/24/2019Wound dehiscence, surgical, initial cbtdosqyg77/28/2019Acquired absence of both eubagvm3501/01/2019Malignant neoplasm of central portion of female fzaypd4901/12/2018Malignant neoplasm of upper-outer quadrant of female kjhiml3301/12/2018Primary cancer of left doohfg9805/19/2017 Adenomatous colon polyp07/14/2015 Overview (12/08/2020): Colonoscopy 06/2015 polyps repeat in 5 years Colonoscopy 11/2020 1 polyp, repeat in 7 years NANCY 02/07/2013 AHI-1009/09/2014Vitamin D dirwrbmlvs91/19/2010Mild depression 07/04/2008Celiac fpmaard2909/07/2007 Overview (07/14/2015): EGD 06/2015 celiac disease Other and unspecified okuoyythbtrrij39/08/2008Unspecified essential hypertension 09/07/2007 Resolved Problems ProblemNoted DateDiagnosed DateResolved DateAcute radiation pneumonitis OSA 02/07/2013 AHI-1007//Pain in joint, shoulder zqedum15 Encounters DateTypeDepartmentCare PvzjDmcaoojzcxx59/26/2025Nurse Triage [facility] [address] [place] [address] Milena Trevino MD Questions (Questions about next steps for diagnosed kidney stone. Window Framer instructed patient regarding the instructions she was provided in ED yesterday and that was to wait it out and try to pass thestone per provider note.) 07/24/2025Orders Only [facility] Scanner 1 scan: (1-Ord) [place], CT CHEST ABDOMEN PEL W CON, 11:00 AM CSTOffice Visit [facility] [address] [place] [address] Antione Christian MD Telehealth; Follow Up (Yearly; Ascending aorta dilatation; HLD)07/22/2025Travel 07/15/2025 12:45 PM CSTOrders Only [facility] [address] [facility] [place] [address] Lab, [place] Lab07/15/20251536Rrruzw84/14/2025Orders Only [facility] Scanner 1 scan: (1-Ord) TAREEN DERMATOLOGY, BIOPSY BY SHAVE METHOD, 5108/04/2024 Travelfrom Last 3 Months Immunizations ImmunizationAdministration DatesNext DueCOVID-19 VACCINE SPIKEVAX (MODERNA 50MCG/0.5ML) 12YO+ PFS05/14/2024,4COVID-19 vaccine (Pfizer-BioNTech 30mcg/0.3mL) 12YO+ BIVALENT PF, MDV12COVID-19 vaccine (Pfizer-BioNTech 30mcg/0.3mL) 12YO+ DAVY-SUCROSE PF, MDV2COVID-19 vaccine (Pfizer- BioNTech 30mcg/0.3mL) PF, MDV8801PBfW80/31/2006Influenza A (H1N1), Inactivated (Age >=3 Years)07/02/2009Influenza Virus, Kolvtdeonns33/03/2017, 07/16/2010,07/06/2009,07/04/2008Influenza, High-dose Quadrivalent Inactivated 03/26/2021Influenza, IIV3 (Age 6-35 mos)07/16/2010Influenza, IIV3 (Age >=3 years)05/01/2017,07/12/2013,07/13/2012,07/04/2008Influenza, YRF924/, 05/02/2017,05/12/2015,07/15/2014Influenza, IIV4 (=>6mos) MDV04/09/2019Influenza, Inactivated AIIV4 (Age [...] BrotherAliveDaughterAliveFatherDeceasedMotherAliveOtherSisterAliveSonAlive Social History Tobacco UseTypesPacks/DayYears UsedDateSmoking Tobacco: MlcgwvTsazpjdhgn3Bpgt: 07/31/2003Smokeless Tobacco: Never Tobacco Cessation:Counseling Given: Yes [...] InformationValueDate RecordedSex Assigned at BirthNot on fileLegal VduOxocrj89/14/2013 5:26 AM CSTGender IdentityNot on fileSexual OrientationNot on file Obstetrics History GravidaParaTermPretermABIABSABEctopicMultipleLivingLive Emgnlf0084WngaQlbtrsvPJ Total LaborLabor/2nd/2jqZuezknBxbWfajNzskYBYYxuY4X7VlkaZrfsKvhoOvhb Last Filed Vital Signs Vital SignReadingTime TakenCommentsBlood Jlljujaf162/80109/22/2024 11:02 AM SENIOR JAVA SOFTWARE ENGINEER Iakyt189707/22/2025 11:02 AM JJYBigejbdiisf43.2 ??C (98.9 ??F)06/08/2022 7:58 AM CSTRespiratory Jtez029109/22/2024 11:02 AM CSTOxygen Ihwqlalrrq28%07/22/2025 11:02 AM CSTInhaled Oxygen Concentration--Neigbr36.6 kg (179 lb 14.4 oz)07/22/2025 11:02 AM ZDLMrkqge008 cm (5' 5.75)02/07/2025 9:53 AM CDTBody Mass Index29.26 02/07/2025 9:53 AM CDT Plan of Treatment DateTypeDepartmentCare Team (Latest Contact Info)Nsdqkggamfn79/30/2025 10:35 AM CSTOffice Visit [facility] [address] [place] [address] Sharon Valentin DO [address] [facility] [place] [address] Health MaintenanceDue DateLast DoneCommentsInfluenza Vaccine (#1)03/31/2025 05/14/2024, 07/13/2023, 06/14/2022, Additional history existsCOVID-19 vaccine series (10 - Pfizer risk 2024- season)/, 05/14/2024, 11/02/2023, Additional history existsBMI (ht and wt on same day) for age 18+ /05/2025, 06/26/2023, 10/11/2022, Additional history exists Depression screening for age 12+/05/2025, 03/19/2024, 12/29/2022, Additional history existsMedicare Wellness for age 65+/05/2025, 12/29/2022, 03/25/2021Tetanus yygvjru21/31/246256/, 10/28/2005, 10/28/2005 (Completed outside of [facility])Colonoscopy through age 75012/08/2027 12/07/2020, 12/07/2020, 07/13/2015, Additional history existsLipids for age 45-750, 06/03/2024, 05/14/2024, Additional history exists Zoster (shingles) series for age 50+Tnswhcewo76/17/2019, 02/11/2019, 07/29/2013 Hepatitis C screening for age 18-53Xenzwlnjv80/23/2019Pneumococcal series for age 50+Onxaakrbb47/01/2023, 10/21/2019RSV vaccine for adults or Wkzrjawcf29/30/2023DEXA/DXA scan for age 65+Yswviztdd40/29/2024, 05/26/2022, 04/15/2020, Additional history existsHepatitis B series for 19+Aged OutNo longer eligible based on patient's age to complete this topic Medical Devices ImplantedTypeAreaManufacturerDevice IdentifierShelf Expiration DateModel / Serial / [id number] 500cc Memorygel Rnd High Smooth Silcn Implanted:Qty: 1 on 01/01/2019 by Britton Parnell MD at [facility] Explanted:at [facility] (Quantity not on file)Left: Rico Gotti10/18/[id number]# / [id number] / [id number] 500cc Memorygel Rnd High Smooth Silcn Implanted:Qty: 1 on 01/01/2019 by Britton Parnell MD at [facility] Explanted:at [facility] (Quantity not on file)Right: Rico Gotti01/21/[id number]# / [id number] / [id number] 500cc Memorygel Rnd High Smooth Silcn Implanted:Qty: 1 on 01/25/2019 by Britton Parnell MD at [facility] Explanted:at [facility] (Quantity not on file)Left: Rico [id number]# / [id number] / [id number] 550cc Memorygel Rnd High Smooth Silcn - [id number] Implanted:Qty: 1 on 06/07/2022 by Britton Parnell MD at [facility] Explanted:at [facility] (Quantity not on file)Left: Rico [id number] / [id number] / [id number] Procedures Procedure NamePriorityDate/TimeAssociated DiagnosisCommentsSCAN-CT TOIXKWIRRQGABG44/25/2025 12:00 AM CSTVITAMIN N26Limgofz39/16/2025 12:54 PM SENIOR JAVA SOFTWARE ENGINEER B12 deficiency SCAN-OPERATIVE/PROCEDURE VDXEVH2906/13/2025 12:00 AM SENIOR JAVA SOFTWARE ENGINEER LIPID PANEL W REFLEX MEASURED QGZLbxjcnn38/11/2025 10:55 AM CDT Hyperlipidemia, unspecified hyperlipidemia type SCAN-BONE DENSITOMETRY DEXA12/27/2023 12:00 AM CDT COLONOSCOPY HZCMTNQNHDqlxxxn17/10/2021 12:00 AM CDT History of colon polyps ANTI QNJFqbbujm26/23/2019 3:35 PM CDT Encounter for hepatitis C screening test for low risk patient from Last 3 Months or Most Recently Relevant to Health Maintenance Results * SCAN-CT INTERPRETATION (07/24/2025 12:00 AM SENIOR JAVA SOFTWARE ENGINEER)Anatomical RegionLaterality ModalityOther Narrative Authorizing ProviderResult TypeResult StatusScannerOTHERFinal Result * VITAMIN B12 (07/15/2025 12:54 PM SENIOR JAVA SOFTWARE ENGINEER)ComponentValueRef RangeTest Method Analysis TimePerformed AtPathologist SignatureVITAMIN [id number] - 1100 pg/mL 07/16/2025 3:49 AM CSTQUEST DIAGNOSTICSSpecimen (Source)Anatomical Location / LateralityCollection Method / VolumeCollection TimeReceived TimeBloodBLOOD SPECIMEN / UnknownQuest Collect / Wfizwan6007/15/2025 12:54 PM CST07/15/2025 12:54 PM SENIOR JAVA SOFTWARE ENGINEER Narrative Authorizing ProviderResult TypeResult StatusMilena Trevino MDCHEMISTRY Final ResultPerforming OrganizationAddressCity/State/ZIP CodePhone Number [facility] [place] [id number] [place] [address], * SCAN-OPERATIVE/PROCEDURE REPORT (06/13/2025 12:00 AM SENIOR JAVA SOFTWARE ENGINEER) Narrative Authorizing ProviderResult TypeResult StatusScannerOTHERFinal Result * LIPID PANEL W REFLEX MEASURED LDL (02/07/2025 10:55 AM CDT)ComponentValueRef RangeTest MethodAnalysis TimePerformed AtPathologist SignatureCHOLESTEROL, VWSUL273<200 mg/dLQuest Integrata Security DaleHDL ODXFEJOXMVI62> OR = 50 mg/dL [facility] QaosUIJGUNAZWGIYJ041<150 mg/dLQuest Diagnostics-Eight19 DaleLDL-FFAFIGGFKYB29yd/dL (calc)[facility] DaleComment: Reference range: <100 Desirable range <100 mg/dL for primary prevention; <70 mg/dL for patients with CHD or diabetic patients with > or = 2 CHD risk factors. LDL-C is now calculated using the Hugo-Hughes calculation, which is a validated novel method providing better accuracy than the Friedewald equation in the estimation of LDL-C. Hugo SS et al. DUGLAS. 2013;310(63): 0472-4848 (http://education.FindProz/faq/AEW580) CHOL/HDLC RATIO2.6<5.0 (calc)[facility]sRegions HospitaleNON HDL VQHNDAVVCHB704 <130 mg/dL (calc)HoodsRegions HospitaleComment: For patients with diabetes plus 1 major ASCVD risk factor, treating to a non-HDL-C goal of <100 mg/dL (LDL-C of <70 mg/dL) is considered a therapeutic option. Specimen (Source)Anatomical Location / LateralityCollection Method / Volume Collection TimeReceived TimeBloodBLOOD SPECIMEN / Hrnlpcf2602/07/2025 10:55 AM CDT 02/07/2025 10:57 AM CDT Narrative Authorizing ProviderResult TypeResult StatusMilena Trevino MDCHEMISTRY Final ResultPerforming OrganizationAddressCity/State/ZIP CodePhone Number [facility] [address] [place] [address], [place] [address] * SCAN-BONE DENSITOMETRY DEXA (12/27/2023 12:00 AM CDT)Anatomical Region LateralityModalityOther Narrative Authorizing ProviderResult TypeResult StatusScannerOTHERFinal Result * COLONOSCOPY SCREENING (12/07/2020 12:00 AM CDT) Narrative Authorizing ProviderResult TypeResult StatusHugo Mazariegos MDGI PROCEDURE ORDFinal Result * ANTI HCV (04/22/2019 3:35 PM CDT)ComponentValueRef RangeTest MethodAnalysis TimePerformed AtPathologist SignatureHEPATITIS C ANTIBODYNon-Reactive Non-Ejkbyzaj22/23/2019 9:14 PM CDTALPERHAM [facility] Comment:Antibodies to HCV not detected; does not exclude the possibility of exposure to HCV.Specimen (Source)Anatomical Location / LateralityCollection Method / VolumeCollection TimeReceived TimeBloodBLOOD SPECIMEN / Unknown Venipuncture / Rcdufnn9004/22/2019 3:35 PM CDT04/22/2019 3:35 PM CDT Narrative Authorizing ProviderResult TypeResult StatusKaitvenessa Lorin Cordovajoeynatalie VINNY GARZA Final ResultPerforming OrganizationAddressCity/State/ZIP CodePhone Number [facility] [address] [place] [address], from Last 3 Months or Most Recently Relevant to Health Maintenance Insurance * Guarantor: Yeimi Roland TypeRelation to PatientDate of BirthPhone Billing [id number] [place] [address] Advance Directives TypeDate RecordedPatient RepresentativeExplanationHealthcare Bkcgprdtw08/7/2017 8:29 [facility] * Full Code (Latest Code Status on File) Date ActivatedDate XhlurkrdvyhYxgbhwao45/8/2022 5:39 PM06/08/2022 5:49 PMQuestion AnswerCommentsCode Status Discussion:* Reviewed Preferences * Full Code Date ActivatedDate YwnbzggutcrHxallrix35/8/2022 6:00 AM06/07/2022 5:39 PMQuestion AnswerCommentsCode Status Discussion:* Other * not discussed * Full Code Date ActivatedDate InactivatedComments04/24/2019 10:00 AM04/24/2019 5:02 PM * Full Code Date ActivatedDate InactivatedComments01/01/2019 6:08 AM01/02/2019 2:32 AM Care Teams Team MemberRelationshipSpecialtyStart DateEnd Milena Trevino MD [address] [place] [address] PCP - Vkvalzx11/30/04
--- NOTE | 2025-07-27 08:23 | ED.GENADULT ---
HPI - General Adult General Date Seen: 07/27/25 Chief complaint: Flank Pain Stated complaint: kidney stone/nausea Time Seen by Provider: 07/27/25 08:18 Source: patient, family, RN notes reviewed and old records reviewed Mode of arrival: ambulatory Limitations: no limitations History of Present Illness HPI narrative: Yeimi is a 70-year-old female with known history of 10 x 4 mm left ureteral calculus, history of breast cancers with radiation pneumonitis in remission who comes to the emergency room for evaluation regarding increasing left flank pain. Patient noted to have the onset of pain on 07/24 was seen in our ER at which time CT identified a large stone. Patient did have some says excess with pain medications and did go home but later presented to [place] for increasing pain. She was told that she should pass the stone and she was set home with oxycodone. She has been managing at home with pain medications and yesterday was pain free. However, today pain has in returned and is associated with significant discomfort, vomiting. She has not had any fevers. Denies blood in her urine. Related Data Home Medications ?Medication ?Instructions ?Recorded ?Confirmed amlodipine 5 mg tablet 5 mg PO QDAY 05/12/22 04/15/25 bevacizumab 2.5 mg/0.1 mL See Rx Instructions intravitreal 05/12/22 04/15/25 intravitreal syringe Q8W lisinopril 20 1 tab PO QDAY 05/12/22 04/15/25 mg-hydrochlorothiazide 25 mg tablet lorazepam 0.5 mg tablet 0.5 mg PO BID PRN 05/12/22 04/15/25 omeprazole 20 mg capsule,delayed 20 mg PO QDAY 05/12/22 04/15/25 release potassium chloride 20 mEq 20 meq PO QDAY 05/12/22 04/15/25 tablet,extended release(part/cryst) pravastatin 80 mg tablet 80 mg PO QHS 05/12/22 04/15/25 calcium carbonate 1,200 mg PO QDAY 11/23/23 04/15/25 ketoconazole 2 % shampoo 1 applic topical 3XW PRN 11/23/23 04/15/25 yfpvzmnaup-vfbchps-dlnikbri 50 1 tab PO Q4H PRN 03/26/24 04/15/25 mg-325 mg-40 mg tablet metoprolol succinate 25 mg 25 mg PO DAILY 03/26/24 04/15/25 tablet,extended release 24 hr duloxetine 30 mg capsule,delayed 30 mg PO DAILY 05/09/24 04/15/25 release amitriptyline 75 mg tablet 100 mg PO QPM 06/10/24 04/15/25 amitriptyline 100 mg tablet 100 mg PO QPM 04/15/25 04/15/25 aspirin 81 mg tablet 81 mg PO QDAY 04/15/25 04/15/25 cyanocobalamin (vitamin B-12) 500 500 mcg PO DAILY 04/15/25 04/15/25 mcg tablet trazodone 50 mg tablet 50 mg PO QPM 04/15/25 04/15/25 triamcinolone acetonide 0.1 % 1 applic topical BID-TID 04/15/25 04/15/25 topical cream Previous Rx's ?Medication ?Instructions ?Recorded acetaminophen 500 mg tablet 500 - 1,000 mg (1 - 2 x 500 mg) PO 03/27/24 Q4-6H PRN #100 tabs clobetasol 0.05 % topical cream 1 applic topical QHS #45 grams 11/04/24 letrozole 2.5 mg tablet 2.5 mg PO QDAY #90 tabs 04/15/25 Allergies Allergy/AdvReac Type Severity Reaction Status Date / Time acetylcysteine Allergy Severe Anaphylaxis Verified 07/24/25 04:23 gluten Allergy Unknown Verified 07/24/25 04:23 cephalexin AdvReac Mild Diarrhea Verified 07/24/25 04:23 Review of Systems Status of ROS: Reports: 10 or more systems reviewed and unremarkable except as noted in History and below Const: Denies: fever or chills ENMT: Denies: nasal congestion Cardio: Denies: chest pain : Denies: painful urination or blood in urine Musculo: Reports: back pain [facility] Medical History Radiation pneumonitis ?J70.0 - Acute pulmonary manifestations due to radiation (ICD-10) Degenerative disc disease, cervical ?M50.30 - Other cervical disc degeneration, unspecified cervical region (ICD-10) Strain of left biceps ?S46.212A - Strain of muscle, fascia and tendon of other parts of biceps, left arm, initial encounter (ICD-10) Fracture of T12 vertebra ?S22.089A - Unspecified fracture of T11-T12 vertebra, initial encounter for closed fracture (ICD-10) Sleep apnea ?G47.30 - Sleep apnea, unspecified (ICD-10) Postmenopausal bleeding (07/2014) ?N95.0 - Postmenopausal bleeding (ICD-10) Migraine (07/15/09) ?G43.909 - Migraine, unspecified, not intractable, without status migrainosus (ICD-10) Malignant neoplasm of left breast ?C50.912 - Malignant neoplasm of unspecified site of left female breast (ICD-10) Lobular carcinoma of breast (04/2017) ?C50.919 - Malignant neoplasm of unspecified site of unspecified female breast (ICD-10) Lichen sclerosus et atrophicus ?L90.0 - Lichen sclerosus et atrophicus (ICD-10) Infection due to extended spectrum beta-lactamase producing bacteria ?A49.9 - Bacterial infection, unspecified (ICD-10) ?Z16.12 - Extended spectrum beta lactamase (ESBL) resistance (ICD-10) Hyperlipidemia (07/15/09) ?E78.5 - Hyperlipidemia, unspecified (ICD-10) Fracture of left patella ?S82.002A - Unspecified fracture of left patella, initial encounter for closed fracture (ICD-10) Acetaminophen overdose ?T39.1X1A - Poisoning by 4-Aminophenol derivatives, accidental (unintentional), initial encounter (ICD-10) Arthritis of left acromioclavicular joint ?M19.012 - Primary osteoarthritis, left shoulder (ICD-10) Subacromial impingement of left shoulder ?M75.42 - Impingement syndrome of left shoulder (ICD-10) History of trigger finger ?Z87.39 - Personal history of other diseases of the musculoskeletal system and connective tissue (ICD-10) Myopic degeneration ?H44.20 - Degenerative myopia, unspecified eye (ICD-10) Celiac disease ?K90.0 - Celiac disease (ICD-10) Anxiety ?F41.9 - Anxiety disorder, unspecified (ICD-10) Depression ?F32.A - Depression, unspecified (ICD-10) Anemia ?D64.9 - Anemia, unspecified (ICD-10) GERD (gastroesophageal reflux disease) ?K21.9 - Gastro-esophageal reflux disease without esophagitis (ICD-10) Heart burn ?R12 - Heartburn (ICD-10) Elevated liver enzymes ?R74.8 - Abnormal levels of other serum enzymes (ICD-10) Elevated cholesterol ?E78.00 - Pure hypercholesterolemia, unspecified (ICD-10) Hypertension ?I10 - Essential (primary) hypertension (ICD-10) COPD (chronic obstructive pulmonary disease) ?J44.9 - Chronic obstructive pulmonary disease, unspecified (ICD-10) Surgical History History of total left knee replacement (03/27/24) ?Z96.652 - Presence of left artificial knee joint (ICD-10) Status post bilateral salpingo-oophorectomy (BSO) ?Z90.722 - Acquired absence of ovaries, bilateral (ICD-10) S/P left knee arthroscopy (01/22/20) ?Z98.890 - Other specified postprocedural states (ICD-10) S/P rotator cuff repair (07/08/19) ?Z98.890 - Other specified postprocedural states (ICD-10) S/P trigger finger release ?Z98.890 - Other specified postprocedural states (ICD-10) H/O breast reconstruction ?Z98.890 - Other specified postprocedural states (ICD-10) History of endometrial ablation ?Z98.890 - Other specified postprocedural states (ICD-10) H/O: hysterectomy ?Z90.710 - Acquired absence of both cervix and uterus (ICD-10) H/O hernia repair ?Z98.890 - Other specified postprocedural states (ICD-10) ?Z87.19 - Personal history of other diseases of the digestive system (ICD-10) H/O mastectomy ?Z90.10 - Acquired absence of unspecified breast and nipple (ICD-10) History of breast biopsy ?Z98.890 - Other specified postprocedural states (ICD-10) S/P arthroscopic partial medial meniscectomy of left knee (01/10/22) ?Z98.890 - Other specified postprocedural states (ICD-10) ?Z87.828 - Personal history of other (healed) physical injury and trauma (ICD-10) Social History Narrative: Retired -Skinny Nonsmoker, no alcohol use What is your current living situation?: I presently have a place to live Problems where you live: no known problems In the past 12 months, utilities in danger of being shut off: no In past 12 months, lack of transportation kept you from medical appts, meetings, work, or getting things needed for daily living: no In the past 12 mos, have been you worried that your food would run out before you had money to buy more?: never true In the past 12 mos, the food you bought just didn't last and you didn't have money to buy more?: never true Highest level of school completed/degree received: some college, no degree Smoking Status: Former smoker What tobacco products do you use: cigarettes Smoking quit date/years: >15 years ago Do you use any of these nicotine containing products: None Second hand tobacco smoke exposure: No How often do you have a drink containing alcohol: 2-4 times a month How many standard drinks containing alcohol do you have on a typical day: 1 or 2 How often do you have six or more drinks on one occasion: Never AUDIT-C Alcohol total score: 2 Non-prescribed substance use: denies use Caffeine: Yes How often does anyone, including family, friends and others, physically hurt you: never How often does anyone, including family, friends and others, insult or talk down to you: never How often does anyone, including family, friends and others, threaten you with harm: never How often does anyone, including family, friends and others, scream or curse at you: never service: No Exam Narrative: Exam Narrative: Yeimi is in extremis. She has a vomit bucket with her she is writhing in discomfort. She is able to answer a few questions but most of the interview was done with her daughter who works as a nurse here at the hospital. She is pale in appearance. Lips are dry. Heart with a regular rate normal rhythm. Lungs are clear. Const: Vital Signs, click to edit/add: Vital Signs - 24 hr 07/27/25 08:11 07/27/25 08:30 07/27/25 08:40 Temperature 97 F L Pulse Rate 78 Pulse Rate [Pulse Oximeter] 83 Respiratory Rate 24 18 Blood Pressure Blood Pressure [Ri ght Upper Arm] 148/78 H Pulse Oximetry 97 84 L 93 Oxygen Delivery Me thod Room Air Room Air Oxygen Flow Rate 07/27/25 08:45 07/27/25 08:50 07/27/25 09:00 Temperature Pulse Rate 80 82 Pulse Rate [Pulse Oximeter] Respiratory Rate 16 Blood Pressure Blood Pressure [Ri ght Upper Arm] Pulse Oximetry 94 94 93 Oxygen Delivery Me thod Nasal Cannula Nasal Cannula OxyMask Oxygen Flow Rate 2 2 3 07/27/25 09:05 07/27/25 09:15 07/27/25 09:33 Temperature Pulse Rate 82 85 85 Pulse Rate [Pulse Oximeter] Respiratory Rate 16 Blood Pressure 152/86 H Blood Pressure [Ri ght Upper Arm] Pulse Oximetry 94 96 91 Oxygen Delivery Me thod Oxygen Flow Rate 07/27/25 09:45 07/27/25 10:00 07/27/25 10:15 Temperature Pulse Rate 82 81 79 Pulse Rate [Pulse Oximeter] Respiratory Rate 18 Blood Pressure Blood Pressure [Ri ght Upper Arm] Pulse Oximetry 96 97 97 Oxygen Delivery Me thod OxyMask Oxygen Flow Rate 3 07/27/25 10:30 07/27/25 10:45 07/27/25 11:00 Temperature Pulse Rate 83 80 80 Pulse Rate [Pulse Oximeter] Respiratory Rate Blood Pressure Blood Pressure [Ri ght Upper Arm] Pulse Oximetry 96 97 97 Oxygen Delivery Me thod Oxygen Flow Rate 07/27/25 11:06 Temperature Pulse Rate 78 Pulse Rate [Pulse Oximeter] Respiratory Rate 18 Blood Pressure 112/63 Blood Pressure [Ri ght Upper Arm] Pulse Oximetry 90 Oxygen Delivery Me thod Room Air Oxygen Flow Rate Documenting provider has reviewed patient's vital signs: yes Course Course ED Course: Yeimi has been diagnosed with a 10 x 4 mm left ureteral calculus. Initially diagnosed on 07/[address] [facility] she did have subsequent visit later that day at [place]. She has not yet seen Urology. Yesterday she was pain free. I assume that the stone has been trying to pass. At this time will give IV fluids 500 mL, morphine 4 mg and Zofran 4 mg. Visually had also ordered Toradol but I see that her creatinine was 1.2 on 07/24 and she has been on medications at home. Will hold off on Toradol until we check creatinine. Reevaluation(s) Reevaluation #1: Pain much improved. White count within normal limits. Urinalysis without evidence of UTI. Given sudden increase in pain we have made the decision to repeat CT. I fear that Yeimi will need to have urological intervention to have this stone removed. Would want to know if the stone has traveled at all. Noted in CT that stone is actually 10.8 x 6 points 3 mm. Reevaluation #2: Patient is pain continues to be improved. Unfortunately patient has new findings on CT. Although stone has not moved, she now has fluid around the ureter suggestive of ureteral rupture. I spoke to [facility] for ED to ED transfer given the high volumes they are experiencing at this time. I was told I need to wait for urological approval. Pushing the CT to their facility at this time. Consultations Consultation #1: At the pleasure of speaking to Dr. Sarmiento, urologist. He is in agreement to have the patient transferred. Vital Signs Vital signs: Initial Vital Signs Temperature 97 F L 07/27/25 08:11 Temperature Source Temporal Artery Scan 07/27/25 08:11 Pulse Rate 83 07/27/25 08:11 Respiratory Rate 24 07/27/25 08:11 Blood Pressure 148/78 H 07/27/25 08:11 Blood Pressure Mean 101 07/27/25 08:11 Blood Pressure Position Sitting 07/27/25 08:11 Pulse Oximetry 97 07/27/25 08:11 Oxygen Delivery Method Room Air 07/27/25 08:11 Vital Signs Temperature 97 F L 07/27/25 08:11 Pulse Rate 83 07/27/25 08:11 Respiratory Rate 24 07/27/25 08:11 Blood Pressure 148/78 H 07/27/25 08:11 Pulse Oximetry 97 07/27/25 08:11 Oxygen Delivery Method Room Air 07/27/25 08:11 Temperature 97 F L 07/27/25 08:11 Pulse Rate 78 07/27/25 11:06 Respiratory Rate 18 07/27/25 11:06 Blood Pressure 112/63 07/27/25 11:06 Pulse Oximetry 90 07/27/25 11:06 Oxygen Delivery Method Room Air 07/27/25 11:06 Oxygen Flow Rate 3 07/27/25 09:45 Medications Administered Medications: Generic Name Dose Route Start Last Admin Trade Name Freq PRN Reason Stop Dose Admin Ceftriaxone Sodium 1 gm/ 100 mls @ 200 mls/hr 07/27/25 10:56 07/27/25 11:02 Sodium Chloride IVPB 07/27/25 11:25 200 mls/hr ONCE ONE Administration Discontinued Medications Generic Name Dose Route Start Last Admin Trade Name Willem PRN Reason Stop Dose Admin Sodium Chloride 500 mls @ 500 mls/hr 07/27/25 08:24 07/27/25 10:06 0.9 % Sodium Chloride 500 Ml IV 07/27/25 09:23 Infused .Q1H ALICIA Infusion Ketorolac Tromethamine 15 mg 07/27/25 08:23 07/27/25 10:26 Ketorolac 15 Mg/Ml Inj IVP 07/27/25 08:24 15 mg ONCE ONE Administration Morphine Sulfate 4 mg 07/27/25 08:23 07/27/25 08:31 Morphine 4 Mg/Ml Inj IVP 07/27/25 08:24 4 mg ONCE ONE Administration Ondansetron HCl 4 mg 07/27/25 08:23 07/27/25 08:30 Ondansetron 2 Mg/Ml Inj IVP 07/27/25 08:24 4 mg ONCE ONE Administration Medical Decision Making MDM Narrative Medical decision making narrative: 1. Ureteral calculus - calculus measuring 11 mm remains at the UPJ. Pain is improved with morphine 4 mg, Zofran 4 mg, Toradol 15 mg IV. Patient received 500 mL of normal saline. 2. Ureteral rupture -Patient is not septic at this time and urinalysis without evidence of UTI but given the potential rupture she is given Rocephin 1 g IV. 3. Disposition-patient will be ED to ED transfer given the high volume and lack of beds that [facility] is experiencing. I have cleared it with our attending hospitalist here in [place] that patient may return for recovery/hospitalization here. Our hospitalist is requesting a phone call from the attending at [facility] prior to the transfer. Patient will go by ground ALS. ED physician acceptance by Dr. Mix. Medical Records Medical records reviewed: Yes I reviewed the patient's medical records Medical records narrative: Reviewed medical record from ED visit on 07/24/2025. Lab Data Lab results reviewed: Yes I reviewed the patient's lab results Labs: Lab Results 07/27/25 07/27/25 Range/Units 08:32 09:40 WBC 9.14 (4.50-11.00) K/uL RBC 4.34 (4.00-5.20) m/uL Hgb 13.2 (12.0-16.0) gm/dL Hct 41.7 (33.0-51.0) % MCV 96 (80-100) fL MCH 30 (26-34) pg MCHC 32 (32-36) gm/dL RDW Coeff of Gonzalo 12.9 (11.5-15.5) % Plt Count 167 (140-440) K/uL Neut % (Auto) 83.3 H (42.0-72.0) % Lymph % (Auto) 9.6 L (20-44) % [place] % (Auto) 5.4 (0.0-11.0) % Eos % (Auto) 1.4 (0.0-7.0) % Baso % (Auto) 0.2 (0.0-3.0) % Neut # (Auto) 7.60 H (1.7-7.0) K/uL Lymph # (Auto) 0.90 (0.90-2.90) K/uL [place] # (Auto) 0.50 (0.00-0.90) K/UL Eos # (Auto) 0.13 (0.00-0.50) K/uL Baso # (Auto) 0.02 (0.00-0.30) K/uL Abs Immat Gran (auto) 0.01 (0.00-0.30) K/uL Imm/Tot Granulo (auto) 0.1 % Sodium 135 (135-149) mmol/L Potassium 3.8 (3.6-5.1) mmol/L Chloride 99 (96-114) mmol/L Carbon Dioxide 27 (20-32) mmol/L Anion Gap 9 (7-15) mEq/L BUN 23 (7-30) mg/dL Creatinine 1.3 (0.5-1.5) mg/dL Estimated GFR 44 ml/min Glucose 181 H (60-115) mg/dL Calcium 9.2 (8.4-10.6) mg/dL C-Reactive Protein 0.5 (0.5-1.0) mg/dL Urine Color Yellow (Yellow) Urine Appearance Clear (Clear) Urine pH 7.0 (5.0-8.5) Ur Specific [place] 1.020 (1.000-1.030) Urine Protein Negative (Negative) Urine Glucose (UA) Negative (Negative) Urine Ketones 1+ A (Negative) Urine Blood Negative (Negative) Urine Nitrite Negative (Negative) Urine Bilirubin Negative (Negative) Urine Urobilinogen 0.2 (0.2-1.0) Ur Leukocyte Esterase Trace A (Negative) Urine RBC 0-2 (0-2) Urine WBC 2-5 (0-5) Ur Squamous Epith Cells Few (None-Few) Urine Bacteria Few A (None) Imaging Data CT scan - abdomen: Attestation: I have reviewed the pertinent imaging results. My impression: Large stone remains at the UPJ. Radiologist's impression: Lower chest: Mild right greater than left basilar atelectasis. Small to moderate hiatal hernia. Liver: Normal in size and attenuation. No suspicious masses on a non-contrast exam . Gallbladder and bile ducts: No stones or inflammation. No biliary dilatation. Pancreas: Moderate fatty replacement of pancreas. No mass or inflammation. Spleen: Normal in size. No masses. Adrenal glands: No suspicious mass. Kidneys: Bilateral kidneys are normal in size and attenuation. Redemonstration of multiple renal calculi, largest at the lower pole of right kidney measures 11 millimeter. Similar positioning of an obstructing calculus of 11 millimeter at the left ureteropelvic junction with moderate hydronephrosis. There is increased perinephric and peripelvic fat stranding. New small volume of fluid in the left perirenal space and along ureter up to pelvic cavity. Mild presacral edema. No right-sided hydronephrosis or urinary tract calculi. Urinary bladder is moderately distended without localized wall thickening. GI tract: No bowel obstruction. Normal appendix. Colonic diverticulosis. Vasculature: Abdominal aorta is normal in caliber. Mild atherosclerosis. Lymph nodes: No lymphadenopathy. Peritoneum/Abdominal Wall: Small volume of free fluid in the perirenal space as well as along the ureter and in the left lateral pelvic cavity. No free air. Pelvis: No pelvic masses. Bones: Unremarkable for age. IMPRESSION: Stable positioning of an obstructing left UPJ calculus with moderate proximal hydroureteronephrosis. Severe perinephric fat stranding and new small volume of fluid and edema in the left perirenal space as well as along left ureter up to left lateral pelvic cavity. Finding could relate to severe obstructive nephropathy. However, ureteral perforation can not be excluded. Findings were communicated to Dr. Roberto Spencer at 10:05 a.m. on 07/27/2025. Redemonstration of nonobstructing bilateral nephrolithiasis. Small to moderate hiatal hernia. Colonic diverticulosis. Discharge Plan Discharge Clinical Impression: Left ureteral calculus, Perforation of ureter Prescriptions: No Action potassium chloride 20 mEq tablet,ER particles/crystals 20 meq PO QDAY pravastatin 80 mg tablet 80 mg PO QHS omeprazole 20 mg capsule,delayed release(DR/EC) 20 mg PO QDAY lorazepam 0.5 mg tablet 0.5 mg PO BID PRN bevacizumab 2.5 mg/0.1 mL syringe See Rx Instructions intravitreal Q8W Rx Instructions: intravitreal every 8 weeks; amlodipine 5 mg tablet 5 mg PO QDAY lisinopril-hydrochlorothiazide 20-25 mg tablet 1 tab PO QDAY ketoconazole 2 % shampoo 1 applic topical 3XW PRN duloxetine 30 mg capsule,delayed release(DR/EC) 30 mg PO DAILY amitriptyline 75 mg tablet 100 mg PO QPM clobetasol 0.05 % cream 1 applic topical QHS Qty: 45 0RF calcium carbonate 600 mg calcium (1,500 mg) tablet 1,200 mg PO QDAY trazodone 50 mg tablet 50 mg PO QPM triamcinolone acetonide 0.1 % cream 1 applic topical BID-TID cyanocobalamin (vitamin B-12) 500 mcg tablet 500 mcg PO DAILY aspirin 81 mg tablet 81 mg PO QDAY amitriptyline 100 mg tablet 100 mg PO QPM letrozole 2.5 mg tablet 2.5 mg PO QDAY Qty: 90 4RF Rx Instructions: Take one tablet daily hgijefnmne-cqibhcu-hlljxoue 50-325-40 mg tablet 1 tab PO Q4H PRN metoprolol succinate 25 mg tablet extended release 24 hr 25 mg PO DAILY acetaminophen 500 mg tablet 500 - 1,000 mg PO Q4-6H MDD 4,000 mg per day PRNQty: 100 0RF Follow Up/Referrals: Milena Trevino MD [Primary Care Provider, Family Practice]
[2025-07-27] MEDS: ONDANSETRON 2 MG/ML inj 4 MG IVP (08:30)
[2025-07-27] MEDS: MORPHINE 4 MG/ML INJ IVP (08:31)
[2025-07-27 08:41] LABS: Hematocrit* 41.7 % (33.0-51.0); Hemoglobin* 13.2 gm/dL (12.0-16.0); Immature Granulocytes Abs Auto 0.01 K/uL (0.00-0.30); Immature Granulocytes Pct Auto 0.1 %; Mean Corpuscular HGB Conc 32 gm/dL (32-36); Mean Corpuscular Hemoglobin 30 pg (26-34); Mean Corpuscular Volume 96 fL (80-100); RDW Coefficient of Variation % 12.9 % (11.5-15.5); Red Blood Count* 4.34 m/uL (4.00-5.20); White Blood Count* 9.14 K/uL (4.50-11.00)
[2025-07-27 08:42] LABS: Lymphocytes Absolute Auto 0.90 K/uL (0.90-2.90); Slide Review Reflex No
[2025-07-27] MEDS: 0.9 % SODIUM CHLORIDE 500 ML 500 ML IV (08:48)
[2025-07-27 08:53] LABS: Chloride* 99 mmol/L (96-114); Potassium* 3.8 mmol/L (3.6-5.1); Sodium* 135 mmol/L (135-149)
[2025-07-27 08:56] LABS: Anion Gap 9 mEq/L (7-15); Blood Urea Nitrogen* 23 mg/dL (7-30); Calcium* 9.2 mg/dL (8.4-10.6); Carbon Dioxide* 27 mmol/L (20-32); Creatinine* 1.3 mg/dL (0.5-1.5); Estimated Glomerular Filt Rate 44 ml/min; Glucose* 181 mg/dL (60-115)
--- NOTE | 2025-07-27 09:10 | CRLHL7_ITS ---
For Patients: As a result of the Century Cures Act, medical imaging exams and procedure reports are released immediately into your electronic medical record. You may view this report before your referring provider. If you have questions, please contact your health care provider. INDICATION: Left flank pain TECHNIQUE: CT abdomen and pelvis without contrast. COMPARISON: CT abdomen and pelvis July 24, 2025 FINDINGS: Lower chest: Mild right greater than left basilar atelectasis. Small to moderate hiatal hernia. Liver: Normal in size and attenuation. No suspicious masses on a non-contrast exam . Gallbladder and bile ducts: No stones or inflammation. No biliary dilatation. Pancreas: Moderate fatty replacement of pancreas. No mass or inflammation. Spleen: Normal in size. No masses. Adrenal glands: No suspicious mass. Kidneys: Bilateral kidneys are normal in size and attenuation. Redemonstration of multiple renal calculi, largest at the lower pole of right kidney measures 11 millimeter. Similar positioning of an obstructing calculus of 11 millimeter at the left ureteropelvic junction with moderate hydronephrosis. There is increased perinephric and peripelvic fat stranding. New small volume of fluid in the left perirenal space and along ureter up to pelvic cavity. Mild presacral edema. No right-sided hydronephrosis or urinary tract calculi. Urinary bladder is moderately distended without localized wall thickening. GI tract: No bowel obstruction. Normal appendix. Colonic diverticulosis. Vasculature: Abdominal aorta is normal in caliber. Mild atherosclerosis. Lymph nodes: No lymphadenopathy. Peritoneum/Abdominal Wall: Small volume of free fluid in the perirenal space as well as along the ureter and in the left lateral pelvic cavity. No free air. Pelvis: No pelvic masses. Bones: Unremarkable for age. IMPRESSION: Stable positioning of an obstructing left UPJ calculus with moderate proximal hydroureteronephrosis. Severe perinephric fat stranding and new small volume of fluid and edema in the left perirenal space as well as along left ureter up to left lateral pelvic cavity. Finding could relate to severe obstructive nephropathy. However, ureteral perforation can not be excluded. Findings were communicated to Dr. Roberto Spencer at 10:05 a.m. on 07/27/2025. Redemonstration of nonobstructing bilateral nephrolithiasis. Small to moderate hiatal hernia. Colonic diverticulosis. Please note that all CT scans at this facility use dose modulation, iterative reconstruction, and/or weight-based dosing when appropriate to reduce radiation dose to as low as reasonably achievable. Dictated by Daiana Bhatt MD @ 07/27/2025 10:03:52 AM (Electronically Signed)
[2025-07-27 09:47] LABS: Appearance Urine Clear (Clear)
[2025-07-27] MEDS: cefTRIAXone 1 GM in 0.9 % SODIUM CHLORIDE Mini-bag 100 ML IVPB (11:02)
== END 2025-07-27 11:41 | disposition short-term general hospital (02) ==
PROVIDERS: Emergency Provider Family Medicine; PCP Family Medicine
DX: N20.1 Calculus of ureter (principal); N28.89 Other specified disorders of kidney and ureter
CPT/HCPCS: 36415; 74176; 80048; 81001; 85025; 86140; 87086; 94761; 96361; 96365; 96375; 99285; J0696; J1885; J2270; J2405; J7030

== ENCOUNTER 2025-07-27 11:33 | Outpatient (CLI) | payer MEDICARE, BC, SELFPAY | END 2025-07-27 11:34 | disposition home or self-care (01) | LOC: AMB 07-28 03:45 | PROVIDERS: PCP Family Medicine; Visit Provider Family Medicine | DX: N28.89 Other specified disorders of kidney and ureter (principal); N20.1 Calculus of ureter | CPT/HCPCS: A0425; A0427 ==